=== PATIENT | female | born 1945 | race Caucasian/White ===

== ENCOUNTER 2024-03-24 12:22 | Outpatient (OUT) | payer MEDICARE, SELFPAY ==
--- NOTE | 2024-03-24 13:49 | P.CN_ITS ---
Consult Note: HPI Data of Consult Patient: new to practice Consult date: 03/24/24 Requesting Physician: Jani Jeffers MD Primary Care Provider: KEATON MEDEL Consult Narrative Reason for consult: low back pain, bilateral lower extremity cramps Narrative: 78yof who presents for evaluation. longstanding low back history, now has symptoms that radiate into bilateral lower extremities. had hip replacement recently, was told that pain not stemming from her hips. no advanced imaging of spine available for review. has completed physical therapy and continues in chiropractic therapy >6 weeks, without lasting benefit. has tried various pain medications and muscle relaxers, but was unable to tolerate. cannot take nsaids due to decreased kidney function. uses primarily tylenol. cc:: CC: Jani Jeffers MD Review of Systems ROS Status of ROS 10 or more systems reviewed and unremark able except as noted in history and below Exam Narrative Exam Narrative: Psych-alert and oriented x 3. Attentive and appropriate, constitutionally normal, displays normal mood and affect per situation. There are no obvious deficits in memory, reasoning, or intellect.? Skin-no obvious rashes, bruising, erythema noted to the patient's area of pain.? Extremities- extremities are warm with minimal edema and palpable pulses. Lumbar-tenderness to palpation noted in the lumbar spine and paraspinal musculature. Pain is elicited with flexion, extension, and lateral rotation of the lumbar spine. Range of motion is diminished with these motions. Facet loading maneuvers are positive.? Strength-noted to be unremarkable with the exception of decreased strength rated at 4 out of 5 in bilateral quadriceps femoris, anterior tibialis. Sensory-no notable sensory deficits in the bilateral lower extremities to touch or pinprick in all dermatomal distributions with the exception to decreased sensation to the bilateral L4, 5 dermatomal distribution Coordination remains intact.? Gait remains (non-antalgic). Assessment and Plan Assessment and Plan (1) Lumbar stenosis with neurogenic claudication: (2) Lumbar spondylosis: Plan 78yof who presents for evaluation. failed conservative measures, as noted. given symptoms and exam findings, prudent to obtain lumbar mri without contrast, as well as xr sacrum. she is in agreement. meds reviewed, no changes. follow up after imaging complete.
== END 2024-03-24 12:23 | disposition home or self-care (01) ==
PROVIDERS: PCP Internal Medicine; Visit Provider Anesthesiology
DX: M48.062 Spinal stenosis, lumbar region with neurogenic claudication (principal); M47.816 Spondylosis without myelopathy or radiculopathy, lumbar region
CPT/HCPCS: G0463

== ENCOUNTER 2024-04-01 09:37 | Outpatient (OUT) | payer MEDICARE, SELFPAY ==
--- NOTE | 2024-04-01 09:46 | MR_ITS ---
[address] [address] Patient Name: ANU STANFORD MRN: [facility]:[id number] date: 1945 Sex: F Assigned Patient Location: MRI Current Patient Location: MRI Accession/Order Number: [id number] Exam Date: 04/01/2024 10:08 Report Date: 04/01/2024 11:23 At the request of: SILAS BREWSTER Procedure: MR lumbar spine wo con EXAMINATION: MR lumbar spine wo con HISTORY: Lumbar Stenosis With Neuro Claudication COMPARISON: No relevant comparison available. TECHNIQUE: A variety of imaging planes and parameters were utilized for visualization of suspected pathology. FINDINGS: For the purposes of numbering, sagittal T2 image # 8 extends from the T10 vertebral body superiorly to the S3-S4 level inferiorly. PARASPINAL AREA: Normal with no visible mass. BONES: 2 mm retrolisthesis of L2 on L3. 4 mm retrolisthesis L3 on L4. 3 mm retrolisthesis of L4 and L5. Moderate diffuse degenerative spondylosis. No acute fracture CORD/CAUDA EQUINA: Normal caliber, contour, and signal intensity. DISC LEVELS: 12-L1: No significant disc/facet abnormality, spinal stenosis, or foraminal stenosis. L1-L2: Moderate disc space narrowing and disc desiccation. Mild diffuse disc/osteophyte complex and ligamentum flavum hypertrophy. No central or foraminal stenosis L2-L3: Disc collapse with endplate sclerosis. Moderate diffuse anterior posterior disc/osteophyte complex. Moderate ligamentum flavum hypertrophy and facet osteoarthropathy. Mild trefoil narrowing of the central canal. No definite foraminal stenosis L3-L4: Disc collapse with endplate sclerosis. Moderate diffuse disc/osteophyte complex. Ligamentum flavum hypertrophy and facet osteoarthropathy. No central canal stenosis. Moderate bilateral foraminal stenosis right greater than left L4-L5: Asymmetric disc narrowing with collapse on the right side. Moderate disc/osteophyte complex and ligamentum flavum hypertrophy and facet osteoarthropathy. Left L5 hemilaminotomy. No central canal stenosis. Severe right and moderate left foraminal stenosis L5-S1: Severe disc space narrowing. Moderate disc/osteophyte complex. Ligamentum flavum flavum hypertrophy and facet osteoarthropathy. Left L5 hemilaminotomy No central canal stenosis. Moderate to severe bilateral foraminal stenosis MR/MR lumbar spine wo con IMPRESSION: Degenerative changes resulting in foraminal stenosis at multiple levels as detailed above Electronically authenticated by: VIDAL BENAVIDES Date: 04/01/2024 11:23
--- NOTE | 2024-04-01 09:58 | XR_ITS ---
The [address] [address] Patient Name: ANU STANFORD MRN: [facility]:[id number] date: 1945 Sex: F Assigned Patient Location: MRI Current Patient Location: Accession/Order Number: [id number] Exam Date: 04/01/2024 10:55 Report Date: 04/02/2024 08:22 At the request of: ANDRIUS GIEDRAITIS Procedure: XR sacrum coccyx min 2V PROCEDURE: XR sacrum coccyx min 2V COMPARISON: None. HISTORY: Lumbar Stenosis FINDINGS: SACRUM: Mild-moderate degenerative changes of the sacroiliac joints. No fracture, disruption of the sacral ala line, or cortical irregularity. COCCYX: No fracture or suspicious alignment. SOFT TISSUES: No widening of the sacroiliac joints. No radiopaque foreign body. OTHER: Prior right hip replacement. Marked degenerative disc disease and facet arthropathy L3-4 through L5-S1. XR/XR sacrum coccyx min 2V IMPRESSION: 1. Mild/moderate degenerative changes of the sacroiliac joints. No acute abnormality of the sacrum or coccyx. 2. Marked degenerative changes of the visible lumbar spine. Electronically authenticated by: KALANI TORRES Date: 04/02/2024 08:22
== END 2024-04-01 09:38 | disposition home or self-care (01) ==
LOC: MRI 09:38
PROVIDERS: PCP Internal Medicine; Visit Provider Anesthesiology
DX: M48.062 Spinal stenosis, lumbar region with neurogenic claudication (principal); M51.36 Other intervertebral disc degeneration, lumbar region; M53.3 Sacrococcygeal disorders, not elsewhere classified
CPT/HCPCS: 72148; 72220

== ENCOUNTER 2024-04-09 10:03 | Outpatient (OUT) | payer MEDICARE, SELFPAY ==
--- NOTE | 2024-04-09 10:15 | P.CN_ITS ---
Consult Note: HPI Data of Consult Patient: new to practice Consult date: 03/24/24 Requesting Physician: Ching Wylie NP Primary Care Provider: KEATON MEDEL Consult Narrative Reason for consult: low back pain, bilateral lower extremity cramps Narrative: 78yof who presents for evaluation. longstanding low back history, now has symptoms that radiate into bilateral lower extremities. had hip replacement recently, was told that pain not stemming from her hips. has completed physical therapy and continues in chiropractic therapy >6 weeks, without lasting benefit. has tried various pain medications and muscle relaxers, but was unable to tolerate. cannot take nsaids due to decreased kidney function. uses primarily tylenol. Recently completed lumbar MRI with results as noted below. cc:: CC: Chign Wylie NP Review of Systems ROS Status of ROS 10 or more systems reviewed and unremark able except as noted in history and below Musculoskeletal Reports: back pain Meds Home Medications and Allergies Home Medications ?Medication ?Instructions ?Recorded ?Confirmed ?Type amlodipine 10 mg tablet 10 mg PO DAILY 03/24/24 03/24/24 History atorvastatin 20 mg tablet 20 mg PO DAILY 03/24/24 03/24/24 History bumetanide 2 mg tablet 2 mg PO DAILY 03/24/24 03/24/24 History cefadroxil 500 mg capsule 500 mg PO BID PRN INFECTION 03/24/24 03/24/24 History cholecalciferol (vitamin D3) 100 4,000 unit PO DAILY 03/24/24 03/24/24 History mcg (4,000 unit) capsule coQ10 (ubiquinol) 100 mg capsule 100 mg PO DAILY 03/24/24 03/24/24 History garlic 1,000 mg capsule 1,000 mg PO DAILY 03/24/24 03/24/24 History glipizide 10 mg tablet 10 mg PO DAILY 03/24/24 03/24/24 History insulin glargine 100 unit/mL 25 unit subcut DAILY 03/24/24 03/24/24 History subcutaneous solution (Lantus U-100 Insulin) losartan 25 mg tablet 25 mg PO DAILY 03/24/24 03/24/24 History lysine 500 mg capsule 50 mg .QD 03/24/24 History multivitamin 1 tab PO DAILY 03/24/24 03/24/24 History therapeutic multivitamin 1 tab PO BID 03/24/24 03/24/24 History vitamin A 2,400 mcg capsule 2,400 mcg PO DAILY 03/24/24 03/24/24 History vitamin B complex 1 cap PO DAILY 03/24/24 03/24/24 History Allergies Allergy/AdvReac Type Severity Reaction Status Date / Time gluten AdvReac Mild INTOLERANCE Verified 03/24/24 15:44 Exam Narrative Exam Narrative: Psych-alert and oriented x 3. Attentive and appropriate, constitutionally normal, displays normal mood and affect per situation. There are no obvious deficits in memory, reasoning, or intellect.? Skin-no obvious rashes, bruising, erythema noted to the patient's area of pain.? Extremities- extremities are warm with minimal edema and palpable pulses. Lumbar-tenderness to palpation noted in the lumbar spine and paraspinal musculature. Pain is elicited with flexion, extension, and lateral rotation of the lumbar spine. Range of motion is diminished with these motions. Facet load ing maneuvers are positive.? Strength-noted to be unremarkable with the exception of decreased strength rated at 4 out of 5 in bilateral quadriceps femoris, anterior tibialis. Sensory-no notable sensory deficits in the bilateral lower extremities to touch or pinprick in all dermatomal distributions with the exception to decreased sensation to the bilateral L4, 5 dermatomal distribution Coordination remains intact.? Gait remains (non-antalgic). Results Imaging Lumbar MRI: Attestation: I have reviewed the pertinent imaging results. Radiologist's impression: 12-L1: No significant disc/facet abnormality, spinal stenosis, or foraminal stenosis. L1-L2: Moderate disc space narrowing and disc desiccation. Mild diffuse disc/osteophyte complex and ligamentum flavum hypertrophy. No central or foraminal stenosis L2-L3: Disc collapse with endplate sclerosis. Moderate diffuse anterior posterior disc/osteophyte complex. Moderate ligamentum flavum hypertrophy and facet osteoarthropathy. Mild trefoil narrowing of the central canal. No definite foraminal stenosis L3-L4: Disc collapse with endplate sclerosis. Moderate diffuse disc/osteophyte complex. Ligamentum flavum hypertrophy and facet osteoarthropathy. No central canal stenosis. Moderate bilateral foraminal stenosis right greater than left L4-L5: Asymmetric disc narrowing with collapse on the right side. Moderate disc/osteophyte complex and ligamentum flavum hypertrophy and facet osteoarthropathy. Left L5 hemilaminotomy. No central canal stenosis. Severe right and moderate left foraminal stenosis L5-S1: Severe disc space narrowing. Moderate disc/osteophyte complex. Ligamentum flavum flavum hypertrophy and facet osteoarthropathy. Left L5 hemilaminotomy No central canal stenosis. Moderate to severe bilateral foraminal stenosis Assessment and Plan Assessment and Plan (1) Lumbar stenosis with neurogenic claudication: (2) Lumbar spondylosis: Plan 78yof who presents for evaluation. failed conservative measures, as noted. meds reviewed, no changes. imaging reviewed with patient. prudent to attempt bilateral L4-5 TFESI under fluoroscopy followed by bilateral L5-S1 TFESI under fluoroscopy for multilevel DDD and lumbar stenosis with NC. f/u 2 weeks after injections complete
== END 2024-04-09 10:04 | disposition home or self-care (01) ==
LOC: PM 10:04
PROVIDERS: PCP Internal Medicine; Visit Provider Nurse Practitioner
DX: M48.062 Spinal stenosis, lumbar region with neurogenic claudication (principal); M47.816 Spondylosis without myelopathy or radiculopathy, lumbar region
CPT/HCPCS: G0463

== ENCOUNTER 2024-04-28 08:50 | Day surgery (SDC) | payer MEDICARE, SELFPAY ==
--- OUTSIDE RECORDS SUMMARY | 2024-04-28 09:06 | XMS_ITS | CCD ---
Author Organization [facility] Care Team Providers Care Dental Services Director Name Role Phone ZACH, DR MARCH Consulting Unavailable HIESTAND, DR KEATON Emerson Primary Care Unavailable JIAANIC, DR MARCH Attending Unavailable STEPANIC, DR MARCH Admitting Unavailable ZIEBER, DR KALANI Cruz Consulting Unavailable Keaton Medel MD Primary Care Provider YESIKA WARD Attending Unavailable YESIKA WARD Referring Unavailable KEATON MEDEL Admitting Unavailable KEATON MEDEL Attending Unavailable KEATON MEDEL Referring Unavailable KEATON MEDEL Primary Care Unavailable KEATON MEDEL Attending Unavailable KEATON MEDEL Referring Unavailable KEATON MEDEL Primary Care Unavailable KEATON MEDEL Attending Unavailable KEATON MEDEL Referring Unavailable KEATON MEDEL Primary Care Unavailable KEATON MEDEL Referring Unavailable KEATON MEDEL Primary Care Unavailable KEATON MEDEL Referring Unavailable KEATON MEDEL Primary Care Unavailable KEATON MEDEL Referring Unavailable KEATON MEDEL Primary Care Unavailable KEATON MEDEL Attending Unavailable KEATON MEDEL Referring Unavailable KEATON MEDEL Primary Care Unavailable MUSA GIL Referring Unavailable HIESTKEATON PALOMO Primary Care Unavailable MUSA GIL Referring Unavailable HIESTKEATON PALOMO Primary Care Unavailable Zeyad EDWARDS, Jani Sorto Attending Unavailable KEATON MEDEL Attending Unavailable KEATON MEDEL Referring Unavailable KEATON MEDEL Primary Care Unavailable KEATON MEDEL Attending Unavailable KEATON MEDEL Referring Unavailable KEATON MEDEL Primary Care Unavailable KEATON MEDEL Attending Unavailable KEATON MEDEL Referring Unavailable KEATON MEDEL Primary Care Unavailable KEATON MEDEL Attending Unavailable KEATON MEDEL Referring Unavailable SCOTTYESTKEATON PALOMO Primary Care Unavailable Allergies Allergy Classification Reported Allergen(s) Allergy Type Date of Onset Reaction(s) Facility (12 sources) Codeine; 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: [CODEINE] Drug Allergy 05-10-2021 Dizziness, Nausea [facility] (12 sources) gabapentin; 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: [GABAPENTIN] Drug Allergy 10-22-[address] [facility] (12 sources) tiZANidine; 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: [TIZANIDINE] Drug Allergy 04-19-[address] [facility] (12 sources) traMADol; 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: [TRAMADOL] Drug Allergy 01-10-2018 Itching, Dizziness, Vomiting [facility] Work Phone: (12 sources) Wheat gluten extract; 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: [GLUTEN] Drug Allergy 12-01-[address] [facility] Medications Current Medications Medication Drug Class(es) Dates Sig (Normalized) Sig (Original) acetaminophen 500 mg oral tablet (10 sources) Start: 01-02-2022 take 2 tablets by mouth every six hours as needed for pain acetaminophen (TYLENOL EXTRA STRENGTH) 500 mg tablet Take 2 tablets (1,000 mg total) by mouth every 6 (six) hours as needed for pain. 30 tablet 0 01/02/2022 Active amLODIPine 5 mg oral tablet (10 sources) Dihydropyridine Calcium Channel Abran Start: 03-02-2023 take 1 tablet by mouth in the morning amLODIPine (NORVASC) 5 mg tablet TAKE 1 TABLET BY MOUTH IN THE MORNING 90 tablet 2 03/02/2023 Active atorvastatin 20 mg oral tablet (10 sources) HMG-CoA Reductase Inhibitor Start: 01-09-2023 take 1 tablet by mouth in the morning atorvastatin (LIPITOR) 20 mg tablet Take 1 tablet (20 mg total) by mouth in the morning. 90 tablet 3 01/09/2023 Active B-complex with vitamin C tablet (10 sources) take 1 tablet by mouth in the morning B-complex with vitamin C tablet Take 1 tablet by mouth in the morning. 0 Suspended take 1 tablet by mouth in the mo rning B-complex with vitamin C tablet Take 1 tablet by mouth in the morning. 0 Active benzonatate 200 mg oral capsule (7 sources) Non-narcotic Antitussive Start: 11-28-2023 End: 12-10-2023 take 1 capsule by mouth three times daily as needed for cough benzonatate (TESSALON PERLES) 200 mg capsule Take 1 capsule (200 mg total) by mouth 3 (three) times a day as needed for cough. 20 capsule 0 11/28/2023 12/10/2023 Discontinued bumetanide 2 mg oral tablet (12 sources) Loop Diuretic Start: 12-10-2023 take 1 tablet by mouth once daily bumetanide (BUMEX) 2 mg tablet Take 1 tablet (2 mg total) by mouth daily. 90 tablet 3 12/10/2023 Active Start: 11-08-2022 End: 12-10-2023 take 1 tablet by mouth once daily bumetanide (BUMEX) 1 mg tablet Take 1 tablet (1 mg total) by mouth daily. 90 tablet 0 09/20/2023 12/10/2023 Discontinued (Reorder) cefdinir 300 mg oral capsule (6 sources) Cephalosporin Antibacterial Start: 12-07-2023 End: 12-12-2023 take 1 capsule by mouth in the morning, then take 1 capsule by mouth at bedtime cefDINIR (OMNICEF) 300 mg capsule Take 1 capsule (300 mg total) by mouth in the morning and 1 capsule (300 mg total) before bedtime. Do all this for 5 days. 10 capsule 0 12/07/2023 12/12/2023 Active Start: 11-28-2023 End: 12-05-2023 take 1 capsule by mouth in the morning, then take 1 capsule by mouth at bedtime cefDINIR (OMNICEF) 300 mg capsule Take 1 capsule (300 mg total) by mouth in the morning and 1 capsule (300 mg total) before bedtime. Do all this for 7 days. 14 capsule 0 11/28/2023 12/05/2023 Active cholecalciferol 0.05 mg oral capsule (10 sources) Vitamin D take 1 capsule by mouth in the morning cholecalciferol, vitamin D3, 2,000 units capsule Take 1 capsule (2,000 Units total) by mouth in the morning. 0 Active cranberry conc-ascorbic acid 4,200-20 mg capsule (10 sources) take 1 capsule by mouth in the morning cranberry conc-ascorbic acid 4,200-20 mg capsule Take 1 capsule by mouth in the morning and 1 capsule before bedtime. 0 Suspended take 1 capsule by mouth in the m orning cranberry conc-ascorbic acid 4,200-20 mg capsule Take 1 capsule by mouth in the morning and 1 capsule before bedtime. 0 Active garlic preparation 1000 mg oral capsule (10 sources) Non-Standardized Food Allergenic Extract take 1 tablet by mouth once daily garlic 1,000 mg capsule Take 1 tablet by mouth daily. 0 Suspended take 1 tablet by mouth once yesenia y garlic 1,000 mg capsule Take 1 tablet by mouth daily. 0 Active glipiZIDE er 10 mg 24 hr extended release oral tablet (10 sources) Sulfonylurea Start: 01-18-2023 take 1 tablet by mouth every twenty-four hours in the morning glipiZIDE (GLUCOTROL XL) 10 mg 24 hr tablet TAKE 1 TABLET BY MOUTH IN THE MORNING 90 tablet 3 01/18/2023 Active 3 ml insulin glargine 100 unt/ml pen injector (5 sources) Insulin Analog Start: 12-06-2023 insulin glargine (LANTUS SOLOSTAR U-100 INSULIN) 100 unit/mL (3 mL) insulin pen Inject 25 Units under the skin nightly. 24 mL 3 12/06/2023 Active losartan potassium 100 mg oral tablet (10 sources) Angiotensin 2 Receptor Abran Start: 08-20-2023 take 1 tablet by mouth in the morning losartan (COZAAR) 100 mg tablet Take 1 tablet (100 mg total) by mouth in the morning. 90 tablet 3 08/20/2023 Active lysine 500 mg oral tablet (10 sources) take 1 tablet by mouth in the morning lysine 500 mg tablet Take 1 tablet (500 mg total) by mouth in the morning. 0 Active meclizine hydrochloride 25 mg oral tablet (9 sources) Antiemetic Start: 11-28-2023 End: 11-28-2023 take 1 tablet by mouth three times daily as needed for dizziness meclizine (ANTIVERT) 25 mg tablet Take 1 tablet (25 mg total) by mouth 3 (three) times a day as needed for dizziness. 15 tablet 0 11/28/2023 Active multivitamin (THERAGRAN) tablet (10 sources) take 1 tablet by mouth in the morning multivitamin (THERAGRAN) tablet Take 1 tablet by mouth in the morning. 0 Suspended take 1 tablet by mouth in the mo rning multivitamin (THERAGRAN) tablet Take 1 tablet by mouth in the morning. 0 Active NON FORMULARY (10 sources) NON FORMULARY da susan. [place] Beet- red beet supplement for circulation 0 Suspended NON FORMULARY da susan. [place] Beet- red beet supplement for circulation 0 Active ubidecarenone 30 mg oral capsule (9 sources) End: 12-10-2023 take 1 capsule by mouth once in the morning coenzyme Q10 30 mg capsule Take 1 capsule (30 mg total) by mouth in the morning. 0 12/10/2023 Discontinued Completed/Discontinued Medications Medication Drug Class(es) Dates Sig (Normalized) Sig (Original) cefadroxil 500 mg oral capsule (3 sources) Cephalosporin Antibacterial Start: 07-04-2023 End: 06-25-2024 cefaDROXil (DURICEF) 500 mg capsule 1 tablet twice a day, for 5 days. Start for sign of infection. 60 capsule 0 07/04/2023 11/28/2023 Discontinued (Stop Taking at Discharge) insulin glargine,hum.rec. anlog (LANTUS SOLOSTAR U-100 INSULIN SUBQ) (6 sources) End: 12-06-2023 inject 25 [IU] by subcutaneous injection once daily at bedtime insulin glargine,hum.rec.a nlog (LANTUS SOLOSTAR U-100 INSULIN SUBQ) Inject 25 Units under the skin once daily at bedtime. 0 12/06/2023 Discontinued (Reorder) inject 25 [IU] by cortez bcutaneous injection once daily at bedtime insulin glargine,hum.rec.anlog (LANTUS SOLOSTAR U-100 INSULIN SUBQ) Inject 25 Units under the skin once daily at bedtime. 0 Active inject 25 [IU] by cortez bcutaneous injection once daily at bedtime insulin glargine,hum.rec.anlog (LANTUS SOLOSTAR U-100 INSULIN SUBQ) Inject 25 Units under the skin once daily at bedtime. 0 Suspended insulin glargine ,hum.rec.anlog (LANTUS SOLOSTAR U-100 INSULIN SUBQ) Inject under the skin. 0 Active metFORMIN hydrochloride 500 mg oral tablet (10 sources) Biguanide Start: 01-31-2023 End: 12-11-2023 take 1 tablet by mouth twice daily at mealtime metFORMIN (GLUCOPHAGE) 500 mg tablet TAKE 1 TABLET BY MOUTH TWICE DAILY WITH MEALS 180 tablet 3 01/31/2023 12/11/2023 Discontinued ondansetron 4 mg oral tablet (3 sources) Serotonin-3 Receptor Antagonist Start: 04-24-2023 End: 11-28-2023 take 1 tablet by mouth every eight hours as needed for nausea ondansetron (ZOFRAN) 4 mg tablet Indications: Vertigo Take 1 tablet (4 mg total) by mouth every 8 (eight) hours as needed for nausea or vomiting. 10 tablet 0 04/24/2023 11/28/2023 Discontinued (Stop Taking at Discharge) Problems Active Problems Problem Classification Problem Date Documented Date Episodic/Chronic Chronic kidney disease (13 sources) Chronic kidney disease stage 4; 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: [Chronic kidney disease, stage 4 (severe)] Onset: 11-10-2020 11-28-2022 Chronic Chronic obstructive pulmonary disease and bronchiectasis (1 source) Bronchitis; 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: [Bronchitis, not specified as acute or chronic] 11-30-2023 Episodic Diabetes mellitus with complications (14 sources) Retinopathy due to type 2 diabetes mellitus; 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: [Type 2 diabetes mellitus with unspecified diabetic retinopathy without macular edema] Onset: 11-10-2020 11-11-2021 Chronic Diabetes mellitus without complication (10 sources) Diabetes mellitus; 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: [Type 2 diabetes mellitus without complications] 11-10-2020 Chronic Disorders of lipid metabolism (12 sources) Hypercholesterolemia; 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: [Pure hypercholesterolemia, unspecified] Onset: 11-10-2020 11-10-2020 Chronic Essential hypertension (11 sources) Hypertensive disorder; 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: [Essential (primary) hypertension] Onset: 11-10-2020 11-10-2020 Chronic Genitourinary symptoms and ill-defined conditions (10 sources) Urinary incontinence; 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: [Unspecified urinary incontinence] Onset: 06-25-2019 06-25-2019 Chronic Malaise and fatigue (1 source) Other fatigue; 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: [Other fatigue] Onset: 01-03-2024 Episodic Osteoarthritis (4 sources) Unilateral primary osteoarthritis, right hip; 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: [UNI PRIM OSTEOARTHRITIS RT HIP] Onset: 08-15-2021 Chronic Other circulatory disease (1 source) Other specified symptoms and signs involving the circulatory and respiratory systems; 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: [Other specified symptoms and signs involving the circulatory and respiratory systems] Onset: 01-04-2024 Episodic Other connective tissue disease (1 source) Foot pain; 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: [Pain in right foot] 11-30-2023 Episodic Other nutritional; endocrine; and metabolic disorders (10 sources) Body mass index 40+ - severely obese; 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: [Body mass index (BMI) 40.0-44.9, adult] Onset: 12-01-2020 12-01-2020 Chronic Other nutritional; endocrine; and metabolic disorders (1 source) Body mass index (BMI) 40.0-44.9, adult; 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: [Body mass index (BMI) 40.0-44.9, adult] Onset: 12-01-2020 Chronic Other upper respiratory infections (1 source) Acute sinusitis, unspecified; 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: [Acute sinusitis, unspecified] Onset: 04-22-2024 Episodic Spondylosis; intervertebral disc disorders; other back problems (10 sources) Lumbosacral spondylosis without myelopathy; 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: [Spondylosis without myelopathy or radiculopathy, lumbosacral region] Onset: 07-05-2017 08-21-2017 Chronic Unclassified (1 source) Annual Exam Onset: 01-02-2024 Unclassified (1 source) transition of care Onset: 11-30-2023 Unclassified (1 source) Earache Onset: 11-26-2023 Past or Other Problems Problem Classification Problem Date Documented Da te Episodic/Chronic Conditions associated with dizziness or vertigo (13 sources) Vertigo; 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: [Dizziness and giddiness] Onset: 11-26-2023 11-26-2023 Episodic Genitourinary symptoms and ill-defined conditions (20 sources) Microscopic hematuria; 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: [Other microscopic hematuria] Onset: 07-18-2019 06-27-2021 Episodic Intestinal obstruction without hernia (10 sources) Fecal impaction; 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: [Fecal impaction] Onset: 01-02-2022 01-02-2022 Episodic Mood disorders (10 sources) Mood disorders Onset: 11-26-2022 11-26-2022 Other aftercare (2 sources) USP (current) use of insulin; 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: [financial services assistant (current) use of insulin] Onset: 11-10-2020 Episodic Other connective tissue disease (1 source) Pain in right foot; 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: [Pain in right foot] Onset: 11-30-2023 Episodic Other lower respiratory disease (1 source) Cough Onset: 11-26-2023 Episodic Other non-traumatic joint disorders (10 sources) Pain in right hip joint; 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: [Pain in right hip] Onset: 12-26-2021 12-26-2021 Episodic Otitis media and related conditions (3 sources) Acute suppurative otitis media without spontaneous rupture of ear drum; 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: [Acute suppurative otitis media without spontaneous rupture of ear drum, right ear] Onset: 11-26-2023 11-26-2023 Episodic Spondylosis; intervertebral disc disorders; other back problems (10 sources) Disorder of sacrum; 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: [Sacrococcygeal disorders, not elsewhere classified] Onset: 06-12-2017 10-16-2017 Episodic Urinary tract infections (10 sources) Recurrent urinary tract infection; 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: [Urinary tract infection, site not specified] Onset: 08-14-2018 07-04-2023 Episodic Results Test Name Value Interpretation Reference Range Facil it BASIC METABOLIC PANLon 03-21 Anion gap [Moles/Vol] 12 mmol/L Normal 5-15 [facility] Comment on above: Performed By: #### C MP #### [facility] ([id number]) [address] [place] [address] 60392 Calcium [Mass/Vol] 9.7 mg/dL Normal 8.5-10.5 [facility] Comment on above: Performed By: #### C MP #### [facility] ([id number]) [address] [place] [address] 99515 Chloride [Moles/Vol] 105 mmol/L Normal 98-109 [facility] Comment on above: Performed By: #### C MP #### [facility] ([id number]) [address] [place] [address] 12266 CO2 [Moles/Vol] 25 mmol/L Normal 22-32 [facility] Comment on above: Performed By: #### C MP #### [facility] ([id number]) [address] [place] [address] Creatinine [Mass/Vol] 2.61 mg/dL High 0.40-1.00 [facility] Comment on above: Result Comment: METH OD TRACEABLE TO IDMS STANDARD Performed By: #### C MP #### [facility] ([id number]) [address] [place] [address] 56632 GFR/1.73 sq M.predicted among non-blacks MDRD (S/P/Bld) [Vol rate/Area] 18 mL/min/{1.73_m2} Low >59 [facility] Comment on above: Result Comment: Reported eGFR is based on the CKD-EPI 2020 equation that does not use a race coefficient. Performed By: #### C MP #### [facility] ([id number]) [address] [place] [address] 03215 Glucose [Mass/Vol] 103 mg/dL High 65-99 [facility] Comment on above: Performed By: #### C MP #### [facility] ([id number]) [address] [place] [address] 78162 Potassium [Moles/Vol] 4.7 mmol/L Normal 3.5-5.0 [facility] Comment on above: Performed By: #### C MP #### [facility] ([id number]) [address] [place] [address] 25600 Sodium [Moles/Vol] 142 mmol/L Normal 134-146 [facility] Comment on above: Performed By: #### C MP #### [facility] ([id number]) [address] [place] [address] 48266 Urea nitrogen [Mass/Vol] 43 mg/dL High 5-27 [facility] Comment on above: Performed By: #### C MP #### [facility] ([id number]) [address] [place] [address] 52431 COMPLETE BLOOD COUNTon 03-21 Erythrocyte distribution width (RBC) [Ratio] 13.3 % Normal 11.5-15.0 [facility] Comment on above: Performed By: #### C MP #### [facility] ([id number]) [address] [place] [address] 82502 Hematocrit (Bld) [Volume fraction] 34.1 % Low 35-47 [facility] Comment on above: Performed By: #### C MP #### [facility] ([id number]) [address] [place] [address] 83261 Hemoglobin (Bld) [Mass/Vol] 11.7 g/dL Normal 11.7-15.5 [facility] Comment on above: Performed By: #### C MP #### [facility] ([id number]) [address] [place] [address] 09386 MCH (RBC) [Entitic mass] 30.9 pg Normal 27-34 [facility] Comment on above: Performed By: #### C MP #### [facility] ([id number]) [address] [place] [address] 33022 MCHC (RBC) [Mass/Vol] 34.4 g/dL Normal 32-36 [facility] Comment on above: Performed By: #### C MP #### [facility] ([id number]) [address] [place] [address] 13624 MCV (RBC) [Entitic vol] 90 fL Normal 80-100 [facility] Comment on above: Performed By: #### C MP #### [facility] ([id number]) [address] [place] [address] 94519 Platelet mean volume (Bld) [Entitic vol] 8.4 fL Normal 7-12 [facility] Comment on above: Performed By: #### C MP #### [facility] ([id number]) [address] [place] [address] 74837 Platelets (Bld) [#/Vol] 255 10*3/uL Normal 150-450 [facility] Comment on above: Performed By: #### C MP #### [facility] ([id number]) [address] [place] [address] 64066 RBC COUNT 3.80 X10E12/L Normal 3.80-5.20 [facility] Comment on above: Performed By: #### C MP #### [facility] ([id number]) [address] [place] [address] 57488 WBC (Bld) [#/Vol] 7.9 10*3/uL Normal 4.0-11.0 [facility] Comment on above: Performed By: #### C MP #### [facility] ([id number]) [address] [place] [address] 01930 MAGNESIUMon 03-21-2024 Magnesium [Mass/Vol] 1.8 mg/dL Normal 1.8-2.6 [facility] Comment on above: Performed By: #### C MP #### [facility] ([id number]) [address] [place] [address] 93368 PHOSPHORUSon 03-21-2024 Phosphate [Mass/Vol] 4.0 mg/dL Normal 2.4-4.9 [facility] Comment on above: Performed By: #### C MP #### [facility] ([id number]) [address] [place] [address] 58549 PROTEIN CREAT RATIOon 2023 RANDOM URINE PROTEIN 3770 mg/L High <120 [facility] Comment on above: Performed By: #### C MP #### [facility] ([id number]) [address] [place] [address] 78831 U/PRO/INSURANCE TERRITORY MANAGER RATIO CALC 2.26 High <0.2 [facility] Comment on above: Result Comment: Neph rotic Syndrome is associated with ratios >3.5 Performed By: #### C MP #### [facility] ([id number]) [address] [place] [address] 62839 URINE CREATININE,RDM 166.75 mg/dL Normal Pr [facility] Comment on above: Performed By: #### C MP #### [facility] ([id number]) [address] [place] [address] 73080 Parathyrin.intact [Mass/Vol] on 03-21-2024 PTH INTACT 123 pg/mL High [facility] Comment on above: Performed By: #### C MP #### [facility] ([id number]) [address] [place] [address] 76031 URINALYSISon 03-21-2024 Bilirubin Ql (U) Negative Normal NEG [facility] Comment on above: Performed By: #### C MP #### [facility] ([id number]) [address] [place] [address] 08117 BLOOD/HGB Negative Normal NEG [facility] Comment on above: Performed By: #### C MP #### [facility] ([id number]) [address] [place] [address] 37916 Color (U) YELLOW Normal YELLOW [facility] Comment on above: Performed By: #### C MP #### [facility] ([id number]) [address] [place] [address] 47764 Glucose Ql (U) 30 mg/dL Abnormal NEG [facility] Comment on above: Performed By: #### C MP #### [facility] ([id number]) [address] [place] [address] 85757 Hyaline casts LM Ql (Urine sed) 1 /lpf Normal 0-2 [facility] Comment on above: Performed By: #### C MP #### [facility] ([id number]) [address] [place] [address], [place] [address] Ketones Ql (U) Negative Normal NEG [facility] Comment on above: Performed By: #### C MP #### [facility] ([id number]) [address] [place] [address] 23997 Leukocyte esterase Test strip Ql (U) MODERATE Abnormal NEG [facility] Comment on above: Performed By: #### C MP #### [facility] ([id number]) [address] [place] [address] 01878 MUCOUS PRESENT Abnormal NONE [facility] Comment on above: Performed By: #### C MP #### [facility] ([id number]) [address] [place] [address] 63995 Nitrite Ql (U) Negative Normal NEG [facility] Comment on above: Performed By: #### C MP #### [facility] ([id number]) [address] [place] [address] 74277 pH (U) 6.0 [pH] Normal 5.0-8.5 [facility] Comment on above: Performed By: #### C MP #### [facility] ([id number]) [address] [place] [address] 07318 Protein Ql (U) 300 mg/dL Abnormal NEG [facility] Comment on above: Performed By: #### C MP #### [facility] ([id number]) [address] [place] [address] 48991 R.B.CELLS 2 /hpf Normal 0-5 [facility] Comment on above: Performed By: #### C MP #### [facility] ([id number]) [address] [place] [address] 45228 Specific gravity (U) [Rel density] 1.020 Normal 1.003-1.035 [facility] Comment on above: Performed By: #### C MP #### [facility] ([id number]) [address] [place] [address] 41880 SQUAMOUS EPITHELIUM 2 /hpf Normal 0-5 [facility] Comment on above: Performed By: #### C MP #### [facility] ([id number]) [address] [place] [address] 14313 TURBIDITY CLEAR Normal CLEAR [facility] Comment on above: Performed By: #### C MP #### [facility] ([id number]) [address] [place] [address] [place] [address] Urobilinogen (U) [Mass/Vol] mg/dL Normal <1.1 [facility] Comment on above: Performed By: #### C MP #### [facility] ([id number]) [address] [place] [address] 62985 W.B.CELLS 24 /hpf High 0-5 [facility] Comment on above: Performed By: #### C MP #### [facility] ([id number]) [address] [place] [address] 62263 Vitamin D+Metabolites [Mass/ Vol]on 03-21-2024 VITAMIN D 25 HYD TOT 28.1 ng/mL Low 30-100 [facility] Comment on above: Result Comment: Vitamin D status 25 [place] Vitamin D Deficiency <20 ng/mL Insufficiency 20-29 ng/mL Sufficiency 30-100 ng/mL Toxicity >100 ng/mL NOTE: A pediatric reference range has not been established by the folder machine operator of this kit. The [employer] recommends a Vitamin D level of = or >20ng/mL in infants and children. Performed By: #### C MP #### [facility] ([id number]) [address] [place] [address] 22492 BASIC METABOLIC PANLon 03-07 Anion gap [Moles/Vol] 10 mmol/L Normal 5-15 [facility] Comment on above: Performed By: #### C BC, UPCR, BMP, 36192-0, 2777-1, 2731-8, 49085-9 ####[facility] ([id number])[address] [place] [address] Calcium [Mass/Vol] 9.6 mg/dL Normal 8.5-10.5 [facility] Comment on above: Performed By: #### C BC, UPCR, BMP, 32135-8, 2777-1, 2731-8, 88021-2 ####[facility] ([id number])[address] [address], [place] [address] Chloride [Moles/Vol] 102 mmol/L Normal 98-109 [facility] Comment on above: Performed By: #### C BC, UPCR, BMP, 41265-5, 2777-1, 2731-8, 43255-4 ####[facility] ([id number])[address] [address], [place] [address] CO2 [Moles/Vol] 28 mmol/L Normal 22-32 [facility] Comment on above: Performed By: #### C BC, UPCR, BMP, 14941-4, 2777-1, 2731-8, 69401-4 ####[facility] ([id number])[address] [address] [place] [address] Creatinine [Mass/Vol] 3.34 mg/dL High 0.40-1.00 [facility] Comment on above: Result Comment: METH OD TRACEABLE TO IDMS STANDARD Performed By: #### C BC, UPCR, BMP, 25850-3, 2777-1, 2731-8, 99284-8 ####[facility] ([id number])[address] [address], [place] [address] GFR/1.73 sq M.predicted among non-blacks MDRD (S/P/Bld) [Vol rate/Area] 14 mL/min/{1.73_m2} Low >59 [facility] Comment on above: Result Comment: Reported eGFR is based on the CKD-EPI 2020 equation that does not use a race coefficient. Performed By: #### C BC, UPCR, BMP, 03750-7, 2777-1, 2731-8, 29553-1 ####[facility] ([id number])[address], [address], [place] [address] Glucose [Mass/Vol] 166 mg/dL High 65-99 [facility] Comment on above: Performed By: #### C BC, UPCR, BMP, 72913-0, 2777-1, 2731-8, 01278-4 ####[facility] ([id number])[address], [address] [place] [address] Potassium [Moles/Vol] 5.3 mmol/L High 3.5-5.0 [facility] Comment on above: Performed By: #### C BC, UPCR, BMP, 40025-9, 2777-1, 2731-8, 42503-5 ####[facility] ([id number])[address], [address] [place] [address] Sodium [Moles/Vol] 140 mmol/L Normal 134-146 [facility] Comment on above: Performed By: #### C BC, UPCR, BMP, 63397-6, 2777-1, 2731-8, 96053-3 ####[facility] ([id number])[address], [address] [place] [address] Urea nitrogen [Mass/Vol] 46 mg/dL High 5-27 [facility] Comment on above: Performed By: #### C BC, UPCR, BMP, 49520-6, 2777-1, 2731-8, 96058-6 ####[facility] ([id number])[address], [address] [place] [address] COMPLETE BLOOD COUNTon 03-07 Erythrocyte distribution width (RBC) [Ratio] 13.4 % Normal 11.5-15.0 [facility] Comment on above: Performed By: #### C BC, UPCR, BMP, 66986-2, 2777-1, 2731-8, 94337-4 ####[facility] ([id number])[address], [address] [place] [address] Hematocrit (Bld) [Volume fraction] 35.7 % Normal 35-47 [facility] Comment on above: Performed By: #### C BC, UPCR, BMP, 47389-4, 2777-1, 2731-8, 49333-4 ####[facility] ([id number])[address] [address] [place] [address] Hemoglobin (Bld) [Mass/Vol] 12.0 g/dL Normal 11.7-15.5 [facility] Comment on above: Performed By: #### C BC, UPCR, BMP, 17395-1, 2777-1, 2731-8, 29830-2 ####[facility] ([id number])[address] [address] [place] [address] MCH (RBC) [Entitic mass] 30.5 pg Normal 27-34 [facility] Comment on above: Performed By: #### C BC, UPCR, BMP, 02085-3, 2777-1, 2731-8, 30305-7 ####[facility] ([id number])[address] [address] [place] [address] MCHC (RBC) [Mass/Vol] 33.6 g/dL Normal 32-36 [facility] Comment on above: Performed By: #### C BC, UPCR, BMP, 62044-9, 2777-1, 2731-8, 59643-0 ####[facility] ([id number])[address] [address] [place] [address] MCV (RBC) [Entitic vol] 91 fL Normal 80-100 [facility] Comment on above: Performed By: #### C BC, UPCR, BMP, 28581-6, 2777-1, 2731-8, 66487-8 ####[facility] ([id number])[address] [address], [place] [address] Platelet mean volume (Bld) [Entitic vol] 9.2 fL Normal 7-12 [facility] Comment on above: Performed By: #### C BC, UPCR, BMP, 30243-6, 2777-1, 2731-8, 79731-9 ####[facility] ([id number])[address] [address], [place] [address] Platelets (Bld) [#/Vol] 268 10*3/uL Normal 150-450 [facility] Comment on above: Performed By: #### C BC, UPCR, BMP, 28459-9, 2777-1, 2731-8, 18322-2 ####[facility] ([id number])[address] [address], [place] [address] RBC COUNT 3.92 X10E12/L Normal 3.80-5.20 [facility] Comment on above: Performed By: #### C BC, UPCR, BMP, 03688-3, 2777-1, 2731-8, 19256-9 ####[facility] ([id number])[address] [address] [place] [address] WBC (Bld) [#/Vol] 6.9 10*3/uL Normal 4.0-11.0 [facility] Comment on above: Performed By: #### C BC, UPCR, BMP, 45504-4, 2777-1, 2731-8, 93002-5 ####[facility] ([id number])[address], [address], [place] [address] MAGNESIUMon 03-07-2024 Magnesium [Mass/Vol] 2.1 mg/dL Normal 1.8-2.6 [facility] Comment on above: Performed By: #### C BC, UPCR, BMP, 90374-5, 2777-1, 2731-8, 98418-0 ####[facility] ([id number])[address], [address] [place] [address] PHOSPHORUSon 03-07-2024 Phosphate [Mass/Vol] 4.4 mg/dL Normal 2.4-4.9 [facility] Comment on above: Performed By: #### C BC, UPCR, BMP, 42235-8, 2777-1, 2731-8, 49439-0 ####[facility] ([id number])[address], [address] [place] [address] PROTEIN CREAT RATIOon 2023 RANDOM URINE PROTEIN 1860 mg/L High <120 [facility] Comment on above: Performed By: #### C BC, UPCR, BMP, 80052-1, 2777-1, 2731-8, 20895-5 ####[facility] ([id number])[address], [address] [place] [address] U/PRO/INSURANCE TERRITORY MANAGER RATIO CALC 1.72 High <0.2 [facility] Comment on above: Result Comment: Neph rotic Syndrome is associated with ratios >3.5 Performed By: #### C BC, UPCR, BMP, 98268-4, 2777-1, 2731-8, 55001-1 ####[facility] ([id number])[address], [address] [place] [address] URINE CREATININE,RDM 108.20 mg/dL Normal [facility] Comment on above: Performed By: #### C BC, UPCR, BMP, 62918-1, 2777-1, 2731-8, 59015-2 ####[facility] ([id number])[address], [address], [place] [address] Parathyrin.intact [Mass/Vol] on 03-07-2024 PTH INTACT 155 pg/mL High 12 [facility] Comment on above: Performed By: #### C BC, UPCR, BMP, 73002-2, 2777-1, 2731-8, 90640-5 ####[facility] ([id number])[address], [address], [place] [address] URINALYSISon 03-07-2024 Bilirubin Ql (U) Negative Normal NEG [facility] Comment on above: Performed By: #### U A ####[facility] ([id number])[address], [address], [place] [address] BLOOD/HGB Negative Normal NEG [facility] Comment on above: Performed By: #### U A ####[facility] ([id number])[address], [address], [place] [address] Color (U) YELLOW Normal YELLOW [facility] Comment on above: Performed By: #### U A ####[facility] ([id number])[address], [address], [place] [address] Glucose Ql (U) Negative Normal NEG [facility] Comment on above: Performed By: #### U A ####[facility] ([id number])[address], [address], [place] [address] Ketones Ql (U) Negative Normal NEG [facility] Comment on above: Performed By: #### U A ####[facility] ([id number])[address], [address], [place] [address] Leukocyte esterase Test strip Ql (U) Small Abnormal NEG [facility] Comment on above: Performed By: #### U A ####[facility] ([id number])[address], [address] [place] [address] MUCOUS PRESENT Abnormal NONE [facility] Comment on above: Performed By: #### U A ####[facility] ([id number])[address], [address], [place] [address] Nitrite Ql (U) Negative Normal NEG [facility] Comment on above: Performed By: #### U A ####[facility] ([id number])[address], [address] [place] [address] pH (U) 6.5 [pH] Normal 5.0-8.5 [facility] Comment on above: Performed By: #### U A ####[facility] ([id number])[address], [address] [place] [address] Protein Ql (U) 300 mg/dL Abnormal NEG [facility] Comment on above: Performed By: #### U A ####[facility] ([id number])[address] [address] [place] [address] R.B.CELLS <1 Normal 0-5 [facility] Comment on above: Performed By: #### U A ####[facility] ([id number])[address] [address] [place] [address] Specific gravity (U) [Rel density] 1.014 Normal 1.003-1.035 [facility] Comment on above: Performed By: #### U A ####[facility] ([id number])[address] [address] [place] [address] SQUAMOUS EPITHELIUM <1 Normal 0-5 [facility] Comment on above: Performed By: #### U A ####[facility] ([id number])[address] [address] [address] TURBIDITY CLEAR Normal CLEAR [facility] Comment on above: Performed By: #### U A ####[facility] ([id number])[address] [address], [place] [address] Urobilinogen (U) [Mass/Vol] mg/dL Normal <1.1 [facility] Comment on above: Performed By: #### U A ####[facility] ([id number])[address] [facility] [address], [place] [address] W.B.CELLS 6 /hpf High 0-5 [facility] Comment on above: Performed By: #### U A ####[facility] ([id number])[address] [facility] [address], [place] [address] Vitamin D+Metabolites [Mass/ Vol]on 03-07-2024 VITAMIN D 25 HYD TOT 27.2 ng/mL Low 30-100 [facility] Comment on above: Result Comment: Vitamin D status 25 [place] Vitamin D Deficiency <20 ng/mL Insufficiency 20-29 ng/mL Sufficiency 30-100 ng/mL Toxicity >100 ng/mL NOTE: A pediatric reference range has not been established by the folder machine operator of this kit. The [employer] [employer] recommends a Vitamin D level of = or >20ng/mL in infants and children. Performed By: #### C MP #### [facility] ([id number]) [address] [place] [address] HGB A1C (GLYCO-HGB)on 2023 Glucose [Mass/Vol] 169 mg/dL Normal [facility] Comment on above: Performed By: #### 2 4331-1, THYR ####[facility] ([id number])[address] [facility] [address], [place] [address] HbA1c (Bld) [Mass fraction] 7.5 % High 4.4-5.6 [facility] Comment on above: Result Comment: NOTE ADA Guidelines Result HgbA1c Normal : less than 5.7 % Prediabetes : 5.7 % to 6.4 % Diabetes : > 6.4 % Use with caution in patients with abnormal hemoglobin variants as the half-life of red blood cells and in vivo glycation rates are affected. Performed By: #### 2 4331-1, THYR ####[facility] ([id number])[address], [address] [address] Lipid 1996 panelon 4 Cholesterol [Mass/Vol] 179 mg/dL Normal 150-200 [facility] Comment on above: Performed By: #### 2 4331-1, THYR ####[facility] ([id number])[address] [facility] [address] [address] Cholesterol in HDL [Mass/Vol] 49 mg/dL Normal >39 [facility] Comment on above: Result Comment: HDL <40 mg/dL - High Risk HDL > or = 40mg/dL- Desirable HDL >60 mg/dL - Negative Risk Performed By: #### 2 4331-1, THYR ####[facility] ([id number])[address], [address] [address] Cholesterol in LDL [Mass/Vol] 93 mg/dL Normal <130 [facility] Comment on above: Result Comment: LDL <100 mg/dL - Desirable LDL >160 mg/dL - High Risk Performed By: #### 2 4331-1, THYR ####[facility] ([id number])[address] [address], [place] [address] Cholesterol in VLDL [Mass/Vol] 37 mg/dL High 0-30 [facility] Comment on above: Performed By: #### 2 4331-1, THYR ####[facility] ([id number])[address] [address], [place] [address] CHOLESTEROL:HDL 3.7 Normal 1.0-5.0 [facility] Comment on above: Performed By: #### 2 4331-1, THYR ####[facility] ([id number])[address], [address], [place] [address] Triglyceride [Mass/Vol] 186 mg/dL High 27-150 [facility] Comment on above: Performed By: #### 2 4331-1, THYR ####[facility] ([id number])[address] [address], [place] [address] THYROID PROFILEon 01-03-2024 Free T4 [Mass/Vol] 0.75 ng/dL Normal 0.61-1.60 [facility] Comment on above: Performed By: #### 2 4331-1, THYR ####[facility] ([id number])[address] [address] [place] [address] TSH 5.18 uIU/mL High 0.49-4.67 [facility] Comment on above: Performed By: #### 2 4331-1, THYR ####[facility] ([id number])[address] [address] [place] [address], [place] [address] BASIC METABOLIC PANLon 12-03 Anion gap [Moles/Vol] 11 mmol/L Normal 5-15 [facility] Comment on above: Performed By: #### C BCA, CMP #### [facility] ([id number]) [address] [place] [address], [place] [address] Calcium [Mass/Vol] 9.7 mg/dL Normal 8.5-10.5 [facility] Comment on above: Performed By: #### C BCA, CMP #### [facility] ([id number]) [address] [place] [address] Chloride [Moles/Vol] 104 mmol/L Normal 98-109 [facility] Comment on above: Performed By: #### C BCA, CMP #### [facility] ([id number]) [address] [place] [address] CO2 [Moles/Vol] 26 mmol/L Normal 22-32 [facility] Comment on above: Performed By: #### C BCA, CMP #### [facility] ([id number]) [address] [place] [address] Creatinine [Mass/Vol] 2.33 mg/dL High 0.40-1.00 [facility] Comment on above: Result Comment: METH OD TRACEABLE TO IDMS STANDARD Performed By: #### C BCA, CMP #### [facility] ([id number]) [address] [place] [address] GFR/1.73 sq M.predicted among non-blacks MDRD (S/P/Bld) [Vol rate/Area] 21 mL/min/{1.73_m2} Low >59 [facility] Comment on above: Result Comment: Reported eGFR is based on the CKD-EPI 1 equation that does not use a race coefficient. Performed By: #### C BCA, CMP #### [facility] ([id number]) [address] [place] [address] Glucose [Mass/Vol] 102 mg/dL High 65-99 [facility] Comment on above: Performed By: #### C BCA, CMP #### [facility] ([id number]) [address] [place] [address] Potassium [Moles/Vol] 4.9 mmol/L Normal 3.5-5.0 [facility] Comment on above: Performed By: #### C BCA, CMP #### [facility] ([id number]) [address] [place] [address] Sodium [Moles/Vol] 141 mmol/L Normal 134-146 [facility] Comment on above: Performed By: #### C BCA, CMP #### [facility] ([id number]) [address] [place] [address] Urea nitrogen [Mass/Vol] 43 mg/dL High 5-27 [facility] Comment on above: Performed By: #### C BCA, CMP #### [facility] ([id number]) [address] [place] [address] COMPLETE BLOOD COUNT 12-03 Erythrocyte distribution width (RBC) [Ratio] 13.0 % Normal 11.5-15.0 [facility] Comment on above: Performed By: #### C BCA, CMP #### [facility] ([id number]) [address] [place] [address] Hematocrit (Bld) [Volume fraction] 31.9 % Low 35-47 [facility] Comment on above: Performed By: #### C BCA, CMP #### [facility] ([id number]) [address] [place] [address] Hemoglobin (Bld) [Mass/Vol] 10.7 g/dL Low 11.7-15.5 [facility] Comment on above: Performed By: #### C BCA, CMP #### [facility] ([id number]) [address] [place] [address] MCH (RBC) [Entitic mass] 30.4 pg Normal 27-34 [facility] Comment on above: Performed By: #### C BCA, CMP #### [facility] ([id number]) [address] [place] [address] MCHC (RBC) [Mass/Vol] 33.6 g/dL Normal 32-36 [facility] Comment on above: Performed By: #### C AUTUMN, CMP #### [facility] ([id number]) [address] [place] [address] MCV (RBC) [Entitic vol] 91 fL Normal 80-100 [facility] Comment on above: Performed By: #### C AUTUMN, CMP #### [facility] ([id number]) [address] [place] [address] Platelet mean volume (Bld) [Entitic vol] 8.6 fL Normal 7-12 [facility] Comment on above: Performed By: #### C AUTUMN, CMP #### [facility] ([id number]) [address] [place] [address] Platelets (Bld) [#/Vol] 398 10*3/uL Normal 150-450 [facility] Comment on above: Performed By: #### C AUTUMN, CMP #### [facility] ([id number]) [address] [place] [address] RBC COUNT 3.51 X10E12/L Low 3.80-5.20 [facility] Comment on above: Performed By: #### C AUTUMN, CMP #### [facility] ([id number]) [address] [place] [address] WBC (Bld) [#/Vol] 12.6 10*3/uL High 4.0-11.0 [facility] Comment on above: Performed By: #### C AUTUMN, CMP #### [facility] ([id number]) [address] [place] [address] MAGNESIUMon 12-04-2023 Magnesium [Mass/Vol] 1.9 mg/dL Normal 1.8-2.6 [facility] Comment on above: Performed By: #### C BCA, CMP #### [facility] ([id number]) [address] [place] [address] PHOSPHORUSon 12-04-2023 Phosphate [Mass/Vol] 3.7 mg/dL Normal 2.4-4.9 [facility] Comment on above: Performed By: #### C BCA, CMP #### [facility] ([id number]) [address] [place] [address] PROTEIN CREAT RATIOon 2023 RANDOM URINE PROTEIN 1840 mg/L High <120 [facility] Comment on above: Performed By: #### C AUTUMN, CMP #### [facility] ([id number]) [address] [place] [address] U/PRO/INSURANCE TERRITORY MANAGER RATIO CALC 2.19 High <0.2 [facility] Comment on above: Result Comment: Neph rotic Syndrome is associated with ratios >3.5 Performed By: #### C AUTUMN, CMP #### [facility] ([id number]) [address] [place] [address] URINE CREATININE,RDM 84.01 mg/dL Normal [facility] Comment on above: Performed By: #### C BCA, CMP #### [facility] ([id number]) [address] [place] [address] Parathyrin.intact [Mass/Vol] on 12-04-2023 PTH INTACT 105 pg/mL High 12-88 [facility] Comment on above: Performed By: #### C BCA, CMP #### [facility] ([id number]) [address] [place] [address] [place] [address] URINALYSISon 12-04-2023 Bilirubin Ql (U) Negative Normal NEG [facility] BLOOD/HGB Negative Normal NEG [facility] Color (U) YELLOW Normal YELLOW [facility] Glucose Ql (U) Negative Normal NEG [facility] Hyaline casts LM Ql (Urine sed) 14 /lpf High 0-2 [facility] Ketones Ql (U) Negative Normal NEG [facility] Leukocyte esterase Test strip Ql (U) Small Abnormal NEG [facility] MUCOUS PRESENT Abnormal NONE [facility] Nitrite Ql (U) Negative Normal NEG [facility] pH (U) 6.0 [pH] Normal 5.0-8.5 [facility] Protein Ql (U) 200 mg/dL Abnormal NEG [facility] R.B.CELLS 1 /hpf Normal 0-5 [facility] RENAL EPITHELIUM 1 /hpf High 0 [facility] Specific gravity (U) [Rel density] 1.012 Normal 1.003-1.035 [facility] SQUAMOUS EPITHELIUM <1 Normal 0-5 [facility] TURBIDITY CLEAR Normal CLEAR [facility] Urobilinogen (U) [Mass/Vol] mg/dL Normal <1.1 [facility] W.B.CELLS 20 /hpf High 0-5 [facility] Vitamin D+Metabolites [Mass/ Vol]on 12-04-2023 VITAMIN D 25 HYD TOT 26.6 ng/mL Low 30-100 [facility] Comment on above: Result Comment: Vitamin D status 25 [place] Vitamin D Deficiency <20 ng/mL Insufficiency 20-29 ng/mL Sufficiency 30-100 ng/mL Toxicity >100 ng/mL NOTE: A pediatric reference range has not been established by the folder machine operator of this kit. The [place] [employer] recommends a Vitamin D level of = or >20ng/mL in infants and children. Performed By: #### C BCA, CMP #### [facility] ([id number]) [address] [place] [address], [place] [address] XR FOOT RT MIN 3 VWSon 12-01 XR FOOT RT MIN 3 VWS XR FOOT RT MIN 3 VW S CLINICAL INFORMATION: Acute pain of right foot TECHNIQUE: XR FOOT RT MIN 3 VWS 3 views the right foot were obtained. Plantar calcaneal spur noted. There is also enthesophyte at the Achilles insertion. No acute osseous abnormalities seen. Mild changes appreciated. No erosive process. IMPRESSION: Calcaneal spurring and mild degenerative changes Finalized by Michel Gauthier MD on 12/02/2023 8:31 AM Normal [facility] BASIC METABOLIC PANLon 11-27 Anion gap [Moles/Vol] 8 mmol/L Normal 5-15 [facility] Comment on above: Performed By: #### B MP #### [facility] ([id number]) [address] [place] [address]8061 Calcium [Mass/Vol] 8.2 mg/dL Low 8.5-10.5 [facility] Comment on above: Performed By: #### B MP #### [facility] ([id number]) [address] [place] [address] 18114 Chloride [Moles/Vol] 109 mmol/L Normal 98-109 [facility] Comment on above: Performed By: #### B MP #### [facility] ([id number]) [address] [place] [address] 27562 CO2 [Moles/Vol] 22 mmol/L Normal 22-32 [facility] Comment on above: Performed By: #### B MP #### [facility] ([id number]) [address] [place] [address] 53445 Creatinine [Mass/Vol] 1.80 mg/dL High 0.40-1.00 [facility] Comment on above: Result Comment: METH OD TRACEABLE TO IDMS STANDARD Performed By: #### B MP #### [facility] ([id number]) [address] [place] [address] 28167 GFR/1.73 sq M.predicted among non-blacks MDRD (S/P/Bld) [Vol rate/Area] 29 mL/min/{1.73_m2} Low >59 [facility] Comment on above: Result Comment: Reported eGFR is based on the CKD-EPI 2020 equation that does not use a race coefficient. Performed By: #### B MP #### [facility] ([id number]) [address] [place] [address] 80820 Glucose [Mass/Vol] 119 mg/dL High 65-99 [facility] Comment on above: Performed By: #### B MP #### [facility] ([id number]) [address] [place] [address] 49764 Potassium [Moles/Vol] 3.9 mmol/L Normal 3.5-5.0 [facility] Comment on above: Performed By: #### B MP #### [facility] ([id number]) [address] [place] [address] 29393 Sodium [Moles/Vol] 139 mmol/L Normal 134-146 [facility] Comment on above: Performed By: #### B MP #### [facility] ([id number]) [address] [place] [address] 86681 Urea nitrogen [Mass/Vol] 28 mg/dL High 5-27 [facility] Comment on above: Performed By: #### B MP #### [facility] ([id number]) [address] [place] [address] 05074 Glucose Glucometer (BldC) [M ass/Vol]on 11-28-2023 Glucose [Mass/Vol] 177 mg/dL High 65-99 [facility] COMPREHENSIVE METABOLIC PANE Jean Claude 11-27-2023 Albumin [Mass/Vol] 2.9 g/dL Low 3.2-5.3 [facility] Comment on above: Performed By: #### C MP #### [facility] ([id number]) [address], [place] [address] ALP [Catalytic activity/Vol] 126 U/L Normal 39-130 [facility] Comment on above: Performed By: #### C MP #### [facility] ([id number]) [address] [place] [address] 15112 ALT [Catalytic activity/Vol] 33 U/L High 0-31 [facility] Comment on above: Performed By: #### C MP #### [facility] ([id number]) [address] [place] [address] 83853 Anion gap [Moles/Vol] 9 mmol/L Normal 5-15 [facility] Comment on above: Performed By: #### C MP #### [facility] ([id number]) [address] [place] [address] 54409 AST [Catalytic activity/Vol] 32 U/L Normal 0-41 [facility] Comment on above: Performed By: #### C MP #### [facility] ([id number]) [address] [place] [address] 93650 Bilirubin [Mass/Vol] 0.5 mg/dL Normal 0.3-1.2 [facility] Comment on above: Performed By: #### C MP #### [facility] ([id number]) [address] [place] [address] 75465 Calcium [Mass/Vol] 8.8 mg/dL Normal 8.5-10.5 [facility] Comment on above: Performed By: #### C MP #### [facility] ([id number]) [address] [place] [address] 16674 Chloride [Moles/Vol] 106 mmol/L Normal 98-109 [facility] Comment on above: Performed By: #### C MP #### [facility] ([id number]) [address] [place] [address] 58326 CO2 [Moles/Vol] 26 mmol/L Normal 22-32 [facility] Comment on above: Performed By: #### C MP #### [facility] ([id number]) [address] [place] [address] 31570 Creatinine [Mass/Vol] 1.98 mg/dL High 0.40-1.00 [facility] Comment on above: Result Comment: METH OD TRACEABLE TO IDMS STANDARD Performed By: #### C MP #### [facility] ([id number]) [address] [place] [address] 28042 GFR/1.73 sq M.predicted among non-blacks MDRD (S/P/Bld) [Vol rate/Area] 26 mL/min/{1.73_m2} Low >59 [facility] Comment on above: Result Comment: Reported eGFR is based on the CKD-EPI 2020 equation that does not use a race coefficient. Performed By: #### C MP #### [facility] ([id number]) [address] [place] [address] 99175 Glucose [Mass/Vol] 121 mg/dL High 65-99 [facility] Comment on above: Performed By: #### C MP #### [facility] ([id number]) [address] [place] [address] 61317 Potassium [Moles/Vol] 4.5 mmol/L Normal 3.5-5.0 [facility] Comment on above: Performed By: #### C MP #### [facility] ([id number]) [address] [place] [address] 48335 Protein [Mass/Vol] 6.0 g/dL Normal 6.0-8.0 [facility] Comment on above: Performed By: #### C MP #### [facility] ([id number]) [address] [place] [address] 23845 Sodium [Moles/Vol] 141 mmol/L Normal 134-146 [facility] Comment on above: Performed By: #### C MP #### [facility] ([id number]) [address] [place] [address] 76399 Urea nitrogen [Mass/Vol] 34 mg/dL High 5-27 [facility] Comment on above: Performed By: #### C MP #### [facility] ([id number]) [address] [place] [address] BRAIN WO CONTon CT BRAIN WO CONT CT BRAIN WO CONT STUDY: CT HEAD WITHOUT CONTRAST CLINICAL HISTORY: Dizziness and nausea. Transient altered level of consciousness. COMPARISON: None TECHNIQUE: CT head was performed without contrast utilizing axial reconstruction with images reviewed in bone and brain windows. Automated exposure control was utilized. FINDINGS: * No acute hemorrhage, midline shift, nor edema. * Ventricles and cisterns are unremarkable. * Bone images of the calvarium notable for fluid levels in the maxillary sinuses. * IMPRESSION: * Unremarkable unenhanced CT brain * Acute pansinusitis All CT scans at this facility use dose modulation, iterative reconstruction, and/or weight based dosing when appropriate to reduce radiation dose to as low as reasonably achievable. Finalized by José Miguel Barton MD on 11/27/2023 5:43 AM Normal [facility] Glucose Glucometer (dC) [M ass/Vol]on 11-27-2023 Glucose [Mass/Vol] 207 mg/dL High 65-99 [facility] Glucose [Mass/Vol] 164 mg/dL High 65-99 [facility] Glucose [Mass/Vol] 189 mg/dL High 65-99 [facility] CBC AND AUTO DIFFon 11-26-19 24 ABSOLUTE BASOPHIL 0.1 X10E9/L Normal 0.0-0.2 [facility] Comment on above: Performed By: #### C AUTUMN, CMP #### [facility] ([id number]) [address] [place] [address] 46919 ABSOLUTE NEUTROPHIL 10.2 X10E9/L High 1.5-6.6 [facility] Comment on above: Performed By: #### C AUTUMN, CMP #### [facility] ([id number]) [address] [place] [address] 67132 Basophils/100 WBC (Bld) 0.8 % Normal [facility] Comment on above: Performed By: #### C BCA, CMP #### [facility] ([id number]) [address] [place] [address] 32066 Eosinophils (Bld) [#/Vol] 0.1 10*3/uL Normal 0.0-0.4 [facility] Comment on above: Performed By: #### C AUTUMN, CMP #### [facility] ([id number]) [address] [place] [address] 11882 Eosinophils/100 WBC (Bld) 1.0 % Normal [facility] Comment on above: Performed By: #### C AUTUMN, CMP #### [facility] ([id number]) [address] [place] [address] 29114 Erythrocyte distribution width (RBC) [Ratio] 13.3 % Normal 11.5-15.0 [facility] Comment on above: Performed By: #### C AUTUMN, CMP #### [facility] ([id number]) [address] [place] [address] 40321 Hematocrit (Bld) [Volume fraction] 35.5 % Normal 35-47 [facility] Comment on above: Performed By: #### C AUTUMN, CMP #### [facility] ([id number]) [address] [place] [address] 33645 Hemoglobin (Bld) [Mass/Vol] 11.9 g/dL Normal 11.7-15.5 [facility] Comment on above: Performed By: #### C BCA, CMP #### [facility] ([id number]) [address] [place] [address] 56991 Lymphocytes (Bld) [#/Vol] 1.0 10*3/uL Normal 1.0-3.5 [facility] Comment on above: Performed By: #### C BCA, CMP #### [facility] ([id number]) [address] [place] [address] 59416 Lymphocytes/100 WBC (Bld) 8.2 % Normal [facility] Comment on above: Performed By: #### C AUTUMN, CMP #### [facility] ([id number]) [address] [place] [address] 89570 MCH (RBC) [Entitic mass] 30.0 pg Normal 27-34 [facility] Comment on above: Performed By: #### C AUTUMN, CMP #### [facility] ([id number]) [address] [place] [address] 34746 MCHC (RBC) [Mass/Vol] 33.6 g/dL Normal 32-36 [facility] Comment on above: Performed By: #### C AUTUMN, CMP #### [facility] ([id number]) [address] [place] [address] 24814 MCV (RBC) [Entitic vol] 89 fL Normal 80-100 [facility] Comment on above: Performed By: #### C BCA, CMP #### [facility] ([id number]) [address] [place] [address] 07593 Monocytes (Bld) [#/Vol] 0.8 10*3/uL Normal 0-0.9 [facility] Comment on above: Performed By: #### C BCA, CMP #### [facility] ([id number]) [address] [place] [address] 39162 Monocytes/100 WBC (Bld) 6.5 % Normal [facility] Comment on above: Performed By: #### C BCA, CMP #### [facility] ([id number]) [address] [place] [address] 11502 Neutrophils/100 WBC (Bld) 83.5 % Normal [facility] Comment on above: Performed By: #### C BCA, CMP #### [facility] ([id number]) [address] [place] [address] 04084 Platelet mean volume (Bld) [Entitic vol] 7.8 fL Normal 7-12 [facility] Comment on above: Performed By: #### C BCA, CMP #### [facility] ([id number]) [address] [place] [address] 27004 Platelets (Bld) [#/Vol] 321 10*3/uL Normal 150-450 [facility] Comment on above: Performed By: #### C BCA, CMP #### [facility] ([id number]) [address] [place] [address] 52429 RBC COUNT 3.98 X10E12/L Normal 3.80-5.20 [facility] Comment on above: Performed By: #### C BCA, CMP #### [facility] ([id number]) [address] [place] [address] 27195 WBC (Bld) [#/Vol] 12.2 10*3/uL High 4.0-11.0 [facility] Comment on above: Performed By: #### C BCA, CMP #### [facility] ([id number]) [address] [place] [address] 42571 COMPREHENSIVE METABOLIC PANE Jean Claude 11-26-2023 Albumin [Mass/Vol] 3.7 g/dL Normal 3.2-5.3 [facility] Comment on above: Performed By: #### C BCA, CMP #### [facility] ([id number]) [address] [place] [address] 50424 ALP [Catalytic activity/Vol] 159 U/L High 39-130 [facility] Comment on above: Performed By: #### C BCA, CMP #### [facility] ([id number]) [address] [place] [address] [place] [address] ALT [Catalytic activity/Vol] 47 U/L High 0-31 [facility] Comment on above: Performed By: #### C BCA, CMP #### [facility] ([id number]) [address] [place] [address] 82115 Anion gap [Moles/Vol] 9 mmol/L Normal 5-15 [facility] Comment on above: Performed By: #### C BCA, CMP #### [facility] ([id number]) [address] [place] [address] 70522 AST [Catalytic activity/Vol] 44 U/L High 0-41 [facility] Comment on above: Performed By: #### C BCA, CMP #### [facility] ([id number]) [address] [place] [address] 42878 Bilirubin [Mass/Vol] 0.8 mg/dL Normal 0.3-1.2 [facility] Comment on above: Performed By: #### C BCA, CMP #### [facility] ([id number]) [address] [place] [address] 02566 Calcium [Mass/Vol] 9.2 mg/dL Normal 8.5-10.5 [facility] Comment on above: Performed By: #### C BCA, CMP #### [facility] ([id number]) [address] [place] [address] 28344 Chloride [Moles/Vol] 102 mmol/L Normal 98-109 [facility] Comment on above: Performed By: #### C BCA, CMP #### [facility] ([id number]) [address] [place] [address] 77121 CO2 [Moles/Vol] 26 mmol/L Normal 22-32 [facility] Comment on above: Performed By: #### C BCA, CMP #### [facility] ([id number]) [address] [place] [address] 05844 Creatinine [Mass/Vol] 2.09 mg/dL High 0.40-1.00 [facility] Comment on above: Result Comment: METH OD TRACEABLE TO IDMS STANDARD Performed By: #### C BCA, CMP #### [facility] ([id number]) [address] [place] [address] 30827 GFR/1.73 sq M.predicted among non-blacks MDRD (S/P/Bld) [Vol rate/Area] 24 mL/min/{1.73_m2} Low >59 [facility] Comment on above: Result Comment: Reported eGFR is based on the CKD-EPI 2020 equation that does not use a race coefficient. Performed By: #### C BCA, CMP #### [facility] ([id number]) [address] [place] [address] 23658 Glucose [Mass/Vol] 149 mg/dL High 65-99 [facility] Comment on above: Performed By: #### C BCA, CMP #### [facility] ([id number]) [address] [place] [address] 87525 Potassium [Moles/Vol] 4.0 mmol/L Normal 3.5-5.0 [facility] Comment on above: Performed By: #### C BCA, CMP #### [facility] ([id number]) [address] [place] [address] 10316 Protein [Mass/Vol] 7.4 g/dL Normal 6.0-8.0 [facility] Comment on above: Performed By: #### C BCA, CMP #### [facility] ([id number]) [address] [place] [address] 01480 Sodium [Moles/Vol] 137 mmol/L Normal 134-146 [facility] Comment on above: Performed By: #### C BCA, CMP #### [facility] ([id number]) [address] [facility], [place] [address] Urea nitrogen [Mass/Vol] 35 mg/dL High 5-27 [facility] Comment on above: Performed By: #### C AUTUMN, CMP #### [facility] ([id number]) [address] [facility], [place] [address] Glucose Glucometer (BldC) [M ass/Vol]on 11-26-2023 Glucose [Mass/Vol] 183 mg/dL High 65-99 [facility] XR HIP RT INJon 08-15-2021 XR HIP RT INJ EXAMINATION: XR HIP RT INJ HISTORY: Idiopathic osteoarthritis COMPARISON: No relevant comparison available. FLUOROSCOPY TIME: Fluoro time measures 0.8 minutes and 4 images were obtained. TECHNIQUE: A joint injection was performed in the usual sterile manner after obtaining informed consent. Standard level fluoroscopic mode of operation utilized. FINDINGS: JOINT: Right hip. NEEDLE: 22 gauge, 3.5 spinal needle. MEDICATION: 2cc buffered 1% lidocaine for subcutaneous anesthesia 2cc Omnipaque-300 iodinated contrast to visualize the joint space Mixture of Kenalog 40 mg, 0.5% Bupivacaine 2 mL and Omnipaque 300 5 mL was injected into the joint space. TECHNIQUE: Anterior approach with prior localization of the femoral artery. A single stick was successful in gaining access to the joint space. CLINICAL: Increased pain following injection (preinjection 1/10; postinjection 5/10. Patient states pain is typically 6-7/10). COMPLICATIONS: None. OTHER: Negative. IMPRESSION: 1. Technically successful right hip injection without complication. 2. Patient describes increase in pain following the injection, however, patient's pain was 1 out of 10 at presentation. Clinical follow-up recommended. Electronically authenticated by: KALANI TORRES Date: 2021-08-15 11:29 Normal [facility] Vital Signs Date Time Vital Sign Value Performing Clinician Facility 12-10-2023 08:50-0400 Diastolic blood pressure 64 mm[Hg] Musa Gil APRN-STUART Work Phone: [facility] [employer] [facility] 12-10-2023 08:50-0400 Heart rate 88 /min Musa RAMIREZ Work Phone: [facility] [employer] [facility] 12-10-2023 08:50-0400 Systolic blood pressure 127 mm[Hg] Musa Oberfabricio RIGGER CHIEF-SAWMILL WORKER Work Phone: [facility] 12-10-2023 08:49-0400 Body mass index (BMI) [Ratio] 40.32 kg/m2 Musa Oberneder RIGGER CHIEF-SAWMILL WORKER Work Phone: [facility] 12-10-2023 08:49-0400 Body weight 103.24 kg Musa Oberneder RIGGER CHIEF-SAWMILL WORKER Work Phone: [facility] [employer] [facility] 12-10-2023 08:49-0400 SaO2% (BldA) [Mass fraction] 96 % Musa Oberneder RIGGER CHIEF-SAWMILL WORKER Work Phone: [facility] [employer] [facility] 11-30-2023 10:55-0400 Body mass index (BMI) [Ratio] 41.45 kg/m2 Keaton Medel MD Work Phone: [facility] [employer] [facility] 11-30-2023 10:55-0400 Body temperature 98.2 [degF] Keaton Medel MD Work Phone: [facility] [employer] [facility] 11-30-2023 10:55-0400 Body weight 106.14 kg Keaton Medel MD Work Phone: [facility] [employer] [facility] 11-30-2023 10:55-0400 Diastolic blood pressure 72 mm[Hg] Keaton Medel MD Work Phone: [facility] [employer] [facility] 11-30-2023 10:55-0400 Heart rate 99 /min Keaton Medel MD Work Phone: [facility] [employer] [facility] 11-30-2023 10:55-0400 Systolic blood pressure 158 mm[Hg] Keaton Medel MD Work Phone: [facility] [employer] [facility] 11-26-2023 13:52-0400 Body mass index (BMI) [Ratio] 39.86 kg/m2 Keaton Medel MD Work Phone: [facility] 11-26-2023 13:52-0400 Body temperature 97.81 [degF] Keaton Medel MD Work Phone: [facility] 11-26-2023 13:52-0400 Body weight 102.06 kg Keaton Medel MD Work Phone: [facility] 11-26-2023 13:52-0400 Diastolic blood pressure 84 mm[Hg] Keaton Medel MD Work Phone: [facility] 11-26-2023 13:52-0400 Heart rate 88 /min Keaton Medel MD Work Phone: [facility] 11-26-2023 13:52-0400 Systolic blood pressure 167 mm[Hg] Keaton Medel MD Work Phone: [facility] Encounters Encounter Date Encounter Type Care Provider Facility Start: 04-22-2024 End: 04-22-2024 ambulatory [facility] Start: 03-24-2024 End: 03-24-2024 ambulatory Jani Jeffers MD Facility:[facility] Start: 03-21-2024 End: 03-21-2024 ambulatory [facility] Start: 03-11-2024 End: 03-11-2024 ambulatory YESIKA WARD Not Available Start: 03-07-2024 End: 03-07-2024 ambulatory [facility] Start: 01-04-2024 End: 01-04-2024 ambulatory [facility] Start: 01-03-2024 End: 01-03-2024 ambulatory [facility] Start: 01-02-2024 End: 01-02-2024 ambulatory [facility] Start: 01-02-2024 Encounter for genera l adult medical examination without abnormal findings [facility] Start: 12-11-2023 Orders Only Keaton patel MD Work Phone: [facility] Start: 12-10-2023 End: 12-10-2023 Office outpatient visit 25 minutes Musa RAMIREZ Work Phone: [facility] Comment on above: CKD (chronic kidney disease) stage 4, GFR 15-29 ml/min ([facility]) (Primary Dx) Start: 12-07-2023 Telephone encounter Berna Mcelroy CMA [facility] Start: 12-06-2023 Refill [facility] Start: 12-04-2023 End: 12-04-2023 ambulatory [facility] Start: 11-30-2023 End: 11-30-2023 Transitional care manage srvc 7 day discharge Keaton Medel MD Work Phone: [facility] Comment on above: Vertigo (Primary Dx) ; Non-recurrent acute suppurative otitis media of right ear without spontaneous rupture of tympanic membrane; Bronchitis; Diabetic polyneuropathy associated with type 2 diabetes mellitus ([facility]); Acute pain of right foot Start: 11-30-2023 End: 11-30-2023 [facility] Start: 11-28-2023 Telephone encounter Berna Mcelroy CMA [facility] Start: 11-27-2023 End: 11-29-2023 [facility] Start: 11-26-2023 End: 11-29-2023 [facility] Start: 11-26-2023 End: 11-26-2023 Patient encounter procedure Keaton Medel MD Work Phone: [facility] Comment on above: Non-recurrent acute suppurative otitis media of right ear without spontaneous rupture of tympanic membrane (Primary Dx); Type 2 diabetes mellitus with stage 4 chronic kidney disease, with long-term current use of insulin ([facility]) Start: 11-26-2023 End: 11-26-2023 [facility] Start: 09-20-2023 Refill Maryjane Morrison [facility] Start: 08-15-2021 End: 08-16-[address] JOAQUIM TAYLOR Facility:[facility]1 Procedures Date Procedure Procedure Detail Performing Clinician Start: 11-26-2022 Adult depression scr eening assessment Maryjane Morrison TELETYPE CLERK Start: 02-01-2022 Diabetic retinal eye exam Maryjane Morrison TELETYPE CLERK Start: 11-05-2019 Microalbumin [Mass/v olume] in Urine by Test strip Maryjane Morrison TELETYPE CLERK Start: 08-23-2017 Colonoscopy Maryjane Morrison [facility] Plan of Treatment Date Care Activity Detail Author Start: 12-09-2024 Adult BMI Screening Adult BMI Screen ing [facility] Start: 11-29-2024 Adult BMI Screening Adult BMI Screen ing [facility] Start: 11-29-2024 Tobacco Screening Tobacco Screening [facility] Start: 11-27-2024 Adult BMI Screening Adult BMI Screen ing [facility] Start: 11-25-2024 Adult BMI Screening Adult BMI Screen ing [facility] Start: 11-25-2024 Tobacco Scre[address] Tobacco Screening [facility] Start: 07-12-2024 Adult BMI Screening Adult BMI Screen ing [facility] Start: 07-04-2024 Tobacco Screening Tobacco Screening [facility] Start: 07-02-2024 End: 07-02-2024 Patient encounter procedure 07/02/2024 1:45 PM EDT Office Visit [facility] [address] [place] [address] [address] [facility] [place] [address] Stewart Marroquin MD [address] [place] [address] [facility] Start: 03-10-2024 End: 03-10-2024 Patient encounter procedure 03/10/2024 9:20 AM EDT Office Visit [facility] [address] [place] [phone] Musa Gil, RIGGER CHIEF-SAWMILL WORKER [address] [facility], [address] [place] [address] [facility] Start: 01-02-2024 End: 01-02-2024 Patient encounter procedure 01/02/2024 9:00 AM EDT Office Visit [facility] [address] [place] [phone] Keaton Medel MD [address] [place] [address], [address] [place], [place] [phone] [facility] Start: 12-10-2023 End: 12-10-2023 Patient encounter procedure 12/10/2023 9:00 AM EDT Office Visit [facility] [address] [place] [phone] Musa Gil, RIGGER CHIEF-SAWMILL WORKER [address] [facility], [address] [place] [address] [facility] Start: 11-30-2023 End: 11-29-2024 XR Foot - right 3 Views [facility] Work Phone: Comment on above: Expected: 11/30/2023 , Expires: 11/29/2024 Start: 11-30-2023 End: 11-30-2023 Patient encounter procedure 11/30/2023 9:30 AM EDT Office Visit [facility] [address] [place] [phone] Keaton Medel MD [facility], [address] [place] [address] [facility] Start: 11-29-2023 Medicare Annual Wellness Visit Medicare Annual Wellness Visit [employer] Start: 11-27-2023 Depression Screening Depression Scre ening [employer] Start: 11-27-2023 Fall Risk Screening Fall Risk Screen ing [employer] Start: 02-01-2023 Glaucoma screening Diabetic Op hthalmology Exam [employer] Start: 11-05-2020 Urine screening for protein Urine Microalbumin [employer] Start: 08-23-2020 [facility] malignant neoplasm [facility] DTaP,Tdap and Td Vaccines (1 - Tdap) DTaP,Tdap and Td Vaccines (1 - Tdap) [facility] Start: 1963 Adult BMI Follow Up Plan Adult BMI Follow Up Plan [employer] End: 12-09-2024 Basic metabolic 2000 panel - Serum or Plasma Basic Metabolic Panel Lab Routine CKD (chronic kidney disease) stage 4, GFR 15-29 ml/min ([facility]) 1 Occurrences starting 12/10/2023 until 12/09/2024 [employer] Comment on above: 1 Occurrences starti ng 12/10/2023 until 12/09/2024 End: 12-09-2024 CBC panel - Blood by Automated count CBC without diff Lab Routine CKD (chronic kidney disease) stage 4, GFR 15-29 ml/min ([facility]) 1 Occurrences starting 12/10/2023 until 12/09/2024 [employer] Comment on above: 1 Occurrences starti ng 12/10/2023 until 12/09/2024 End: 12-09-2024 Magnesium [Mass/volume] in Serum or Plasma Magnesium Lab Routine CKD (chronic kidney disease) stage 4, GFR 15-29 ml/min ([facility]) 1 Occurrences starting 12/10/2023 until 12/09/2024 [employer] Comment on above: 1 Occurrences starti ng 12/10/2023 until 12/09/2024 End: 12-09-2024 Parathyroid Hormone, intact Parathyroid Hormone, intact Lab Routine CKD (chronic kidney disease) stage 4, GFR 15-29 ml/min ([facility]) 1 Occurrences starting 12/10/2023 until 12/09/2024 [facility] [facility] Work Phone: Comment on above: 1 Occurrences starti ng 12/10/2023 until 12/09/2024 End: 12-09-2024 Phosphate [Mass/volume] in Serum or Plasma Phosphorus Lab Routine CKD (chronic kidney disease) stage 4, GFR 15-29 ml/min ([facility]) 1 Occurrences starting 12/10/2023 until 12/09/2024 [facility] Comment on above: 1 Occurrences starti ng 12/10/2023 until 12/09/2024 End: 12-09-2024 Protein creat ratio Protein creat ratio Lab Routine CKD (chronic kidney disease) stage 4, GFR 15-29 ml/min ([facility]) 1 Occurrences starting 12/10/2023 until 12/09/2024 [facility] Comment on above: 1 Occurrences starti ng 12/10/2023 until 12/09/2024 End: 12-09-2024 Urinalysis Urinalysis Lab Routine CKD (chronic kidney disease) stage 4, GFR 15-29 ml/min ([facility]) 1 Occurrences starting 12/10/2023 until 12/09/2024 [facility] Comment on above: 1 Occurrences starti ng 12/10/2023 until 12/09/2024 End: 12-09-2024 Vitamin D 25 hydroxy Vitamin D 25 hydroxy Lab Routine CKD (chronic kidney disease) stage 4, GFR 15-29 ml/min ([facility]) 1 Occurrences starting 12/10/2023 until 12/09/2024 [facility] Comment on above: 1 Occurrences starti ng 12/10/2023 until 12/09/2024 Immunizations Immunization Date Immunization Notes Care Provider Nabor rose 08-22-2023 RSV, recombinant, protein subunit RSVpreF, adjuvant reconstituted, 0.5 mL, PF Maryjane [facility] 06-27-2023 Influenza, High-dose , Quadrivalent Maryjane [facility] 05-19-2023 zoster vaccine recombinant Maryjane [facility] 01-27-2023 Pneumococcal Conjuga te 20-valent Maryjane [facility] 01-27-2023 zoster vaccine recombinant Maryjane [facility] 06-29-2022 Influenza, High-dose , Quadrivalent Maryjane [facility] 07-16-2021 Influenza, High-dose , Quadrivalent Maryjane [facility] 12-16-2020 COVID-19, mRNA, LNP- S, PF, 100mcg/0.5mL Dose [facility] 11-18-2020 COVID-19, mRNA, LNP- S, PF, 100mcg[facility]0.5mL [facility] influenza, injectabl e, quadrivalent, contains preservative [facility] 07-14-2020 Seasonal, quadrivale nt, recombinant, injectable influenza vaccine, preservative [facility] influenza, high dose seasonal, preservative-free [facility] 07-30-2018 influenza, high dose seasonal, preservative-free [facility]2017 influenza, high dose seasonal, preservative-[facility]2016 influenza, injectabl e, quadrivalent, preservative free [facility] 08-26-2015 influenza, seasonal, injectable, preservative [facility] zoster vaccine, live Mirtha [facility] 08-04-2014 influenza virus vacc ine, unspecified formulation [facility] 08-04-2014 pneumococcal conjuga te vaccine, 13 valent [facility] influenza virus vacc ine, whole virus [facility] 09-14[facility]2012 influenza, seasonal, injectable Maryjane [facility] 08-01-2010 influenza virus vacc ine, whole virus [facility] 08-26-2002 pneumococcal polysaccharide vaccine, 23 valent [facility] Payers Date Payer Category Payer Unknown 2015 Medicare ANTH MEDICARE ANTH MEDICARE ADVANTAGE [id number] 2015-Present [phone] [address] [place] [address] [id number] 1959 Unknown [id number] 1945 Unknown [id number] 1947 Unknown [id number] [id number] 9 1947 Unknown [id number] [id number] 9 1947 Unknown [id number] [id number] 6 1947 Unknown [id number] 2.16.840.1.221622.3.579.2.128 6 1947 Unknown [id number] 2.16.840.1.548829.3.579.2.128 6 1947 Unknown [id number] 2.16.840.1.235811.3.579.2.128 6 1947 Unknown [id number] 2.16.840.1.792603.3.579.2.128 6 1947 Unknown [id number] 2.16.840.1.923050.3.579.2.128 6 1947 Unknown [id number] 2.16.840.1.254851.3.579.2.128 6 1947 Unknown [id number] 2.16.840.1.528772.3.579.2.128 6 1947 Unknown [id number] 2.16.840.1.373265.3.579.2.128 6 1945 Unknown [id number] 2.16.840.1.571922.3.579.2.196 1947 Unknown [id number] 2.16.840.1.427784.3.579.2.128 6 1947 Unknown [id number] 2.16.840.1.050984.3.579.2.128 6 1947 Unknown [id number] 2.16.840.1.278042.3.579.2.128 6 1947 Unknown [id number] [id number] 6 Social History Date Type Detail Facility Start: 11-28-2022 Tobacco smoking stat [facility] Never smoked tobacco [facility] Start: 11-28-2022 Tobacco use and exposure Smoke less tobacco non-user [facility] Start: 07-04-2023 End: 11-30-2023 Alcohol intake Current non-drinker of alcohol (finding) [facility] Start: 09-13-2021 End: 11-26-2023 History of Social function [facility] Start: 09-13-2021 End: 11-26-2023 Social connection and isolation panel [facility] Do you belong to any clubs or organizations such as anglican groups, unions, fraternal or athletic groups, or school groups? Yes [facility] Are you now , , , , never or living with a partner? [facility] How often to you hav e a drink containing alcohol? Never [facility] Average Number of Drinks Not on file [facility] Do you feel stress - tense, restless, nervous, or anxious, or unable to sleep at night because your mind is troubled all the time - these days [OSQ] Only a little [facility] Start: 11-07-[address] [facility] Start: 1945 Sex Assigned At Not on file P [facility] Has the electric, [employer], [employer], or water [employer] threatened to shut off services in your home in past 12Mo No [facility] Medical Equipment Procedure Code Equipment Code Equipment Origin al Text Equipment Identifier Dates Implant Hip Mop All Sz Construct Rpl [id number] - Sna - [id number] Start: 12-27-2021 [employer] [facility] c Pncl Hip Mrthn - Sna - [id number], [id number] FDA Start: 12-27-2021 [employer] [id number] Start: 12-27-2021 Goals Date Patient Goal Desired Activity /State Personal health goal Comment on above: Formatting of this n ote might be different from the original. Evaluation of progress towards goal: Safe dc transition from hospital to home with family support and [facility] otpt PT. Personal health goal Comment on above: Formatting of this n ote might be different from the original. Evaluation of progress towards goal: safe transition to home with self care Clinical Notes 09-20-2023 to 12-10-2023 JAMES Barakat - 12/10/2023 9:00 AM EDTTelephone Encounter - Karen Downey - 12/07/2023 1:01 PM EDTTelephone Encounter - Keaton Medel MD - 12/07/2023 1:01 PM EDT Note Date & Type Note Facility 12-10-2023 History of Presen t illness Narrative Images from the original note were not included. Date of Service: 12/10/23 PCP: Keaton Medel MD History of Present Illness Anu Mandujano is a 78 y.o. female, who is following with us for management of her chronic kidney disease, hypertension, and volume status. She reports no new issues since her last visit. Presently, she denies any shortness of breath, chest pain lower extremity edema, or difficulty with urination. At the time of her last visit her creatinine was 1.98 mg/dL. Most recent laboratory studies shows a creatinine of 2.33 mg/dL. Problem List Stage 3B chronic kidney disease. To stage 4 chronic kidney disease. Serological workup from November 2020 showed a negative cryoglobulin titer,C3 and C4 were 124 and 31, rheumatoid factor was less than 10, serum protein electrophoresis was unremarkable, free kappa to lambda ratio was 1.5, hepatitis panel was nonreactive, GAURVA was negative, anti-GBM was negative, Anca panel was negative, Urinalysis from November 2020 showed 2 mg dL protein with no blood. Urine protein creatinine ratio is 3.92 grams/gram Hypertension Type 2 diabetes mellitus Diabetic sensory neuropathy Hyperlipidemia History of urinary tract infections. She was evaluated by Dr. Marroquin in the past. She was placed on suppressive antibiotics in the past. Gastroesophageal reflux disease Charcot deformity of the left foot Medical, Surgical, Family & Social History Medical History: Past Medical History: Diagnosis Date Arthritis Chronic kidney disease stage 3 Diabetes ([facility]) Hypercholesterolemia Hypertension Skin cancer Visual impairment Surgical History: Past Surgical History: Procedure Laterality Date CATARACT EXTRACTION Left CHOLECYSTECTOMY COLONOSCOPY COLONOSCOPY N/A 08/23/2017 Performed by Stewart Sood DO at [facility] CYSTOSCOPY RETROGRADE PYELOGRAM [facility] SOLUTION Bilateral 10/22/2019 Performed by Stewart Marroquin MD at [facility] CYSTOSCOPY [facility] SOLUTION N/A 10/23/2018 Performed by Stewart Marroquin MD at [facility] DILATION AND CURETTAGE OF UTERUS EYE SURGERY several years ago they replaced the fluid in my ri HEEL SPUR SURGERY Right HEEL SPUR SURGERY INJECTION MEDIAL BRANCH NERVE BLOCK: bilat L34 45 mbbx 1 Bilateral 07/13/2017 Performed by Memo Barker MD at [facility] INJECTION MEDIAL BRANCH NERVE BLOCK: bilat L34 45mbb x 1 Bilateral 08/13/2017 Performed by Memo Barker MD at [facility] INJECTION SACROILIAC NERVE: bilat Bilateral 10/26/2017 Performed by Memo Barker MD at [facility] INJECTION SACROILIAC NERVE: bilat si inj x 1 Bilateral 06/18/2017 Performed by Memo Barker MD at [facility] INJECTION SACROILIAC NERVE: bilat SI inj x 1 Bilateral 05/25/2017 Performed by Memo Barker MD at [facility] KNEE ARTHROSCOPY Left repair of meniscus KNEE ARTHROSCOPY Right November or December 2016 POSTERIOR LAMINECTOMY / DECOMPRESSION LUMBAR SPINE RADIOFREQUENCY ABLATION SPINAL Left L3/4, 4/5 RFA Left 09/14/2017 Performed by Memo Barker MD at [facility] RADIOFREQUENCY ABLATION SPINAL: right L34 45rfa Right 08/31/2017 Performed by Memo Barker MD at [facility] RELEASE CARPAL TUNNEL Right 09/24/2018 Performed by Jr Joaquim Taylor DO at [facility] RELEASE TRIGGER FINGER Right 09/24/2018 Performed by Jr Joaquim Taylor DO at [facility] REPLACEMENT TOTAL JOINT HIP Right 12/27/2021 Performed by Joaquim Taylor Jr., DO at [facility] SKIN BIOPSY 2015 SKIN CANCER EXCISION 2016 from right eyelid SPINE SURGERY March 2015 Social History: Social History Socioeconomic History Marital status: Spouse name: Not on file Number of children: Not on file Years of education: Not on file Highest education level: 12th grade Occupational History Not on file Tobacco Use Smoking status: Never Smokeless tobacco: Never Substance and Sexual Activity Alcohol use: No Drug use: No Sexual activity: Defer Partners: Male Other Topics Concern Not on file Social History Narrative Not on file Social Determinants of Health Financial Resource Strain: Low Risk (11/26/2023) Overall Financial Resource Strain (CARDIA) Difficulty of Paying Living Expenses: Not hard at all Food Insecurity: No Food Insecurity (11/26/2023) Hunger Screening Food Insecurity - Worry: Never True Food Insecurity - Inability: Never True Transportation Needs: No Transportation Needs (11/26/2023) PRAPARE - Transportation Lack of Transportation (Medical): No Lack of Transportation (Non-Medical): No Physical Activity: Insufficiently Active (09/13/2021) Exercise Vital Sign Days of Exercise per Week: 1 day Minutes of Exercise per Session: 10 min Stress: No Stress Concern Present (09/13/2021) [employer] [place] [employer] - Occupational Stress Questionnaire Feeling of Stress : Only a little Social Connections: Socially Integrated (09/13/2021) Social Connection and Isolation Panel [NHANES] Frequency of Communication with Friends and Family: More than three times a week Frequency of Social Gatherings with Friends and Family: Three times a week Attends Mosque Services: More than 4 times per year Active Member of Clubs or Organizations: Yes Attends Club or Organization Meetings: More than 4 times per year Marital Status: Interpersonal Safety: Not At Risk (11/26/2023) Humiliation, Afraid, Rape, and Kick questionnaire Fear of Current or Ex-Partner: No Emotionally Abused: No Physically Abused: No Sexually Abused: No Housing Instability: Low Risk (11/26/2023) Housing Instability Housing Instability: No Family History: Family History Problem Relation Age of Onset Alzheimer's disease Mother Diabetes Father Heart disease Father Coronary artery disease Maternal Aunt Coronary artery disease Maternal Uncle Coronary artery disease Maternal Grandmother Arthritis Maternal Grandmother Kidney disease Maternal Grandfather Hypertension Paternal Grandmother Stroke Paternal Grandmother Diabetes Paternal Grandfather Heart disease Paternal Grandfather Breast cancer Neg Hx Allergies & Medications Allergies: Allergies Allergen Reactions Tramadol Itching, Dizziness and Vomiting Codeine Phosphate Soluble [Codeine] Dizziness and Nausea Gabapentin Nausea Gluten GI Disturbance Zanaflex [Tizanidine] Nausea Current Meds: Current Outpatient Medications Medication Sig Dispense Refill acetaminophen (TYLENOL EXTRA STRENGTH) 500 mg tablet Take 2 tablets (1,000 mg total) by mouth every 6 (six) hours as needed for pain. 30 tablet 0 amLODIPine (NORVASC) 5 mg tablet TAKE 1 TABLET BY MOUTH IN THE MORNING 90 tablet 2 atorvastatin (LIPITOR) 20 mg tablet Take 1 tablet (20 mg total) by mouth in the morning. 90 tablet 3 B-complex with vitamin C tablet Take 1 tablet by mouth in the morning. bumetanide (BUMEX) 1 mg tablet Take 1 tablet (1 mg total) by mouth daily. 90 tablet 0 cefDINIR (OMNICEF) 300 mg capsule Take 1 capsule (300 mg total) by mouth in the morning and 1 capsule (300 mg total) before bedtime. Do all this for 5 days. 10 capsule 0 cholecalciferol, vitamin D3, 2,000 units capsule Take 1 capsule (2,000 Units total) by mouth in the morning. cranberry conc-ascorbic acid 4,200-20 mg capsule Take 1 capsule by mouth in the morning and 1 capsule before bedtime. garlic 1,000 mg capsule Take 1 tablet by mouth daily. glipiZIDE (GLUCOTROL XL) 10 mg 24 hr tablet TAKE 1 TABLET BY MOUTH IN THE MORNING 90 tablet 3 insulin glargine (LANTUS SOLOSTAR U-100 INSULIN) 100 unit/mL (3 mL) insulin pen Inject 25 Units under the skin nightly. 24 mL 3 losartan (COZAAR) 100 mg tablet Take 1 tablet (100 mg total) by mouth in the morning. 90 tablet 3 lysine 500 mg tablet Take 1 tablet (500 mg total) by mouth in the morning. meclizine (ANTIVERT) 25 mg tablet Take 1 tablet (25 mg total) by mouth 3 (three) times a day as needed for dizziness. 15 tablet 0 metFORMIN (GLUCOPHAGE) 500 mg tablet TAKE 1 TABLET BY MOUTH TWICE DAILY WITH MEALS 180 tablet 3 multivitamin (THERAGRAN) tablet Take 1 tablet by mouth in the morning. NON FORMULARY daily. [place] Beet- red beet supplement for circulation coenzyme Q10 30 mg capsule Take 1 capsule (30 mg total) by mouth in the morning. (Patient not taking: Reported on 12/10/2023) No current facility-administered medications for this visit. Facility-Administered Medications Ordered in Other Visits Medication Dose Route Frequency Provider Last Rate Last Admin iohexol (OMNIPAQUE) 240 mg iodine/mL injection 50 mL 50 mL other Once in imaging Stewart Marroquin MD Review of Systems Review of Systems Constitutional: Negative for chills, diaphoresis, fatigue and fever. HENT: Negative for congestion, ear discharge, ear pain, facial swelling and hearing loss. Eyes: Negative for pain, discharge, redness and itching. Respiratory: Negative for cough, shortness of breath and wheezing. Cardiovascular: Negative for chest pain, palpitations and leg swelling. Gastrointestinal: Negative for abdominal pain, constipation, diarrhea, nausea and vomiting. Endocrine: Negative for polydipsia, polyphagia and polyuria. Genitourinary: Negative for decreased urine volume, difficulty urinating, dysuria, enuresis, flank pain, frequency, hematuria and urgency. Musculoskeletal: Negative for arthralgias, joint swelling and myalgias. Skin: Negative for rash and wound. Neurological: Negative for dizziness, tremors, weakness, light-headedness and numbness. Hematological: Negative for adenopathy. Does not bruise/bleed easily. Physical Exam Vital Signs: Vitals: 12/10/23 0849 12/10/23 0850 BP: 142/69 127/64 BP Site: Left Arm Left Arm BP Postition: Sitting Standing BP CUFF SIZE: L (13-17 inches) Other Pulse: 79 88 SpO2: 96% Weight: 103.2 kg (227 lb 9.6 oz) BMI: Body mass index is 40.32 kg/m . General appearance: alert in no apparent distress. Psychiatric: Oriented to place, time and person HEENT: atraumatic, supple, moist oral mucosa, no JVD Cardiovascular: normal S1-S2 Respiratory: No respiratory distress with no use of accessory muscles. Clear to auscultation bilaterally with no wheezes or crackles Abdomen: soft, no tenderness, no guarding, positive bowel sounds and no hepato or splenomegaly Vascular: adequate pulses and no carotid bruits. Musculoskeletal: no joint swelling or tenderness. Neurologic: No focal deficit in upper or lower extremities Lymphatic: no cervical or axillary lymphadenopathy. Edema: trace edema Laboratory Studies Chemistry: Lab Results Component Value Date SODIUM 141 12/04/2023 K 4.9 12/04/2023 CL 104 12/04/2023 CO2 26 12/04/2023 ANIONGAP 11 12/04/2023 BUN 43 (H) 12/04/2023 CREATININE 2.33 (H) 12/04/2023 EGFR 21 (L) 12/04/2023 CALCIUM 9.7 12/04/2023 MG 1.9 12/04/2023 PHOSPHORUS 3.7 12/04/2023 Hematology: Lab Results Component Value Date WBC 12.6 (H) 12/04/2023 HGB 10.7 (L) 12/04/2023 HCT 31.9 (L) 12/04/2023 PLT 398 12/04/2023 Anemia Studies: Lab Results Component Value Date IRONSAT 29 08/08/2022 Mineral and Bone Labs: Lab Results Component Value Date CALCIUM 9.7 12/04/2023 PHOSPHORUS 3.7 12/04/2023 VITD25 26.6 (L) 12/04/2023 PTH 105 (H) 12/04/2023 Urine Studies: Lab Results Component Value Date COLOR YELLOW 12/04/2023 TURBIDITY CLEAR 12/04/2023 SPECIFICGRA 1.012 12/04/2023 NITRITE Negative 12/04/2023 PHURINE 6.0 12/04/2023 LEUKOCYTE Small (A) 12/04/2023 PROTEIN 200 (A) 12/04/2023 KETONES Negative 12/04/2023 UROBILINOGEN <1.1 12/04/2023 BLOODHGB Negative 12/04/2023 Lab Results Component Value Date UPROCRTRAT 2.19 (H) 12/04/2023 ALBCREATRA 781.3 (H) 11/05/2019 Immunology Profile Lab Results Component Value Date PROTELECTR 12/08/2020 Unremarkable protein distribution, no monoclonal bands. ANASCREEN Negative 12/08/2020 C3 124 12/08/2020 C4 31 12/08/2020 MYELOP <0.2 12/08/2020 PROTEINASE3 <0.2 12/08/2020 ANTIGLOMERU <0.2 12/08/2020 No results found for: HAV , HEPAIGM , HEPBIGM , HEPBCAB , HBEAG , HEPCAB Imaging Echocardiogram: No results found. Assessment & Plan 1. Chronic kidney disease stage 4 with an estimated GFR of 21 mL/min and a slight increase in creatinine since her last visit. Over the last year her creatinine has been holding steady between 1.8-2 mg/dL. 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 She was advised on the importance of proper blood pressure control, blood sugar control, avoidance of NSAID medications, IV contrast dyes, possible. Follow-up in 5-6 months 2. Hypertension: Blood pressures are adequate 3. Edema: slight swelling, increase bumex to 2 mg 4. Secondary hyperparathyroidism/hypovitamin osis D: On vitamin-D supplement. Continue to monitor PTH 5. Diabetes mellitus type 2: She is now stage IV. Unfortunately we will have to discontinue the metformin. I did discuss initiating Jardiance or Farxiga for renal protection. Again with her renal function this would not give her a glycemic benefit. But it would give her renal and cardiovascular benefit. At this time we are holding off due to frequent UTIs. She needs to be off metformin due to CKD 4, I will reach out to pcp Thank you Keaton Medel MD for the allowing us to continue participant in the care of this patient. Please contact me at [phone] (Office) or [phone] (Answering service) with any questions. JAMES [facility] This note was created with the assistance of a speech-recognition program. Although the intention is to generate a document that actually reflects the content of the visit, no guarantees can be provided that every mistake has been identified and corrected by editing. JAMES Barakat 12/10/23 0903 documented in this encounter [employer] 12-07-2023 Miscellaneous Notes Anu called stating that the pressure in both ears is back, she has sinus pressure around her eyes. During the night she went to move from her left side to her right side and got a little dizzy, until she could lay still. She is wondering if something could be called in. Please advise I sent another 5 days of the cefdinir antibiotic. documented in this encounter [facility] 12-07-2023 Telephone encounter Note Anu called stating that the pressure in both ears is back, she has sinus pressure around her eyes. During the night she went to move from her left side to her right side and got a little dizzy, until she could lay still. She is wondering if something could be called in. Please advise [facility] 12-07-2023 Telephone encounter Note I sent another 5 days of the cefdinir antibiotic. [facility] 12-07-2023 Miscellaneous Notes Spoke with with patient to confirm appt for 12/09, patient has had labs done as well documented in this encounter [facility] 12-07-2023 Telephone encounter Note Spoke with with patient to confirm appt for 12/09, patient has had labs done as well [facility] 12-06-2023 Miscellaneous Notes Refill request documented in this encounter [facility] 12-06-2023 Telephone encounter Note Refill request [facility] 11-30-2023 History of Presen t illness Narrative Subjective Patient ID: Anu Mandujano is a 78 y.o. female. The patient is here today for discharge follow up from hospital. Transition of Care Med Rec completed? Yes Discharged medications: Medications have been reviewed and reconciled with the most recent facility discharge document. Comes in for post hospital check. She was in observation with severe vertigo associated with respiratory illness. She had severe sinus pressure suggestive of sinusitis as well as right otitis media and a productive cough suggesting bronchitis. She was worn out from the sickness. She had improvement with gentle hydration and antibiotic therapy. She received breathing treatments. She had vestibular maneuvers through physical therapy which did seem to give her some relief of the vertigo. She was still quite fatigued but able to take care of herself at the time of discharge. She was discharged to complete a course of oral cefdinir. She has noted pain and redness over the dorsal aspect of her right foot. She recalls no injury. The redness and swelling are actually a little less today than when she noticed it yesterday. The following portions of the patient's history were reviewed and updated as appropriate: allergies, current medications, past medical history, past social history, past surgical history, problem list, and medication reconciliation was completed including current medication and post discharge medication. Review of Systems Objective Physical Exam Constitutional: Comments: Afebrile. She is not back to her usual self but she does look much better than when she was admitted. Cough is much less. Her color is fine. HENT: Ears: Comments: The otitis media on the right is much improved Nose: Comments: She is less congested Pulmonary: Effort: Pulmonary effort is normal. Comments: No wheeze. No significant coughing during the visit. Skin: Comments: Right foot is warm and has normal color. The arterial pulse is normal. There is a patch of tender erythema about the size of a quarter over the dorsum of her medial right foot. She does not seem to have pain with manipulation of the ankle or the 1st MTP joint. No streaking or break in the skin. No fluid collection. I do not notice gross foot deformity. Neurological: Comments: She has loss of vibratory sense and light touch in the right foot consistent with neuropathy. Assessment/Plan Reviewed with her. She is recovering from the acute illness that put her in the hospital. The antibiotic she is on should be adequate coverage for cellulitis if that is what is going on in her foot. This does not seem to be gout nor thrombophlebitis. I am going to x-ray her foot to be sure there is no underlying bone injury with her neuropathy and the fact that she has been hobbling around and unsteady on her feet. Otherwise she will try to restrict the weight-bearing and elevate her right foot and use some ice. Further pending the x-ray and her course. Diagnoses and all orders for this visit: Vertigo Non-recurrent acute suppurative otitis media of right ear without spontaneous rupture of tympanic membrane Bronchitis Diabetic polyneuropathy associated with type 2 diabetes mellitus ([facility]) Acute pain of right foot - X-ray foot right minimum 3 views; Future documented in this encounter [facility] 11-28-2023 Miscellaneous Notes LVM patient to confirm the appointment and remind about the lab work prior to the appt., with Musa PERES documented in this encounter [facility] 11-28-2023 Telephone encounter Note LVKendra patient to confirm the appointment and remind about the lab work prior to the appt., with Musa PERES [facility] 11-27-2023 Note XR CHEST 2 VWS Procedure: Chest x-ray performed Number of views:PA and lateral History:Cough Comparison:12/26/2012 Findings: The heart and lungs show no acute findings, and the mediastinum and marla are grossly negative . Impression: No acute change. Finalized by Susu Siddiqui DO on 11/27/2023 1:51 PM [facility] 11-26-2023 History of Presen t illness Narrative Subjective Patient ID: Anu Mandujano is a 78 y.o. female. She has a history of hypertension, diabetes on insulin, and stage 4 chronic kidney disease. In August she was having some intermittent feeling of vertigo. That seemed to go away and then it returned briefly in September. She seemed to be doing fine again until about a week ago when she developed upper respiratory symptoms with congestion and a barking cough. Now her right ear hurts and she is severely dizzy. She is dizzy to the point where she can not walk without assistance. No fever. No headache or neurological symptoms in the extremities. She is very nauseated and having dry heaves because of the dizziness. If she holds her head to the left and is very still and closes her eyes her dizziness is somewhat tolerable. Otherwise she feels like 1 eye is moving [address] and the other eye is moving the other way. She isn't eating. The following portions of the patient's history were reviewed and updated as appropriate: allergies, current medications, past medical history, past social history, past surgical history, and problem list. Review of Systems Objective Physical Exam Constitutional: Comments: She is sitting in a chair with her head tilted to the left in her eyes closed. Afebrile. Blood pressure above ideal target. HENT: Ears: Comments: Right otitis media. Fluid in the left ear. Nose: Congestion present. Eyes: Extraocular Movements: Extraocular movements intact. Pupils: Pupils are equal, round, and reactive to light. Comments: Several beats of horizontal nystagmus particularly with moving her eyes to the left. Neck: Vascular: No carotid bruit. Cardiovascular: Rate and Rhythm: Normal rate and regular rhythm. Heart sounds: No murmur heard. Pulmonary: Effort: Pulmonary effort is normal. Breath sounds: Normal breath sounds. Abdominal: General: There is no distension. Palpations: Abdomen is soft. Musculoskeletal: Cervical back: Neck supple. Neurological: Comments: No lateralizing extremity weakness. Assessment/Plan She does have an ear infection but the degree of vertigo is certainly unusual with a middle ear infection. She is not systemically toxic. I do not identify other findings suggestive of stroke. Her family can not take care of her because of the degree of immobility. I will place her in observation for further evaluation and management. Diagnoses and all orders for this visit: Non-recurrent acute suppurative otitis media of right ear without spontaneous rupture of tympanic membrane Type 2 diabetes mellitus with stage 4 chronic kidney disease, with long-term current use of insulin ([facility]) documented in this encounter [facility] 09-20-2023 Miscellaneous Notes Refill request documented in this encounter [facility] 09-20-2023 Telephone encounter Note Refill request [facility] Evaluation note Diagnosis Non-recurrent acute suppurative otitis media of right ear without spontaneous rupture of tympanic membrane- Primary Type 2 diabetes mellitus with stage 4 chronic kidney disease, with long-term current use of insulin ([facility]) [facility] Diagnosis Vertigo- Primary Dizziness and giddiness Non-recurrent acute suppurative otitis media of right ear without spontaneous rupture of tympanic membrane Bronchitis Bronchitis, not specified as acute or chronic Diabetic polyneuropathy associated with type 2 diabetes mellitus ([facility]) Acute pain of right foot [facility] Diagnosis CKD (chronic kidney disease) stage 4, GFR 15-29 ml/min ([facility])- Primary Chronic kidney disease, Stage IV (severe) documented in this encounter [facility]ructionsNot on filedocumented in this encounter [facility]ructionsNot on filedocumented in this encounter [facility] filedocument[facility] in this [facility] on filedocumented in this [facility] filedocumented in [facility] filedocumented in this [facility] on filedocumented in this [facility] on filedocumented in this [facility] Summary Purpose Family History No Family History Records FoundNo Family History Records FoundNo Family History Records FoundNo Family History Records FoundNo Family History Records Found Advance Directives No Advanced Directives Records FoundDocuments on File Type Date Recorded Patient [employer] Expl anation Living Will 01/06/2022 3:15 PM Latest Code Status on File Code Status Date Activated Date Inactivated Comments Full Code 01/02/2022 3:08 PM 01/02/2022 9:24 PM Code Status History Code Status Date Activated Date Inactivated Comments Full Code 12/27/2021 12:17 PM 12/28/2021 5:57 PM Latest Code Status on File Code Status Date Activated Date Inactivated Comments Full Code 11/26/2023 3:00 PM Code Status History Code Status Date Activated Date Inactivated Comments Full Code 01/02/2022 3:08 PM 01/02/2022 9:24 PM Full Code 12/27/2021 12:17 PM 12/28/2021 5:57 PM Latest Code Status on File Code Status Date Activated Date Inactivated Comments Full Code 11/26/2023 3:00 PM 11/28/2023 5:39 PM Additional Source Comments INFORMATION SOURCE (unrecogn ized section and content) DATE CREATED AUTHOR 08/22/[address] [facility] DATE CREATED AUTHOR AUTHOR'S ORGANIZ ATION 03/16/2024 [facility] DATE CREATED AUTHOR AUTHOR'S ORGANIZ ATION 03/22/2024 [facility] DATE CREATED AUTHOR AUTHOR'S ORGANIZ ATION 04/05/2024 [facility] DATE CREATED AUTHOR AUTHOR'S ORGANIZ ATION 04/24/2024 [facility] Reason for Visit (unrecogniz ed section and content) Reason Onset Date Comments Med Refill 09/20/2023 Reason Comments Dizziness Had left over mecliz ine and took some of those but said it really didn't help0 Earache Right ear Cough Reason Comments transition of care Hospital discharge foot pain Right foot, red and swollen Reason Onset Date Comments Med Refill 12/06/2023 Care Teams (unrecognized sec tion and content) Dental Services Director Relationship Specialty Start Date End Date Keaton Medel MD [address] [place] [address], [address] [place] [address] PCP - General Pediatrics 04/19/17 Dental Services Director Relationship Specialty Start Date End Date Keaton Medel MD [address] [place] [address], [address] [place] [address] PCP - General Pediatrics 04/19/17 Dental Services Director Relationship Specialty Start Date End Date Keaton Medel MD [address] [place] [address], [address] [place] [address] PCP - General Pediatrics 04/19/17 Dental Services Director Relationship Specialty Start Date End Date Keaton Medel MD [address] [place] [address], [address] [place] [address] PCP - General Pediatrics 04/19/17 Dental Services Director Relationship Specialty Start Date End Date Keaton Medel MD [address] [place] [address], [address] [place] [address] PCP - General Pediatrics 04/19/17 Dental Services Director Relationship Specialty Start Date End Date Keaton Medel MD [address] [place] [address], [address] [place] [address] PCP - General Pediatrics 04/19/17 Dental Services Director Relationship Specialty Start Date End Date Keaton Medel MD [address] [place] [address], [address] [place] [address] PCP - General Pediatrics 04/19/17 Dental Services Director Relationship Specialty Start Date End Date Keaton Medel MD [address] [place] [address], [address] [place] [address] PCP - General Pediatrics 04/19/17 FOR RECORDS PERTAINING TO PATIENTS WHO ARE OR HAVE BEEN ENROLLED IN A CHEMICAL DEPENDENCY/SUBSTANCEABUSE PROGRAM, SOME INFORMATION MAY BE OMITTED. This clinical summary was aggregated from multiple sources. Caution should be exercised in using it in the provision of clinical care. This summary normalizes information from multiple sources, and as a consequence, information in this document may materially change the coding, format and clinical context of patient data. In addition, data may be omitted in some cases. CLINICAL DECISIONS SHOULD BE BASED ON THE PRIMARY CLINICAL RECORDS. [employer] provides no warranty or guarantee of the accuracy or completeness of information in this document.
[2024-04-28 09:17] VITALS: BP 137/73; PULSE 65; TEMP 36.8; O2SAT 99
[2024-04-28 09:26] LABS: Glucometer 118 mg/dL (74-106)
[2024-04-28] MEDS: 0.9 % SODIUM CHLORIDE 10 ML SYRINGE - SALINE FLUSH INJ (09:32)
[2024-04-28] MEDS: IOHEXOL 240 MG/ML - 10 ML VIAL INJ (09:32)
[2024-04-28] MEDS: BUPIVACAINE HCL 0.25% PF 25 MG/10 ML VIAL INJ (09:32)
[2024-04-28] MEDS: TRIAMCINOLONE ACETONIDE 40 MG/ML VIAL 80 MG INJ (09:33)
[2024-04-28] MEDS: LIDOCAINE HCL 2% 400 MG/20 ML MDV 3 ML INJ (09:33)
--- NOTE | 2024-04-28 09:33 | W.PM.PROCNOT ---
Date of procedure: 04/28/24 Pre-op diagnosis: Pain due to lumbar stenosis with neurogenic claudication Post-op diagnosis: same as pre-op Procedure: Procedure: Bilateral L4-5 transforaminal epidural steroid injection Medications: Bupivacaine 0.25% 2cc, lidocaine 2% 1cc, kenalog 80mg The patient was seen and examined in the preoperative holding area.? Informed consent was obtained and placed on the chart.? Patient was brought to the medical procedure unit and placed in the prone position where a timeout was completed verifying the correct patient, procedure site, position, and planned special equipment using sterile aseptic technique.? Under direct fluoroscopic visualization a 25-gauge Quincke tipped spinal needle was advanced at level left L4-5 to the designated neural foramen where contrast dye was injected to show adequate spread.? There was no evidence of vascular or adverse uptake.? Epidural spread was appreciated.? The above-mentioned injectate was then placed in a 1.5 mL aliquot preceded by negative aspiration.? The needle was removed. The same procedure, at the same level, was completed on the opposite side. ? Patient was taken to the postprocedural recovery area and monitored for an appropriate length of time before found suitable for discharge in the accompaniment of a responsible adult. Surgeon: Jani Jeffers Pathology: none sent Condition: stable Disposition: no change
== END 2024-04-28 09:38 | disposition home or self-care (01) ==
LOC: SURGOUT 08:51
PROVIDERS: PCP Internal Medicine; Visit Provider Anesthesiology
DX: M48.062 Spinal stenosis, lumbar region with neurogenic claudication (principal); Z79.4 Long term (current) use of insulin; Z79.84 Long term (current) use of oral hypoglycemic drugs
CPT/HCPCS: 36415; 64483; 82948; J0665; J3301; Q9966

== ENCOUNTER 2024-05-12 09:47 | Day surgery (SDC) | payer MEDICARE, SELFPAY ==
--- OUTSIDE RECORDS SUMMARY | 2024-05-12 10:03 | XMS_ITS | CCD ---
Author Organization [facility] ion [facility] CliniSyor Care Team Providers Care Track Supervisor Name Role Phone ZACH, DR MARCH Consulting [...] 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: [CODEINE] Drug Allergy 05-10-2021 Dizziness, Nausea [facility] (12 sources) gabapentin; 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: [GABAPENTIN] Drug Allergy 10-22-2019 Nausea [facility] (12 sources) tiZANidine; 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: [TIZANIDINE] Drug Allergy 04-19-2017 Nausea [facility] (12 sources) traMADol; 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: [TRAMADOL] Drug Allergy 01-10-2018 Itching, Dizziness, Vomiting [facility] Work Phone: (12 sources) Wheat gluten extract; 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: [GLUTEN] Drug Allergy 12-01-2021 GI Disturbance [facility] Medications Current Medications Medication Drug Class(es) Dates [...] FORMULARY (10 sources) NON FORMULARY da susan. [place] Beet- red beet supplement for circulation 0 Suspended NON FORMULARY da susan. 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] Onset: 11-10-2020 Episodic [...] Anion gap [Moles/Vol] 12 mmol/L Normal 5-15 [facility] Comment on above: Performed By: #### C MP #### [facility] ([id number]) [address] [place] [address] 62321 Calcium [Mass/Vol] 9.7 mg/dL Normal 8.5-10.5 [facility] Comment on above: Performed By: #### C MP #### [facility] ([id number]) [address] [place] [address] 08092 Chloride [Moles/Vol] 105 mmol/L Normal 98-109 [facility] Comment on above: Performed By: #### C MP #### [facility] ([id number]) [address] [place] [address] 09190 CO2 [Moles/Vol] 25 mmol/L Normal 22-32 [facility] Comment on above: Performed By: #### C MP #### [facility] ([id number]) [address] [place] [address] Creatinine [Mass/Vol] 2.61 mg/dL High 0.40-1.00 [facility] Comment on above: Result Comment: METH OD TRACEABLE TO IDMS STANDARD Performed By: #### C MP #### [facility] ([id number]) [address] [place] [address] 44127 GFR/1.73 sq M.predicted among non-blacks MDRD (S/P/Bld) [Vol rate/Area] 18 mL/min/{1.73_m2} Low >59 [facility] Comment on above: Result Comment: Reported eGFR is based on the CKD-EPI 2020 equation that does not use a race coefficient. Performed By: #### C MP #### [facility] ([id number]) [address] [place] [address] 23696 Glucose [Mass/Vol] 103 mg/dL High 65-99 [facility] Comment on above: Performed By: #### C MP #### [facility] ([id number]) [address] [place] [address] 73044 Potassium [Moles/Vol] 4.7 mmol/L Normal 3.5-5.0 [facility] Comment on above: Performed By: #### C MP #### [facility] ([id number]) [address] [place] [address] 61610 Sodium [Moles/Vol] 142 mmol/L Normal 134-146 [facility] Comment on above: Performed By: #### C MP #### [facility] ([id number]) [address] [place] [address] 51518 Urea nitrogen [Mass/Vol] 43 mg/dL High 5-27 [facility] Comment on above: Performed By: #### C MP #### [facility] ([id number]) [address] [place] [address] 25543 COMPLETE BLOOD COUNTon 03-21 Erythrocyte distribution width (RBC) [Ratio] 13.3 % Normal 11.5-15.0 [facility] Comment on above: Performed By: #### C MP #### [facility] ([id number]) [address] [place] [address] 61009 Hematocrit (Bld) [Volume fraction] 34.1 % Low 35-47 [facility] Comment on above: Performed By: #### C MP #### [facility] ([id number]) [address] [place] [address] 20909 Hemoglobin (Bld) [Mass/Vol] 11.7 g/dL Normal 11.7-15.5 [facility] Comment on above: Performed By: #### C MP #### [facility] ([id number]) [address] [place] [address] 21751 MCH (RBC) [Entitic mass] 30.9 pg Normal 27-34 [facility] Comment on above: Performed By: #### C MP #### [facility] ([id number]) [address] [place] [address] 87307 MCHC (RBC) [Mass/Vol] 34.4 g/dL Normal 32-36 [facility] Comment on above: Performed By: #### C MP #### [facility] ([id number]) [address] [place] [address] 53978 MCV (RBC) [Entitic vol] 90 fL Normal 80-100 [facility] Comment on above: Performed By: #### C MP #### [facility] ([id number]) [address] [place] [address] 28655 Platelet mean volume (Bld) [Entitic vol] 8.4 fL Normal 7-12 [facility] Comment on above: Performed By: #### C MP #### [facility] ([id number]) [address] [place] [address] 66051 Platelets (Bld) [#/Vol] 255 10*3/uL Normal 150-450 [facility] Comment on above: Performed By: #### C MP #### [facility] ([id number]) [address] [place] [address] 72718 RBC COUNT 3.80 X10E12/L Normal 3.80-5.20 [facility] Comment on above: Performed By: #### C MP #### [facility] ([id number]) [address] [place] [address] 96008 WBC (Bld) [#/Vol] 7.9 10*3/uL Normal 4.0-11.0 [facility] Comment on above: Performed By: #### C MP #### [facility] ([id number]) [address] [place] [address] 77215 MAGNESIUMon 03-21-2024 Magnesium [Mass/Vol] 1.8 mg/dL Normal 1.8-2.6 [facility] Comment on above: Performed By: #### C MP #### [facility] ([id number]) [address] [place] [address] 22737 PHOSPHORUSon 03-21-2024 Phosphate [Mass/Vol] 4.0 mg/dL Normal 2.4-4.9 [facility] Comment on above: Performed By: #### C MP #### [facility] ([id number]) [address] [place] [address] 28949 PROTEIN CREAT RATIOon 2023 RANDOM URINE PROTEIN 3770 mg/L High <120 [facility] Comment on above: Performed By: #### C MP #### [facility] ([id number]) [address] [place] [address] 92597 U/PRO/DRIVE IN THEATER ATTENDANT RATIO CALC 2.26 High <0.2 [facility] Comment on above: Result Comment: Neph rotic Syndrome is associated with ratios >3.5 Performed By: #### C MP #### [facility] ([id number]) [address] [place] [address] 35918 URINE CREATININE,RDM 166.75 mg/dL Normal Pr [facility] Comment on above: Performed By: #### C MP #### [facility] ([id number]) [address] [place] [address] 75202 Parathyrin.intact [Mass/Vol] on 03-21-2024 PTH INTACT 123 pg/mL High [facility] Comment on above: Performed By: #### C MP #### [facility] ([id number]) [address] [place] [address] 87991 URINALYSISon 03-21-2024 Bilirubin Ql (U) Negative Normal NEG [facility] Comment on above: Performed By: #### C MP #### [facility] ([id number]) [address] [place] [address] 72414 BLOOD/HGB Negative Normal NEG [facility] Comment on above: Performed By: #### C MP #### [facility] ([id number]) [address] [place] [address] 25263 Color (U) YELLOW Normal YELLOW [facility] Comment on above: Performed By: #### C MP #### [facility] ([id number]) [address] [place] [address] 24275 Glucose Ql (U) 30 mg/dL Abnormal NEG [facility] Comment on above: Performed By: #### C MP #### [facility] ([id number]) [address] [place] [address] 71774 Hyaline casts LM Ql (Urine sed) 1 /lpf Normal 0-2 [facility] Comment on above: Performed By: #### C MP #### [facility] ([id number]) [address] [place] [address], [place] [address] Ketones Ql (U) Negative Normal NEG [facility] Comment on above: Performed By: #### C MP #### [facility] ([id number]) [address] [place] [address] 42394 Leukocyte esterase Test strip Ql (U) MODERATE Abnormal NEG [facility] Comment on above: Performed By: #### C MP #### [facility] ([id number]) [address] [place] [address] 73924 MUCOUS PRESENT Abnormal NONE [facility] Comment on above: Performed By: #### C MP #### [facility] ([id number]) [address] [place] [address] 77834 Nitrite Ql (U) Negative Normal NEG [facility] Comment on above: Performed By: #### C MP #### [facility] ([id number]) [address] [place] [address] 06560 pH (U) 6.0 [pH] Normal 5.0-8.5 [facility] Comment on above: Performed By: #### C MP #### [facility] ([id number]) [address] [place] [address] 75885 Protein Ql (U) 300 mg/dL Abnormal NEG [facility] Comment on above: Performed By: #### C MP #### [facility] ([id number]) [address] [place] [address] 24067 R.B.CELLS 2 /hpf Normal 0-5 [facility] Comment on above: Performed By: #### C MP #### [facility] ([id number]) [address] [place] [address] 94532 Specific gravity (U) [Rel density] 1.020 Normal 1.003-1.035 [facility] Comment on above: Performed By: #### C MP #### [facility] ([id number]) [address] [place] [address] 99683 SQUAMOUS EPITHELIUM 2 /hpf Normal 0-5 [facility] Comment on above: Performed By: #### C MP #### [facility] ([id number]) [address] [place] [address] 20835 TURBIDITY CLEAR Normal CLEAR [facility] Comment on above: Performed By: #### C MP #### [facility] ([id number]) [address] [place] [address] [place] [address] Urobilinogen (U) [Mass/Vol] mg/dL Normal <1.1 [facility] Comment on above: Performed By: #### C MP #### [facility] ([id number]) [address] [place] [address] 01829 W.B.CELLS 24 /hpf High 0-5 [facility] Comment on above: Performed By: #### C MP #### [facility] ([id number]) [address] [place] [address] 61126 Vitamin D+Metabolites [Mass/ Vol]on 03-21-2024 VITAMIN D 25 HYD TOT 28.1 ng/mL Low 30-100 [facility] Comment on above: Result Comment: Vitamin D status 25 [place] Vitamin D Deficiency <20 ng/mL Insufficiency 20-29 ng/mL Sufficiency 30-100 ng/mL Toxicity >100 ng/mL NOTE: A pediatric reference range has not been established by the switchboard operator supervisor of this kit. The [place] [employer] recommends a Vitamin D level of = or >20ng/mL in infants and children. Performed By: #### C MP #### [facility] ([id number]) [address] [place] [address] 66325 BASIC METABOLIC PANLon 03-07 Anion gap [Moles/Vol] 10 mmol/L Normal 5-15 [facility] Comment on above: Performed By: #### C BC, UPCR, BMP, 62246-8, 2777-1, 2731-8, 02364-1 ####[facility] ([id number])[address], [address] [place] [address] Calcium [Mass/Vol] 9.6 mg/dL Normal 8.5-10.5 [facility] Comment on above: Performed By: #### C BC, UPCR, BMP, 19834-4, 2777-1, 2731-8, 98318-4 ####[facility] ([id number])[address] [address], [place] [address] Chloride [Moles/Vol] 102 mmol/L Normal 98-109 [facility] Comment on above: Performed By: #### C BC, UPCR, BMP, 74707-1, 2777-1, 2731-8, 69415-1 ####[facility] ([id number])[address] [address], [place] [address] CO2 [Moles/Vol] 28 mmol/L Normal 22-32 [facility] Comment on above: Performed By: #### C BC, UPCR, BMP, 09143-8, 2777-1, 2731-8, 43916-1 ####[facility] ([id number])[address] [address] [place] [address] Creatinine [Mass/Vol] 3.34 mg/dL High 0.40-1.00 [facility] Comment on above: Result Comment: METH OD TRACEABLE TO IDMS STANDARD Performed By: #### C BC, UPCR, BMP, 95860-0, 2777-1, 2731-8, 09585-4 ####[facility] ([id number])[address] [address], [place] [address] GFR/1.73 sq M.predicted among non-blacks MDRD (S/P/Bld) [Vol rate/Area] 14 mL/min/{1.73_m2} Low >59 [facility] Comment on above: Result Comment: Reported eGFR is based on the CKD-EPI 2020 equation that does not use a race coefficient. Performed By: #### C BC, UPCR, BMP, 82905-3, 2777-1, 2731-8, 07900-3 ####[facility] ([id number])[address], [address], [place] [address] Glucose [Mass/Vol] 166 mg/dL High 65-99 [facility] Comment on above: Performed By: #### C BC, UPCR, BMP, 58937-5, 2777-1, 2731-8, 45747-7 ####[facility] ([id number])[address], [address] [place] [address] 62765 Potassium [Moles/Vol] 5.3 mmol/L High 3.5-5.0 [facility] Comment on above: Performed By: #### C BC, UPCR, BMP, 16937-5, 2777-1, 2731-8, 56604-8 ####[facility] ([id number])[address], [address] [place] [address] 28754 Sodium [Moles/Vol] 140 mmol/L Normal 134-146 [facility] Comment on above: Performed By: #### C BC, UPCR, BMP, 78912-9, 2777-1, 2731-8, 15954-4 ####[facility] ([id number])[address], [address] [place] [address] 42620 Urea nitrogen [Mass/Vol] 46 mg/dL High 5-27 [facility] Comment on above: Performed By: #### C BC, UPCR, BMP, 40883-6, 2777-1, 2731-8, 97678-2 ####[facility] ([id number])[address] [place] [address] 50359 COMPLETE BLOOD COUNTon 03-07 Erythrocyte distribution width (RBC) [Ratio] 13.4 % Normal 11.5-15.0 [facility] Comment on above: Performed By: #### C BC, UPCR, BMP, 81172-4, 2777-1, 2731-8, 95474-3 ####[facility] ([id number])[address], [address] [place] [address] 24266 Hematocrit (Bld) [Volume fraction] 35.7 % Normal 35-47 [facility] Comment on above: Performed By: #### C BC, UPCR, BMP, 41125-5, 2777-1, 2731-8, 26966-4 ####[facility] ([id number])[address] [address] [place] [address] 14696 Hemoglobin (Bld) [Mass/Vol] 12.0 g/dL Normal 11.7-15.5 [facility] Comment on above: Performed By: #### C BC, UPCR, BMP, 66436-4, 2777-1, 2731-8, 58685-8 ####[facility] ([id number])[address] [address] [place] [address] 30782 MCH (RBC) [Entitic mass] 30.5 pg Normal 27-34 [facility] Comment on above: Performed By: #### C BC, UPCR, BMP, 56632-9, 2777-1, 2731-8, 07503-2 ####[facility] ([id number])[address] [address] [place] [address] 22986 MCHC (RBC) [Mass/Vol] 33.6 g/dL Normal 32-36 [facility] Comment on above: Performed By: #### C BC, UPCR, BMP, 14243-4, 2777-1, 2731-8, 04630-5 ####[facility] ([id number])[address] [address] [place] [address] MCV (RBC) [Entitic vol] 91 fL Normal 80-100 [facility] Comment on above: Performed By: #### C BC, UPCR, BMP, 97368-1, 2777-1, 2731-8, 92327-0 ####[facility] ([id number])[address] [address], [place] [address] Platelet mean volume (Bld) [Entitic vol] 9.2 fL Normal 7-12 [facility] Comment on above: Performed By: #### C BC, UPCR, BMP, 30361-4, 2777-1, 2731-8, 70487-3 ####[facility] ([id number])[address] [address], [place] [address] Platelets (Bld) [#/Vol] 268 10*3/uL Normal 150-450 [facility] Comment on above: Performed By: #### C BC, UPCR, BMP, 50188-1, 2777-1, 2731-8, 42857-8 ####[facility] ([id number])[address] [address], [place] [address] RBC COUNT 3.92 X10E12/L Normal 3.80-5.20 [facility] Comment on above: Performed By: #### C BC, UPCR, BMP, 63503-8, 2777-1, 2731-8, 09760-9 ####[facility] ([id number])[address] [address] [place] [address] WBC (Bld) [#/Vol] 6.9 10*3/uL Normal 4.0-11.0 [facility] Comment on above: Performed By: #### C BC, UPCR, BMP, 67908-3, 2777-1, 2731-8, 16287-0 ####[facility] ([id number])[address], [address], [place] [address] MAGNESIUMon 03-07-2024 Magnesium [Mass/Vol] 2.1 mg/dL Normal 1.8-2.6 [facility] Comment on above: Performed By: #### C BC, UPCR, BMP, 61260-4, 2777-1, 2731-8, 36379-5 ####[facility] ([id number])[address] [place] [address] 21479 PHOSPHORUSon 03-07-2024 Phosphate [Mass/Vol] 4.4 mg/dL Normal 2.4-4.9 [facility] Comment on above: Performed By: #### C BC, UPCR, BMP, 49577-7, 2777-1, 2731-8, 16627-8 ####[facility] ([id number])[address], [address] [place] [address] 76313 PROTEIN CREAT RATIOon 2023 RANDOM URINE PROTEIN 1860 mg/L High <120 [facility] Comment on above: Performed By: #### C BC, UPCR, BMP, 68764-7, 2777-1, 2731-8, 50524-6 ####[facility] ([id number])[address] [place] [address] 65270 U/PRO/DRIVE IN THEATER ATTENDANT RATIO CALC 1.72 High <0.2 [facility] Comment on above: Result Comment: Neph rotic Syndrome is associated with ratios >3.5 Performed By: #### C BC, UPCR, BMP, 33228-1, 2777-1, 2731-8, 60309-7 ####[facility] ([id number])[address], [address] [place] [address] 98013 URINE CREATININE,RDM 108.20 mg/dL Normal [facility] Comment on above: Performed By: #### C BC, UPCR, BMP, 49842-0, 2777-1, 2731-8, 72765-5 ####[facility] ([id number])[address], [address], [place] [address] Parathyrin.intact [Mass/Vol] on 03-07-2024 PTH INTACT 155 pg/mL High 12 [facility] Comment on above: Performed By: #### C BC, UPCR, BMP, 89999-2, 2777-1, 2731-8, 91127-9 ####[facility] ([id number])[address], [place] [address] URINALYSISon 03-07-2024 Bilirubin Ql (U) Negative Normal NEG [facility] Comment on above: Performed By: #### U A ####[facility] ([id number])[address], [address], [place] [address] BLOOD/HGB Negative Normal NEG [facility] Comment on above: Performed By: #### U A ####[facility] ([id number])[address], [address], [place] [address] Color (U) YELLOW Normal YELLOW [facility] Comment on above: Performed By: #### U A ####[facility] ([id number])[address], [address], [place] [address] Glucose Ql (U) Negative Normal NEG [facility] Comment on above: Performed By: #### U A ####[facility] ([id number])[address], [place] [address] Ketones Ql (U) Negative Normal NEG [facility] Comment on above: Performed By: #### U A ####[facility] ([id number])[address], [place] [address] Leukocyte esterase Test strip Ql (U) Small Abnormal NEG [facility] Comment on above: Performed By: #### U A ####[facility] ([id number])[address] [address] MUCOUS PRESENT Abnormal NONE [facility] Comment on above: Performed By: #### U A ####[facility] ([id number])[address], [place] [address] Nitrite Ql (U) Negative Normal NEG [facility] Comment on above: Performed By: #### U A ####[facility] ([id number])[address] [address] pH (U) 6.5 [pH] Normal 5.0-8.5 [facility] Comment on above: Performed By: #### U A ####[facility] ([id number])[address] [place] [address] Protein Ql (U) 300 mg/dL Abnormal NEG [facility] Comment on above: Performed By: #### U A ####[facility] ([id number])[address] [address] [place] [address] R.B.CELLS <1 Normal 0-5 [facility] Comment on above: Performed By: #### U A ####[facility] ([id number])[address] [address] [place] [address] Specific gravity (U) [Rel density] 1.014 Normal 1.003-1.035 [facility] Comment on above: Performed By: #### U A ####[facility] ([id number])[address] [address] [place] [address] SQUAMOUS EPITHELIUM <1 Normal 0-5 [facility] Comment on above: Performed By: #### U A ####[facility] ([id number])[address] [address] [address] TURBIDITY CLEAR Normal CLEAR [facility] Comment on above: Performed By: #### U A ####[facility] ([id number])[address] [address] [address] Urobilinogen (U) [Mass/Vol] mg/dL Normal <1.1 [facility] Comment on above: Performed By: #### U A ####[facility] ([id number])[address] [facility] [address], [place] [address] W.B.CELLS 6 /hpf High 0-5 [facility] Comment on above: Performed By: #### U A ####[facility] ([id number])[address] [facility] [address], [place] [address] Vitamin D+Metabolites [Mass/ Vol]on 03-07-2024 VITAMIN D 25 HYD TOT 27.2 ng/mL Low 30-100 [facility] Comment on above: Result Comment: Vitamin D status 25 [place] Vitamin D Deficiency <20 ng/mL Insufficiency 20-29 ng/mL Sufficiency 30-100 ng/mL Toxicity >100 ng/mL NOTE: A pediatric reference range has not been established by the switchboard operator supervisor of this kit. The [place] [employer] recommends a Vitamin D level of = or >20ng/mL in infants and children. Performed By: #### C MP #### [facility] ([id number]) [address] [place] [id number] HGB A1C (GLYCO-HGB)on 2023 Glucose [Mass/Vol] 169 mg/dL Normal [facility] Comment on above: Performed By: #### 2 4331-1, THYR ####[facility] ([id number])[address] [facility] [address], [place] [address] HbA1c (Bld) [Mass fraction] 7.5 % High 4.4-5.6 [facility] Comment on above: Result Comment: NOTE ADA Guidelines Result HgbA1c Normal : less than 5.7 % Prediabetes : 5.7 % to 6.4 % Diabetes : > 6.4 % Use with caution in patients with abnormal hemoglobin variants as the half-life of red blood cells and in vivo glycation rates are affected. Performed By: #### 2 4331-1, THYR ####[facility] ([id number])2130 [address], [address] [address] Lipid 1996 panelon 4 Cholesterol [Mass/Vol] 179 mg/dL Normal 150-200 [facility] Comment on above: Performed By: #### 2 4331-1, THYR ####[facility] ([id number])2130 [facility] [address] [address] Cholesterol in HDL [Mass/Vol] 49 mg/dL Normal >39 [facility] Comment on above: Result Comment: HDL <40 mg/dL - High Risk HDL > or = 40mg/dL- Desirable HDL >60 mg/dL - Negative Risk Performed By: #### 2 4331-1, THYR ####[facility] ([id number])[address], [address] [address] Cholesterol in LDL [Mass/Vol] 93 mg/dL Normal <130 [facility] Comment on above: Result Comment: LDL <100 mg/dL - Desirable LDL >160 mg/dL - High Risk Performed By: #### 2 4331-1, THYR ####[facility] ([id number])[address] [address], [place] [address] Cholesterol in VLDL [Mass/Vol] 37 mg/dL High 0-30 [facility] Comment on above: Performed By: #### 2 4331-1, THYR ####[facility] ([id number])[address] [address], [place] [address] CHOLESTEROL:HDL 3.7 Normal 1.0-5.0 [facility] Comment on above: Performed By: #### 2 4331-1, THYR ####[facility] ([id number])[address], [address], [place] [address] Triglyceride [Mass/Vol] 186 mg/dL High 27-150 [facility] Comment on above: Performed By: #### 2 4331-1, THYR ####[facility] ([id number])[address] [address], [place] [address] THYROID PROFILEon 01-03-2024 Free T4 [Mass/Vol] 0.75 ng/dL Normal 0.61-1.60 [facility] Comment on above: Performed By: #### 2 4331-1, THYR ####[facility] ([id number])[address] [address] [place] [address] TSH 5.18 uIU/mL High 0.49-4.67 [facility] Comment on above: Performed By: #### 2 4331-1, THYR ####[facility] ([id number])[address] [address] [place] [address], [place] [address] BASIC METABOLIC PANLon 12-03 Anion gap [Moles/Vol] 11 mmol/L Normal 5-15 [facility] Comment on above: Performed By: #### C BCA, CMP #### [facility] ([id number]) [address] [place] [address], [place] [address] Calcium [Mass/Vol] 9.7 mg/dL Normal 8.5-10.5 [facility] Comment on above: Performed By: #### C BCA, CMP #### [facility] ([id number]) [address] [place] [address] Chloride [Moles/Vol] 104 mmol/L Normal 98-109 [facility] Comment on above: Performed By: #### C BCA, CMP #### [facility] ([id number]) [address] [place] [address] CO2 [Moles/Vol] 26 mmol/L Normal 22-32 [facility] Comment on above: Performed By: #### C BCA, CMP #### [facility] ([id number]) [address] [place] [address] Creatinine [Mass/Vol] 2.33 mg/dL High 0.40-1.00 [facility] Comment on above: Result Comment: METH OD TRACEABLE TO IDMS STANDARD Performed By: #### C BCA, CMP #### [facility] ([id number]) [address] [place] [address] GFR/1.73 sq M.predicted among non-blacks MDRD (S/P/Bld) [Vol rate/Area] 21 mL/min/{1.73_m2} Low >59 [facility] Comment on above: Result Comment: Reported eGFR is based on the CKD-EPI 1 equation that does not use a race coefficient. Performed By: #### C BCA, CMP #### [facility] ([id number]) [address] [place] [address] Glucose [Mass/Vol] 102 mg/dL High 65-99 [facility] Comment on above: Performed By: #### C BCA, CMP #### [facility] ([id number]) [address] [place] [address] Potassium [Moles/Vol] 4.9 mmol/L Normal 3.5-5.0 [facility] Comment on above: Performed By: #### C BCA, CMP #### [facility] ([id number]) [address] [place] [address] Sodium [Moles/Vol] 141 mmol/L Normal 134-146 [facility] Comment on above: Performed By: #### C BCA, CMP #### [facility] ([id number]) [address] [place] [address] Urea nitrogen [Mass/Vol] 43 mg/dL High 5-27 [facility] Comment on above: Performed By: #### C BCA, CMP #### [facility] ([id number]) [address] [place] [address] 199[address] COMPLETE BLOOD COUNT 12-03 Erythrocyte distribution width (RBC) [Ratio] 13.0 % Normal 11.5-15.0 [facility] Comment on above: Performed By: #### C BCA, CMP #### [facility] ([id number]) [address] [place] [address] Hematocrit (Bld) [Volume fraction] 31.9 % Low 35-47 [facility] Comment on above: Performed By: #### C BCA, CMP #### [facility] ([id number]) [address] [place] [address] Hemoglobin (Bld) [Mass/Vol] 10.7 g/dL Low 11.7-15.5 [facility] Comment on above: Performed By: #### C BCA, CMP #### [facility] ([id number]) [address] [place] [address] 59553 MCH (RBC) [Entitic mass] 30.4 pg Normal 27-34 [facility] Comment on above: Performed By: #### C BCA, CMP #### [facility] ([id number]) [address] [place] [address] MCHC (RBC) [Mass/Vol] 33.6 g/dL Normal 32-36 [facility] Comment on above: Performed By: #### C AUTUMN, CMP #### [facility] ([id number]) [address] [place] [address] 488[address] MCV (RBC) [Entitic vol] 91 fL Normal 80-100 [facility] Comment on above: Performed By: #### C AUTUMN, CMP #### [facility] ([id number]) [address] [place] [address] Platelet mean volume (Bld) [Entitic vol] 8.6 fL Normal 7-12 [facility] Comment on above: Performed By: #### C AUTUMN, CMP #### [facility] ([id number]) [address] [place] [address] 13865 Platelets (Bld) [#/Vol] 398 10*3/uL Normal 150-450 [facility] Comment on above: Performed By: #### C AUTUMN, CMP #### [facility] ([id number]) [address] [place] [address] RBC COUNT 3.51 X10E12/L Low 3.80-5.20 [facility] Comment on above: Performed By: #### C AUTUMN, CMP #### [facility] ([id number]) [address] [place] [address] WBC (Bld) [#/Vol] 12.6 10*3/uL High 4.0-11.0 [facility] Comment on above: Performed By: #### C AUTUMN, CMP #### [facility] ([id number]) [address] [place] [address] MAGNESIUMon 12-04-2023 Magnesium [Mass/Vol] 1.9 mg/dL Normal 1.8-2.6 [facility] Comment on above: Performed By: #### C BCA, CMP #### [facility] ([id number]) [address] [place] [address] PHOSPHORUSon 12-04-2023 Phosphate [Mass/Vol] 3.7 mg/dL Normal 2.4-4.9 [facility] Comment on above: Performed By: #### C BCA, CMP #### [facility] ([id number]) [address] [place] [address] PROTEIN CREAT RATIOon 2023 RANDOM URINE PROTEIN 1840 mg/L High <120 [facility] Comment on above: Performed By: #### C AUTUMN, CMP #### [facility] ([id number]) [address] [place] [address] U/PRO/DRIVE IN THEATER ATTENDANT RATIO CALC 2.19 High <0.2 [facility] Comment on above: Result Comment: Neph rotic Syndrome is associated with ratios >3.5 Performed By: #### C AUTUMN, CMP #### [facility] ([id number]) [address] [place] [address]990 URINE CREATININE,RDM 84.01 mg/dL Normal [facility] Comment on above: Performed By: #### C BCA, CMP #### [facility] ([id number]) [address] [place] [address] Parathyrin.intact [Mass/Vol] on 12-04-2023 PTH INTACT 105 pg/mL High 12-88 [facility] Comment on above: Performed By: #### C BCA, CMP #### [facility] ([id number]) [address] [place] [address] [place] [address] URINALYSISon 12-04-2023 Bilirubin Ql (U) Negative Normal NEG [facility] BLOOD/HGB Negative Normal NEG [facility] Color (U) YELLOW Normal YELLOW [facility] Glucose Ql (U) Negative Normal NEG [facility] Hyaline casts LM Ql (Urine sed) 14 /lpf High 0-2 [facility] Ketones Ql (U) Negative Normal NEG [facility] Leukocyte esterase Test strip Ql (U) Small Abnormal NEG [facility] MUCOUS PRESENT Abnormal NONE [facility] Nitrite Ql (U) Negative Normal NEG [facility] pH (U) 6.0 [pH] Normal 5.0-8.5 [facility] Protein Ql (U) 200 mg/dL Abnormal NEG [facility] R.B.CELLS 1 /hpf Normal 0-5 [facility] RENAL EPITHELIUM 1 /hpf High 0 [facility] Specific gravity (U) [Rel density] 1.012 Normal 1.003-1.035 [facility] SQUAMOUS EPITHELIUM <1 Normal 0-5 [facility] TURBIDITY CLEAR Normal CLEAR [facility] Urobilinogen (U) [Mass/Vol] mg/dL Normal <1.1 [facility] W.B.CELLS 20 /hpf High 0-5 [facility] Vitamin D+Metabolites [Mass/ Vol]on 12-04-2023 VITAMIN D 25 HYD TOT 26.6 ng/mL Low 30-100 [facility] Comment on above: Result Comment: Vitamin D status 25 [place] Vitamin D Deficiency <20 ng/mL Insufficiency 20-29 ng/mL Sufficiency 30-100 ng/mL Toxicity >100 ng/mL NOTE: A pediatric reference range has not been established by the switchboard operator supervisor of this kit. The [place] [employer] recommends a Vitamin D level of = or >20ng/mL in infants and children. Performed By: #### C BCA, CMP #### [facility] ([id number]) [address] [place] [address], [place] [address] XR FOOT RT MIN 3 VWSon 12-01 [...] Gauthier MD on 12/02/2023 8:31 AM Normal [facility] BASIC METABOLIC PANLon 11-27 Anion gap [Moles/Vol] 8 mmol/L Normal 5-15 [facility] Comment on above: Performed By: #### B MP #### [facility] ([id number]) [address] [place] [address] Calcium [Mass/Vol] 8.2 mg/dL Low 8.5-10.5 [facility] Comment on above: Performed By: #### B MP #### [facility] ([id number]) [address] [place] [address] Chloride [Moles/Vol] 109 mmol/L Normal 98-109 [facility] Comment on above: Performed By: #### B MP #### [facility] ([id number]) [address] [place] [address] 41745 CO2 [Moles/Vol] 22 mmol/L Normal 22-32 [facility] Comment on above: Performed By: #### B MP #### [facility] ([id number]) [address] [place] [address] 33903 Creatinine [Mass/Vol] 1.80 mg/dL High 0.40-1.00 [facility] Comment on above: Result Comment: METH OD TRACEABLE TO IDMS STANDARD Performed By: #### B MP #### [facility] ([id number]) [address] [place] [address] 60609 GFR/1.73 sq M.predicted among non-blacks MDRD (S/P/Bld) [Vol rate/Area] 29 mL/min/{1.73_m2} Low >59 [facility] Comment on above: Result Comment: Reported eGFR is based on the CKD-EPI 2020 equation that does not use a race coefficient. Performed By: #### B MP #### [facility] ([id number]) [address] [place] [address] 42498 Glucose [Mass/Vol] 119 mg/dL High 65-99 [facility] Comment on above: Performed By: #### B MP #### [facility] ([id number]) [address] [place] [address] 04319 Potassium [Moles/Vol] 3.9 mmol/L Normal 3.5-5.0 [facility] Comment on above: Performed By: #### B MP #### [facility] ([id number]) [address] [place] [address] 76935 Sodium [Moles/Vol] 139 mmol/L Normal 134-146 [facility] Comment on above: Performed By: #### B MP #### [facility] ([id number]) [address] [place] [address] 42705 Urea nitrogen [Mass/Vol] 28 mg/dL High 5-27 [facility] Comment on above: Performed By: #### B MP #### [facility] ([id number]) [address] [place] [address] 15471 Glucose Glucometer (BldC) [M ass/Vol]on 11-28-2023 Glucose [Mass/Vol] 177 mg/dL High 65-99 [facility] COMPREHENSIVE METABOLIC PANE Jean Claude 11-27-2023 Albumin [Mass/Vol] 2.9 g/dL Low 3.2-5.3 [facility] Comment on above: Performed By: #### C MP #### [facility] ([id number]) [address] [place] [address] ALP [Catalytic activity/Vol] 126 U/L Normal 39-130 [facility] Comment on above: Performed By: #### C MP #### [facility] ([id number]) [address] [place] [address] 33340 ALT [Catalytic activity/Vol] 33 U/L High 0-31 [facility] Comment on above: Performed By: #### C MP #### [facility] ([id number]) [address] [place] [address] 05748 Anion gap [Moles/Vol] 9 mmol/L Normal 5-15 [facility] Comment on above: Performed By: #### C MP #### [facility] ([id number]) [address] [place] [address] 07712 AST [Catalytic activity/Vol] 32 U/L Normal 0-41 [facility] Comment on above: Performed By: #### C MP #### [facility] ([id number]) [address] [place] [address] 36924 Bilirubin [Mass/Vol] 0.5 mg/dL Normal 0.3-1.2 [facility] Comment on above: Performed By: #### C MP #### [facility] ([id number]) [address] [place] [address] 15572 Calcium [Mass/Vol] 8.8 mg/dL Normal 8.5-10.5 [facility] Comment on above: Performed By: #### C MP #### [facility] ([id number]) [address] [place] [address] 17492 Chloride [Moles/Vol] 106 mmol/L Normal 98-109 [facility] Comment on above: Performed By: #### C MP #### [facility] ([id number]) [address] [place] [address] 52853 CO2 [Moles/Vol] 26 mmol/L Normal 22-32 [facility] Comment on above: Performed By: #### C MP #### [facility] ([id number]) [address] [place] [address] 32687 Creatinine [Mass/Vol] 1.98 mg/dL High 0.40-1.00 [facility] Comment on above: Result Comment: METH OD TRACEABLE TO IDMS STANDARD Performed By: #### C MP #### [facility] ([id number]) [address] [place] [address] 52274 GFR/1.73 sq M.predicted among non-blacks MDRD (S/P/Bld) [Vol rate/Area] 26 mL/min/{1.73_m2} Low >59 [facility] Comment on above: Result Comment: Reported eGFR is based on the CKD-EPI 2020 equation that does not use a race coefficient. Performed By: #### C MP #### [facility] ([id number]) [address] [place] [address] 79758 Glucose [Mass/Vol] 121 mg/dL High 65-99 [facility] Comment on above: Performed By: #### C MP #### [facility] ([id number]) [address] [place] [address] 73673 Potassium [Moles/Vol] 4.5 mmol/L Normal 3.5-5.0 [facility] Comment on above: Performed By: #### C MP #### [facility] ([id number]) [address] [place] [address] 95530 Protein [Mass/Vol] 6.0 g/dL Normal 6.0-8.0 [facility] Comment on above: Performed By: #### C MP #### [facility] ([id number]) [address] [place] [address] 20109 Sodium [Moles/Vol] 141 mmol/L Normal 134-146 [facility] Comment on above: Performed By: #### C MP #### [facility] ([id number]) [address] [place] [address] 98237 Urea nitrogen [Mass/Vol] 34 mg/dL High 5-27 [facility] Comment on above: Performed By: #### C MP #### [facility] ([id number]) [address] [place] [address]RAIN WO CONTon CT BRAIN WO [...] Barton MD on 11/27/2023 5:43 AM Normal [facility] Glucose Glucometer (dC) [M ass/Vol]on 11-27-2023 Glucose [Mass/Vol] 207 mg/dL High 65-99 [facility] Glucose [Mass/Vol] 164 mg/dL High 65-99 [facility] Glucose [Mass/Vol] 189 mg/dL High 65-99 [facility] CBC AND AUTO DIFFon 11-26-19 24 ABSOLUTE BASOPHIL 0.1 X10E9/L Normal 0.0-0.2 [facility] Comment on above: Performed By: #### C AUTUMN, CMP #### [facility] ([id number]) [address] [place] [address] 16477 ABSOLUTE NEUTROPHIL 10.2 X10E9/L High 1.5-6.6 [facility] Comment on above: Performed By: #### C AUTUMN, CMP #### [facility] ([id number]) [address] [place] [address] 11574 Basophils/100 WBC (Bld) 0.8 % Normal [facility] Comment on above: Performed By: #### C BCA, CMP #### [facility] ([id number]) [address] [place] [address] 77121 Eosinophils (Bld) [#/Vol] 0.1 10*3/uL Normal 0.0-0.4 [facility] Comment on above: Performed By: #### C AUTUMN, CMP #### [facility] ([id number]) [address] [place] [address] 99195 Eosinophils/100 WBC (Bld) 1.0 % Normal [facility] Comment on above: Performed By: #### C AUTUMN, CMP #### [facility] ([id number]) [address] [place] [address] 08478 Erythrocyte distribution width (RBC) [Ratio] 13.3 % Normal 11.5-15.0 [facility] Comment on above: Performed By: #### C AUTUMN, CMP #### [facility] ([id number]) [address] [place] [address] 75404 Hematocrit (Bld) [Volume fraction] 35.5 % Normal 35-47 [facility] Comment on above: Performed By: #### C AUTUMN, CMP #### [facility] ([id number]) [address] [place] [address] 38399 Hemoglobin (Bld) [Mass/Vol] 11.9 g/dL Normal 11.7-15.5 [facility] Comment on above: Performed By: #### C BCA, CMP #### [facility] ([id number]) [address] [place] [address] 31668 Lymphocytes (Bld) [#/Vol] 1.0 10*3/uL Normal 1.0-3.5 [facility] Comment on above: Performed By: #### C BCA, CMP #### [facility] ([id number]) [address] [place] [address] 11365 Lymphocytes/100 WBC (Bld) 8.2 % Normal [facility] Comment on above: Performed By: #### C AUTUMN, CMP #### [facility] ([id number]) [address] [place] [address] 19665 MCH (RBC) [Entitic mass] 30.0 pg Normal 27-34 [facility] Comment on above: Performed By: #### C AUTUMN, CMP #### [facility] ([id number]) [address] [place] [address] 89485 MCHC (RBC) [Mass/Vol] 33.6 g/dL Normal 32-36 [facility] Comment on above: Performed By: #### C AUTUMN, CMP #### [facility] ([id number]) [address] [place] [address] 47736 MCV (RBC) [Entitic vol] 89 fL Normal 80-100 [facility] Comment on above: Performed By: #### C BCA, CMP #### [facility] ([id number]) [address] [place] [address] 36451 Monocytes (Bld) [#/Vol] 0.8 10*3/uL Normal 0-0.9 [facility] Comment on above: Performed By: #### C BCA, CMP #### [facility] ([id number]) [address] [place] [address] 85159 Monocytes/100 WBC (Bld) 6.5 % Normal [facility] Comment on above: Performed By: #### C BCA, CMP #### [facility] ([id number]) [address] [place] [address] 65642 Neutrophils/100 WBC (Bld) 83.5 % Normal [facility] Comment on above: Performed By: #### C BCA, CMP #### [facility] ([id number]) [address] [place] [address] 89192 Platelet mean volume (Bld) [Entitic vol] 7.8 fL Normal 7-12 [facility] Comment on above: Performed By: #### C BCA, CMP #### [facility] ([id number]) [address] [place] [address] 16786 Platelets (Bld) [#/Vol] 321 10*3/uL Normal 150-450 [facility] Comment on above: Performed By: #### C BCA, CMP #### [facility] ([id number]) [address] [place] [address] 98217 RBC COUNT 3.98 X10E12/L Normal 3.80-5.20 [facility] Comment on above: Performed By: #### C BCA, CMP #### [facility] ([id number]) [address] [place] [address] 21727 WBC (Bld) [#/Vol] 12.2 10*3/uL High 4.0-11.0 [facility] Comment on above: Performed By: #### C BCA, CMP #### [facility] ([id number]) [address] [place] [address] 10876 COMPREHENSIVE METABOLIC PANE Jean Claude 11-26-2023 Albumin [Mass/Vol] 3.7 g/dL Normal 3.2-5.3 [facility] Comment on above: Performed By: #### C BCA, CMP #### [facility] ([id number]) [address] [place] [address] 36680 ALP [Catalytic activity/Vol] 159 U/L High 39-130 [facility] Comment on above: Performed By: #### C BCA, CMP #### [facility] ([id number]) [address] [place] [address] [place] [address] ALT [Catalytic activity/Vol] 47 U/L High 0-31 [facility] Comment on above: Performed By: #### C BCA, CMP #### [facility] ([id number]) [address] [place] [address] 10491 Anion gap [Moles/Vol] 9 mmol/L Normal 5-15 [facility] Comment on above: Performed By: #### C BCA, CMP #### [facility] ([id number]) [address] [place] [address] 53202 AST [Catalytic activity/Vol] 44 U/L High 0-41 [facility] Comment on above: Performed By: #### C BCA, CMP #### [facility] ([id number]) [address] [place] [address] 51834 Bilirubin [Mass/Vol] 0.8 mg/dL Normal 0.3-1.2 [facility] Comment on above: Performed By: #### C BCA, CMP #### [facility] ([id number]) [address] [place] [address] [id number] Calcium [Mass/Vol] 9.2 mg/dL Normal 8.5-10.5 [facility] Comment on above: Performed By: #### C BCA, CMP #### [facility] ([id number]) [address] [place] [address] [id number] Chloride [Moles/Vol] 102 mmol/L Normal 98-109 [facility] Comment on above: Performed By: #### C BCA, CMP #### [facility] ([id number]) [address] [place] [address] [id number] CO2 [Moles/Vol] 26 mmol/L Normal 22-32 [facility] Comment on above: Performed By: #### C BCA, CMP #### [facility] ([id number]) [address] [place] [address] 10849 Creatinine [Mass/Vol] 2.09 mg/dL High 0.40-1.00 [facility] Comment on above: Result Comment: METH OD TRACEABLE TO IDMS STANDARD Performed By: #### C BCA, CMP #### [facility] ([id number]) [address] [place] [address] [id number] GFR/1.73 sq M.predicted among non-blacks MDRD (S/P/Bld) [Vol rate/Area] 24 mL/min/{1.73_m2} Low >59 [facility] Comment on above: Result Comment: Reported eGFR is based on the CKD-EPI 2020 equation that does not use a race coefficient. Performed By: #### C BCA, CMP #### [facility] ([id number]) [address] [place] [id number] Glucose [Mass/Vol] 149 mg/dL High 65-99 [facility] Comment on above: Performed By: #### C BCA, CMP #### [facility] ([id number]) [address] [place] [address] Potassium [Moles/Vol] 4.0 mmol/L Normal 3.5-5.0 [facility] Comment on above: Performed By: #### C BCA, CMP #### [facility] ([id number]) [address] [place] [address]902 Protein [Mass/Vol] 7.4 g/dL Normal 6.0-8.0 [facility] Comment on above: Performed By: #### C BCA, CMP #### [facility] ([id number]) [address] [place] [id number] Sodium [Moles/Vol] 137 mmol/L Normal 134-146 [facility] Comment on above: Performed By: #### C BCA, CMP #### [facility] ([id number]) [address] [facility], [place] [address] Urea nitrogen [Mass/Vol] 35 mg/dL High 5-27 [facility] Comment on above: Performed By: #### C AUTUMN, CMP #### [facility] ([id number]) [address] [facility], [place] [address] Glucose Glucometer (BldC) [M ass/Vol]on 11-26-2023 Glucose [Mass/Vol] 183 mg/dL High 65-99 [facility] XR HIP RT INJon 08-15-2021 XR [...] by: KALANI TORRES Date: 2021-08-15 11:29 Normal [facility] Vital Signs Date Time Vital Sign Value Performing Clinician Facility 12-10-2023 08:50-0400 Diastolic blood pressure 64 mm[Hg] Musa Gil APRN-STUART Work Phone: [facility] [employer] [facility] 12-10-2023 08:50-0400 Heart rate 88 /min Musa RAMIREZ Work Phone: [facility] [employer] [facility] 12-10-2023 08:50-0400 Systolic blood pressure 127 mm[Hg] Musa Oberfabricio CHIEF PROGRAM OFFICER-RESTAURANT GREETER Work Phone: [facility] 12-10-2023 08:49-0400 Body mass index (BMI) [Ratio] 40.32 kg/m2 Musa Oberneder CHIEF PROGRAM OFFICER-RESTAURANT GREETER Work Phone: [facility] 12-10-2023 08:49-0400 Body weight 103.24 kg Musa Oberneder CHIEF PROGRAM OFFICER-RESTAURANT GREETER Work Phone: [facility] [employer] [facility] 12-10-2023 08:49-0400 SaO2% (BldA) [Mass fraction] 96 % Musa Oberneder CHIEF PROGRAM OFFICER-RESTAURANT GREETER Work Phone: [facility] [employer] [facility] 11-30-2023 10:55-0400 Body mass index (BMI) [Ratio] 41.45 kg/m2 Keaton Medel MD Work Phone: [facility] [employer] [facility] 11-30-2023 10:55-0400 Body temperature 98.2 [degF] Keaton Medel MD Work Phone: [facility] [employer] [facility] 11-30-2023 10:55-0400 Body weight 106.14 kg Keaton Medel MD Work Phone: [facility] [employer] [facility] 11-30-2023 10:55-0400 Diastolic blood pressure 72 mm[Hg] Keaton Medel MD Work Phone: [facility] [employer] [facility] 11-30-2023 10:55-0400 Heart rate 99 /min Keaton Medel MD Work Phone: [facility] [employer] [facility] 11-30-2023 10:55-0400 Systolic blood pressure 158 mm[Hg] Keaton Mdeel MD Work Phone: [facility] [employer] [facility] 11-26-2023 13:52-0400 Body mass index (BMI) [Ratio] 39.86 kg/m2 Keaton Medel MD Work Phone: [facility] 11-26-2023 13:52-0400 Body temperature 97.81 [degF] Keaton Medel MD Work Phone: [facility] 11-26-2023 13:52-0400 Body weight 102.06 kg Keaton Medel MD Work Phone: [facility] 11-26-2023 13:52-0400 Diastolic blood pressure 84 mm[Hg] Keaton Medel MD Work Phone: [facility] 11-26-2023 13:52-0400 Heart rate 88 /min Keaton Medel MD Work Phone: [facility] 11-26-2023 13:52-0400 Systolic blood pressure 167 mm[Hg] Keaton Medel MD Work Phone: [facility] Encounters Encounter Date Encounter Type Care Provider Facility Start: 04-22-2024 End: 04-22-2024 ambulatory [facility] Start: 03-24-2024 End: 03-24-2024 ambulatory Jani Jeffers MD Facility:[facility] Start: 03-21-2024 End: 03-21-2024 ambulatory [facility] Start: 03-11-2024 End: 03-11-2024 ambulatory YESIKA WARD Not Available Start: 03-07-2024 End: 03-07-2024 ambulatory [facility] Start: 01-04-2024 End: 01-04-2024 ambulatory [facility] Start: 01-03-2024 End: 01-03-2024 ambulatory [facility] Start: 01-02-2024 End: 01-02-2024 ambulatory [facility] Start: 01-02-2024 Encounter for genera l adult medical examination without abnormal findings [facility] Start: 12-11-2023 Orders Only Keaton patel MD Work Phone: [facility] Start: 12-10-2023 End: 12-10-2023 Office outpatient visit 25 minutes Musa RAMIREZ Work Phone: [facility] Comment on above: CKD (chronic kidney disease) stage 4, GFR 15-29 ml/min ([facility]) (Primary Dx) Start: 12-07-2023 Telephone encounter Berna Mcelroy CMA [facility] Start: 12-06-2023 Refill [facility] Start: 12-04-2023 End: 12-04-2023 ambulatory [facility] Start: 11-30-2023 End: 11-30-2023 Transitional care manage srvc 7 day discharge Kaeton Medel MD Work Phone: [facility] Comment on above: Vertigo (Primary Dx) ; Non-recurrent acute suppurative otitis media of right ear without spontaneous rupture of tympanic membrane; Bronchitis; Diabetic polyneuropathy associated with type 2 diabetes mellitus ([facility]); Acute pain of right foot Start: 11-30-2023 End: 11-30-2023 [facility] Start: 11-28-2023 Telephone encounter Berna Mcelroy CMA [facility] Start: 11-27-2023 End: 11-29-2023 [facility] Start: 11-26-2023 End: 11-29-2023 [facility] Start: 11-26-2023 End: 11-26-2023 Patient encounter procedure Keaton Medel MD Work Phone: [facility] Comment on above: Non-recurrent acute suppurative otitis media of right ear without spontaneous rupture of tympanic membrane (Primary Dx); Type 2 diabetes mellitus with stage 4 chronic kidney disease, with long-term current use of insulin ([facility] [place]) Start: 11-26-2023 End: 11-26-2023 [facility] Start: 09-20-2023 Refill Maryjane Morrison [facility] Start: 08-15-2021 End: 08-16-[address] JOAQUIM TAYLOR Facility:[facility]1 Procedures Date Procedure Procedure Detail Performing Clinician Start: 11-26-2022 Adult depression scr eening assessment Maryjane Morrison [facility] Start: 02-01-2022 Diabetic retinal eye exam Maryjane Morrison [facility] Start: 11-05-2019 Microalbumin [Mass/v olume] in Urine by Test strip Maryjane Morrison [facility] Start: 08-23-2017 Colonoscopy Maryjane Morrison [facility] Plan of Treatment Date Care Activity Detail Author Start: 12-09-2024 Adult BMI Screening Adult BMI Screen ing [facility] Start: 11-29-2024 Adult BMI Screening Adult BMI Screen ing [facility] Start: 11-29-2024 Tobacco Screening Tobacco Screening [facility] Start: 11-27-2024 Adult BMI Screening Adult BMI Screen ing [facility] Start: 11-25-2024 Adult BMI Screening Adult BMI Screen ing [facility] Start: 11-25-2024 Tobacco Screening Tobacco Screening [facility] Start: 07-12-2024 Adult BMI Screening Adult BMI Screen ing [facility] Start: 07-04-2024 Tobacco Screening Tobacco Screening [facility] Start: 07-02-2024 End: 07-02-2024 Patient encounter procedure 07/02/2024 1:45 PM EDT Office Visit [facility] [address] [place] [address] [address] [facility] [place] [address] Stewart Marroquin MD [address] [place] [address] [facility] Start: 03-10-2024 End: 03-10-2024 Patient encounter procedure 03/10/2024 9:20 AM EDT Office Visit [facility] [address] [place] [phone] Musa Gil, CHIEF PROGRAM OFFICER-RESTAURANT GREETER [address] [facility], [address] [place] [address] [facility] Start: 01-02-2024 End: 01-02-2024 Patient encounter procedure 01/02/2024 9:00 AM EDT Office Visit [facility] [address] [place] [phone] Keaotn Medel MD [address] [place] [address], [address] [place], [place] [id number] [facility] Start: 12-10-2023 End: 12-10-2023 Patient encounter procedure 12/10/2023 9:00 AM EDT Office Visit [facility] [address] [place] [phone] Musa Gil, CHIEF PROGRAM OFFICER-RESTAURANT GREETER [address] [facility], [address] [place] [address] [facility] Start: 11-30-2023 End: 11-29-2024 XR Foot - right 3 Views [facility] Work Phone: Comment on above: Expected: 11/30/2023 , Expires: 11/29/2024 Start: 11-30-2023 End: 11-30-2023 Patient encounter procedure 11/30/2023 9:30 AM EDT Office Visit [facility] [address] [place] [phone] Keaton Medel MD [facility], [address] [place] [address] [facility] Start: 11-29-2023 Medicare Annual Wellness Visit Medicare Annual Wellness Visit [facility] Start: 11-27-2023 Depression Screening Depression Scre ening [facility] Start: 11-27-2023 Fall Risk Screening Fall Risk Screen ing [facility] Start: 02-01-2023 Glaucoma screening Diabetic Op hthalmology Exam [facility] Start: 11-05-2020 Urine screening for protein Urine Microalbumin [facility] Start: 08-23-2020 Screening for malignant neoplasm of colon [facility] Start: 1964 DTaP,Tdap and Td Vaccines (1 - Tdap) DTaP,Tdap and Td Vaccines (1 - Tdap) [facility] Start: 1963 Adult BMI Follow Up Plan Adult BMI Follow Up Plan [facility] End: 12-09-2024 Basic metabolic 2000 panel - Serum or Plasma Basic Metabolic Panel Lab Routine CKD (chronic kidney disease) stage 4, GFR 15-29 ml/min ([facility]) 1 Occurrences starting 12/10/2023 until 12/09/2024 [facility] Comment on above: 1 Occurrences starti ng 12/10/2023 until 12/09/2024 End: 12-09-2024 CBC panel - Blood by Automated count CBC without diff Lab Routine CKD (chronic kidney disease) stage 4, GFR 15-29 ml/min ([facility]) 1 Occurrences starting 12/10/2023 until 12/09/2024 [facility] Comment on above: 1 Occurrences starti ng 12/10/2023 until 12/09/2024 End: 12-09-2024 Magnesium [Mass/volume] in Serum or Plasma Magnesium Lab Routine CKD (chronic kidney disease) stage 4, GFR 15-29 ml/min ([facility]) 1 Occurrences starting 12/10/2023 until 12/09/2024 [facility] Comment on above: 1 Occurrences starti ng 12/10/2023 until 12/09/2024 End: 12-09-2024 Parathyroid Hormone, intact Parathyroid Hormone, intact Lab Routine CKD (chronic kidney disease) stage 4, GFR 15-29 ml/min ([facility]) 1 Occurrences starting 12/10/2023 until 12/09/2024 [facility] Work Phone: Comment on above: 1 Occurrences starti ng 12/10/2023 until 12/09/2024 End: 12-09-2024 Phosphate [Mass/volume] in Serum or Plasma Phosphorus Lab Routine CKD (chronic kidney disease) stage 4, GFR 15-29 ml/min ([facility] [place] [place]) 1 Occurrences starting 12/10/2023 until 12/09/2024 [facility] Comment on above: 1 Occurrences starti ng 12/10/2023 until 12/09/2024 End: 12-09-2024 Protein creat ratio Protein creat ratio Lab Routine CKD (chronic kidney disease) stage 4, GFR 15-29 ml/min ([facility] [place]) 1 Occurrences starting 12/10/2023 until 12/09/2024 [facility] Comment on above: 1 Occurrences starti ng 12/10/2023 until 12/09/2024 End: 12-09-2024 Urinalysis Urinalysis Lab Routine CKD (chronic kidney disease) stage 4, GFR 15-29 ml/min ([facility] [place]) 1 Occurrences starting 12/10/2023 until 12/09/2024 [facility] Comment on above: 1 Occurrences starti ng 12/10/2023 until 12/09/2024 End: 12-09-2024 Vitamin D 25 hydroxy Vitamin D 25 hydroxy Lab Routine CKD (chronic kidney disease) stage 4, GFR 15-29 ml/min ([facility] [place]) 1 Occurrences starting 12/10/2023 until 12/09/2024 [facility] Comment on above: 1 Occurrences starti ng 12/10/2023 until 12/09/2024 Immunizations Immunization Date Immunization Notes Care Provider Nabor rose 08-22-2023 RSV, recombinant, protein subunit RSVpreF, adjuvant reconstituted, 0.5 mL, PF Maryjane [facility] 06-27-2023 Influenza, High-dose , Quadrivalent Maryjane [facility] 05-19-2023 zoster vaccine recombinant Maryjane [facility] 01-27-2023 Pneumococcal Conjuga te 20-valent Maryjane [facility] 01-27-2023 zoster vaccine recombinant Maryjane [facility] 06-29-2022 Influenza, High-dose , Quadrivalent Maryjane [facility] 07-16-2021 Influenza, High-dose , Quadrivalent Maryjane [facility] 12-16-2020 COVID-19, mRNA, LNP- S, PF, 100mcg/0.5mL Dose [facility] 11-18-2020 COVID-19, mRNA, LNP- S, PF, 100mcg[facility]0.5mL [facility] influenza, injectabl e, quadrivalent, contains preservative [facility] 07-14-2020 Seasonal, quadrivale nt, recombinant, injectable influenza vaccine, preservative [facility]-15[facility]2019 influenza, high dose seasonal, preservative-free [facility] 07-30-2018 influenza, high dose seasonal, preservative-free [facility] 07-17-2017 influenza, high dose seasonal, preservative-free [facility] 07-04-2016 influenza, injectabl e, quadrivalent, preservative free [facility] 08-26-2015 influenza, seasonal, injectable, preservative free [facility] 09-01-2014 zoster vaccine, live Mirtha [facility] 08-04-2014 influenza virus vacc ine, unspecified formulation [facility] 08-04-2014 pneumococcal conjuga te vaccine, 13 valent [facility] 06-11-2013 influenza virus vacc ine, whole virus [facility] 09-14-2012 influenza, seasonal, injectable Maryjane [facility] 08-01-2010 influenza virus vacc ine, whole virus [facility] 08-26-2002 pneumococcal polysaccharide vaccine, 23 valent [facility] Payers Date Payer Category Payer Unknown 2015 Medicare ANTH MEDICARE ANTH MEDICARE ADVANTAGE [id number] 2015-Present [phone] [address] [place] [address] [id number] 1959 Unknown [id number] 1947 Unknown [id number] [id number] 1947 Unknown [id number] 2.16.840.1.052799.3.579.2.125 9 1947 Unknown [id number] 2.16.840.1.800518.3.579.2.125 9 1947 Unknown [id number] 2.16.840.1.844619.3.579.2.128 6 1947 Unknown [id number] 2.16.840.1.603215.3.579.2.128 6 1947 Unknown [id number] 2.16.840.1.875606.3.579.2.128 6 1947 Unknown [id number] 2.16.840.1.667812.3.579.2.128 6 1947 Unknown [id number] 2.16.840.1.630196.3.579.2.128 6 1947 Unknown [id number] 2.16.840.1.885574.3.579.2.128 6 1947 Unknown [id number] 2.16.840.1.488168.3.579.2.128 6 1947 Unknown [id number] 2.16.840.1.969315.3.579.2.128 6 1947 Unknown [id number] 2.16.840.1.262001.3.579.2.128 6 1947 Unknown [id number] 2.16.840.1.347672.3.579.2.196 1947 Unknown [id number] 2.16.840.1.575786.3.579.2.128 6 1947 Unknown [id number] 2.16.840.1.846632.3.579.2.128 6 1947 Unknown [id number] 2.16.840.1.812259.3.579.2.128 6 1947 Unknown [id number] 2.16.840.1.242305.3.579.2.128 6 Social History Date Type Detail Facility Start: 11-28-2022 Tobacco smoking stat [facility] Never smoked tobacco [facility] Start: 11-28-2022 Tobacco use and exposure Smoke less tobacco non-user [facility] Start: 07-04-2023 End: 11-30-2023 Alcohol intake Current non-drinker of alcohol (finding) [facility] Start: 09-13-2021 End: 11-26-2023 History of Social function [facility] Start: 09-13-2021 End: 11-26-2023 Social connection and isolation panel [facility] Do you belong to any clubs or organizations such as zoroastrianism groups, unions, fraternal or athletic groups, or school groups? Yes [facility] Are you now , , , , never or living with a partner? [facility] How often to you hav e a drink containing alcohol? Never [facility] Average Number of Drinks Not on file [facility] Do you feel stress - tense, restless, nervous, or anxious, or unable to sleep at night because your mind is troubled all the time - these days [OSQ] Only a little [facility] Start: 11-07-2020 Education 12 [facility] Start: 1945 Sex Assigned At Not on file P [facility] Has the electric, [place], [place], or water [employer] threatened to shut off services in your home in past 12Mo No [facility] Medical Equipment Procedure Code Equipment Code Equipment Origin al Text Equipment Identifier Dates Implant Hip Mop All Sz Construct Rpl [id number] - Sna - [id number] Start: 12-27-2021 El[employer]ator Hl Drl c Pncl Hip Mrthn - Sna - [id number], [id number] FDA Start: 12-27-2021 [employer] [id number] [...] ratio was 1.5, hepatitis panel was nonreactive, GAURAV was negative, anti-GBM was negative, Anca panel was negative, Urinalysis from November 2020 showed 2 mg dL protein with no blood. Urine protein creatinine ratio is 3.92 grams/gram Hypertension Type 2 diabetes mellitus Diabetic sensory neuropathy Hyperlipidemia History of urinary tract infections. She was evaluated by Dr. aMrroquin in the past. She was placed on suppressive antibiotics in the past. Gastroesophageal reflux disease Charcot deformity of the left foot Medical, Surgical, Family & Social History Medical History: Past Medical History: Diagnosis Date Arthritis Chronic kidney disease stage 3 Diabetes ([facility]) Hypercholesterolemia Hypertension Skin cancer Visual impairment Surgical History: Past Surgical History: Procedure Laterality Date CATARACT EXTRACTION Left CHOLECYSTECTOMY COLONOSCOPY COLONOSCOPY N/A 08/23/2017 Performed by Stewart Sood DO at [facility] CYSTOSCOPY RETROGRADE PYELOGRAM [facility] SOLUTION Bilateral 10/22/2019 Performed by Stewart Marroquin MD at [facility] CYSTOSCOPY [facility] SOLUTION N/A 10/23/2018 Performed by Stewart Marroquin MD at [facility] DILATION AND CURETTAGE OF UTERUS EYE SURGERY several years ago they replaced the fluid in my ri HEEL SPUR SURGERY Right HEEL SPUR SURGERY INJECTION MEDIAL BRANCH NERVE BLOCK: bilat L34 45 mbbx 1 Bilateral 07/13/2017 Performed by Memo Barker MD at [facility] INJECTION MEDIAL BRANCH NERVE BLOCK: bilat L34 45mbb x 1 Bilateral 08/13/2017 Performed by Memo Barker MD at [facility] INJECTION SACROILIAC NERVE: bilat Bilateral 10/26/2017 Performed by Memo Barker MD at [facility] INJECTION SACROILIAC NERVE: bilat si inj x 1 Bilateral 06/18/2017 Performed by Memo Barker MD at [facility] INJECTION SACROILIAC NERVE: bilat SI inj x 1 Bilateral 05/25/2017 Performed by Memo Barker MD at [facility] KNEE ARTHROSCOPY Left repair of meniscus KNEE ARTHROSCOPY Right November or December 2016 POSTERIOR LAMINECTOMY / DECOMPRESSION LUMBAR SPINE RADIOFREQUENCY ABLATION SPINAL Left L3/4, 4/5 RFA Left 09/14/2017 Performed by Memo Barker MD at [facility] RADIOFREQUENCY ABLATION SPINAL: right L34 45rfa Right 08/31/2017 Performed by Memo Barker MD at [facility] RELEASE CARPAL TUNNEL Right 09/24/2018 Performed by Jr Joaquim Taylor DO at [facility] RELEASE TRIGGER FINGER Right 09/24/2018 Performed by Jr Joaquim Taylor DO at [facility] REPLACEMENT TOTAL JOINT HIP Right 12/27/2021 Performed by Joaquim Taylor Jr., DO at [facility] SKIN BIOPSY 2015 SKIN CANCER EXCISION [...] min Stress: No Stress Concern Present (09/13/2021) Stateless [place] [facility] [employer] - Occupational Stress Questionnaire Feeling of Stress : Only a little Social Connections: Socially Integrated (09/13/2021) Social Connection and Isolation Panel [NHANES] Frequency of Communication with Friends and Family: More than three times a week Frequency of Social Gatherings with Friends and Family: Three times a week Attends Yazidism Services: More than 4 times per year [...] mouth in the morning. NON FORMULARY daily. [place] Beet- red beet supplement for circulation coenzyme [...] of this patient. Please contact me at [phone] (Office) or [phone] (Answering service) with any questions. JAMES [facility] This note was created with the assistance of a speech-recognition program. Although the intention is to generate a document that actually reflects the content of the visit, no guarantees can be provided that every mistake has been identified and corrected by editing. JAMES Barakat 12/10/23 0903 documented in this encounter [facility] 12-07-2023 Miscellaneous Notes Anu called stating that [...] the cefdinir antibiotic. documented in this encounter [facility] 12-07-2023 Telephone encounter Note Anu called stating that the pressure in both ears is back, she has sinus pressure around her eyes. During the night she went to move from her left side to her right side and got a little dizzy, until she could lay still. She is wondering if something could be called in. Please advise [facility] 12-07-2023 Telephone encounter Note I sent another 5 days of the cefdinir antibiotic. [facility] 12-07-2023 Miscellaneous Notes Spoke with with patient to confirm appt for 12/09, patient has had labs done as well documented in this encounter [facility] 12-07-2023 Telephone encounter Note Spoke with with patient to confirm appt for 12/09, patient has had labs done as well [facility] 12-06-2023 Miscellaneous Notes Refill request documented in this encounter [facility] 12-06-2023 Telephone encounter Note Refill request [facility] 11-30-2023 History of Presen t illness Narrative [...] polyneuropathy associated with type 2 diabetes mellitus ([facility]) Acute pain of right foot - X-ray foot right minimum 3 views; Future documented in this encounter [facility] 11-28-2023 Miscellaneous Notes LVM patient to confirm the appointment and remind about the lab work prior to the appt., with Musa PERES documented in this encounter [facility] 11-28-2023 Telephone encounter Note LVKendra patient to confirm the appointment and remind about the lab work prior to the appt., with Musa PERES [facility] 11-27-2023 Note XR CHEST 2 VWS Procedure: Chest x-ray performed Number of views:PA and lateral History:Cough Comparison:12/26/2012 Findings: The heart and lungs show no acute findings, and the mediastinum and marla are grossly negative . Impression: No acute change. Finalized by Susu Siddiqui DO on 11/27/2023 1:51 PM [facility] 11-26-2023 History of Presen t illness Narrative [...] disease, with long-term current use of insulin ([facility] [place] [place]) documented in this encounter [facility] 09-20-2023 Miscellaneous Notes Refill request documented in this encounter [facility] 09-20-2023 Telephone encounter Note Refill request [facility] Evaluation note Diagnosis Non-recurrent acute suppurative otitis media of right ear without spontaneous rupture of tympanic membrane- Primary Type 2 diabetes mellitus with stage 4 chronic kidney disease, with long-term current use of insulin ([facility] [place] [place]) documented [facility] this encounter [facility] Diagnosis Vertigo- Primary Dizziness and giddiness Non-recurrent acute suppurative otitis media of right ear without spontaneous rupture of tympanic membrane Bronchitis Bronchitis, not specified as acute or chronic Diabetic polyneuropathy associated with type 2 diabetes mellitus ([facility] [place] [place]) Acute pain of right foot documented in this encounter [facility]* Diagnosis CKD (chronic kidney disease) stage 4, GFR 15-29 ml/min ([facility] [place] [place])- Primary Chronic kidney disease, Stage IV (severe) documented in this encounter [facility] System[facility]ructionsNot on filedocumented in this encounter [facility]ructionsNot on filedocumented in this encounter [facility] filedocumented in [facility] filedocumented in [facility] on filedocument[facility] in this [facility] filedocumented [facility] Summary Purpose Family History No Family History Records FoundNo Family History Records FoundNo Family History Records FoundNo Family History Records FoundNo Family History Records Found Advance Directives No Advanced Directives Records FoundDocuments on File Type Date Recorded 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 Living Will 01/06/2022 3:15 PM [...] and content) DATE CREATED AUTHOR 08/22/2021 [facility] DATE CREATED AUTHOR AUTHOR'S ORGANIZ ATION 03/16/2024 [facility] EPIC DATE CREATED AUTHOR AUTHOR'S ORGANIZ ATION 03/22/2024 [facility] DATE CREATED AUTHOR AUTHOR'S ORGANIZ ATION 04/05/2024 [facility] DATE CREATED AUTHOR AUTHOR'S ORGANIZ ATION 04/24/2024 [...] Care Teams (unrecognized sec tion and content) Track Supervisor Relationship Specialty Start Date End Date Keaton Medel MD [address] [place] [address], [address] [place] [address] PCP - General Pediatrics 04/19/17 Track Supervisor Relationship Specialty Start Date End Date Keaton Medel MD [address] [place] [address], [address] [place] [address] PCP - General Pediatrics 04/19/17 Track Supervisor Relationship Specialty Start Date End Date Keaton Medel MD [address] [place] [address], [address] [place] [address] PCP - General Pediatrics 04/19/17 Track Supervisor Relationship Specialty Start Date End Date Keaton Medel MD [address] [place] [address], [address] [place] [address] PCP - General Pediatrics 04/19/17 Track Supervisor Relationship Specialty Start Date End Date Keaton Medel MD [address] [place] [address], [address] [place] [address] PCP - General Pediatrics 04/19/17 Track Supervisor Relationship Specialty Start Date End Date Keaton Medel MD [address] [place] [address], [address] [place] [address] PCP - General Pediatrics 04/19/17 Track Supervisor Relationship Specialty Start Date End Date Keaton Medel MD [address] [place] [address], [address] [place] [address] PCP - General Pediatrics 04/19/17 Track Supervisor Relationship Specialty Start Date End Date Keaton Medel MD [address] [place] [address], [address] [place] [address] PCP - General Pediatrics 04/19/17 FOR RECORDS [...] BE BASED ON THE PRIMARY CLINICAL RECORDS. [employer] provides no warranty or guarantee of the accuracy or completeness of information in this document.
[2024-05-12 10:41] VITALS: BP 162/70; PULSE 62; TEMP 36.2; O2SAT 98
[2024-05-12 10:54] LABS: Glucometer 133 mg/dL (74-106)
[2024-05-12] MEDS: 0.9 % SODIUM CHLORIDE 10 ML SYRINGE - SALINE FLUSH INJ (11:21)
[2024-05-12] MEDS: BUPIVACAINE HCL 0.25% PF 25 MG/10 ML VIAL INJ (11:22)
[2024-05-12] MEDS: LIDOCAINE HCL 2% 400 MG/20 ML MDV 5 ML INJ (11:22)
[2024-05-12] MEDS: IOHEXOL 240 MG/ML - 10 ML VIAL INJ (11:22)
[2024-05-12] MEDS: TRIAMCINOLONE ACETONIDE 40 MG/ML VIAL 80 MG INJ (11:23)
[2024-05-12 11:24] VITALS: BP 149/67; BP 156/63; PULSE 62; O2SAT 96
--- NOTE | 2024-05-12 11:26 | W.PM.PROCNOT ---
Date of procedure: 05/12/24 Pre-op diagnosis: Pain due to lumbar stenosis with neurogenic claudication Post-op diagnosis: same as pre-op Procedure: Procedure: Bilateral L5-S1 transforaminal epidural steroid injection Medications: Bupivacaine 0.25% 2cc, lidocaine 2% 1cc, kenalog 80mg The patient was seen and examined in the preoperative holding area.? Informed consent was obtained and placed on the chart.? Patient was brought to the medical procedure unit and placed in the prone position where a timeout was completed verifying the correct patient, procedure site, position, and planned special equipment using sterile aseptic technique.? Under direct fluoroscopic visualization a 25-gauge Quincke tipped spinal needle was advanced at level left L5-S1 to the designated neural foramen where contrast dye was injected to show adequate spread.? There was no evidence of vascular or adverse uptake.? Epidural spread was appreciated.? The above-mentioned injectate was then placed in a 1.5 mL aliquot preceded by negative aspiration.? The needle was removed. The same procedure, at the same level, was completed on the opposite side. ? Patient was taken to the postprocedural recovery area and monitored for an appropriate length of time before found suitable for discharge in the accompaniment of a responsible adult. Anesthesia: Local Surgeon: Jani Jeffers Pathology: none sent Condition: stable Disposition: no change
== END 2024-05-12 12:15 | disposition home or self-care (01) ==
LOC: SURGOUT 09:48
PROVIDERS: PCP Internal Medicine; Visit Provider Anesthesiology
DX: M48.062 Spinal stenosis, lumbar region with neurogenic claudication (principal); Z79.4 Long term (current) use of insulin; Z79.84 Long term (current) use of oral hypoglycemic drugs
CPT/HCPCS: 36415; 64483; 82948; J0665; J3301; Q9966

== ENCOUNTER 2024-05-28 10:32 | Outpatient (OUT) | payer MEDICARE, SELFPAY ==
--- OUTSIDE RECORDS SUMMARY | 2024-05-28 10:48 | XMS_ITS | CCD ---
Author Organization [facility] CliniSyma Care Team Providers Care Regional Forester Name Role Phone ZACH, DR MARCH Consulting Unavailable HIESTAND, DR KEATON Emerson Primary Care Unavailable STEPANIC, DR MARCH Attending Unavailable STEPANIC, DR MARCH Admitting Unavailable ZIEBER, DR KALANI Cruz Consulting Unavailable Lizzie EDWARDS, Keaton Emerson Primary Care Provider YESIKA WARD Attending Unavailable YESIKA WARD Referring Unavailable SCOTTYESTKEATON PALOMO Admitting Unavailable KEATON MEDEL Attending Unavailable KEATON MEDEL Referring Unavailable KEATON MEDEL Primary Care Unavailable KEATON MEDEL Attending Unavailable KEATON MEDEL Referring Unavailable KEATON MEDEL Primary Care Unavailable KEATON MEDEL Attending Unavailable KEATON MEDEL Referring Unavailable KEATON MEDEL Primary Care Unavailable KEATON MEDEL Referring Unavailable KEATON MEDEL Primary Care Unavailable KEATON MEDEL Referring Unavailable KEATON MEDEL Primary Care Unavailable KAETON MEDEL Referring Unavailable KEATON MEDEL Primary Care Unavailable KEATON MEDEL Attending Unavailable KEATON MEDEL Referring Unavailable KEATON MEDEL Primary Care Unavailable MUSA GIL Referring Unavailable HIESTANDKEATON Primary Care Unavailable MUSA GIL Referring Unavailable HIESTANDKEATON Primary Care Unavailable KEATON MEDEL Attending Unavailable KEATON MEDEL Referring Unavailable KEATON MEDEL Primary Care Unavailable KEATON MEDEL Attending Unavailable KEATON MEDEL Referring Unavailable KEATON MEDEL Primary Care Unavailable KEATON MEDEL Attending Unavailable KEATON MEDEL Referring Unavailable KEATON MEDEL Primary Care Unavailable KEATON MEDEL Attending Unavailable KEATON MEDEL Referring Unavailable KEATON MEDEL Primary Care Unavailable Zeyad EDWARDS, Jani Sorto Attending Unavailable Zeyad EDWARDS, Jani Sorto Attending Unavailable Allergies Allergy Classification Reported Allergen(s) Allergy Type Date of Onset Reaction(s) Facility (12 sources) Codeine; 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: [CODEINE] Drug Allergy 05-10-2021 Dizziness, Nausea [facility] (12 sources) gabapentin; 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: [GABAPENTIN] Drug Allergy 10-22-2019 Nausea [facility] (12 sources) tiZANidine; 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: [TIZANIDINE] Drug Allergy 04-19-2017 Nausea [facility] (12 sources) traMADol; 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: [TRAMADOL] Drug Allergy 01-10-2018 Itching, Dizziness, Vomiting [facility] Work Phone: (12 sources) Wheat gluten extract; 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: [GLUTEN] Drug Allergy 12-01-2021 GI Disturbance [facility] Medications Current Medications Medication Drug Class(es) [...] FORMULARY (10 sources) NON FORMULARY da susan. [place] Beet- red beet supplement for circulation 0 Suspended NON FORMULARY da susan. 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; 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: [FCI (current) use of insulin] Onset: 11-10-2020 Episodic [...] Results Test Name Value Interpretation Reference Range [facility] it BASIC METABOLIC PANLon 03-21 Anion gap [Moles/Vol] 12 mmol/L Normal 5-15 [facility] Comment on above: Performed By: #### C MP #### [facility] ([id number]) [address] [place] [address] 11801 Calcium [Mass/Vol] 9.7 mg/dL Normal 8.5-10.5 [facility] Comment on above: Performed By: #### C MP #### [facility] ([id number]) [address] [place] [address] 32581 Chloride [Moles/Vol] 105 mmol/L Normal 98-109 [facility] Comment on above: Performed By: #### C MP #### [facility] ([id number]) [address] [place] [address] 20510 CO2 [Moles/Vol] 25 mmol/L Normal 22-32 [facility] Comment on above: Performed By: #### C MP #### [facility] ([id number]) [address] [place] [address] 13731 Creatinine [Mass/Vol] 2.61 mg/dL High 0.40-1.00 [facility] Comment on above: Result Comment: METH OD TRACEABLE TO IDMS STANDARD Performed By: #### C MP #### [facility] ([id number]) [address] [place] [address] 19362 GFR/1.73 sq M.predicted among non-blacks MDRD (S/P/Bld) [Vol rate/Area] 18 mL/min/{1.73_m2} Low >59 [facility] Comment on above: Result Comment: Reported eGFR is based on the CKD-EPI 2020 equation that does not use a race coefficient. Performed By: #### C MP #### [facility] ([id number]) [address] [place] [address] 81071 Glucose [Mass/Vol] 103 mg/dL High 65-99 [facility] Comment on above: Performed By: #### C MP #### [facility] ([id number]) [address] [place] [address] 27797 Potassium [Moles/Vol] 4.7 mmol/L Normal 3.5-5.0 [facility] Comment on above: Performed By: #### C MP #### [facility] ([id number]) [address] [place] [address] 69288 Sodium [Moles/Vol] 142 mmol/L Normal 134-146 [facility] Comment on above: Performed By: #### C MP #### [facility] ([id number]) [address] [place] [address] 85531 Urea nitrogen [Mass/Vol] 43 mg/dL High 5-27 [facility] Comment on above: Performed By: #### C MP #### [facility] ([id number]) [address] [place] [address] 96199 COMPLETE BLOOD COUNTon 03-21 Erythrocyte distribution width (RBC) [Ratio] 13.3 % Normal 11.5-15.0 [facility] Comment on above: Performed By: #### C MP #### [facility] ([id number]) [address] [place] [address] 47976 Hematocrit (Bld) [Volume fraction] 34.1 % Low 35-47 [facility] Comment on above: Performed By: #### C MP #### [facility] ([id number]) [address] [place] [address] 89561 Hemoglobin (Bld) [Mass/Vol] 11.7 g/dL Normal 11.7-15.5 [facility] Comment on above: Performed By: #### C MP #### [facility] ([id number]) [address] [place] [address] 98075 MCH (RBC) [Entitic mass] 30.9 pg Normal 27-34 [facility] Comment on above: Performed By: #### C MP #### [facility] ([id number]) [address] [place] [address] 31419 MCHC (RBC) [Mass/Vol] 34.4 g/dL Normal 32-36 [facility] Comment on above: Performed By: #### C MP #### [facility] ([id number]) [address] [place] [address] 89656 MCV (RBC) [Entitic vol] 90 fL Normal 80-100 [facility] Comment on above: Performed By: #### C MP #### [facility] ([id number]) [address] [place] [address] 08553 Platelet mean volume (Bld) [Entitic vol] 8.4 fL Normal 7-12 [facility] Comment on above: Performed By: #### C MP #### [facility] ([id number]) [address] [place] [address] 66856 Platelets (Bld) [#/Vol] 255 10*3/uL Normal 150-450 [facility] Comment on above: Performed By: #### C MP #### [facility] ([id number]) [address] [place] [address] 21960 RBC COUNT 3.80 X10E12/L Normal 3.80-5.20 [facility] Comment on above: Performed By: #### C MP #### [facility] ([id number]) [address] [place] [address] 01800 WBC (Bld) [#/Vol] 7.9 10*3/uL Normal 4.0-11.0 [facility] Comment on above: Performed By: #### C MP #### [facility] ([id number]) [address] [place] [address] 67543 MAGNESIUMon 03-21-2024 Magnesium [Mass/Vol] 1.8 mg/dL Normal 1.8-2.6 [facility] Comment on above: Performed By: #### C MP #### [facility] ([id number]) [address] [place] [address] 07032 PHOSPHORUSon 03-21-2024 Phosphate [Mass/Vol] 4.0 mg/dL Normal 2.4-4.9 [facility] Comment on above: Performed By: #### C MP #### [facility] ([id number]) [address] [place] [address] 39040 PROTEIN CREAT RATIOon 2023 RANDOM URINE PROTEIN 3770 mg/L High <120 [facility] Comment on above: Performed By: #### C MP #### [facility] ([id number]) [address] [place] [address] 90271 U/PRO/APPLE PRESS OPERATOR RATIO CALC 2.26 High <0.2 [facility] Comment on above: Result Comment: Neph rotic Syndrome is associated with ratios >3.5 Performed By: #### C MP #### [facility] ([id number]) [address] [place] [address], [place] [address] URINE CREATININE,RDM 166.75 mg/dL Normal [facility] Comment on above: Performed By: #### C MP #### [facility] ([id number]) [address] [place] [address], [place] [address] Parathyrin.intact [Mass/Vol] on 03-21-2024 PTH INTACT 123 pg/mL High [facility] Comment on above: Performed By: #### C MP #### [facility] ([id number]) [address] [place] [address], [place] [address] URINALYSISon 03-21-2024 Bilirubin Ql (U) Negative Normal NEG [facility] Comment on above: Performed By: #### C MP #### [facility] ([id number]) [address] [place] [address], [place] [address] BLOOD/HGB Negative Normal NEG [facility] Comment on above: Performed By: #### C MP #### [facility] ([id number]) [address] [place] [address], [place] [address] Color (U) YELLOW Normal YELLOW [facility] Comment on above: Performed By: #### C MP #### [facility] ([id number]) [address] [place] [address], [place] [address] Glucose Ql (U) 30 mg/dL Abnormal NEG [facility] Comment on above: Performed By: #### C MP #### [facility] ([id number]) [address] [place] [address] [place] [address] Hyaline casts LM Ql (Urine sed) 1 /lpf Normal 0-2 [facility] Comment on above: Performed By: #### C MP #### [facility] ([id number]) [address] [place] [address] 85281 Ketones Ql (U) Negative Normal NEG [facility] Comment on above: Performed By: #### C MP #### [facility] ([id number]) [address] [place] [address] [place] [address] Leukocyte esterase Test strip Ql (U) MODERATE Abnormal NEG [facility] Comment on above: Performed By: #### C MP #### [facility] ([id number]) [address] [place] [address] 51333 MUCOUS PRESENT Abnormal NONE [facility] Comment on above: Performed By: #### C MP #### [facility] ([id number]) [address] [place] [address] 28538 Nitrite Ql (U) Negative Normal NEG [facility] Comment on above: Performed By: #### C MP #### [facility] ([id number]) [address] [place] [address] 62451 pH (U) 6.0 [pH] Normal 5.0-8.5 [facility] Comment on above: Performed By: #### C MP #### [facility] ([id number]) [address] [place] [address] 03393 Protein Ql (U) 300 mg/dL Abnormal NEG [facility] Comment on above: Performed By: #### C MP #### [facility] ([id number]) [address] [place] [address] 09178 R.B.CELLS 2 /hpf Normal 0-5 [facility] Comment on above: Performed By: #### C MP #### [facility] ([id number]) [address] [place] [address] [place] [address] Specific gravity (U) [Rel density] 1.020 Normal 1.003-1.035 [facility] Comment on above: Performed By: #### C MP #### [facility] ([id number]) [address] [place] [address] 12066 SQUAMOUS EPITHELIUM 2 /hpf Normal 0-5 [facility] Comment on above: Performed By: #### C MP #### [facility] ([id number]) [address] [place] [address] 24754 TURBIDITY CLEAR Normal CLEAR [facility] Comment on above: Performed By: #### C MP #### [facility] ([id number]) [address] [place] [address] 90582 Urobilinogen (U) [Mass/Vol] mg/dL Normal <1.1 [facility] Comment on above: Performed By: #### C MP #### [facility] ([id number]) [address] [place] [address] 44860 W.B.CELLS 24 /hpf High 0-5 [facility] Comment on above: Performed By: #### C MP #### [facility] ([id number]) [address] [place] [address] 27916 Vitamin D+Metabolites [Mass/ Vol]on 03-21-2024 VITAMIN D 25 HYD TOT 28.1 ng/mL Low 30-100 [facility] Comment on above: Result Comment: Vitamin D status 25 [place] Vitamin D Deficiency <20 ng/mL Insufficiency 20-29 ng/mL Sufficiency 30-100 ng/mL Toxicity >100 ng/mL NOTE: A pediatric reference range has not been established by the sales product manager of this kit. The [place] recommends a Vitamin D level of = or >20ng/mL in infants and children. Performed By: #### C MP #### [facility] ([id number]) [address] [place] [address] 32249 BASIC METABOLIC PANLon 03-07 Anion gap [Moles/Vol] 10 mmol/L Normal 5-15 [facility] Comment on above: Performed By: #### C BC, UPCR, BMP, 17598-3, 2777-1, 2731-8, 61514-4 ####[facility] ([id number])[address], [place] [address] Calcium [Mass/Vol] 9.6 mg/dL Normal 8.5-10.5 [facility] Comment on above: Performed By: #### C BC, UPCR, BMP, 21176-6, 2777-1, 2731-8, 62300-0 ####[facility] ([id number])[address], [address], [place] [address] Chloride [Moles/Vol] 102 mmol/L Normal 98-109 [facility] Comment on above: Performed By: #### C BC, UPCR, BMP, 30564-8, 2777-1, 2731-8, 85317-2 ####[facility] ([id number])[address], [address], [place] [address] CO2 [Moles/Vol] 28 mmol/L Normal 22-32 [facility] Comment on above: Performed By: #### C BC, UPCR, BMP, 10948-3, 2777-1, 2731-8, 59635-3 ####[facility] ([id number])[address], [address] [address] Creatinine [Mass/Vol] 3.34 mg/dL High 0.40-1.00 [facility] Comment on above: Result Comment: METH OD TRACEABLE TO IDMS STANDARD Performed By: #### C BC, UPCR, BMP, 59383-1, 2777-1, 2731-8, 47823-1 ####[facility] ([id number])[address] [address] GFR/1.73 sq M.predicted among non-blacks MDRD (S/P/Bld) [Vol rate/Area] 14 mL/min/{1.73_m2} Low >59 [facility] Comment on above: Result Comment: Reported eGFR is based on the CKD-EPI 2020 equation that does not use a race coefficient. Performed By: #### C BC, UPCR, BMP, 82476-8, 2777-1, 2731-8, 11732-9 ####[facility] ([id number])[address] [address] Glucose [Mass/Vol] 166 mg/dL High 65-99 [facility] Comment on above: Performed By: #### C BC, UPCR, BMP, 16851-1, 2777-1, 2731-8, 60748-9 ####[facility] ([id number])[address] [address] Potassium [Moles/Vol] 5.3 mmol/L High 3.5-5.0 [facility] Comment on above: Performed By: #### C BC, UPCR, BMP, 33641-7, 2777-1, 2731-8, 22550-2 ####[facility] ([id number])[address] [address] Sodium [Moles/Vol] 140 mmol/L Normal 134-146 [facility] Comment on above: Performed By: #### C BC, UPCR, BMP, 12796-9, 2777-1, 2731-8, 56395-2 ####[facility] ([id number])[address] [address] Urea nitrogen [Mass/Vol] 46 mg/dL High 5-27 [facility] Comment on above: Performed By: #### C BC, UPCR, BMP, 31448-3, 2777-1, 2731-8, 04249-7 ####[facility] ([id number])[address] [place] [address] 52091 COMPLETE BLOOD COUNTon 03-07 Erythrocyte distribution width (RBC) [Ratio] 13.4 % Normal 11.5-15.0 [facility] Comment on above: Performed By: #### C BC, UPCR, BMP, 35158-3, 2777-1, 2731-8, 04745-8 ####[facility] ([id number])[address], [address] [place] [address]297 Hematocrit (Bld) [Volume fraction] 35.7 % Normal 35-47 [facility] Comment on above: Performed By: #### C BC, UPCR, BMP, 13040-9, 2777-1, 273-8, 14117-5 ####[facility] ([id number])[address], [address] [place] [address] Hemoglobin (Bld) [Mass/Vol] 12.0 g/dL Normal 11.7-15.5 [facility] Comment on above: Performed By: #### C BC, UPCR, BMP, 25410-3, 2777-1, 273-8, 74809-2 ####[facility] ([id number])[address], [address] [place] [address] 47856 MCH (RBC) [Entitic mass] 30.5 pg Normal 27-34 [facility] Comment on above: Performed By: #### C BC, UPCR, BMP, 52043-0, 2777-1, 2731-8, 39103-9 ####[facility] ([id number])[address] [address] [place] [address] 59803 MCHC (RBC) [Mass/Vol] 33.6 g/dL Normal 32-36 [facility] Comment on above: Performed By: #### C BC, UPCR, BMP, 35579-2, 2777-1, 2731-8, 48135-2 ####[facility] ([id number])[address], [address] [place] [address] 13452 MCV (RBC) [Entitic vol] 91 fL Normal 80-100 [facility] Comment on above: Performed By: #### C BC, UPCR, BMP, 22723-2, 2777-1, 2731-8, 45540-9 ####[facility] ([id number])[address], [address] [place] [address] 55357 Platelet mean volume (Bld) [Entitic vol] 9.2 fL Normal 7-12 [facility] Comment on above: Performed By: #### C BC, UPCR, BMP, 82795-7, 7-1, 273-8, 65288-6 ####[facility] ([id number])[address] [address] [place] [address] 16423 Platelets (Bld) [#/Vol] 268 10*3/uL Normal 150-450 [facility] Comment on above: Performed By: #### C BC, UPCR, BMP, 34694-1, 7-1, 273-8, 92183-1 ####[facility] ([id number])[address] [address] [place] [address] 13703 RBC COUNT 3.92 X10E12/L Normal 3.80-5.20 [facility] Comment on above: Performed By: #### C BC, UPCR, BMP, 18962-0, 2777-1, 2731-8, 14413-6 ####[facility] ([id number])[address] [address] [place] [address] 85034 WBC (Bld) [#/Vol] 6.9 10*3/uL Normal 4.0-11.0 [facility] Comment on above: Performed By: #### C BC, UPCR, BMP, 73279-5, 2777-1, 2731-8, 42970-0 ####[facility] ([id number])[address], [place] [address] MAGNESIUMon 03-07-2024 Magnesium [Mass/Vol] 2.1 mg/dL Normal 1.8-2.6 [facility] Comment on above: Performed By: #### C BC, UPCR, BMP, 43573-1, 2776-1, 2730-8, 75001-6 ####[facility] ([id number])[address], [place] [address] PHOSPHORUSon 03-07-2024 Phosphate [Mass/Vol] 4.4 mg/dL Normal 2.4-4.9 [facility] Comment on above: Performed By: #### C BC, UPCR, BMP, 96582-1, 2776-, 8, 44671-6 ####[facility] ([id number])[address], [address] [place] [address]1976 PROTEIN CREAT RATIOon 2023 RANDOM URINE PROTEIN 1860 mg/L High <120 [facility] Comment on above: Performed By: #### C BC, UPCR, BMP, 65243-5, 2776-, 2730-8, 19496-5 ####[facility] ([id number])[address] [place] [address] 98917 U/PRO/APPLE PRESS OPERATOR RATIO CALC 1.72 High <0.2 [facility] Comment on above: Result Comment: Neph rotic Syndrome is associated with ratios >3.5 Performed By: #### C BC, UPCR, BMP, 77257-3, 2776-1, 273-8, 99282-2 ####[facility] ([id number])[address], [address] [place] [address]90 URINE CREATININE,RDM 108.20 mg/dL Normal [facility] Comment on above: Performed By: #### C BC, UPCR, BMP, 55735-3, 7-1, 2731-8, 98114-1 ####[facility] ([id number])[address], [place] [address] Parathyrin.intact [Mass/Vol] on 03-07-2024 PTH INTACT 155 pg/mL High 12-88 [facility] Comment on above: Performed By: #### C BC, UPCR, BMP, 84031-0, 2776-1, 2731-8, 33623-0 ####[facility] ([id number])[address], [place] [address] URINALYSISon 03-07-2024 Bilirubin Ql (U) Negative Normal NEG [facility] Comment on above: Performed By: #### U A ####[facility] ([id number])[address], [place] [address] BLOOD/HGB Negative Normal NEG [facility] Comment on above: Performed By: #### U A ####[facility] ([id number])[address], [place] [address] Color (U) YELLOW Normal YELLOW [facility] Comment on above: Performed By: #### U A ####[facility] ([id number])[address], [place] [address] Glucose Ql (U) Negative Normal NEG [facility] Comment on above: Performed By: #### U A ####[facility] ([id number])[address], [place] [address] Ketones Ql (U) Negative Normal NEG [facility] Comment on above: Performed By: #### U A ####[facility] ([id number])[address], [place] [address] Leukocyte esterase Test strip Ql (U) Small Abnormal NEG [facility] Comment on above: Performed By: #### U A ####[facility] ([id number])[address] [address] MUCOUS PRESENT Abnormal NONE [facility] Comment on above: Performed By: #### U A ####[facility] ([id number])[address] [address] [address] Nitrite Ql (U) Negative Normal NEG [facility] Comment on above: Performed By: #### U A ####[facility] ([id number])[address] [address] [address] pH (U) 6.5 [pH] Normal 5.0-8.5 [facility] Comment on above: Performed By: #### U A ####[facility] ([id number])[address] [address], [place] [address] Protein Ql (U) 300 mg/dL Abnormal NEG [facility] Comment on above: Performed By: #### U A ####[facility] ([id number])[address] [address], [place] [address] R.B.CELLS <1 Normal 0-5 [facility] Comment on above: Performed By: #### U A ####[facility] ([id number])[address] [address], [place] [address] Specific gravity (U) [Rel density] 1.014 Normal 1.003-1.035 [facility] Comment on above: Performed By: #### U A ####[facility] ([id number])[address] [address] [address] SQUAMOUS EPITHELIUM <1 Normal 0-5 [facility] Comment on above: Performed By: #### U A ####[facility] ([id number])0 [address] [address] [address] TURBIDITY CLEAR Normal CLEAR [facility] Comment on above: Performed By: #### U A ####[facility] ([id number])0 [facility] [address], [place] [address] Urobilinogen (U) [Mass/Vol] mg/dL Normal <1.1 [facility] Comment on above: Performed By: #### U A ####[facility] ([id number])[address] [address] W.B.CELLS 6 /hpf High 0-5 [facility] Comment on above: Performed By: #### U A ####[facility] ([id number])[address] [address] Vitamin D+Metabolites [Mass/ Vol]on 03-07-2024 VITAMIN D 25 HYD TOT 27.2 ng/mL Low 30-100 [facility] Comment on above: Result Comment: Vitamin D status 25 [place] Vitamin D Deficiency <20 ng/mL Insufficiency 20-29 ng/mL Sufficiency 30-100 ng/mL Toxicity >100 ng/mL NOTE: A pediatric reference range has not been established by the sales product manager of this kit. The [place] [employer] recommends a Vitamin D level of = or >20ng/mL in infants and children. Performed By: #### C MP #### [facility] ([id number]) [address] [place] [address], [place] [address] HGB A1C (GLYCO-HGB)on 2023 Glucose [Mass/Vol] 169 mg/dL Normal [facility] Comment on above: Performed By: #### 2 4331-1, THYR ####[facility] ([id number])0 [facility] [address], [place] [address] HbA1c (Bld) [Mass fraction] 7.5 % High 4.4-5.6 [facility] Comment on above: Result Comment: NOTE ADA Guidelines Result HgbA1c Normal : less than 5.7 % Prediabetes : 5.7 % to 6.4 % Diabetes : > 6.4 % Use with caution in patients with abnormal hemoglobin variants as the half-life of red blood cells and in vivo glycation rates are affected. Performed By: #### 2 4331-1, THYR ####[facility] ([id number])[address], [address] [place] [address] Lipid 1996 panelon 4 Cholesterol [Mass/Vol] 179 mg/dL Normal 150-200 [facility] Comment on above: Performed By: #### 2 4331-1, THYR ####[facility] ([id number])[address], [address] [place] [address] Cholesterol in HDL [Mass/Vol] 49 mg/dL Normal >39 [facility] Comment on above: Result Comment: HDL <40 mg/dL - High Risk HDL > or = 40mg/dL- Desirable HDL >60 mg/dL - Negative Risk Performed By: #### 2 4331-1, THYR ####[facility] ([id number])[address], [address] [place] [address] Cholesterol in LDL [Mass/Vol] 93 mg/dL Normal <130 [facility] Comment on above: Result Comment: LDL <100 mg/dL - Desirable LDL >160 mg/dL - High Risk Performed By: #### 2 4331-1, THYR ####[facility] ([id number])[address], [address] [place] [address], [place] [address] Cholesterol in VLDL [Mass/Vol] 37 mg/dL High 0-30 [facility] Comment on above: Performed By: #### 2 4331-1, THYR ####[facility] ([id number])[address], [address] [place] [address], [place] [address] CHOLESTEROL:HDL 3.7 Normal 1.0-5.0 [facility] Comment on above: Performed By: #### 2 4331-1, THYR ####[facility] ([id number])[address], [address] [place] [address], [place] [address] Triglyceride [Mass/Vol] 186 mg/dL High 27-150 [facility] Comment on above: Performed By: #### 2 4331-1, THYR ####[facility] ([id number])[address], [address], [place] [address] THYROID PROFILEon 01-03-2024 Free T4 [Mass/Vol] 0.75 ng/dL Normal 0.61-1.60 [facility] Comment on above: Performed By: #### 2 4331-1, THYR ####[facility] ([id number])[address] [address] TSH 5.18 uIU/mL High 0.49-4.67 [facility] Comment on above: Performed By: #### 2 4331-1, THYR ####[facility] ([id number])[address] [place] [address] BASIC METABOLIC PANLon 12-03 Anion gap [Moles/Vol] 11 mmol/L Normal 5-15 [facility] Comment on above: Performed By: #### C BCA, CMP #### [facility] ([id number]) [address] [place] [address] Calcium [Mass/Vol] 9.7 mg/dL Normal 8.5-10.5 [facility] Comment on above: Performed By: #### C BCA, CMP #### [facility] ([id number]) [address] [place] [address] Chloride [Moles/Vol] 104 mmol/L Normal 98-109 [facility] Comment on above: Performed By: #### C BCA, CMP #### [facility] ([id number]) [address] [place] [address] CO2 [Moles/Vol] 26 mmol/L Normal 22-32 [facility] Comment on above: Performed By: #### C BCA, CMP #### [facility] ([id number]) [address] [place] [address] Creatinine [Mass/Vol] 2.33 mg/dL High 0.40-1.00 [facility] Comment on above: Result Comment: METH OD TRACEABLE TO IDMS STANDARD Performed By: #### C BCA, CMP #### [facility] ([id number]) [address] [place] [address] GFR/1.73 sq M.predicted among non-blacks MDRD (S/P/Bld) [Vol rate/Area] 21 mL/min/{1.73_m2} Low >59 [facility] Comment on above: Result Comment: Reported eGFR is based on the CKD-EPI 1 equation that does not use a race coefficient. Performed By: #### C BCA, CMP #### [facility] ([id number]) [address] [place] [address] Glucose [Mass/Vol] 102 mg/dL High 65-99 [facility] Comment on above: Performed By: #### C BCA, CMP #### [facility] ([id number]) [address] [place] [address] Potassium [Moles/Vol] 4.9 mmol/L Normal 3.5-5.0 [facility] Comment on above: Performed By: #### C BCA, CMP #### [facility] ([id number]) [address] [place] [address] Sodium [Moles/Vol] 141 mmol/L Normal 134-146 [facility] Comment on above: Performed By: #### C AUTUMN, CMP #### [facility] ([id number]) [address] [place] [address] Urea nitrogen [Mass/Vol] 43 mg/dL High 5-27 [facility] Comment on above: Performed By: #### C AUTUMN, CMP #### [facility] ([id number]) [address] [place] [address] COMPLETE BLOOD COUNT 12-03 Erythrocyte distribution width (RBC) [Ratio] 13.0 % Normal 11.5-15.0 [facility] Comment on above: Performed By: #### C AUTUMN, CMP #### [facility] ([id number]) [address] [place] [address] Hematocrit (Bld) [Volume fraction] 31.9 % Low 35-47 [facility] Comment on above: Performed By: #### C AUTUMN, CMP #### [facility] ([id number]) [address] [place] [address] Hemoglobin (Bld) [Mass/Vol] 10.7 g/dL Low 11.7-15.5 [facility] Comment on above: Performed By: #### C BCA, CMP #### [facility] ([id number]) [address] [place] [address] MCH (RBC) [Entitic mass] 30.4 pg Normal 27-34 [facility] Comment on above: Performed By: #### C BCA, CMP #### [facility] ([id number]) [address] [place] [address] MCHC (RBC) [Mass/Vol] 33.6 g/dL Normal 32-36 [facility] Comment on above: Performed By: #### C AUTUMN, CMP #### [facility] ([id number]) [address] [place] [address] MCV (RBC) [Entitic vol] 91 fL Normal 80-100 [facility] Comment on above: Performed By: #### C AUTUMN, CMP #### [facility] ([id number]) [address] [place] [address] Platelet mean volume (Bld) [Entitic vol] 8.6 fL Normal 7-12 [facility] Comment on above: Performed By: #### C AUTUMN, CMP #### [facility] ([id number]) [address] [place] [address] Platelets (Bld) [#/Vol] 398 10*3/uL Normal 150-450 [facility] Comment on above: Performed By: #### C AUTUMN, CMP #### [facility] ([id number]) [address] [place] [address] RBC COUNT 3.51 X10E12/L Low 3.80-5.20 [facility] Comment on above: Performed By: #### C AUTUMN, CMP #### [facility] ([id number]) [address] [place] [address] WBC (Bld) [#/Vol] 12.6 10*3/uL High 4.0-11.0 [facility] Comment on above: Performed By: #### C AUTUMN, CMP #### [facility] ([id number]) [address] [place] [address] MAGNESIUMon 12-04-2023 Magnesium [Mass/Vol] 1.9 mg/dL Normal 1.8-2.6 [facility] Comment on above: Performed By: #### C BCA, CMP #### [facility] ([id number]) [address] [place] [address] PHOSPHORUSon 12-04-2023 Phosphate [Mass/Vol] 3.7 mg/dL Normal 2.4-4.9 [facility] Comment on above: Performed By: #### C AUTUMN, CMP #### [facility] ([id number]) [address] [place] [address] PROTEIN CREAT RATIOon 2023 RANDOM URINE PROTEIN 1840 mg/L High <120 [facility] Comment on above: Performed By: #### C AUTUMN, CMP #### [facility] ([id number]) [address] [place] [address] U/PRO/APPLE PRESS OPERATOR RATIO CALC 2.19 High <0.2 [facility] Comment on above: Result Comment: Neph rotic Syndrome is associated with ratios >3.5 Performed By: #### C AUTUMN, CMP #### [facility] ([id number]) [address] [place] [address] URINE CREATININE,RDM 84.01 mg/dL Normal [facility] Comment on above: Performed By: #### C AUTUMN, CMP #### [facility] ([id number]) [address] [place] [address] Parathyrin.intact [Mass/Vol] on 12-04-2023 PTH INTACT 105 pg/mL High 12-88 [facility] Comment on above: Performed By: #### C BCA, CMP #### [facility] ([id number]) [address] [place] [address] [place] [address] URINALYSISon 12-04-2023 Bilirubin Ql (U) Negative Normal NEG [facility] BLOOD/HGB Negative Normal NEG [facility] Color (U) YELLOW Normal YELLOW [facility] Glucose Ql (U) Negative Normal NEG [facility] Hyaline casts LM Ql (Urine sed) 14 /lpf High 0-2 [facility] Ketones Ql (U) Negative Normal NEG [facility] Leukocyte esterase Test strip Ql (U) Small Abnormal NEG [facility] MUCOUS PRESENT Abnormal NONE [facility] Nitrite Ql (U) Negative Normal NEG [facility] pH (U) 6.0 [pH] Normal 5.0-8.5 [facility] Protein Ql (U) 200 mg/dL Abnormal NEG [facility] R.B.CELLS 1 /hpf Normal 0-5 [facility] RENAL EPITHELIUM 1 /hpf High [address] [facility] Specific gravity (U) [Rel density] 1.012 Normal 1.003-1.035 [facility] SQUAMOUS EPITHELIUM <1 Normal 0-5 [facility] TURBIDITY CLEAR Normal CLEAR [facility] Urobilinogen (U) [Mass/Vol] mg/dL Normal <1.1 [facility] W.B.CELLS 20 /hpf High 0-5 [facility] Vitamin D+Metabolites [Mass/ Vol]on 12-04-2023 VITAMIN D 25 HYD TOT 26.6 ng/mL Low 30-100 [facility] Comment on above: Result Comment: Vitamin D status 25 [place] Vitamin D Deficiency <20 ng/mL Insufficiency 20-29 ng/mL Sufficiency 30-100 ng/mL Toxicity >100 ng/mL NOTE: A pediatric reference range has not been established by the sales product manager of this kit. The [place] [employer] recommends a Vitamin D level of = or >20ng/mL in infants and children. Performed By: #### C BCA, CMP #### [facility] ([id number]) [address] [place] [address], [place] [address] XR FOOT RT MIN 3 VWSon 12-01 [...] Gauthier MD on 12/02/2023 8:31 AM Normal [facility] BASIC METABOLIC PANLon 11-27 Anion gap [Moles/Vol] 8 mmol/L Normal 5-15 [facility] Comment on above: Performed By: #### B MP #### [facility] ([id number]) [address] [place] [address] Calcium [Mass/Vol] 8.2 mg/dL Low 8.5-10.5 [facility] Comment on above: Performed By: #### B MP #### [facility] ([id number]) [address] [place] [address] Chloride [Moles/Vol] 109 mmol/L Normal 98-109 [facility] Comment on above: Performed By: #### B MP #### [facility] ([id number]) [address] [place] [address] CO2 [Moles/Vol] 22 mmol/L Normal 22-32 [facility] Comment on above: Performed By: #### B MP #### [facility] ([id number]) [address] [place] [address] Creatinine [Mass/Vol] 1.80 mg/dL High 0.40-1.00 [facility] Comment on above: Result Comment: METH OD TRACEABLE TO IDMS STANDARD Performed By: #### B MP #### [facility] ([id number]) [address] [place] [address] GFR/1.73 sq M.predicted among non-blacks MDRD (S/P/Bld) [Vol rate/Area] 29 mL/min/{1.73_m2} Low >59 [facility] Comment on above: Result Comment: Reported eGFR is based on the CKD-EPI 2020 equation that does not use a race coefficient. Performed By: #### B MP #### [facility] ([id number]) [address] [place] [address] Glucose [Mass/Vol] 119 mg/dL High 65-99 [facility] Comment on above: Performed By: #### B MP #### [facility] ([id number]) [address] [place] [address] Potassium [Moles/Vol] 3.9 mmol/L Normal 3.5-5.0 [facility] Comment on above: Performed By: #### B MP #### [facility] ([id number]) [address] [place] [address] Sodium [Moles/Vol] 139 mmol/L Normal 134-146 [facility] Comment on above: Performed By: #### B MP #### [facility] ([id number]) [address] [place] [address] Urea nitrogen [Mass/Vol] 28 mg/dL High 5-27 [facility] Comment on above: Performed By: #### B MP #### [facility] ([id number]) [address] [place] [address] Glucose Glucometer (BldC) [M ass/Vol]on 11-28-2023 Glucose [Mass/Vol] 177 mg/dL High 65-99 [facility] COMPREHENSIVE METABOLIC PANE Jean Claude 11-27-2023 Albumin [Mass/Vol] 2.9 g/dL Low 3.2-5.3 [facility] Comment on above: Performed By: #### C MP #### [facility] ([id number]) [address] [place] [address] [place] [address] ALP [Catalytic activity/Vol] 126 U/L Normal 39-130 [facility] Comment on above: Performed By: #### C MP #### [facility] ([id number]) [address] [place] [address]657 ALT [Catalytic activity/Vol] 33 U/L High 0-31 [facility] Comment on above: Performed By: #### C MP #### [facility] ([id number]) [address] [place] [address] Anion gap [Moles/Vol] 9 mmol/L Normal 5-15 [facility] Comment on above: Performed By: #### C MP #### [facility] ([id number]) [address] [place] [address]75 AST [Catalytic activity/Vol] 32 U/L Normal 0-41 [facility] Comment on above: Performed By: #### C MP #### [facility] ([id number]) [address] [place] [address]31 Bilirubin [Mass/Vol] 0.5 mg/dL Normal 0.3-1.2 [facility] Comment on above: Performed By: #### C MP #### [facility] ([id number]) [address] [place] [address] 36590 Calcium [Mass/Vol] 8.8 mg/dL Normal 8.5-10.5 [facility] Comment on above: Performed By: #### C MP #### [facility] ([id number]) [address] [place] [address] 79856 Chloride [Moles/Vol] 106 mmol/L Normal 98-109 [facility] Comment on above: Performed By: #### C MP #### [facility] ([id number]) [address] [place] [address]805 CO2 [Moles/Vol] 26 mmol/L Normal 22-32 [facility] Comment on above: Performed By: #### C MP #### [facility] ([id number]) [address] [place] [address] 18690 Creatinine [Mass/Vol] 1.98 mg/dL High 0.40-1.00 [facility] Comment on above: Result Comment: METH OD TRACEABLE TO IDMS STANDARD Performed By: #### C MP #### [facility] ([id number]) [address] [place] [address] 13294 GFR/1.73 sq M.predicted among non-blacks MDRD (S/P/Bld) [Vol rate/Area] 26 mL/min/{1.73_m2} Low >59 [facility] Comment on above: Result Comment: Reported eGFR is based on the CKD-EPI 2020 equation that does not use a race coefficient. Performed By: #### C MP #### [facility] ([id number]) [address] [place] [address]292 Glucose [Mass/Vol] 121 mg/dL High 65-99 [facility] Comment on above: Performed By: #### C MP #### [facility] ([id number]) [address] [place] [address] Potassium [Moles/Vol] 4.5 mmol/L Normal 3.5-5.0 [facility] Comment on above: Performed By: #### C MP #### [facility] ([id number]) [address] [place] [address] 05097 Protein [Mass/Vol] 6.0 g/dL Normal 6.0-8.0 [facility] Comment on above: Performed By: #### C MP #### [facility] ([id number]) [address] [place] [address] 83488 Sodium [Moles/Vol] 141 mmol/L Normal 134-146 [facility] Comment on above: Performed By: #### C MP #### [facility] ([id number]) [address] [place] [address] 95446 Urea nitrogen [Mass/Vol] 34 mg/dL High 5-27 [facility] Comment on above: Performed By: #### C MP #### [facility] ([id number]) [address] [place] [address]RAIN [address] CONT[address] BRAIN WO [...] Barton MD on 11/27/2023 5:43 AM Normal [facility] Glucose Glucometer (BldC) [M ass/Vol]on 11-27-2023 Glucose [Mass/Vol] 207 mg/dL High 65-99 [facility] Glucose [Mass/Vol] 164 mg/dL High 65-99 [facility] Glucose [Mass/Vol] 189 mg/dL High 65-99 [facility] CBC AND AUTO DIFFon 11-26-19 24 ABSOLUTE BASOPHIL 0.1 X10E9/L Normal 0.0-0.2 [facility] Comment on above: Performed By: #### C BCA, CMP #### [facility] ([id number]) [address] [place] [address] 36006 ABSOLUTE NEUTROPHIL 10.2 X10E9/L High 1.5-6.6 [facility] Comment on above: Performed By: #### C AUTUMN, CMP #### [facility] ([id number]) [address] [place] [address] 15480 Basophils/100 WBC (Bld) 0.8 % Normal [facility] Comment on above: Performed By: #### C AUTUMN, CMP #### [facility] ([id number]) [address] [place] [address] 32515 Eosinophils (Bld) [#/Vol] 0.1 10*3/uL Normal 0.0-0.4 [facility] Comment on above: Performed By: #### C AUTUMN, CMP #### [facility] ([id number]) [address] [place] [address] 66571 Eosinophils/100 WBC (Bld) 1.0 % Normal [facility] Comment on above: Performed By: #### C AUTUMN, CMP #### [facility] ([id number]) [address] [place] [address] 08500 Erythrocyte distribution width (RBC) [Ratio] 13.3 % Normal 11.5-15.0 [facility] Comment on above: Performed By: #### C AUTUMN, CMP #### [facility] ([id number]) [address] [place] [address] 17438 Hematocrit (Bld) [Volume fraction] 35.5 % Normal 35-47 [facility] Comment on above: Performed By: #### C AUTUMN, CMP #### [facility] ([id number]) [address] [place] [address] 60314 Hemoglobin (Bld) [Mass/Vol] 11.9 g/dL Normal 11.7-15.5 [facility] Comment on above: Performed By: #### C AUTUMN, CMP #### [facility] ([id number]) [address] [place] [address] 99546 Lymphocytes (Bld) [#/Vol] 1.0 10*3/uL Normal 1.0-3.5 [facility] Comment on above: Performed By: #### C BCA, CMP #### [facility] ([id number]) [address] [place] [address] 23796 Lymphocytes/100 WBC (Bld) 8.2 % Normal [facility] Comment on above: Performed By: #### C AUTUMN, CMP #### [facility] ([id number]) [address] [place] [address] 08798 MCH (RBC) [Entitic mass] 30.0 pg Normal 27-34 [facility] Comment on above: Performed By: #### C AUTUMN, CMP #### [facility] ([id number]) [address] [place] [address] 23784 MCHC (RBC) [Mass/Vol] 33.6 g/dL Normal 32-36 [facility] Comment on above: Performed By: #### C AUTUMN, CMP #### [facility] ([id number]) [address] [place] [address] 61042 MCV (RBC) [Entitic vol] 89 fL Normal 80-100 [facility] Comment on above: Performed By: #### C BCA, CMP #### [facility] ([id number]) [address] [place] [address] 70842 Monocytes (Bld) [#/Vol] 0.8 10*3/uL Normal 0-0.9 [facility] Comment on above: Performed By: #### C BCA, CMP #### [facility] ([id number]) [address] [place] [address] 48408 Monocytes/100 WBC (Bld) 6.5 % Normal [facility] Comment on above: Performed By: #### C BCA, CMP #### [facility] ([id number]) [address] [place] [address], [place] [address] Neutrophils/100 WBC (Bld) 83.5 % Normal [facility] Comment on above: Performed By: #### C AUTUMN, CMP #### [facility] ([id number]) [address] [place] [id number] Platelet mean volume (Bld) [Entitic vol] 7.8 fL Normal 7-12 [facility] Comment on above: Performed By: #### C AUTUMN, CMP #### [facility] ([id number]) [address] [place] [address]35[address] Platelets (Bld) [#/Vol] 321 10*3/uL Normal 150-450 [facility] Comment on above: Performed By: #### C AUTUMN, CMP #### [facility] ([id number]) [address] [place] [address]66 RBC COUNT 3.98 X10E12/L Normal 3.80-5.20 [facility] Comment on above: Performed By: #### C AUTUMN, CMP #### [facility] ([id number]) [address] [place] [address]124 WBC (Bld) [#/Vol] 12.2 10*3/uL High 4.0-11.0 [facility] Comment on above: Performed By: #### C AUTUMN, CMP #### [facility] ([id number]) [address] [place] [address] COMPREHENSIVE METABOLIC PANE Jean Claude 11-26-2023 Albumin [Mass/Vol] 3.7 g/dL Normal 3.2-5.3 [facility] Comment on above: Performed By: #### C AUTUMN, CMP #### [facility] ([id number]) [address] [place] [id number] ALP [Catalytic activity/Vol] 159 U/L High 39-130 [facility] Comment on above: Performed By: #### C AUTUMN, CMP #### [facility] ([id number]) [address] [place] [address] 35495 ALT [Catalytic activity/Vol] 47 U/L High 0-31 [facility] Comment on above: Performed By: #### C BCA, CMP #### [facility] ([id number]) [address] [place] [address] Anion gap [Moles/Vol] 9 mmol/L Normal 5-15 [facility] Comment on above: Performed By: #### C BCA, CMP #### [facility] ([id number]) [address] [place] [address] 69[address] AST [Catalytic activity/Vol] 44 U/L High 0-41 [facility] Comment on above: Performed By: #### C BCA, CMP #### [facility] ([id number]) [address] [place] [address] [place] [address] Bilirubin [Mass/Vol] 0.8 mg/dL Normal 0.3-1.2 [facility] Comment on above: Performed By: #### C BCA, CMP #### [facility] ([id number]) [address] [place] [address] Calcium [Mass/Vol] 9.2 mg/dL Normal 8.5-10.5 [facility] Comment on above: Performed By: #### C BCA, CMP #### [facility] ([id number]) [address] [place] [address] [place] [address] Chloride [Moles/Vol] 102 mmol/L Normal 98-109 [facility] Comment on above: Performed By: #### C BCA, CMP #### [facility] ([id number]) [address] [place] [address] CO2 [Moles/Vol] 26 mmol/L Normal 22-32 [facility] Comment on above: Performed By: #### C BCA, CMP #### [facility] ([id number]) [address] [place] [address]13 Creatinine [Mass/Vol] 2.09 mg/dL High 0.40-1.00 [facility] Comment on above: Result Comment: METH OD TRACEABLE TO IDMS STANDARD Performed By: #### C BCA, CMP #### [facility] ([id number]) [address] [place] [address] GFR/1.73 sq M.predicted among non-blacks MDRD (S/P/Bld) [Vol rate/Area] 24 mL/min/{1.73_m2} Low >59 [facility] Comment on above: Result Comment: Reported eGFR is based on the CKD-EPI 2020 equation that does not use a race coefficient. Performed By: #### C BCA, CMP #### [facility] ([id number]) [address] [place] [address]17 Glucose [Mass/Vol] 149 mg/dL High 65-99 [facility] Comment on above: Performed By: #### C BCA, CMP #### [facility] ([id number]) [address] [place] [address] Potassium [Moles/Vol] 4.0 mmol/L Normal 3.5-5.0 [facility] Comment on above: Performed By: #### C BCA, CMP #### [facility] ([id number]) [address] [place] [address] 15836 Protein [Mass/Vol] 7.4 g/dL Normal 6.0-8.0 [facility] Comment on above: Performed By: #### C BCA, CMP #### [facility] ([id number]) [address] [place] [address] 17560 Sodium [Moles/Vol] 137 mmol/L Normal 134-146 [facility] Comment on above: Performed By: #### C BCA, CMP #### [facility] ([id number]) [address] [facility], [place] [address] Urea nitrogen [Mass/Vol] 35 mg/dL High 5-27 [facility] Comment on above: Performed By: #### C AUTUMN, CMP #### [facility] ([id number]) [address] [facility], [place] [address] Glucose Glucometer (BldC) [M ass/Vol]on 11-26-2023 Glucose [Mass/Vol] 183 mg/dL High 65-99 [facility] XR HIP RT INJon 08-15-2021 XR HIP [...] by: KALANI TORRES Date: 2021-08-15 11:29 Normal [facility] Vital Signs Date Time Vital Sign Value Performing Clinician Facility 12-10-2023 08:50-0400 Diastolic blood pressure 64 mm[Hg] Musa Gil TRACKWALKER-HOT DIP GALVANIZER Work Phone: [facility] 12-10-2023 08:50-0400 Heart rate 88 /min Musa Oberneder TRACKWALKER-HOT DIP GALVANIZER Work Phone: [facility] 12-10-2023 08:50-0400 Systolic blood pressure 127 mm[Hg] Musa Oberneder TRACKWALKER-HOT DIP GALVANIZER Work Phone: [facility] 12-10-2023 08:49-0400 Body mass index (BMI) [Ratio] 40.32 kg/m2 Musa Oberneder TRACKWALKER-HOT DIP GALVANIZER Work Phone: [facility] 12-10-2023 08:49-0400 Body weight 103.24 kg Musa Oberneder TRACKWALKER-HOT DIP GALVANIZER Work Phone: [facility] 12-10-2023 08:49-0400 SaO2% (BldA) [Mass fraction] 96 % Musa Oberneder TRACKWALKER-HOT DIP GALVANIZER Work Phone: [facility] 11-30-2023 10:55-0400 Body mass index (BMI) [Ratio] 41.45 kg/m2 Keaton Medel MD Work Phone: [facility] [employer] [facility] 11-30-2023 10:55-0400 Body temperature 98.2 [degF] Keaton Medel MD Work Phone: [facility] 11-30-2023 10:55-0400 Body weight 106.14 kg Keaton Medel MD Work Phone: [facility] 11-30-2023 10:55-0400 Diastolic blood pressure 72 mm[Hg] Keaton Medel MD Work Phone: [facility] [facility] 11-30-2023 10:55-0400 Heart rate 99 /min Keaton Medel MD Work Phone: [facility] 11-30-2023 10:55-0400 Systolic blood pressure 158 mm[Hg] Keaton Medel MD Work Phone: [facility] [facility] 11-26-2023 13:52-0400 Body mass index (BMI) [Ratio] 39.86 kg/m2 Keaton Medel MD Work Phone: [facility] 11-26-2023 13:52-0400 Body temperature 97.81 [degF] Keaton Medel MD Work Phone: [facility] 11-26-2023 13:52-0400 Body weight 102.06 kg Keaton Medel MD Work Phone: [facility] 11-26-2023 13:52-0400 Diastolic blood pressure 84 mm[Hg] Keaton Medel MD Work Phone: [facility] 11-26-2023 13:52-0400 Heart rate 88 /min Keaton Medel MD Work Phone: [facility] 11-26-2023 13:52-0400 Systolic blood pressure 167 mm[Hg] Keaton Medel MD Work Phone: [facility] Encounters Encounter Date Encounter Type Care Provider Facility Start: 04-28-2024 End: 04-28-2024 ambulatory Jani Jeffers MD Facility:[facility] Start: 04-22-2024 End: 04-22-2024 ambulatory [facility] Start: 03-24-2024 End: 03-24-2024 ambulatory Jani Jeffers MD Facility:[facility] Start: 03-21-2024 End: 03-21-2024 ambulatory [facility] Start: 03-11-2024 End: 03-11-2024 ambulatory YESIKA WARD Not Available Start: 03-07-2024 End: 03-07-2024 ambulatory [facility] Start: 01-04-2024 End: 01-04-2024 ambulatory [facility] Start: 01-03-2024 End: 01-03-2024 ambulatory [facility] Start: 01-02-2024 End: 01-02-2024 ambulatory [facility] Start: 01-02-2024 Encounter for genera l adult medical examination without abnormal findings [facility] Start: 12-11-2023 Orders Only Keaton patel MD Work Phone: [facility] Start: 12-10-2023 End: 12-10-2023 Office outpatient visit 25 minutes Musa Gil TRACKWALKER-HOT DIP GALVANIZER Work Phone: [facility] Comment on above: CKD (chronic kidney disease) stage 4, GFR 15-29 ml/min ([facility]) (Primary Dx) Start: 12-07-2023 Telephone encounter Berna Mcelroy CMA [facility] Start: 12-06-2023 Refill [facility] Start: 12-04-2023 End: 12-04-2023 ambulatory [facility] Start: 11-30-2023 End: 11-30-2023 Transitional care manage srvc 7 day discharge Keaton Medel MD Work Phone: [facility] Comment on above: Vertigo (Primary Dx) ; Non-recurrent acute suppurative otitis media of right ear without spontaneous rupture of tympanic membrane; Bronchitis; Diabetic polyneuropathy associated with type 2 diabetes mellitus ([facility]); Acute pain of right foot Start: 11-30-2023 End: 11-30-2023 ambulatory [facility] Start: 11-28-2023 Telephone encounter Berna Mcelroy CMA [facility] Start: 11-27-2023 End: 11-29-2023 ambulatory [facility] Start: 11-26-2023 End: 11-29-2023 ambulatory [facility] Start: 11-26-2023 End: 11-26-2023 Patient encounter procedure Keaton Medel MD Work Phone: [facility] Comment on above: Non-recurrent acute suppurative otitis media of right ear without spontaneous rupture of tympanic membrane (Primary Dx); Type 2 diabetes mellitus with stage 4 chronic kidney disease, with long-term current use of insulin ([facility] Start: 11-26-2023 End: 11-26-2023 ambulatory [facility] Start: 09-20-2023 Refill Maryjane Morrison SHERIFF DETECTIVE [facility] Start: 08-15-2021 End: 08-16-[address] JOAQUIM TAYLOR Facility:[facility] Procedures Date Procedure Procedure Detail Performing Clinician Start: 11-26-2022 Adult depression scr eening assessment Maryjane Morrison SHERIFF DETECTIVE Start: 02-01-2022 Diabetic retinal eye exam Maryjane Morrison SHERIFF DETECTIVE Start: 11-05-2019 Microalbumin [Mass/v olume] in Urine by Test strip Maryjane Morrison SHERIFF DETECTIVE Start: 08-23-2017 Colonoscopy Maryjane Morrison SHERIFF DETECTIVE Plan of Treatment Date Care Activity Detail Author Start: 12-09-2024 Adult BMI Screening Adult BMI Screen ing [facility] Start: 11-29-2024 Adult BMI Screening Adult BMI Screen ing [facility] Start: 11-29-2024 Tobacco Screening Tobacco Screening [facility] Start: 11-27-2024 Adult BMI Screening Adult BMI Screen ing [facility] Start: 11-25-2024 Adult BMI Screening Adult BMI Screen ing [facility] Start: 11-25-2024 Tobacco Screening Tobacco Screening [facility] Start: 07-12-2024 Adult BMI Screening Adult BMI Screen ing [facility] Start: 07-04-2024 Tobacco Screening Tobacco Screening [facility] Start: 07-02-2024 End: 07-02-2024 Patient encounter procedure 07/02/2024 1:45 PM EDT Office Visit [facility] [address] [place] [address] [place] [address] Stewart Marroquin MD [address] [place] [address] [facility] Start: 03-10-2024 End: 03-10-2024 Patient encounter procedure 03/10/2024 9:20 AM EDT Office Visit [facility] [address] [place] [phone] Musa Gil, TRACKWALKER-HOT DIP GALVANIZER [address] [facility], [address] [place] [address] [facility] Start: 01-02-2024 End: 01-02-2024 Patient encounter procedure 01/02/2024 9:00 AM EDT Office Visit [facility] [address] [place] [phone] Keaton Medel MD [address] [place] [address], [address] [place] [address] [facility] Start: 12-10-2023 End: 12-10-2023 Patient encounter procedure 12/10/2023 9:00 AM EDT Office Visit [facility] [address] [place] [phone] Musa Gil, TRACKWALKER-HOT DIP GALVANIZER [address] [facility] [place] [address] [facility] Start: 11-30-2023 End: 11-29-2024 XR Foot - right 3 Views [facility] Work Phone: Comment on above: Expected: 11/30/2023 , Expires: 11/29/2024 Start: 11-30-2023 End: 11-30-2023 Patient encounter procedure 11/30/2023 9:30 AM EDT Office Visit [facility] [address] [place] [address] Keaton Medel MD [address] [place] [address], [address] [place] [address] [facility] Start: 11-29-2023 Medicare Annual Wellness Visit Medicare Annual Wellness Visit [facility] Start: 11-27-2023 Depression Screening Depression Scre ening [facility] Start: 11-27-2023 Fall Risk Screening Fall Risk Screen ing [facility] Start: 02-01-2023 Glaucoma screening Diabetic Op hthalmology Exam [facility] Start: 11-05-2020 Urine screening for protein Urine Microalbumin [facility] Start: 08-23-2020 Screening for malignant neoplasm of colon Colonoscopy [facility] Start: 1964 DTaP,Tdap and Td Vaccines (1 - Tdap) DTaP,Tdap and Td Vaccines ( - Tdap) [facility] Start: 1963 Adult BMI Follow Up Plan Adult BMI Follow Up Plan [facility] End: 12-09-2024 Basic metabolic 2000 panel - Serum or Plasma Basic Metabolic Panel Lab Routine CKD (chronic kidney disease) stage 4, GFR 15-29 ml/min ([facility]) 1 Occurrences starting 12/10/2023 until 12/09/2024 [facility] Comment on above: 1 Occurrences starti ng 12/10/2023 until 12/09/2024 End: 12-09-2024 CBC panel - Blood by Automated count CBC without diff Lab Routine CKD (chronic kidney disease) stage 4, GFR 15-29 ml/min ([facility]) 1 Occurrences starting 12/10/2023 until 12/09/2024 [facility] Comment on above: 1 Occurrences starti ng 12/10/2023 until 12/09/2024 End: 12-09-2024 Magnesium [Mass/volume] in Serum or Plasma Magnesium Lab Routine CKD (chronic kidney disease) stage 4, GFR 15-29 ml/min ([facility]) 1 Occurrences starting 12/10/2023 until 12/09/2024 [facility] Comment on above: 1 Occurrences starti ng 12/10/2023 until 12/09/2024 End: 12-09-2024 Parathyroid Hormone, intact Parathyroid Hormone, intact Lab Routine CKD (chronic kidney disease) stage 4, GFR 15-29 ml/min ([facility]) 1 Occurrences starting 12/10/2023 until 12/09/2024 [facility] Work Phone: Comment on above: 1 Occurrences starti ng 12/10/2023 until 12/09/2024 End: 12-09-2024 Phosphate [Mass/volume] in Serum or Plasma Phosphorus Lab Routine CKD (chronic kidney disease) stage 4, GFR 15-29 ml/min ([facility]) 1 Occurrences starting 12/10/2023 until 12/09/2024 [facility] Comment on above: 1 Occurrences starti ng 12/10/2023 until 12/09/2024 End: 12-09-2024 Protein creat ratio Protein creat ratio Lab Routine CKD (chronic kidney disease) stage 4, GFR 15-29 ml/min ([facility]) 1 Occurrences starting 12/10/2023 until 12/09/2024 [facility] Comment on above: 1 Occurrences starti ng 12/10/2023 until 12/09/2024 End: 12-09-2024 Urinalysis Urinalysis Lab Routine CKD (chronic kidney disease) stage 4, GFR 15-29 ml/min ([facility]) 1 Occurrences starting 12/10/2023 until 12/09/2024 [facility] Comment on above: 1 Occurrences starti ng 12/10/2023 until 12/09/2024 End: 12-09-2024 Vitamin D 25 hydroxy Vitamin D 25 hydroxy Lab Routine CKD (chronic kidney disease) stage 4, GFR 15-29 ml/min ([facility]) 1 Occurrences starting 12/10/2023 until 12/09/2024 [facility] Comment on above: 1 Occurrences starti ng 12/10/2023 until 12/09/2024 Immunizations Immunization Date Immunization Notes Care Provider Nabor rose 08-22-2023 RSV, recombinant, protein subunit RSVpreF, adjuvant reconstituted, 0.5 mL, PF Maryjane [facility] 06-27-2023 Influenza, High-dose , Quadrivalent Maryjane [facility] 05-19-2023 zoster vaccine recombinant Maryjane [facility] 01-27-2023 Pneumococcal Conjuga te 20-valent Maryjane [facility] 01-27-2023 zoster vaccine recombinant Maryjane [facility] 06-29-2022 Influenza, High-dose , Quadrivalent [facility] 07-16-2021 Influenza, High-dose , Quadrivalent Maryjane [facility] 12-16-2020 COVID-19, mRNA, LNP- S, PF, 100mcg/0.5mL Dose Maryjane [facility] 11-18-2020 COVID-19, mRNA, LNP- S, PF, 100mcg/0.5mL Dose Maryjane [facility] 07-14-2020 influenza, injectabl e, quadrivalent, contains preservative [facility] 07-14-2020 Seasonal, quadrivale nt, recombinant, injectable influenza vaccine, preservative free Maryjane [facility] 08-15-2019 influenza, high dose seasonal, preservative-free Maryjane [facility] 07-30-2018 influenza, high dose seasonal, preservative-free Maryjane [facility] 07-17-2017 influenza, high dose seasonal, preservative-free Maryjane [facility] 07-04-2016 influenza, injectabl e, quadrivalent, preservative free Maryjane [facility] 08-26-2015 influenza, seasonal, injectable, preservative free Maryjane [facility] 09-01-2014 zoster vaccine, live Mirtha lala [facility] 08-04-2014 influenza virus vacc ine, unspecified formulation Maryjane [facility] 08-04-2014 pneumococcal conjuga te vaccine, 13 valent Maryjane [facility] 06-11-2013 influenza virus vacc ine, whole virus [facility] 09-14-2012 influenza, seasonal, injectable Maryjane [facility] 08-01-2010 influenza virus vacc ine, whole virus Maryjane [facility] 08-26-2002 pneumococcal polysaccharide vaccine, 23 valent Maryjane [facility] Payers Date Payer Category Payer Unknown 2015 Medicare ANTHEM MEDICARE ANTHEM MEDICARE ADVANTAGE [id number] 2015-Present [phone] [address] [place] [address] [id number] 1959 Unknown [id number] 1947 Unknown [id number] 2.16.840.1.183481.3.579.2.593 1947 Unknown [id number] 2.16.840.1.538492.3.579.2.125 9 1947 Unknown [id number] 2.16.840.1.567734.3.579.2.125 9 1947 Unknown [id number] 2.16.840.1.440759.3.579.2.128 6 1947 Unknown [id number] 2.16.840.1.985152.3.579.2.128 6 1947 Unknown [id number] 2.16.840.1.188874.3.579.2.128 6 1947 Unknown [id number] 2.16.840.1.030268.3.579.2.128 6 1947 Unknown [id number] 2.16.840.1.697749.3.579.2.128 6 1947 Unknown [id number] 2.16.840.1.340704.3.579.2.128 6 1947 Unknown [id number] 2.16.840.1.990250.3.579.2.128 6 1947 Unknown [id number] 2.16.840.1.326598.3.579.2.128 6 1947 Unknown [id number] 2.16.840.1.683449.3.579.2.128 6 1947 Unknown [id number] 2.16.840.1.485856.3.579.2.128 6 1947 Unknown [id number] 2.16.840.1.418598.3.579.2.128 6 1947 Unknown [id number] 2.16.840.1.412735.3.579.2.128 6 1947 Unknown [id number] 2.16.840.1.806603.3.579.2.128 6 1947 Unknown [id number] 2.16.840.1.114948.3.579.2.196 1947 Unknown [id number] 2.16.840.1.514869.3.579.2.196 Social History Date Type Detail Facility Start: 11-28-2022 Tobacco smoking stat [facility] Never smoked tobacco [facility] Start: 11-28-2022 Tobacco use and exposure Smoke less tobacco non-user [facility] Start: 07-04-2023 End: 11-30-2023 Alcohol intake Current non-drinker of alcohol (finding) [facility] Start: 09-13-2021 End: 11-26-2023 History of Social function [facility] Start: 09-13-2021 End: 11-26-2023 Social connection and isolation panel [facility] Do you belong to any clubs or organizations such as muslim groups, unions, fraternal or athletic groups, or school groups? Yes [facility] Are you now , , , , never or living with a partner? [facility] How often to you hav e a drink containing alcohol? Never [facility] Average Number of Drinks Not on file [facility] Do you feel stress - tense, restless, nervous, or anxious, or unable to sleep at night because your mind is troubled all the time - these days [OSQ] Only a little [facility] Start: 11-07-2020 Education 12 [facility] Start: 1945 Sex Assigned At Not on file [employer] Has the electric, ga s, oil, or water company threatened to shut off services in your home in past 12Mo No [employer] System Medical Equipment Procedure Code Equipment Code Equipment Origin al Text Equipment Identifier Dates Implant Hip Mop All Sz Construct Rpl [id number] - Sna - [id number] Start: 12-27-2021 Elminator Hl Drl c Pncl Hip Mrthn - Sna - [id number], [id number] FDA Start: 12-27-2021 Articuleze [id number] [...] self care Clinical Notes 09-20-2023 to 12-10-2023 Musa Gil APRN-HOT DIP GALVANIZER - 12/10/2023 9:00 AM EDTTelephone Encounter - Karen Downey - 12/07/2023 1:01 PM EDTTelephone Encounter - Keaton Medel MD - 12/07/2023 1:01 PM EDT Note Date & Type Note Facility 12-10-2023 History of Presen t illness Narrative Images from the original note were not included. Date of Service: 12/10/23 PCP: Keaton Medel MD History of Present Illness Maryjo Mandujano is a 78 y.o. female, who [...] Arthritis Chronic kidney disease stage 3 Diabetes ([facility]) Hypercholesterolemia Hypertension Skin cancer Visual impairment Surgical History: Past Surgical History: Procedure Laterality Date CATARACT EXTRACTION Left CHOLECYSTECTOMY COLONOSCOPY COLONOSCOPY N/A 08/23/2017 Performed by Stewart Sood DO at [facility] CYSTOSCOPY RETROGRADE PYELOGRAM [facility] SOLUTION Bilateral 10/22/2019 Performed by Stewart Marroquin MD at [facility] CYSTOSCOPY [facility] SOLUTION N/A 10/23/2018 Performed by Stewart Marroquin MD at [facility] DILATION AND CURETTAGE OF UTERUS EYE SURGERY several years ago they replaced the fluid in my ri HEEL SPUR SURGERY Right HEEL SPUR SURGERY INJECTION MEDIAL BRANCH NERVE BLOCK: bilat L34 45 mbbx 1 Bilateral 07/13/2017 Performed by Memo Barker MD at [facility] INJECTION MEDIAL BRANCH NERVE BLOCK: bilat L34 45mbb x 1 Bilateral 08/13/2017 Performed by Memo Barker MD at [facility] INJECTION SACROILIAC NERVE: bilat Bilateral 10/26/2017 Performed by Memo Barker MD at [facility] INJECTION SACROILIAC NERVE: bilat si inj x 1 Bilateral 06/18/2017 Performed by Memo Barker MD at [facility] INJECTION SACROILIAC NERVE: bilat SI inj x 1 Bilateral 05/25/2017 Performed by Memo Barker MD at [facility] KNEE ARTHROSCOPY Left repair of meniscus KNEE ARTHROSCOPY Right November or December 2016 POSTERIOR LAMINECTOMY / DECOMPRESSION LUMBAR SPINE RADIOFREQUENCY ABLATION SPINAL Left L3/4, 4/5 RFA Left 09/14/2017 Performed by Memo Barker MD at [facility] RADIOFREQUENCY ABLATION SPINAL: right L34 45rfa Right 08/31/2017 Performed by Memo Barker MD at [facility] RELEASE CARPAL TUNNEL Right 09/24/2018 Performed by Jr Joaquim Taylor DO at [facility] RELEASE TRIGGER FINGER Right 09/24/2018 Performed by Jr Joaquim Taylor DO at [facility] REPLACEMENT TOTAL JOINT HIP Right 12/27/2021 Performed by Joaquim Taylor Jr., DO at [facility] SKIN BIOPSY 2015 SKIN CANCER EXCISION from right eyelid SPINE SURGERY March 2015 [...] min Stress: No Stress Concern Present (09/13/2021) [employer] - Occupational Stress Questionnaire Feeling of Stress : Only a little Social Connections: Socially Integrated (09/13/2021) Social Connection and Isolation Panel [NHANES] Frequency of Communication with Friends and Family: More than three times a week Frequency of Social Gatherings with Friends and Family: Three times a week Attends Hoah[employer]ism Services: More than 4 times per year [...] mouth in the morning. NON FORMULARY daily. [place] Beet- red beet supplement for circulation coenzyme [...] of this patient. Please contact me at [phone] (Office) or [phone] (Answering service) with any questions. Musa Gil, TRACKWALKER-HOT DIP GALVANIZER [facility] This note was created with the assistance of a speech-recognition program. Although the intention is to generate a document that actually reflects the content of the visit, no guarantees can be provided that every mistake has been identified and corrected by editing. JAMES Barakat 12/10/23 0903 documented in this encounter [facility] 12-07-2023 Miscellaneous Notes Maryjo called stating that the pressure in both [...] the cefdinir antibiotic. documented in this encounter [facility] 12-07-2023 Telephone encounter Note Maryjo called stating that the pressure in both ears is back, she has sinus pressure around her eyes. During the night she went to move from her left side to her right side and got a little dizzy, until she could lay still. She is wondering if something could be called in. Please advise [facility] 12-07-2023 Telephone encounter Note I sent another 5 days of the cefdinir antibiotic. [facility] 12-07-2023 Miscellaneous Notes Spoke with with patient to confirm appt for 12/09, patient has had labs done as well documented in this encounter [facility] 12-07-2023 Telephone encounter Note Spoke with with patient to confirm appt for 12/09, patient has had labs done as well [facility] 12-06-2023 Miscellaneous Notes Refill request documented in this encounter [facility] 12-06-2023 Telephone encounter Note Refill request [facility] 11-30-2023 History of Presen t illness Narrative Subjective Patient ID: Maryjo Mandujano is a 78 y.o. female. The [...] polyneuropathy associated with type 2 diabetes mellitus ([facility]) Acute pain of right foot - X-ray foot right minimum 3 views; Future [facility]23 Miscellaneous Notes LVM patient to confirm the appointment and remind about the lab work prior to the appt., with Musa PERES [facility] 11-28-2023 Telephone encounter Note LVM patient to confirm the appointment and remind about the lab work prior to the appt., with Musa PERES [facility] 11-27-2023 Note XR CHEST 2 VWS Procedure: Chest x-ray performed Number of views:PA and lateral History:Cough Comparison:12/26/2012 Findings: The heart and lungs show no acute findings, and the mediastinum and marla are grossly negative . Impression: No acute change. Finalized by Susu Siddiqui DO on 11/27/2023 1:51 PM [facility] 11-26-2023 History of Presen t illness Narrative Subjective Patient ID: Maryjo Mandujano is a 78 y.o. female. She [...] disease, with long-term current use of insulin ([facility]) documented in this encounter [facility] 09-20-2023 Miscellaneous Notes Refill request documented in this encounter [facility] 09-20-2023 Telephone encounter Note Refill request [facility] Evaluation note Diagnosis Non-recurrent acute suppurative otitis media of right ear without spontaneous rupture of tympanic membrane- Primary Type 2 diabetes mellitus with stage 4 chronic kidney disease, with long-term current use of insulin ([facility]) [facility] Vertigo- Primary Dizziness and giddiness Non-recurrent acute suppurative otitis media of right ear without spontaneous rupture of tympanic membrane Bronchitis Bronchitis, not specified as acute or chronic Diabetic polyneuropathy associated with type 2 diabetes mellitus ([facility]) Acute pain of right foot [facility] Diagnosis CKD (chronic kidney disease) stage 4, GFR 15-29 ml/min ([facility])- Primary Chronic kidney disease, Stage IV (severe) [facility] [...] on filedocumented in this encounter [facility] Summary Purpose Family History No Family History Records FoundNo Family History Records FoundNo Family History Records FoundNo Family History Records FoundNo Family History Records Found Advance Directives No Advanced Directives Records FoundDocuments on File Type Date Recorded Patient Interlibrary Loan Specialist Expl anation Living Will 01/06/2022 3:15 PM [...] and content) DATE CREATED AUTHOR 08/22/2021 [facility] DATE CREATED AUTHOR AUTHOR'S ORGANIZ ATION 03/16/2024 [facility] EPIC DATE CREATED AUTHOR AUTHOR'S ORGANIZ ATION 03/22/2024 [facility] DATE CREATED AUTHOR AUTHOR'S ORGANIZ ATION 04/24/2024 [facility] DATE CREATED AUTHOR AUTHOR'S ORGANIZ ATION 05/14/2024 [facility] Reason for Visit (unrecogniz ed section and [...] Care Teams (unrecognized sec tion and content) Regional Forester Relationship Specialty Start Date End Date Keaton Medel MD [address] [place] [address], [address] [place] [address] PCP - General Pediatrics 04/19/17 Regional Forester Relationship Specialty Start Date End Date Keaton Medel MD [address] [place] [address], [address] [place] [address] PCP - General Pediatrics 04/19/17 Regional Forester Relationship Specialty Start Date End Date Keaton Medel MD [address] [place] [address], [address] [place] [address] PCP - General Pediatrics 04/19/17 Regional Forester Relationship Specialty Start Date End Date Keaton Medel MD [address] [place] [address], [address] [place] [address] PCP - General Pediatrics 04/19/17 Regional Forester Relationship Specialty Start Date End Date Keaton Medel MD [address] [place] [address], [address] [place] [address] PCP - General Pediatrics 04/19/17 Regional Forester Relationship Specialty Start Date End Date Keaton Medel MD [address] [place] [address], [address] [place] [address] PCP - General Pediatrics 04/19/17 Regional Forester Relationship Specialty Start Date End Date Keaton Medel MD [address] [place] [address], [address] [place] [address] PCP - General Pediatrics 04/19/17 Regional Forester Relationship Specialty Start Date End Date Keaton Medel MD [address] [place] [address], [address] [place] [address] PCP - General Pediatrics 04/19/17 FOR RECORDS [...] BE BASED ON THE PRIMARY CLINICAL RECORDS. [facility]. provides no warranty or guarantee of the accuracy or completeness of information in this document.
--- NOTE | 2024-05-28 11:11 | P.CN_ITS ---
Consult Note: HPI Data of Consult Patient: known to practice within the last 3 years Consult date: 03/24/24 Requesting Physician: Ching Wylie NP Primary Care Provider: KEATON MEDEL Consult Narrative Reason for consult: low back pain, bilateral lower extremity cramps Narrative: 78yof who presents for evaluation. longstanding low back history, now has symptoms that radiate into bilateral lower extremities. had hip replacement recently, was told that pain not stemming from her hips. has completed physical therapy and continues in chiropractic therapy >6 weeks, without lasting benefit. has tried various pain medications and muscle relaxers, but was unable to tolerate. cannot take nsaids due to decreased kidney function. uses primarily tylenol. Recently underwent bilateral L4/5 TFESI and L5/S1 TFESI with 95% improvement in pain and functional ability. Patient reporting moderate to severe pain and cramping at bedtime impacting sleep, has failed gabapentin in the past. 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 ?I15.8 - Other secondary hypertension (ICD-10) ?Q25.1 - Coarctation of aorta (ICD-10) Upper back pain ?M54.9 - Dorsalgia, unspecified (ICD-10) Osteoarthritis ?M19.90 - Unspecified osteoarthritis, unspecified site (ICD-10) Neck pain ?M54.2 - Cervicalgia (ICD-10) Low back pain ?M54.50 - Low back pain, unspecified (ICD-10) Obesity ?E66.9 - Obesity, unspecified (ICD-10) H/O renal failure ?Z87.448 - Personal history of other diseases of urinary system (ICD-10) Diabetes ?E11.9 - Type 2 diabetes mellitus without complications (ICD-10) H/O renal calculi ?Z87.442 - Personal history of urinary calculi (ICD-10) High cholesterol ?E78.00 - Pure hypercholesterolemia, unspecified (ICD-10) Hypertension ?I10 - Essential (primary) hypertension (ICD-10) Surgical History Status post surgical removal of malignant neoplasm of skin ?Z98.890 - Other specified postprocedural states (ICD-10) H/O lumbosacral spine surgery ?Z98.890 - Other specified postprocedural states (ICD-10) History of cholecystectomy ?Z90.49 - Acquired absence of other specified parts of digestive tract (ICD- 10) H/O carpal tunnel repair ?Z98.890 - Other specified postprocedural states (ICD-10) H/O cataract extraction ?Z98.49 - Cataract extraction status, unspecified eye (ICD-10) Meds Home Medications and Allergies Home Medications ?Medication ?Instructions ?Recorded ?Confirmed ?Type amlodipine 10 mg tablet 10 mg PO DAILY 03/24/24 05/12/24 History atorvastatin 20 mg tablet 20 mg PO DAILY 03/24/24 05/12/24 History bumetanide 2 mg tablet 2 mg PO DAILY 03/24/24 05/12/24 History cefadroxil 500 mg capsule 500 mg PO BID PRN INFECTION 03/24/24 05/12/24 History cholecalciferol (vitamin D3) 100 4,000 unit PO DAILY 03/24/24 05/12/24 History mcg (4,000 unit) capsule coQ10 (ubiquinol) 100 mg capsule 100 mg PO DAILY 03/24/24 05/12/24 History garlic 1,000 mg capsule 1,000 mg PO DAILY 03/24/24 05/12/24 History glipizide 10 mg tablet 10 mg PO DAILY 03/24/24 05/12/24 History insulin glargine 100 unit/mL 25 unit subcut DAILY 03/24/24 05/12/24 History subcutaneous solution (Lantus U-100 Insulin) losartan 25 mg tablet 25 mg PO DAILY 03/24/24 05/12/24 History lysine 500 mg capsule 50 mg .QD 03/24/24 History multivitamin 1 tab PO DAILY 03/24/24 05/12/24 History therapeutic multivitamin 1 tab PO BID 03/24/24 05/12/24 History vitamin A 2,400 mcg capsule 2,400 mcg PO DAILY 03/24/24 05/12/24 History vitamin B complex 1 cap PO DAILY 03/24/24 05/12/24 History Allergies Allergy/AdvReac Type Severity Reaction Status Date / Time erythromycin base AdvReac Mild Nausea Verified 05/12/24 10:51 gluten AdvReac Mild INTOLERANCE Verified 05/12/24 10:51 tramadol AdvReac Mild Nausea Verified 05/12/24 10:51 Exam Constitutional Documenting provider has reviewed patient's vital signs: yes Common normals: no apparent distress, oriented x3, healthy appearing, alert and well nourished General appearance: cooperative HENMT Common normals: normocephalic, hearing grossly normal bilaterally and moist oral mucous membranes Head and scalp: normocephalic Eye Common normals: PERRL Pupil: PERRL Neck & C-Spine Common normals: full ROM General: normal visual inspection Chest Common normals: inspection of chest normal Respiratory Common normals: normal respiratory effort, no retractions and no use of accessory muscles Back & Pelvis Lumbar spine/lower back: normal to inspection, lumbar ROM normal, pain with ROM and straight leg raise negative bilaterally Sacroiliac joints: SI joints normal Extremity Common normals: normal to inspection and full ROM Neuro Common normals: oriented x3, CN's II-XII intact bilaterally, moves all extremities, no focal motor deficits, no sensory deficits noted and deep tendon reflexes 2+ bilaterally Sensorium/orientation: alert Motor exam: strength 5/5 throughout and no movement abnormalities noted Psych Common normals: mental status grossly normal, thought process normal, cooperative, affect normal, speech normal and activity/motor behavior normal Speech: normal speech Thought process: normal thought process Results Additional Findings Additional findings: If on a controlled substance or opioids, I have checked an [place] report on this patient and there are no aberrancies noted in the prescribing history.??If on a controlled substance or opioid a drug screen was completed and reviewed within the last year, and if there has not been a drug screen completed we ordered one today to monitor higher risk, state monitored pain medication use. As part of providing excellent, safe, comprehensive care, the following was completed at our patient's visit: 1. A medication reconciliation and review to ensure accurate knowledge of curren t/active medications, including asking our patients to inform us about any [id number] medications or herbal remedies/nutritional supplements/alternative remedies. 2. A review to specifically ensure our patients have had annual screening for screening for depression, screening for tobacco use, and screening for unhealthy alcohol use. For concerning screenings had a discussion with the patient, provided patient education, and recommended follow-up with primary care provider when appropriate. If patient noted with a risk of falling, they received education on strength, gait, and balance training to prevent future risk of falling. Assessment and Plan Assessment and Plan (1) Lumbar stenosis with neurogenic claudication: Assessment and Plan: >90% improvement ongoing from bilateral L4-5 TFESI and bilateral L5-S1 TFESI (2) Myofascial pain: (3) Lumbar spondylosis: Plan start cyclobenzaprine 5-10mg HS PRN Pain/spasms, risks vs benefits reviewed continue to utilize cane, 1 fall within 12 months without injury continue f/u with PCP, hx of CKD avoid NSAIDs f/u 3 months, sooner if needed
== END 2024-05-28 10:33 | disposition home or self-care (01) ==
LOC: PM 10:32
PROVIDERS: PCP Internal Medicine; Visit Provider Nurse Practitioner
DX: M48.062 Spinal stenosis, lumbar region with neurogenic claudication (principal); M79.18 Myalgia, other site; M47.816 Spondylosis without myelopathy or radiculopathy, lumbar region
CPT/HCPCS: G0463

== ENCOUNTER 2024-08-27 10:50 | Outpatient (OUT) | payer MEDICARE, SELFPAY ==
--- OUTSIDE RECORDS SUMMARY | 2024-08-27 11:12 | XMS_ITS | CCD ---
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 Name Role Phone ZACH, DR MARCH Consulting Unavailable HIESTAND, DR KEATON Emerson Primary Care Unavailable JIAANIC, DR MARCH Attending Unavailable STEPANIC, DR MARCH Admitting Unavailable ZIEBER, DR KALANI Cruz Consulting Unavailable Lizy EDWARDS, Keaton Emerson Primary Care Provider YESIKA WARD Attending Unavailable YESIKA WARD Referring Unavailable Zeyad EDWARDS, Jani Sorto Attending Unavailable [...] Referring Unavailable KEATON MEDEL Primary Care Unavailable PRITI MONET Attending Unavailable KEATON MEDEL Referring Unavailable KEATON MEDEL Primary Care Unavailable KEATON MEDEL Admitting Unavailable KEATON MEDEL Attending Unavailable KEATON MEDEL Referring Unavailable KEATON MEDEL Primary Care Unavailable KEATON MEDEL Attending Unavailable KEATON MEDEL Referring Unavailable KEATON MEDEL Primary Care Unavailable KEATON MEDEL Attending Unavailable KEATON MEDEL Referring Unavailable KEATON MEDEL Primary Care Unavailable KEATON MEDEL Referring Unavailable KEATON MEDEL Primary Care Unavailable LIZY MILEY Referring Unavailable KEATON MEDEL Primary Care Unavailable KEATON MEDEL Referring Unavailable KEATON MEDEL J Primary Care Unavailable LIZYKEATON Attending Unavailable LIZYKEATON J Referring Unavailable HIESTAND, KEATON Emerson Primary Care Unavailable OBEREDILBERTO, KIARA R Referring Unavailable SCOTTYESTDEWEY, KEATON Emerson Primary Care Unavailable OBEREDILBERTO, KIARA R Referring Unavailable SCOTTYESTDEWEY MILEY Primary Care Unavailable KIARA GIL R Referring Unavailable WIESTAND, KEATON Emerson Primary Care Unavailable WIESTAND, KEATON Emerson Primary Care Unavailable DEMIAN JAY Attending Unavailable LIZY MILEY Admitting Unavailable JOBST ANTI COAG, AKA JOBST MTM MED THERAPY MGMT Referring Unavailable KEATON MEDEL Primary Care Unavailable KEATON MEDEL Referring Unavailable WIESTDEWEY, KEATON Emerson Primary Care Unavailable WIDENA, KEATON Emerson Referring Unavailable WIDENA, KEATON Emerson Primary Care Unavailable Allergies Allergy Classification Reported Allergen(s) Allergy Type Date of Onset Reaction(s) Facility (20 sources) Codeine; 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: [CODEINE] Drug Allergy 05-10-2021 Dizziness, Nausea [facility] (20 sources) gabapentin; 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: [GABAPENTIN] Drug Allergy 10-22-2019 Nausea [facility] (20 sources) tiZANidine; 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: [TIZANIDINE] Drug Allergy 04-19-2017 Nausea [facility] (20 sources) traMADol; 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: [TRAMADOL] Drug Allergy 01-10-2018 Itching, Dizziness, Vomiting [facility] Work Phone: (20 sources) Wheat gluten extract; 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: [GLUTEN] Drug Allergy 12-01-2021 GI Disturbance [facility] Medications Current Medications Medication Drug Class(es) Dates Sig (Normalized) Sig (Original) acetaminophen 500 mg oral tablet (18 sources) Start: 01-02-2022 take 2 tablets by mouth every six hours as needed for pain acetaminophen (TYLENOL EXTRA STRENGTH) 500 mg tablet Take 2 tablets (1,000 mg total) by mouth every 6 (six) hours as needed for pain. 30 tablet 01/02/2022 Active amLODIPine 10 mg oral tablet (18 sources) Dihydropyridine Calcium Channel Abran Start: 03-10-2024 take 1 tablet by mouth in the morning amLODIPine (NORVASC) 10 mg tablet Take 1 tablet (10 mg total) by mouth in the morning. 90 tablet 3 03/10/2024 Active Start: 03-02-2023 take 1 tablet by mainor th in the morning amLODIPine (NORVASC) 5 mg tablet TAKE 1 TABLET BY MOUTH IN THE MORNING 90 tablet 2 03/02/2023 Active atorvastatin 20 mg oral tablet (18 sources) HMG-CoA Reductase Inhibitor Start: 02-12-2024 take 1 tablet by mouth in the morning atorvastatin (LIPITOR) 20 mg tablet take 1 tablet by mouth in the morning 90 tablet 3 02/12/2024 Active Start: 01-09-2023 take 1 tablet by mainor th in the morning atorvastatin (LIPITOR) 20 mg tablet Take 1 tablet (20 mg total) by mouth in the morning. 90 tablet 3 01/09/2023 Active B-complex with vitamin C tablet (18 sources) take 1 tablet by mainor th in the morning B-complex with vitamin C tablet Take 1 tablet by mouth in the morning. Active take 1 tablet by mouth in the [...] 12/10/2023 Discontinued bumetanide 2 mg oral tablet (20 sources) Loop Diuretic Start: 12-10-2023 take 1 [...] 14 capsule 0 11/28/2023 12/05/2023 Active cholecalciferol 0.125 mg oral capsule (18 sources) Vitamin D Start: 03-10-2024 take 1 capsule by mouth in the morning cholecalciferol, vitamin D3, (VITAMIN D3) 5,000 units capsule Take 1 capsule (5,000 Units total) by mouth in the morning. 90 capsule 3 03/10/2024 Active take 1 capsule by mo uth in the morning cholecalciferol, vitamin D3, 2,000 units capsule Take 1 capsule (2,000 Units total) by mouth in the morning. 0 Active cranberry conc-ascorbic acid 4,200-20 mg capsule (18 sources) take 1 capsule by mo uth in the morning cranberry conc-ascorbic acid 4,200-20 mg capsule Take 1 capsule by mouth in the morning. Active take 1 capsule by mouth in the [...] Active garlic preparation 1000 mg oral capsule (18 sources) Non-Standardized Food Allergenic Extract take 1 tablet by mouth once daily garlic 1,000 mg capsule Take 1 tablet by mouth daily. Active take 1 tablet by mouth once yesenia y garlic 1,000 mg capsule Take 1 tablet by mouth daily. 0 Suspended take 1 tablet by mouth once yesenia y garlic 1,000 mg capsule Take 1 tablet by mouth daily. 0 Active glipiZIDE er 10 mg 24 hr extended release oral tablet (18 sources) Sulfonylurea Start: 02-12-2024 take 1 tablet by mouth every twenty-four hours in the morning glipiZIDE (GLUCOTROL XL) 10 mg 24 hr tablet take 1 tablet by mouth in the morning 90 tablet 3 02/12/2024 Active Start: 01-18-2023 take 1 tablet by mainor th every twenty-four hours in the morning glipiZIDE (GLUCOTROL XL) 10 mg 24 hr tablet TAKE 1 TABLET BY MOUTH IN THE MORNING 90 tablet 3 01/18/2023 Active 3 ml insulin glargine 100 unt/ml pen injector (13 sources) Insulin Analog Start: 12-06-2023 insulin glargi ne (LANTUS SOLOSTAR U-100 INSULIN) 100 unit/mL (3 mL) insulin pen Inject 25 Units under the skin nightly. 24 mL 3 12/06/2023 Active losartan potassium 50 mg oral tablet (18 sources) Angiotensin 2 Receptor Abran Start: 03-10-2024 take 1 tablet by mouth in the morning losartan (COZAAR) 50 mg tablet Take 1 tablet (50 mg total) by mouth in the morning. 03/10/2024 Active Start: 08-20-2023 take 1 tablet by mainor th in the morning losartan (COZAAR) 100 mg tablet Take 1 tablet (100 mg total) by mouth in the morning. 90 tablet 3 08/20/2023 Active lysine 500 mg oral tablet (18 sources) take 1 tablet by mouth in the morning lysine 500 mg tablet Take 1 tablet (500 mg total) by mouth in the morning. Active meclizine hydrochloride 25 mg oral tablet (9 sources) Antiemetic Start: 11-28-2023 End: 11-28-2023 take 1 tablet by mouth three times daily as needed for dizziness meclizine (ANTIVERT) 25 mg tablet Take 1 tablet (25 mg total) by mouth 3 (three) times a day as needed for dizziness. 15 tablet 0 11/28/2023 Active multivitamin (THERAGRAN) tablet (18 sources) take 1 tablet by mouth in the morning multivitamin (THERAGRAN) tablet Take 1 tablet by mouth in the morning. Active take 1 tablet by mouth in the mo rning multivitamin (THERAGRAN) tablet Take 1 tablet by mouth in the morning. 0 Suspended take 1 tablet by mouth in the mo rning multivitamin (THERAGRAN) tablet Take 1 tablet by mouth in the morning. 0 Active NON FORMULARY (18 sources) NON FORMULARY da susan. [place] Beet- red beet supplement for circulation Active NON FORMULARY da susan. [place] Beet- red beet supplement for circulation 0 Suspended NON FORMULARY da susan. [place] Beet- red beet supplement for circulation 0 Active ubidecarenone 30 mg oral capsule (14 sources) End: 12-10-2023 take 1 capsule by mouth once in the morning coenzyme Q10 30 mg capsule Take 1 capsule (30 mg total) by mouth in the morning. Active retinol acetate 59802 unt sublingual tablet (5 sources) Vitamin A take 1 tablet under the tongue in the morning vitamin A acetate 3,000 mcg (10,000 unit) tablet, sublingual Place 1 tablet under the tongue in the morning. Active warfarin sodium 3 mg oral tablet (9 sources) Vitamin K Antagonist Start: 08-04-2024 End: 08-11-2024 take 1 tablet by mouth once daily warfarin (COUMADIN) 3 mg tablet Indications: Other acute pulmonary embolism, unspecified whether acute cor pulmonale present ([facility]) Take 1-1.5 tablets (3-4.5 mg total) by mouth in the evening. 3 mg nightly as directed by the warfarin clinic. 45 tablet 5 08/11/2024 Active Completed/Discontinued Medications Medication Drug Class(es) Dates Sig [...] Active Problems Problem Classification Problem Date Documented Da te Episodic/Chronic Abdominal pain (1 source) Abdominal pain Onset: 06-10-2024 Episodic Chronic kidney disease (20 sources) Chronic kidney disease stage 4; 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: [Chronic kidney disease, stage 4 (severe)] Onset: 11-10-2020 11-28-2022 Chronic Chronic obstructive pulmonary disease and bronchiectasis (1 source) Bronchitis; 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: [Bronchitis, not specified as acute or chronic] 11-30-2023 Episodic Diabetes mellitus with complications (20 sources) Retinopathy due to type 2 diabetes mellitus; 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: [Type 2 diabetes mellitus with unspecified diabetic retinopathy without macular edema] Onset: 11-10-2020 11-11-2021 Chronic Diabetes mellitus without complication (18 sources) Diabetes mellitus; 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: [Type 2 diabetes mellitus without complications] 11-10-2020 Chronic Disorders of lipid metabolism (20 sources) Hypercholesterolemia; 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: [Pure hypercholesterolemia, unspecified] Onset: 11-10-2020 11-10-2020 Chronic Essential hypertension (19 sources) Hypertensive disorder; 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: [Essential (primary) hypertension] Onset: 11-10-2020 11-10-2020 Chronic Genitourinary symptoms and ill-defined conditions (18 sources) Urinary incontinence; 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: [Unspecified urinary incontinence] Onset: 06-25-2019 06-25-2019 Chronic Nonspecific chest pain (1 source) Chest pain Onset: 07-31-2024 Episodic Osteoarthritis (4 sources) Unilateral primary osteoarthritis, right hip; 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: [UNI PRIM OSTEOARTHRITIS RT HIP] Onset: 08-15-2021 Chronic Other aftercare (12 sources) Long-term current use of anticoagulant; 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] Onset: 08-04-2024 08-04-2024 Episodic Other aftercare (1 source) [facility] (current) use of anticoagulants; 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] Onset: 08-04-2024 Episodic Other connective tissue disease (1 source) Foot pain; 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: [Pain in right foot] 11-30-2023 Episodic Other gastrointestinal disorders (1 source) Constipation Onset: 06-10-2024 Episodic Other lower respiratory disease (1 source) Shortness of breath; 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: [Shortness of breath] Onset: 07-31-2024 Episodic Other lower respiratory disease (1 source) Shortness of breath Onset: 07-31-2024 Episodic Other nutritional; endocrine; and metabolic disorders (18 sources) Body mass index 40+ - severely obese; 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: [Body mass index (BMI) 40.0-44.9, adult] Onset: 12-01-2020 12-01-2020 Chronic Other nutritional; endocrine; and metabolic disorders (1 source) Body mass index (BMI) 40.0-44.9, adult; 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: [Body mass index (BMI) 40.0-44.9, adult] Onset: 12-01-2020 Chronic Phlebitis; thrombophlebitis and thromboembolism (16 sources) Thromboembolism of vein; 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: [Acute embolism and thrombosis of unspecified deep veins of unspecified proximal lower extremity] Onset: 08-04-2024 08-04-2024 Episodic Pulmonary heart disease (16 sources) Acute pulmonary embolism; 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: [Other pulmonary embolism without acute cor pulmonale] Onset: 07-31-2024 07-31-2024 Episodic Spondylosis; intervertebral disc disorders; other back problems (18 sources) Lumbosacral spondylosis without myelopathy; 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: [Spondylosis without myelopathy or radiculopathy, lumbosacral region] Onset: 07-05-2017 08-21-2017 Chronic Unclassified (1 source) Blood Clot(s) Onset: 08-18-2024 Unclassified (2 sources) Transition Of Care Onset: 11-30-2023 Unclassified (1 source) Annual Exam Onset: 01-02-2024 Unclassified (1 source) Earache Onset: 11-26-2023 Past or Other Problems Problem Classification Problem Date Documented Da te Episodic/Chronic Conditions associated with dizziness or vertigo (20 sources) Vertigo; 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: [Dizziness and giddiness] Onset: 11-26-2023 11-26-2023 Episodic Genitourinary symptoms and ill-defined conditions (20 sources) Microscopic hematuria; 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: [Other microscopic hematuria] Onset: 07-18-2019 06-27-2021 Episodic Intestinal obstruction without hernia (18 sources) Fecal impaction; 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: [Fecal impaction] Onset: 01-02-2022 01-02-2022 Episodic Malaise and fatigue (1 source) Other fatigue; 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: [Other fatigue] Onset: 01-03-2024 Episodic Mood disorders (18 sources) Mood disorders Onset: 11-26-2022 Resolved: 07-31-2024 11-26-2022 Other aftercare (2 sources) [facility] (current) use of insulin; 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: [[facility] (current) use of insulin] Onset: 11-10-2020 Episodic Other circulatory disease (1 source) Other specified [...] in right hip] Onset: 12-26-2021 12-26-2021 Episodic Other non-traumatic joint disorders (8 sources) Hip pain; 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: [Pain in right hip] Onset: 12-26-2021 12-26-2021 Episodic Other upper respiratory infections (1 source) Acute sinusitis, unspecified; 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: [Acute sinusitis, unspecified] Onset: 04-22-2024 Episodic Otitis media and related conditions (3 sources) Acute suppurative otitis media without spontaneous rupture of ear drum; 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: [Acute suppurative otitis media without spontaneous rupture of ear drum, right ear] Onset: 11-26-2023 11-26-2023 Episodic Spondylosis; intervertebral disc disorders; other back problems (18 sources) Disorder of sacrum; 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: [Sacrococcygeal disorders, not elsewhere classified] Onset: 06-12-2017 10-16-2017 Episodic Urinary tract infections (18 sources) Recurrent urinary tract infection; 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: [Urinary tract infection, site not specified] Onset: 08-14-2018 07-04-2023 Episodic Results Test Name Value Interpretation Reference Range Facility POCT Protime / INRon 08-19- 024 INR Coag (PPP) [Relative time] 2.6 {INR} Abnormal 0.8 - 1.2 [facility] Interpretation and review of laboratory results Abnormal [facility] POCT Protime / INRon 08-11-2 024 INR Coag (PPP) [Relative time] 2.6 {INR} Abnormal 0.8 - 1.2 [facility] Interpretation and review of laboratory results Abnormal [facility] POCT Protime / INRon 08-07-2 024 INR Coag (PPP) [Relative time] 1.9 {INR} Abnormal 0.8 - 1.2 [facility] Interpretation and review of laboratory results Abnormal [facility] Glucose Glucometer (BldC) [M ass/Vol]on 08-04-2024 Glucose [Mass/Vol] 96 mg/dL Normal 65-99 [facility] Glucose [Mass/Vol] 66 mg/dL Normal 65-99 [facility] Heparin unfractionated Chrom ogenic method Qn (PPP)on 08-04-2024 ANTI XA UFH 0.63 IU/mL Normal 0.30-0.70 [facility] Comment on above: Result Comment: Opti mal time for testing is 6 hrs post dosage This test is specific for monitoring patients on UFH, and is not recommended for use with other Anti-Xa medications. Performed By: #### P INR, 8 ####[facility] ([id number])[address] [place] [address] 07491 PROTIME AND INRon 08-04-2024 INR Coag (PPP) [Relative time] 2.2 {INR} High 0.8-1.1 [facility] Comment on above: Performed By: #### P INR, 8 ####[facility] ([id number])[address] [place] [address] 19106 PT Coag (PPP) [Time] 24.9 s High 9.8-13.2 [facility] Comment on above: Result Comment: NEW REFERENCE RANGE Performed By: #### P INR, 8 ####[facility] ([id number])[address] [place] [address] 92600 CBC AND AUTO DIFFon 08-03-20 ABSOLUTE BASOPHIL 0.1 X10E9/L Normal 0.0-0.2 [facility] Comment on above: Performed By: #### C BCA, PINR, 3274-8 ####[facility] ([id number])[address] [place] [address] 32986 ABSOLUTE NEUTROPHIL 8.7 X10E9/L High 1.5-6.6 [facility] Comment on above: Performed By: #### C BCA, PINR, 3274-8 ####[facility] ([id number])[address] [place] [address] [place] [address] Basophils/100 WBC (Bld) 0.8 % Normal [facility] Comment on above: Performed By: #### Wiley LEYVA PINR, 8 ####[facility] ([id number])[address] [place] [address] 83182 Eosinophils (Bld) [#/Vol] 0.3 10*3/uL Normal 0.0-0.4 [facility] Comment on above: Performed By: #### Wiley LEYVA PINR, 8 ####[facility] ([id number])[address] [place] [address] 71481 Eosinophils/100 WBC (Bld) 2.5 % Normal [facility] Comment on above: Performed By: #### Wiley LEYVA PINR, 8 ####[facility] ([id number])[address] [place] [address] [place] [address] Erythrocyte distribution width (RBC) [Ratio] 13.7 % Normal 11.5-15.0 [facility] Comment on above: Performed By: #### Wiley LEYVA PINR, 8 ####[facility] ([id number])[address] [place] [address] 39119 Hematocrit (Bld) [Volume fraction] 31.3 % Low 35-47 [facility] Comment on above: Performed By: #### Wiley LEYVA PINR, 8 ####[facility] ([id number])[address] [place] [address] 09019 Hemoglobin (Bld) [Mass/Vol] 10.4 g/dL Low 11.7-15.5 [facility] Comment on above: Performed By: #### Wiley LEYVA PINR, 8 ####[facility] ([id number])[address] [place] [address] 18506 Lymphocytes (Bld) [#/Vol] 1.8 10*3/uL Normal 1.0-3.5 [facility] Comment on above: Performed By: #### MAURICE Jama BCA, 8 ####[facility] ([id number])[address] [place] [address] 45453 Lymphocytes/100 WBC (Bld) 15.7 % Normal [facility] Comment on above: Performed By: #### MAURICE Jama BCA, 8 ####[facility] ([id number])[address] [place] [address] 99935 MCH (RBC) [Entitic mass] 30.3 pg Normal 27-34 [facility] Comment on above: Performed By: #### MAURICE Jama BCA, 8 ####[facility] ([id number])[address] [place] [address] 78709 MCHC (RBC) [Mass/Vol] 33.1 g/dL Normal 32-36 [facility] Comment on above: Performed By: #### MAURICE Jama BCA, 8 ####[facility] ([id number])[address] [place] [address] 25690 MCV (RBC) [Entitic vol] 91 fL Normal 80-100 [facility] Comment on above: Performed By: #### MAURICE Jama BCA, 8 ####[facility] ([id number])[address] [place] [address] 24081 Monocytes (Bld) [#/Vol] 0.8 10*3/uL Normal 0-0.9 [facility] Comment on above: Performed By: #### MAURICE Jama BCA, 8 ####[facility] ([id number])[address] [place] [address] 24122 Monocytes/100 WBC (Bld) 7.1 % Normal [facility] Comment on above: Performed By: #### Wiley LEYVA PINR, 8 ####[facility] ([id number])[address] [place] [address] 03049 Neutrophils/100 WBC (Bld) 73.9 % Normal [facility] Comment on above: Performed By: #### Wiley LEYVA PINR, 3273-8 ####[facility] ([id number])[address] [place] [address] 81501 Platelet mean volume (Bld) [Entitic vol] 8.1 fL Normal 7-12 [facility] Comment on above: Performed By: #### GEETHA Jama BCAR, 8 ####[facility] ([id number])[address] [place] [address] 09156 Platelets (Bld) [#/Vol] 255 10*3/uL Normal 150-450 [facility] Comment on above: Performed By: #### Wiley LEYVA PINR, 8 ####[facility] ([id number])[address] [place] [address] 04525 RBC COUNT 3.42 X10E12/L Low 3.80-5.20 [facility] Comment on above: Performed By: #### Wiley LEYVA PINR, 3273-8 ####[facility] ([id number])[address] [place] [address] 87746 WBC (Bld) [#/Vol] 11.8 10*3/uL High 4.0-11.0 [facility] Comment on above: Performed By: #### Wiley LEYVA PINR, 3273-8 ####[facility] ([id number])[address] [place] [address] 47437 Glucose Glucometer (dC) [M ass/Vol]on 08-03-2024 Glucose [Mass/Vol] 125 mg/dL High 65-99 [facility] Glucose [Mass/Vol] 170 mg/dL High 65-99 [facility] Glucose [Mass/Vol] 124 mg/dL High 65-99 [facility] Glucose [Mass/Vol] 74 mg/dL Normal 65-99 [facility] Heparin unfractionated Chrom ogenic method Qn (PPP)on 08-03-2024 ANTI XA UFH 0.64 IU/mL Normal 0.30-0.70 [facility] Comment on above: Result Comment: Opti mal time for testing is 6 hrs post dosage This test is specific for monitoring patients on UFH, and is not recommended for use with other Anti-Xa medications. Performed By: #### MAURICE Jama BCA, 3274-8 ####[facility] ([id number])[address] [place] [address] 46584 PROTIME AND INRon 08-03-2024 INR Coag (PPP) [Relative time] 1.7 {INR} High 0.8-1.1 [facility] Comment on above: Performed By: #### MAURICE Jama BCA, 3274-8 ####[facility] ([id number])[address] [place] [address] 60668 PT Coag (PPP) [Time] 19.4 s High 9.8-13.2 [facility] Comment on above: Result Comment: NEW REFERENCE RANGE Performed By: #### MAURICE Jama BCA, 3274-8 ####[facility] ([id number])[address] [place] [address] 23915 CBC AND AUTO DIFFon 08-02-20 24 ABSOLUTE BASOPHIL 0.2 X10E9/L Normal 0.0-0.2 [facility] Comment on above: Performed By: #### Wiley LEYVA ####[facility] ([id number])[address] [place] [address] 56904 ABSOLUTE NEUTROPHIL 8.0 X10E9/L High 1.5-6.6 [facility] Comment on above: Performed By: #### C BCA ####[facility] ([id number])[address] [place] [address] 33089 Basophils/100 WBC (Bld) 1.5 % Normal [facility] Comment on above: Performed By: #### C BCA ####[facility] ([id number])[address] [place] [address] 58645 Eosinophils (Bld) [#/Vol] 0.4 10*3/uL Normal 0.0-0.4 [facility] Comment on above: Performed By: #### C BCA ####[facility] ([id number])[address] [place] [address] 27425 Eosinophils/100 WBC (Bld) 3.4 % Normal [facility] Comment on above: Performed By: #### C BCA ####[facility] ([id number])[address] [place] [address] [place] [address] Erythrocyte distribution width (RBC) [Ratio] 13.8 % Normal 11.5-15.0 [facility] Comment on above: Performed By: #### C BCA ####[facility] ([id number])[address] [place] [address] 44828 Hematocrit (Bld) [Volume fraction] 32.2 % Low 35-47 [facility] Comment on above: Performed By: #### C BCA ####[facility] ([id number])[address] [place] [address] 74803 Hemoglobin (Bld) [Mass/Vol] 10.6 g/dL Low 11.7-15.5 [facility] Comment on above: Performed By: #### C BCA ####[facility] ([id number])[address] [place] [address] 39385 Lymphocytes (Bld) [#/Vol] 1.7 10*3/uL Normal 1.0-3.5 [facility] Comment on above: Performed By: #### C BCA ####[facility] ([id number])[address] [place] [address] 61338 Lymphocytes/100 WBC (Bld) 15.4 % Normal [facility] Comment on above: Performed By: #### C BCA ####[facility] ([id number])[address] [place] [address] 43371 MCH (RBC) [Entitic mass] 30.3 pg Normal 27-34 [facility] Comment on above: Performed By: #### C BCA ####[facility] ([id number])[address] [place] [address] 15667 MCHC (RBC) [Mass/Vol] 32.8 g/dL Normal 32-36 [facility] Comment on above: Performed By: #### C BCA ####[facility] ([id number])[address] [place] [address] 02412 MCV (RBC) [Entitic vol] 93 fL Normal 80-100 [facility] Comment on above: Performed By: #### C BCA ####[facility] ([id number])[address] [place] [address] 09130 Monocytes (Bld) [#/Vol] 0.7 10*3/uL Normal 0-0.9 [facility] Comment on above: Performed By: #### C BCA ####[facility] ([id number])[address] [place] [address] 57561 Monocytes/100 WBC (Bld) 6.1 % Normal [facility] Comment on above: Performed By: #### C BCA ####[facility] ([id number])[address] [place] [address] 92223 Neutrophils/100 WBC (Bld) 73.6 % Normal [facility] Comment on above: Performed By: #### C BCA ####[facility] ([id number])[address] [place] [address] 63924 Platelet mean volume (Bld) [Entitic vol] 8.7 fL Normal 7-12 [facility] Comment on above: Performed By: #### C BCA ####[facility] ([id number])[address] [place] [address] 86740 Platelets (Bld) [#/Vol] 248 10*3/uL Normal 150-450 [facility] Comment on above: Performed By: #### C BCA ####[facility] ([id number])[address] [place] [address] 24571 RBC COUNT 3.48 X10E12/L Low 3.80-5.20 [facility] Comment on above: Performed By: #### C BCA ####[facility] ([id number])[address] [place] [address] 80171 WBC (Bld) [#/Vol] 10.8 10*3/uL Normal 4.0-11.0 [facility] Comment on above: Performed By: #### C BCA ####[facility] ([id number])[address] [place] [address] 17912 Glucose Glucometer (BldC) [M ass/Vol]on 08-02-2024 Glucose [Mass/Vol] 237 mg/dL High 65-99 [facility] Glucose [Mass/Vol] 121 mg/dL High 65-99 [facility] Glucose [Mass/Vol] 171 mg/dL High 65-99 [facility] Glucose [Mass/Vol] 109 mg/dL High 65-99 [facility] Heparin unfractionated Chrom ogenic method Qn (PPP)on 08-02-2024 ANTI XA UFH 0.64 IU/mL Normal 0.30-0.70 [facility] Comment on above: Result Comment: Opti mal time for testing is 6 hrs post dosage This test is specific for monitoring patients on UFH, and is not recommended for use with other Anti-Xa medications. Performed By: #### 3 274-8 ####[facility] ([id number])[address] [place] [address] 94657 ANTI XA UFH 0.62 IU/mL Normal 0.30-0.70 [facility] Comment on above: Result Comment: Opti mal time for testing is 6 hrs post dosage This test is specific for monitoring patients on UFH, and is not recommended for use with other Anti-Xa medications. Performed By: #### 3 274-8 ####[facility] ([id number])[address] [place] [address] 48970 ANTI XA UFH 0.78 IU/mL High 0.30-0.70 [facility] Comment on above: Result Comment: Opti mal time for testing is 6 hrs post dosage This test is specific for monitoring patients on UFH, and is not recommended for use with other Anti-Xa medications. Performed By: #### P INR, 8 ####[facility] ([id number])[address] [place] [address] 24326 PROTIME AND INRon 08-02-2024 INR Coag (PPP) [Relative time] 1.2 {INR} High 0.8-1.1 [facility] Comment on above: Performed By: #### P INR, 8 ####[facility] ([id number])[address] [place] [address] 73921 PT Coag (PPP) [Time] 14.2 s High 9.8-13.2 [facility] Comment on above: Result Comment: NEW REFERENCE RANGE Performed By: #### P INR, 8 ####[facility] ([id number])[address] [place] [address] 87623 BASIC METABOLIC PANLon 08-01 Anion gap [Moles/Vol] 8 mmol/L Normal - [facility] Comment on above: Performed By: #### C BCA, BMP, PINR, 3274-8 ####[facility] ([id number])[address] [place] [address] 71530 Calcium [Mass/Vol] 9.5 mg/dL Normal 8.5-10.5 [facility] Comment on above: Performed By: #### C BCA, BMP, PINR, 4-8 ####[facility] ([id number])[address] [place] [address] 25175 Chloride [Moles/Vol] 107 mmol/L Normal 98-109 [facility] Comment on above: Performed By: #### C BCA, BMP, PINR, 4-8 ####[facility] ([id number])[address] [place] [address] 45200 CO2 [Moles/Vol] 25 mmol/L Normal 22-32 [facility] Comment on above: Performed By: #### C BCA, BMP, PINR, 3274-8 ####[facility] ([id number])[address] [place] [address] 31171 Creatinine [Mass/Vol] 2.02 mg/dL High 0.40-1.00 [facility] Comment on above: Result Comment: METH OD TRACEABLE TO IDMS STANDARD Performed By: #### C BCA, BMP, PINR, 4-8 ####[facility] ([id number])[address] [place] [address] 55055 GFR/1.73 sq M.predicted among non-blacks MDRD (S/P/Bld) [Vol rate/Area] 25 mL/min/{1.73_m2} Low >59 [facility] Comment on above: Result Comment: Reported eGFR is based on the CKD-EPI 2020 equation that does not use a race coefficient. Performed By: #### C BCA, BMP, PINR, 3274-8 ####[facility] ([id number])[address] [place] [address] [place] [address] Glucose [Mass/Vol] 72 mg/dL Normal 65-99 [facility] Comment on above: Performed By: #### C BCA, BMP, PINR, 3274-8 ####[facility] ([id number])[address] [place] [address] 21464 Potassium [Moles/Vol] 4.3 mmol/L Normal 3.5-5.0 [facility] Comment on above: Performed By: #### C BCA, BMP, PINR, 4-8 ####[facility] ([id number])[address] [place] [address] 21942 Sodium [Moles/Vol] 140 mmol/L Normal 134-146 [facility] Comment on above: Performed By: #### C BCA, BMP, PINR, 4-8 ####[facility] ([id number])[address] [place] [address] [place] [address] Urea nitrogen [Mass/Vol] 29 mg/dL High 5-27 [facility] Comment on above: Performed By: #### C BCA, BMP, PINR, 3274-8 ####[facility] ([id number])[address] [place] [address] 10068 CBC AND AUTO DIFFon 11-15-20 24 ABSOLUTE BASOPHIL 0.2 X10E9/L Normal 0.0-0.2 [facility] Comment on above: Performed By: #### C BCA, BMP, PINR, 3274-8 ####[facility] ([id number])[address] [place] [address] 75291 ABSOLUTE NEUTROPHIL 8.8 X10E9/L High 1.5-6.6 [facility] Comment on above: Performed By: #### C BCA, BMP, PINR, 4-8 ####[facility] ([id number])[address] [place] [address] 99759 Basophils/100 WBC (Bld) 1.5 % Normal [facility] Comment on above: Performed By: #### C BCA, BMP, PINR, 8 ####[facility] ([id number])[address] [place] [address] 75000 Eosinophils (Bld) [#/Vol] 0.4 10*3/uL Normal 0.0-0.4 [facility] Comment on above: Performed By: #### C BCA, BMP, PINR, 8 ####[facility] ([id number])[address] [place] [address] 22445 Eosinophils/100 WBC (Bld) 3.2 % Normal [facility] Comment on above: Performed By: #### C BCA, BMP, PINR, 8 ####[facility] ([id number])[address] [place] [address] 42299 Erythrocyte distribution width (RBC) [Ratio] 14.4 % Normal 11.5-15.0 [facility] Comment on above: Performed By: #### C BCA, BMP, PINR, 8 ####[facility] ([id number])[address] [place] [address] 59741 Hematocrit (Bld) [Volume fraction] 31.0 % Low 35-47 [facility] Comment on above: Performed By: #### C BCA, BMP, PINR, 3273-8 ####[facility] ([id number])[address] [place] [address] 68116 Hemoglobin (Bld) [Mass/Vol] 10.3 g/dL Low 11.7-15.5 [facility] Comment on above: Performed By: #### C BCA, BMP, PINR, 3273-8 ####[facility] ([id number])[address] [place] [address], [place] [address] Lymphocytes (Bld) [#/Vol] 2.0 10*3/uL Normal 1.0-3.5 [facility] Comment on above: Performed By: #### C BCA, BMP, PINR, 8 ####[facility] ([id number])[address] [place] [address] 24902 Lymphocytes/100 WBC (Bld) 16.4 % Normal [facility] Comment on above: Performed By: #### C BCA, BMP, PINR, 3274-04 ####[facility] ([id number])[address] [place] [address] 69859 MCH (RBC) [Entitic mass] 30.5 pg Normal 27-34 [facility] Comment on above: Performed By: #### C BCA, BMP, PINR, 3274-04 ####[facility] ([id number])[address] [place] [address] 09051 MCHC (RBC) [Mass/Vol] 33.1 g/dL Normal 32-36 [facility] Comment on above: Performed By: #### C BCA, BMP, PINR, 8 ####[facility] ([id number])[address] [place] [address] 82327 MCV (RBC) [Entitic vol] 92 fL Normal 80-100 [facility] Comment on above: Performed By: #### C BCA, BMP, PINR, 3273-8 ####[facility] ([id number])[address] [place] [address] 51236 Monocytes (Bld) [#/Vol] 0.7 10*3/uL Normal 0-0.9 [facility] Comment on above: Performed By: #### C BCA, BMP, PINR, 3273-8 ####[facility] ([id number])[address] [place] [address] 92064 Monocytes/100 WBC (Bld) 5.5 % Normal [facility] Comment on above: Performed By: #### C BCA, BMP, PINR, 8 ####[facility] ([id number])[address] [place] [address] 12471 Neutrophils/100 WBC (Bld) 73.4 % Normal [facility] Comment on above: Performed By: #### C BCA, BMP, PINR, 8 ####[facility] ([id number])[address] [place] [address] 19709 Platelet mean volume (Bld) [Entitic vol] 8.0 fL Normal 7-12 [facility] Comment on above: Performed By: #### C BCA, BMP, PINR, 3273-8 ####[facility] ([id number])[address] [place] [address] 71122 Platelets (Bld) [#/Vol] 258 10*3/uL Normal 150-450 [facility] Comment on above: Performed By: #### C BCA, BMP, PINR, 8 ####[facility] ([id number])[address] [place] [address] 45295 RBC COUNT 3.36 X10E12/L Low 3.80-5.20 [facility] Comment on above: Performed By: #### C BCA, BMP, PINR, 3273-8 ####[facility] ([id number])[address] [place] [address] 76588 WBC (Bld) [#/Vol] 12.0 10*3/uL High 4.0-11.0 [facility] Comment on above: Performed By: #### C BCA, BMP, PINR, 3273-8 ####[facility] ([id number])[address] [place] [address] 39090 Glucose Glucometer (BldC) [M ass/Vol]on 08-01-2024 Glucose [Mass/Vol] 160 mg/dL High 65-99 [facility] Glucose [Mass/Vol] 170 mg/dL High 65-99 [facility] Glucose [Mass/Vol] 134 mg/dL High 65-99 [facility] Heparin unfractionated Chrom ogenic method Qn (PPP)on 08-01-2024 ANTI XA UFH 0.92 IU/mL Critically high 0.30-0.70 [facility] Comment on above: Result Comment: Opti mal time for testing is 6 hrs post dosage This test is specific for monitoring patients on UFH, and is not recommended for use with other Anti-Xa medications. Performed By: #### 3 274-8 ####[facility] ([id number])[address] [place] [address] 27586 ANTI XA UFH 1.26 IU/mL Critically high 0.30-0.70 [facility] Comment on above: Result Comment: Opti mal time for testing is 6 hrs post dosage This test is specific for monitoring patients on UFH, and is not recommended for use with other Anti-Xa medications. Performed By: #### 3 274-8 ####[facility] ([id number])[address] [place] [address] 35479 ANTI XA UFH 1.37 IU/mL Critically high 0.30-0.70 [facility] Comment on above: Result Comment: Opti mal time for testing is 6 hrs post dosage This test is specific for monitoring patients on UFH, and is not recommended for use with other Anti-Xa medications. Performed By: #### C BCA, BMP, PINR, 3274-8 ####[facility] ([id number])[address] [place] [address] 44480 PROTIME AND INRon 08-01-2024 INR Coag (PPP) [Relative time] 1.2 {INR} High 0.8-1.1 [facility] Comment on above: Performed By: #### C BCA, BMP, PINR, 3274-8 ####[facility] ([id number])[address] [place] [address] 36308 PT Coag (PPP) [Time] 13.5 s High 9.8-13.2 [facility] Comment on above: Result Comment: NEW REFERENCE RANGE Performed By: #### C BCA, BMP, PINR, 3274-8 ####[facility] ([id number])[address] [place] [address] 92721 CBC AND AUTO DIFFon 07-31-20 24 ABSOLUTE BASOPHIL 0.1 X10E9/L Normal 0.0-0.2 [facility] Comment on above: Performed By: #### C BCA, CMP, 35400-8, PINR, 43291-2, 06261-8, 18105-4 ####[facility] ([id number])[address] [place] [address] 30221 ABSOLUTE NEUTROPHIL 10.7 X10E9/L High 1.5-6.6 [facility] Comment on above: Performed By: #### C BCA, CMP, 02541-9, PINR, 31440-0, 62947-8, 36144-7 ####[facility] ([id number])[address] [place] [address] 98497 Basophils/100 WBC (Bld) 0.8 % Normal [facility] Comment on above: Performed By: #### C BCA, CMP, 57416-5, PINR, 81994-9, 14436-3, 63566-0 ####[facility] ([id number])[address] [place] [address] 74484 Eosinophils (Bld) [#/Vol] 0.2 10*3/uL Normal 0.0-0.4 [facility] Comment on above: Performed By: #### C BCA, CMP, 80328-8, PINR, 52886-1, 34133-5, 86321-1 ####[facility] ([id number])[address] [place] [address] 30628 Eosinophils/100 WBC (Bld) 1.4 % Normal [facility] Comment on above: Performed By: #### C BCA, CMP, 28676-6, PINR, 74455-8, 96958-1, 66622-3 ####[facility] ([id number])[address] [place] [address] 01838 Erythrocyte distribution width (RBC) [Ratio] 14.4 % Normal 11.5-15.0 [facility] Comment on above: Performed By: #### C BCA, CMP, 77643-4, PINR, 59021-7, 56274-0, 09723-0 ####[facility] ([id number])[address] [place] [address] 56482 Hematocrit (Bld) [Volume fraction] 34.2 % Low 35-47 [facility] Comment on above: Performed By: #### C BCA, CMP, 83308-4, PINR, 54913-5, 84927-7, 92952-0 ####[facility] ([id number])[address] [place] [address] 28891 Hemoglobin (Bld) [Mass/Vol] 11.3 g/dL Low 11.7-15.5 [facility] Comment on above: Performed By: #### C BCA, CMP, 27221-9, PINR, 60475-5, 79387-4, 17483-7 ####[facility] ([id number])[address] [place] [address] 04510 Lymphocytes (Bld) [#/Vol] 1.3 10*3/uL Normal 1.0-3.5 [facility] Comment on above: Performed By: #### C BCA, CMP, 83251-4, PINR, 83523-3, 35847-4, 57172-6 ####[facility] ([id number])[address] [place] [address] 15360 Lymphocytes/100 WBC (Bld) 9.8 % Normal [facility] Comment on above: Performed By: #### C BCA, CMP, 15487-9, PINR, 85421-3, 48375-6, 44902-9 ####[facility] ([id number])[address] [place] [address] 66684 MCH (RBC) [Entitic mass] 30.3 pg Normal 27-34 [facility] Comment on above: Performed By: #### C BCA, CMP, 66260-0, PINR, 04550-4, 31718-2, 34317-2 ####[facility] ([id number])[address] [place] [address] 19170 MCHC (RBC) [Mass/Vol] 32.9 g/dL Normal 32-36 [facility] Comment on above: Performed By: #### C BCA, CMP, 01163-5, PINR, 00818-7, 10684-3, 58466-5 ####[facility] ([id number])[address] [place] [address] 37150 MCV (RBC) [Entitic vol] 92 fL Normal 80-100 [facility] Comment on above: Performed By: #### C BCA, CMP, 75439-3, PINR, 12319-2, 53511-9, 41317-9 ####[facility] ([id number])[address] [place] [address] 47037 Monocytes (Bld) [#/Vol] 0.7 10*3/uL Normal 0-0.9 [facility] Comment on above: Performed By: #### C BCA, CMP, 29514-2, PINR, 29662-6, 59341-2, 21864-7 ####[facility] ([id number])[address] [place] [address] [place] [address] Monocytes/100 WBC (Bld) 5.1 % Normal [facility] Comment on above: Performed By: #### C BCA, CMP, 44927-0, PINR, 40482-0, 12887-1, 62730-7 ####[facility] ([id number])[address] [place] [address] 69164 Neutrophils/100 WBC (Bld) 82.9 % Normal [facility] Comment on above: Performed By: #### C BCA, CMP, 09982-4, PINR, 92008-0, 84173-0, 88029-8 ####[facility] ([id number])[address] [place] [address] 44527 Platelet mean volume (Bld) [Entitic vol] 8.1 fL Normal 7-12 [facility] Comment on above: Performed By: #### C BCA, CMP, 03670-9, PINR, 75708-4, 15793-0, 20171-4 ####[facility] ([id number])[address] [place] [address] 15976 Platelets (Bld) [#/Vol] 262 10*3/uL Normal 150-450 [facility] Comment on above: Performed By: #### C BCA, CMP, 12441-7, PINR, 33335-7, 61703-2, 85073-3 ####[facility] ([id number])[address] [place] [address] 45408 RBC COUNT 3.72 X10E12/L Low 3.80-5.20 [facility] Comment on above: Performed By: #### C BCA, CMP, 40550-5, PINR, 69315-8, 39370-8, 94444-5 ####[facility] ([id number])[address] [place] [address] 86989 WBC (Bld) [#/Vol] 13.0 10*3/uL High 4.0-11.0 [facility] Comment on above: Performed By: #### C BCA, CMP, 23156-1, PINR, 01996-8, 39290-4, 66566-1 ####[facility] ([id number])[address] [place] [address] 70461 COMPREHENSIVE METABOLIC PANE Jean Claude 07-31-2024 Albumin [Mass/Vol] 3.8 g/dL Normal 3.2-5.3 [facility] Comment on above: Performed By: #### C BCA, CMP, 02346-5, PINR, 20956-1, 65675-8, 49547-0 ####[facility] ([id number])[address] [place] [address] 11163 ALP [Catalytic activity/Vol] 118 U/L Normal 39-130 [facility] Comment on above: Performed By: #### C BCA, CMP, 33953-1, PINR, 50372-8, 93492-9, 82578-0 ####[facility] ([id number])[address] [place] [address] 28579 ALT [Catalytic activity/Vol] 36 U/L High 0-31 [facility] Comment on above: Performed By: #### C BCA, CMP, 86578-4, PINR, 75602-3, 04698-5, 25049-9 ####[facility] ([id number])[address] [place] [address] 48355 Anion gap [Moles/Vol] 10 mmol/L Normal 5-15 [facility] Comment on above: Performed By: #### C BCA, CMP, 70237-3, PINR, 10914-6, 73044-9, 45680-5 ####[facility] ([id number])[address] [place] [address] 09108 AST [Catalytic activity/Vol] 35 U/L Normal 0-41 [facility] Comment on above: Performed By: #### C BCA, CMP, 75669-7, PINR, 44381-4, 30617-7, 20386-7 ####[facility] ([id number])[address] [place] [address] [place] [address] Bilirubin [Mass/Vol] 0.7 mg/dL Normal 0.3-1.2 [facility] Comment on above: Performed By: #### C BCA, CMP, 90420-0, PINR, 59984-1, 23148-8, 39878-3 ####[facility] ([id number])[address] [place] [address] 67542 Calcium [Mass/Vol] 9.8 mg/dL Normal 8.5-10.5 [facility] Comment on above: Performed By: #### C BCA, CMP, 97347-6, PINR, 35160-0, 08703-9, 41758-8 ####[facility] ([id number])[address] [place] [address] [place] [address] Chloride [Moles/Vol] 106 mmol/L Normal 98-109 [facility] Comment on above: Performed By: #### C BCA, CMP, 13470-6, PINR, 55831-7, 15147-3, 32964-1 ####[facility] ([id number])[address] [place] [address] [place] [address] CO2 [Moles/Vol] 25 mmol/L Normal 22-32 [facility] Comment on above: Performed By: #### C BCA, CMP, 10067-1, PINR, 81207-9, 50275-9, 94808-3 ####[facility] ([id number])[address] [place] [address], [place] [address] Creatinine [Mass/Vol] 1.88 mg/dL High 0.40-1.00 [facility] Comment on above: Result Comment: METH OD TRACEABLE TO IDMS STANDARD Performed By: #### C BCA, CMP, 36034-4, PINR, 41948-8, 01616-8, 67863-5 ####[facility] ([id number])[address] [place] [address] GFR/1.73 sq M.predicted among non-blacks MDRD (S/P/Bld) [Vol rate/Area] 27 mL/min/{1.73_m2} Low >59 [facility] Comment on above: Result Comment: Reported eGFR is based on the CKD-EPI 2020 equation that does not use a race coefficient. Performed By: #### C BCA, CMP, 98684-4, PINR, 21401-1, 26245-5, 36857-9 ####[facility] ([id number])[address] [place] [address] Glucose [Mass/Vol] 119 mg/dL High 65-99 [facility] Comment on above: Performed By: #### C BCA, CMP, 83514-5, PINR, 42495-3, 42684-4, 34294-5 ####[facility] ([id number])[address] [place] [address] Potassium [Moles/Vol] 4.1 mmol/L Normal 3.5-5.0 [facility] Comment on above: Performed By: #### C BCA, CMP, 54562-5, PINR, 03787-3, 25983-6, 93478-4 ####[facility] ([id number])[address] [place] [address] Protein [Mass/Vol] 6.5 g/dL Normal 6.0-8.0 [facility] Comment on above: Performed By: #### C BCA, CMP, 96164-2, PINR, 15251-7, 37881-4, 09906-5 ####[facility] ([id number])[address] [place] [address] 20798 Sodium [Moles/Vol] 141 mmol/L Normal 134-146 [facility] Comment on above: Performed By: #### C AUTUMN, MELINA, 03077-8, PINR, 93198-2, 79580-2, 18836-0 ####[facility] ([id number])[address] [place] [address] 24324 Urea nitrogen [Mass/Vol] 28 mg/dL High 5-27 [facility] Comment on above: Performed By: #### C AUTUMN, CMP, 19615-8, PINR, 27136-0, 33238-6, 31787-1 ####[facility] ([id number])[address] [place] [address]74 Fibrin D-dimer DDU (PPP) [Ma ss/Vol]on 07-31-2024 D DIMER 3499 ng/mL DDU High <255 [facility] Comment on above: Result Comment: Results >=255ng/mL DDU: Results may be indicative of the presence of VTE. The use of the Wells score and further diagnostic tests should be considered. Elevated D-Dimer levels can also be associated with DIC, neoplasm, , trauma and liver disease. Elevated levels of rheumatoid factor may lead to an overestimation of the D-Dimer level. Performed By: #### C AUTUMN, MELINA, 22553-9, PINR, 18585-8, 41618-5, 58465-4 ####[facility] ([id number])[address] [place] [address] 54379 Heparin unfractionated Chrom ogenic method Qn (PPP)on 07-31-2024 ANTI XA UFH 1.34 IU/mL Critically high 0.30-0.70 [facility] Comment on above: Result Comment: Opti mal time for testing is 6 hrs post dosage This test is specific for monitoring patients on UFH, and is not recommended for use with other Anti-Xa medications. Performed By: #### 3 274-8 ####[facility] ([id number])[address] [place] [address] 97068 Lactate (P melissa) [Moles/Vol]o n 07-31-2024 LACTATE W/REFLEX 1.3 mmol/L Normal 0.4-2.0 [facility] Comment on above: Result Comment: Result did not trigger repeat Lactate, re-order if needed. Performed By: #### 3 2133-1 ####[facility] ([id number])[address] [place] [address] 48029 NM VENTILATION PERFUSION PANKAJ G SCANon 07-31-2024 NM VENTILATION PERFUSION LUNG SCAN NM VENTILATION PERFUSION LUNG SCAN HISTORY AND/OR TECH NOTES Maryjo Madnujano a 78 y.o. year old female Exam:NM ventiliation imaging perfusion lung scan Diagnosis: Chief complaints: Shortness of breath History: no previous lung issues Surgery: no lung surgies Medications: see inpatient list Patient has not had recent trauma Patient has not recently traveled a long distance. Additional Tech information: SOB weak, burning in chest Administered dose: 35.0 mCi Tc-99m MAA and 5.0 mCi Tc-99m DTPA aerosol PROCEDURE Ventilation/perfusion lung scan COMPARISON Chest x-ray from same day IMPRESSION: Intermediate to high probability for pulmonary embolism There is at least one large segmental mismatch perfusion defect at the right upper lobe apical region There is also additional heterogeneity and small to moderate mismatched perfusion defect in the right perihilar region and anterior medial right base or right middle lobe region ------ Findings were communicated to the clinical team by way of the [employer] chat ----- Finalized by Robert Curran MD on 07/31/2024 2:40 PM Normal [facility] Natriuretic peptide B [Mass/ Vol]on 07-31-2024 Natriuretic peptide B (Bld) [Mass/Vol] 189 pg/mL High <100.0 [facility] Comment on above: Performed By: #### C AUTUMN, MELINA, 70414-5, PINR, 69033-1, 12376-8, 83684-5 ####[facility] ([id number])[address] [place] [address] 88009 PROTIME AND INRon 07-31-2024 INR Coag (PPP) [Relative time] 1.1 {INR} Normal 0.8-1.1 [facility] Comment on above: Performed By: #### C AUTUMN, MELINA, 91386-3, PINR, 53819-9, 17720-7, 52338-6 ####[facility] ([id number])[address] [place] [address] 62462 PT Coag (PPP) [Time] 12.7 s Normal 9.8-13.2 [facility] Comment on above: Result Comment: NEW REFERENCE RANGE Performed By: #### C AUTUMN, CMP, 81106-5, PINR, 15368-1, 83866-2, 13462-9 ####[facility] ([id number])[address] [place] [address] 89151 SARS/FLU A+B/RSV by NAAT/Mol ecularon 07-31-2024 SARS/FLU A+B/RSV by NAAT/Molecular FLU A PCR Negative (qualifier value) FLU B PCR Negative (qualifier value) RSV by PCR Negative (qualifier value) SARS CoV 2 Not detected (qualifier value) NOTE The Xpert Xpress SARS-CoV-2/Flu/RSV Plus test is a rapid, multiplexed real-time RT-PCR test intended for the simultaneous qualitative detection and differentiation of SARS-CoV-2, influenza A, influenza B and respiratory syncytial virus (RSV) viral RNA from individuals suspected of respiratory viral infection consistent with COVID-19 by their healthcare provider. This test has not been validated in asymptomatic patients. The Xpert Xpress SARS-CoV-2 test is intended for use by qualified and trained operators who are performing tests using either [employer] or [employer] systems and is limited to laboratories that meet the CLIA requirements to perform high and moderate complexity tests. The Xpert Xpress SARS-CoV-2/Flu/RSV Plus is only for use under the Food and Drug Administration's Emergency Use Authorization. Results are for the simultaneous detection and differentiation of SARS-CoV-2, influenza A, influenza B and RSV nucleic acids in clinical specimens. SARS-CoV-2, influenza A, influenza B and RSV RNA identified by this test are generally detectable in upper respiratory samples during the acute phase of infection. Positive results are indicative of the presence of the identified virus, but do not rule out bacterial infection or co-infection with other pathogens not detected by this test. Clinical correlation with patient history and other diagnostic information is necessary to determine patient infection status. The agent detected may not be the definite cause of disease. Negative results do not preclude SARS-CoV-2, influenza A, influenza B and RSV infection and should not be used as the sole basis for treatment or other patient management decisions. Negative results must be combined with clinical observations, patient history and epidemiological information. An Invalid result may occur with specimen-associated inhibition unable to be resolved with specimen repeat. Fact Sheet for Healthcare Providers: https://www.fda.gov/me erika/206170/download Fact Sheet for Patients: https://www.fda.gov/me erika/067630/download Normal [facility] Comment on above: Performed By: #### C OVFLR ####[facility] ([id number])[address] [place] [address] 42249 Troponin I.cardiac High sens itivity method [Mass/Vol]on 07-31-2024 1 HOUR TROP I, HIGH SENSITIVITY 25 ng/L High <16 [facility] Comment on above: Result Comment: Elevations of hs-Troponin may be due to causes other than myocardial ischemia. Recommend serial hs-Troponin testing be performed. For the initial evaluation and management of chest pain patients, refer to the algorithms linked below. Emergency Patient: [email or web address] Inpatient: [email or web address]= [email or web address] Performed By: #### 8 9579-7 ####[facility] ([id number])[address] [place] [address] 13563 TROPONIN I, HIGH SENSITIVITY 20 ng/L High <16 [facility] Comment on above: Result Comment: Elevations of hs-Troponin may be due to causes other than myocardial ischemia. Recommend serial hs-Troponin testing be performed. For the initial evaluation and management of chest pain patients, refer to the algorithms linked below. Emergency Patient: [email or web address] Inpatient: [email or web address]= [email or web address] Performed By: #### C BCA, CMP, 32855-6, PINR, 93348-3, 66090-8, 12340-1 ####[facility] ([id number])[address] [place] [address] 75359 XR CHEST 1 VWon 07-31-2024 XR CHEST 1 VW XR CHEST 1 VW Single view chest History:Shortness of breath Difficulty breathing, shortness of breath Comparison: 11/27/2023 Findings: Single portable view of the chest. Stable cardiomediastinal silhouette. No focal opacity, effusion or pneumothorax. Atherosclerotic thoracic aorta. Impression: No definitive acute cardiopulmonary process. Finalized by Stewart Morgan MD on 07/31/2024 12:27 PM Normal [facility] aPTT Coag (PPP) [Time]on aPTT Coag (Bld) [Time] 34 s Normal 26-37 [facility] Comment on above: Result Comment: NEW REFERENCE RANGE Performed By: #### C BCA, CMP, 81794-6, PINR, 44740-7, 70326-0, 54676-1 ####[facility] ([id number])[address] [place] [address] 28005 BASIC METABOLIC PANLon 06-06 Anion gap [Moles/Vol] 10 mmol/L Normal 5-15 [facility] Comment on above: Performed By: #### C BC, UPCR, BMP, 41861-4, 2777-1, 2731-8, 40433-3 ####[facility] ([id number])[address] [address] [place] [address] 78599 Calcium [Mass/Vol] 10.4 mg/dL Normal 8.5-10.5 [facility] Comment on above: Performed By: #### C BC, UPCR, BMP, 40734-9, 7-1, 2731-8, 13438-3 ####[facility] ([id number])[address], [place] [address] Chloride [Moles/Vol] 105 mmol/L Normal 98-109 [facility] Comment on above: Performed By: #### C BC, UPCR, BMP, 25833-7, 2777-1, 2731-8, 89106-9 ####[facility] ([id number])[address], [address] [place] [address] 71164 CO2 [Moles/Vol] 28 mmol/L Normal 22-32 [facility] Comment on above: Performed By: #### C BC, UPCR, BMP, 97650-2, 2777-1, 2731-8, 02299-0 ####[facility] ([id number])[address], [address], [place] [address] Creatinine [Mass/Vol] 2.38 mg/dL High 0.40-1.00 [facility] Comment on above: Result Comment: METH OD TRACEABLE TO IDMS STANDARD Performed By: #### C BC, UPCR, BMP, 26995-4, 2777-1, 2731-8, 12204-6 ####[facility] ([id number])[address], [facility] [address], [place] [address] GFR/1.73 sq M.predicted among non-blacks MDRD (S/P/Bld) [Vol rate/Area] 21 mL/min/{1.73_m2} Low >59 [facility] Comment on above: Result Comment: Reported eGFR is based on the CKD-EPI 2020 equation that does not use a race coefficient. Performed By: #### C BC, UPCR, BMP, 25725-8, 7-1, 273-8, 44789-2 ####[facility] ([id number])[address] [address], [place] [address] Glucose [Mass/Vol] 94 mg/dL Normal 65-99 [facility] Comment on above: Performed By: #### C BC, UPCR, BMP, 56338-3, 2777-1, 2731-8, 60805-4 ####[facility] ([id number])[address] [address], [place] [address] Potassium [Moles/Vol] 5.1 mmol/L High 3.5-5.0 [facility] Comment on above: Performed By: #### C BC, UPCR, BMP, 94718-4, 2777-1, 2731-8, 37100-6 ####[facility] ([id number])[address], [address], [place] [address] Sodium [Moles/Vol] 143 mmol/L Normal 134-146 [facility] Comment on above: Performed By: #### C BC, UPCR, BMP, 09156-2, 2777-1, 2731-8, 10940-1 ####[facility] ([id number])[address], [address] [place] [address] 00883 Urea nitrogen [Mass/Vol] 47 mg/dL High 5-27 [facility] Comment on above: Performed By: #### C BC, UPCR, BMP, 08766-0, 7-1, 2730-8, 14577-7 ####[facility] ([id number])[address], [address] [place] [address] 08449 COMPLETE BLOOD COUNTon 06-06 Erythrocyte distribution width (RBC) [Ratio] 14.8 % Normal 11.5-15.0 [facility] Comment on above: Performed By: #### C MP #### [facility] ([id number]) [address] [place] [address] 46571 Hematocrit (Bld) [Volume fraction] 36.8 % Normal 35-47 [facility] Comment on above: Performed By: #### C MP #### [facility] ([id number]) [address] [place] [address] 35885 Hemoglobin (Bld) [Mass/Vol] 11.9 g/dL Normal 11.7-15.5 [facility] Comment on above: Performed By: #### C MP #### [facility] ([id number]) [address] [place] [address] 08025 MCH (RBC) [Entitic mass] 30.1 pg Normal 27-34 [facility] Comment on above: Performed By: #### C MP #### [facility] ([id number]) [address] [place] [address] 17084 MCHC (RBC) [Mass/Vol] 32.5 g/dL Normal 32-36 [facility] Comment on above: Performed By: #### C MP #### [facility] ([id number]) [address] [place] [address] 00225 MCV (RBC) [Entitic vol] 93 fL Normal 80-100 [facility] Comment on above: Performed By: #### C MP #### [facility] ([id number]) [address] [place] [address] 88375 Platelet mean volume (Bld) [Entitic vol] 7.8 fL Normal 7-12 [facility] Comment on above: Performed By: #### C MP #### [facility] ([id number]) [address] [place] [address] 37918 Platelets (Bld) [#/Vol] 226 10*3/uL Normal 150-450 [facility] Comment on above: Performed By: #### C MP #### [facility] ([id number]) [address] [place] [address] 82366 RBC COUNT 3.96 X10E12/L Normal 3.80-5.20 [facility] Comment on above: Performed By: #### C MP #### [facility] ([id number]) [address] [place] [address] 52268 WBC (Bld) [#/Vol] 11.1 10*3/uL High 4.0-11.0 [facility] Comment on above: Performed By: #### C MP #### [facility] ([id number]) [address] [place] [address] 40271 MAGNESIUMon 06-06-2024 Magnesium [Mass/Vol] 2.1 mg/dL Normal 1.8-2.6 [facility] Comment on above: Performed By: #### C BC, UPCR, BMP, 87593-4, 2777-1, 2731-8, 33052-2 ####[facility] ([id number])[address], [place] [address] PHOSPHORUSon 06-06-2024 Phosphate [Mass/Vol] 4.4 mg/dL Normal 2.4-4.9 [facility] Comment on above: Performed By: #### C BC, UPCR, BMP, 98536-6, 2777-1, 2731-8, 10503-8 ####[facility] ([id number])[address], [place] [address] PROTEIN CREAT RATIOon 2023 RANDOM URINE PROTEIN 4140 mg/L High <120 [facility] Comment on above: Performed By: #### C BC, UPCR, BMP, 93153-7, 2777-1, 2731-8, 68281-4 ####[facility] ([id number])[address], [address] [place] [address] U/PRO/GLASSWARE SELECTOR RATIO CALC 2.64 High <0.2 [facility] Comment on above: Result Comment: Neph rotic Syndrome is associated with ratios >3.5 Performed By: #### C BC, UPCR, BMP, 44610-0, 2777-1, 2731-8, 84557-2 ####[facility] ([id number])[address], [address], [place] [address] URINE CREATININE,RDM 156.81 mg/dL Normal [facility] Comment on above: Performed By: #### C BC, UPCR, BMP, 89966-8, 2777-1, 2731-8, 62446-4 ####[facility] ([id number])[address], [address], [place] [address] Parathyrin.intact [Mass/Vol] on 06-06-2024 PTH INTACT 88 pg/mL Normal 12-88 [facility] Comment on above: Performed By: #### C BC, UPCR, BMP, 55472-4, 2777-1, 2731-8, 66447-5 ####[facility] ([id number])[address], [place] [address] URINALYSISon 06-06-2024 Bilirubin Ql (U) Negative Normal NEG [facility] Comment on above: Performed By: #### U A ####[facility] ([id number])[address], [address], [place] [address] BLOOD/HGB Negative Normal NEG [facility] Comment on above: Performed By: #### U A ####[facility] ([id number])[address], [address], [place] [address] Color (U) YELLOW Normal YELLOW [facility] Comment on above: Performed By: #### U A ####[facility] ([id number])[address], [address], [place] [address] Glucose Ql (U) Negative Normal NEG [facility] Comment on above: Performed By: #### U A ####[facility] ([id number])[address], [place] [address] GRANULAR CASTS 4 /lpf High 0 [facility] Comment on above: Performed By: #### U A ####[facility] ([id number])[address], [place] [address] Ketones Ql (U) Negative Normal NEG [facility] Comment on above: Performed By: #### U A ####[facility] ([id number])[address], [address], [place] [address] Leukocyte esterase Test strip Ql (U) Negative Normal NEG [facility] Comment on above: Performed By: #### U A ####[facility] ([id number])[address], [place] [address] MUCOUS PRESENT Abnormal NONE [facility] Comment on above: Performed By: #### U A ####[facility] ([id number])[address], [address] [place] [address] Nitrite Ql (U) Negative Normal NEG [facility] Comment on above: Performed By: #### U A ####[facility] ([id number])[address], [place] [address] pH (U) 6.5 [pH] Normal 5.0-8.5 [facility] Comment on above: Performed By: #### U A ####[facility] ([id number])[address] [address] [place] [address] 18746 Protein Ql (U) 600 mg/dL Abnormal NEG [facility] Comment on above: Performed By: #### U A ####[facility] ([id number])[address] [address] [place] [address] 24460 R.B.CELLS 0 /hpf Normal 0-5 [facility] Comment on above: Performed By: #### U A ####[facility] ([id number])[address] [address] [place] [address] 20909 Specific gravity (U) [Rel density] 1.017 Normal 1.003-1.035 [facility] Comment on above: Performed By: #### U A ####[facility] ([id number])[address] [address] [place] [address], [place] [address] TURBIDITY CLEAR Normal CLEAR [facility] Comment on above: Performed By: #### U A ####[facility] ([id number])[address] [address], [place] [address] Urobilinogen (U) [Mass/Vol] mg/dL Normal <1.1 [facility] Comment on above: Performed By: #### U A ####[facility] ([id number])[address] [address] W.B.CELLS 3 /hpf Normal 0-5 [facility] Comment on above: Performed By: #### U A ####[facility] ([id number])[address] [address] Vitamin D+Metabolites [Mass/ Vol]on 06-06-2024 VITAMIN D 25 HYD TOT 43.3 ng/mL Normal 30-100 [facility] Comment on above: Result Comment: Vitamin D status 25 [place] Vitamin D Deficiency <20 ng/mL Insufficiency 20-29 ng/mL Sufficiency 30-100 ng/mL Toxicity >100 ng/mL NOTE: A pediatric reference range has not been established by the automotive glass installer of this kit. The [place] [employer] recommends a Vitamin D level of = or >20ng/mL in infants and children. Performed By: #### C BC, UPCR, [facility], 56616-0, 2777-1, 2731-8, 36474-0 ####[facility] ([id number])[address] [address] BASIC METABOLIC PANLon 03-21 Anion gap [Moles/Vol] 12 mmol/L Normal 5-15 [facility] Comment on above: Performed By: #### C MP #### [facility] ([id number]) [address] [place] [address] 65994 Calcium [Mass/Vol] 9.7 mg/dL Normal 8.5-10.5 [facility] Comment on above: Performed By: #### C MP #### [facility] ([id number]) [address] [place] [address] 84817 Chloride [Moles/Vol] 105 mmol/L Normal 98-109 [facility] Comment on above: Performed By: #### C MP #### [facility] ([id number]) [address] [place] [address] 94958 CO2 [Moles/Vol] 25 mmol/L Normal 22-32 [facility] Comment on above: Performed By: #### C MP #### [facility] ([id number]) [address] [place] [address] 27197 Creatinine [Mass/Vol] 2.61 mg/dL High 0.40-1.00 [facility] Comment on above: Result Comment: METH OD TRACEABLE TO IDMS STANDARD Performed By: #### C MP #### [facility] ([id number]) [address] [place] [address] 28214 GFR/1.73 sq M.predicted among non-blacks MDRD (S/P/Bld) [Vol rate/Area] 18 mL/min/{1.73_m2} Low >59 [facility] Comment on above: Result Comment: Reported eGFR is based on the CKD-EPI 2020 equation that does not use a race coefficient. Performed By: #### C MP #### [facility] ([id number]) [address] [place] [address] 50776 Glucose [Mass/Vol] 103 mg/dL High 65-99 [facility] Comment on above: Performed By: #### C MP #### [facility] ([id number]) [address] [place] [address] 31813 Potassium [Moles/Vol] 4.7 mmol/L Normal 3.5-5.0 [facility] Comment on above: Performed By: #### C MP #### [facility] ([id number]) [address] [place] [address] 42882 Sodium [Moles/Vol] 142 mmol/L Normal 134-146 [facility] Comment on above: Performed By: #### C MP #### [facility] ([id number]) [address] [place] [address] 84796 Urea nitrogen [Mass/Vol] 43 mg/dL High 5-27 [facility] Comment on above: Performed By: #### C MP #### [facility] ([id number]) [address] [place] [address] 91050 COMPLETE BLOOD COUNTon 03-21 Erythrocyte distribution width (RBC) [Ratio] 13.3 % Normal 11.5-15.0 [facility] Comment on above: Performed By: #### C MP #### [facility] ([id number]) [address] [place] [address] 58342 Hematocrit (Bld) [Volume fraction] 34.1 % Low 35-47 [facility] Comment on above: Performed By: #### C MP #### [facility] ([id number]) [address] [place] [address] 95716 Hemoglobin (Bld) [Mass/Vol] 11.7 g/dL Normal 11.7-15.5 [facility] Comment on above: Performed By: #### C MP #### [facility] ([id number]) [address] [place] [address] 02402 MCH (RBC) [Entitic mass] 30.9 pg Normal 27-34 [facility] Comment on above: Performed By: #### C MP #### [facility] ([id number]) [address] [place] [address] 89869 MCHC (RBC) [Mass/Vol] 34.4 g/dL Normal 32-36 [facility] Comment on above: Performed By: #### C MP #### [facility] ([id number]) [address] [place] [address] 33624 MCV (RBC) [Entitic vol] 90 fL Normal 80-100 [facility] Comment on above: Performed By: #### C MP #### [facility] ([id number]) [address] [place] [address] 84684 Platelet mean volume (Bld) [Entitic vol] 8.4 fL Normal 7-12 [facility] Comment on above: Performed By: #### C MP #### [facility] ([id number]) [address] [place] [address] 48890 Platelets (Bld) [#/Vol] 255 10*3/uL Normal 150-450 [facility] Comment on above: Performed By: #### C MP #### [facility] ([id number]) [address] [place] [address] 98361 RBC COUNT 3.80 X10E12/L Normal 3.80-5.20 [facility] Comment on above: Performed By: #### C MP #### [facility] ([id number]) [address] [place] [address] 33836 WBC (Bld) [#/Vol] 7.9 10*3/uL Normal 4.0-11.0 [facility] Comment on above: Performed By: #### C MP #### [facility] ([id number]) [address] [place] [address] 16855 MAGNESIUMon 03-21-2024 Magnesium [Mass/Vol] 1.8 mg/dL Normal 1.8-2.6 [facility] Comment on above: Performed By: #### C MP #### [facility] ([id number]) [address] [place] [address] 73797 PHOSPHORUSon 03-21-2024 Phosphate [Mass/Vol] 4.0 mg/dL Normal 2.4-4.9 [facility] Comment on above: Performed By: #### C MP #### [facility] ([id number]) [address] [place] [address], [place] [address] PROTEIN CREAT RATIOon 2023 RANDOM URINE PROTEIN 3770 mg/L High <120 [facility] Comment on above: Performed By: #### C MP #### [facility] ([id number]) [address] [place] [address], [place] [address] U/PRO/GLASSWARE SELECTOR RATIO CALC 2.26 High <0.2 [facility] Comment on above: Result Comment: Neph rotic Syndrome is associated with ratios >3.5 Performed By: #### C MP #### [facility] ([id number]) [address] [place] [address], [place] [address] URINE CREATININE,RDM 166.75 mg/dL Normal [facility] Comment on above: Performed By: #### C MP #### [facility] ([id number]) [address] [place] [address], [place] [address] Parathyrin.intact [Mass/Vol] on 03-21-2024 PTH INTACT 123 pg/mL High 12- [facility] Comment on above: Performed By: #### C MP #### [facility] [facility] ([id number]) [address] [place] [address], [place] [address] URINALYSISon 03-21-2024 Bilirubin Ql (U) Negative Normal NEG [facility] Comment on above: Performed By: #### C MP #### [facility] ([id number]) [address] [place] [address], [place] [address] BLOOD/HGB Negative Normal NEG [facility] Comment on above: Performed By: #### C MP #### [facility] ([id number]) [address] [place] [address], [place] [address] Color (U) YELLOW Normal YELLOW [facility] Comment on above: Performed By: #### C MP #### [facility] ([id number]) [address] [place] [address] [place] [address] Glucose Ql (U) 30 mg/dL Abnormal NEG [facility] Comment on above: Performed By: #### C MP #### [facility] ([id number]) [address] [place] [address] [place] [address] Hyaline casts LM Ql (Urine sed) 1 /lpf Normal 0-2 [facility] Comment on above: Performed By: #### C MP #### [facility] ([id number]) [address] [place] [address] [place] [address] Ketones Ql (U) Negative Normal NEG [facility] Comment on above: Performed By: #### C MP #### [facility] ([id number]) [address] [place] [address] Leukocyte esterase Test strip Ql (U) MODERATE Abnormal NEG [facility] Comment on above: Performed By: #### C MP #### [facility] ([id number]) [address] [place] [address] [place] [address] MUCOUS PRESENT Abnormal NONE [facility] Comment on above: Performed By: #### C MP #### [facility] ([id number]) [address] [place] [address] [place] [address] Nitrite Ql (U) Negative Normal NEG [facility] Comment on above: Performed By: #### C MP #### [facility] ([id number]) [address] [place] [address] [place] [address] pH (U) 6.0 [pH] Normal 5.0-8.5 [facility] Comment on above: Performed By: #### C MP #### [facility] ([id number]) [address] [place] [address] [place] [address] Protein Ql (U) 300 mg/dL Abnormal NEG [facility] Comment on above: Performed By: #### C MP #### [facility] ([id number]) [address] [place] [address], [place] [address] R.B.CELLS 2 /hpf Normal 0-5 [facility] Comment on above: Performed By: #### C MP #### [facility] ([id number]) [address] [place] [address], [place] [address] Specific gravity (U) [Rel density] 1.020 Normal 1.003-1.035 [facility] Comment on above: Performed By: #### C MP #### [facility] ([id number]) [address] [place] [address], [place] [address] SQUAMOUS EPITHELIUM 2 /hpf Normal 0-5 [facility] Comment on above: Performed By: #### C MP #### [facility] ([id number]) [address] [place] [address] [place] [address] TURBIDITY CLEAR Normal CLEAR [facility] Comment on above: Performed By: #### C MP #### [facility] ([id number]) [address] [place] [address], [place] [address] Urobilinogen (U) [Mass/Vol] mg/dL Normal <1.1 [facility] Comment on above: Performed By: #### C MP #### [facility] ([id number]) [address] [place] [address], [place] [address] W.B.CELLS 24 /hpf High 0-5 [facility] Comment on above: Performed By: #### C MP #### [facility] ([id number]) [address] [place] [address] [place] [address] Vitamin D+Metabolites [Mass/ Vol]on 03-21-2024 VITAMIN D 25 HYD TOT 28.1 ng/mL Low 30-100 [facility] Comment on above: Result Comment: Vitamin D status 25 [place] Vitamin D Deficiency <20 ng/mL Insufficiency 20-29 ng/mL Sufficiency 30-100 ng/mL Toxicity >100 ng/mL NOTE: A pediatric reference range has not been established by the automotive glass installer of this kit. The [place] [employer] recommends a Vitamin D level of = or >20ng/mL in infants and children. Performed By: #### C MP #### [facility] ([id number]) [address] [place] [address], [place] [address] BASIC METABOLIC PANLon 03-07 Anion gap [Moles/Vol] 10 mmol/L Normal 5-15 [facility] Comment on above: Performed By: #### C BC, UPCR, BMP, 21451-8, 2777-1, 2731-8, 96509-4 ####[facility] ([id number])[address], [address], [place] [address] Calcium [Mass/Vol] 9.6 mg/dL Normal 8.5-10.5 [facility] Comment on above: Performed By: #### C BC, UPCR, BMP, 39513-9, 2777-1, 2731-8, 66964-3 ####[facility] ([id number])[address], [address] [place] [address] Chloride [Moles/Vol] 102 mmol/L Normal 98-109 [facility] Comment on above: Performed By: #### C BC, UPCR, BMP, 37969-8, 2777-1, 2731-8, 53222-1 ####[facility] ([id number])[address], [address] [place] [address] CO2 [Moles/Vol] 28 mmol/L Normal 22-32 [facility] Comment on above: Performed By: #### C BC, UPCR, BMP, 66509-6, 2777-1, 2731-8, 81505-0 ####[facility] ([id number])[address] [address], [place] [address] Creatinine [Mass/Vol] 3.34 mg/dL High 0.40-1.00 [facility] Comment on above: Result Comment: METH OD TRACEABLE TO IDMS STANDARD Performed By: #### C BC, UPCR, BMP, 35102-8, 2777-1, 2731-8, 29653-2 ####[facility] ([id number])[address] [address] GFR/1.73 sq M.predicted among non-blacks MDRD (S/P/Bld) [Vol rate/Area] 14 mL/min/{1.73_m2} Low >59 [facility] Comment on above: Result Comment: Reported eGFR is based on the CKD-EPI 2020 equation that does not use a race coefficient. Performed By: #### C BC, UPCR, BMP, 55316-6, 2777-1, 2731-8, 23818-3 ####[facility] ([id number])[address] [address] Glucose [Mass/Vol] 166 mg/dL High 65-99 [facility] Comment on above: Performed By: #### C BC, UPCR, BMP, 64248-4, 2777-1, 2731-8, 18440-0 ####[facility] ([id number])[address] [address] Potassium [Moles/Vol] 5.3 mmol/L High 3.5-5.0 [facility] Comment on above: Performed By: #### C BC, UPCR, BMP, 73354-3, 2777-1, 2731-8, 01661-5 ####[facility] ([id number])[address] [address], [place] [address] Sodium [Moles/Vol] 140 mmol/L Normal 134-146 [facility] Comment on above: Performed By: #### C BC, UPCR, BMP, 99120-4, 2777-1, 2731-8, 57968-9 ####[facility] ([id number])[address], [address] [place] [address] Urea nitrogen [Mass/Vol] 46 mg/dL High 5-27 [facility] Comment on above: Performed By: #### C BC, UPCR, BMP, 52647-9, 7-1, 273-8, 43887-1 ####[facility] ([id number])[address] [address] [place] [address] COMPLETE BLOOD COUNTon 03-07 Erythrocyte distribution width (RBC) [Ratio] 13.4 % Normal 11.5-15.0 [facility] Comment on above: Performed By: #### C BC, UPCR, BMP, 12356-5, 2776-1, 2730-8, 40562-5 ####[facility] ([id number])[address] [address] [place] [address] Hematocrit (Bld) [Volume fraction] 35.7 % Normal 35-47 [facility] Comment on above: Performed By: #### C BC, UPCR, BMP, 35234-7, 7-1, 2731-8, 85602-8 ####[facility] ([id number])[address] [address] [place] [address] Hemoglobin (Bld) [Mass/Vol] 12.0 g/dL Normal 11.7-15.5 [facility] Comment on above: Performed By: #### C BC, UPCR, BMP, 98795-0, 2776-, 273-8, 75716-6 ####[facility] ([id number])[address] [address] [place] [address] MCH (RBC) [Entitic mass] 30.5 pg Normal 27-34 [facility] Comment on above: Performed By: #### C BC, UPCR, BMP, 12661-3, 2777-1, 2731-8, 87025-0 ####[facility] ([id number])[address], [address] [place] [address] MCHC (RBC) [Mass/Vol] 33.6 g/dL Normal 32-36 [facility] Comment on above: Performed By: #### C BC, UPCR, BMP, 18137-8, 2777-1, 2731-8, 87516-3 ####[facility] ([id number])[address] [address] [place] [address] MCV (RBC) [Entitic vol] 91 fL Normal 80-100 [facility] Comment on above: Performed By: #### C BC, UPCR, BMP, 63824-6, 7-1, 2731-8, 43188-9 ####[facility] ([id number])[address] [address], [place] [address] Platelet mean volume (Bld) [Entitic vol] 9.2 fL Normal 7-12 [facility] Comment on above: Performed By: #### C BC, UPCR, BMP, 10341-5, 2777-1, 2731-8, 50462-9 ####[facility] ([id number])[address] [address] [place] [address] Platelets (Bld) [#/Vol] 268 10*3/uL Normal 150-450 [facility] Comment on above: Performed By: #### C BC, UPCR, BMP, 17532-8, 2777-1, 2731-8, 25388-0 ####[facility] ([id number])[address] [address], [place] [address] RBC COUNT 3.92 X10E12/L Normal 3.80-5.20 [facility] Comment on above: Performed By: #### C BC, UPCR, BMP, 89413-8, 2777-1, 2731-8, 78023-6 ####[facility] ([id number])[address], [place] [address] WBC (Bld) [#/Vol] 6.9 10*3/uL Normal 4.0-11.0 [facility] Comment on above: Performed By: #### C BC, UPCR, BMP, 03649-7, 2777-1, 2731-8, 20905-0 ####[facility] ([id number])[address], [address], [place] [address] MAGNESIUMon 03-07-2024 Magnesium [Mass/Vol] 2.1 mg/dL Normal 1.8-2.6 [facility] Comment on above: Performed By: #### C BC, UPCR, BMP, 33030-5, 7-1, 2730-8, 76642-0 ####[facility] ([id number])[address], [address] [place] [address] PHOSPHORUSon 03-07-2024 Phosphate [Mass/Vol] 4.4 mg/dL Normal 2.4-4.9 [facility] Comment on above: Performed By: #### C BC, UPCR, BMP, 96275-4, 7-1, 2731-8, 58976-0 ####[facility] ([id number])[address], [address] [place] [address] PROTEIN CREAT RATIOon 2023 RANDOM URINE PROTEIN 1860 mg/L High <120 [facility] Comment on above: Performed By: #### C BC, UPCR, BMP, 18029-4, 2777-1, 2731-8, 81991-2 ####[facility] ([id number])[address], [address], [place] [address] U/PRO/GLASSWARE SELECTOR RATIO CALC 1.72 High <0.2 [facility] Comment on above: Result Comment: Neph rotic Syndrome is associated with ratios >3.5 Performed By: #### C BC, UPCR, BMP, 11480-5, 2777-1, 2731-8, 75113-3 ####[facility] ([id number])[address], [address], [place] [address] URINE CREATININE,RDM 108.20 mg/dL Normal [facility] Comment on above: Performed By: #### C BC, UPCR, BMP, 22671-3, 2777-1, 2731-8, 66774-3 ####[facility] ([id number])[address], [address], [place] [address] Parathyrin.intact [Mass/Vol] on 03-07-2024 PTH INTACT 155 pg/mL High 12-88 [facility] Comment on above: Performed By: #### C BC, UPCR, BMP, 77571-4, 7-1, 2731-8, 45797-9 ####[facility] ([id number])[address], [address], [place] [address] URINALYSISon 03-07-2024 Bilirubin Ql (U) Negative Normal NEG [facility] Comment on above: Performed By: #### U A ####[facility] ([id number])[address], [address], [place] [address] BLOOD/HGB Negative Normal NEG [facility] Comment on above: Performed By: #### U A ####[facility] ([id number])[address], [address], [place] [address] Color (U) YELLOW Normal YELLOW [facility] Comment on above: Performed By: #### U A ####[facility] ([id number])[address], [address], [place] [address] Glucose Ql (U) Negative Normal NEG [facility] Comment on above: Performed By: #### U A ####[facility] ([id number])[address] [place] [address] Ketones Ql (U) Negative Normal NEG [facility] Comment on above: Performed By: #### U A ####[facility] ([id number])[address], [address] [place] [address] Leukocyte esterase Test strip Ql (U) Small Abnormal NEG [facility] Comment on above: Performed By: #### U A ####[facility] ([id number])[address], [place] [address] MUCOUS PRESENT Abnormal NONE [facility] Comment on above: Performed By: #### U A ####[facility] ([id number])[address], [address], [place] [address] Nitrite Ql (U) Negative Normal NEG [facility] Comment on above: Performed By: #### U A ####[facility] ([id number])[address] [place] [address] pH (U) 6.5 [pH] Normal 5.0-8.5 [facility] Comment on above: Performed By: #### U A ####[facility] ([id number])[address], [address] [place] [address] Protein Ql (U) 300 mg/dL Abnormal NEG [facility] Comment on above: Performed By: #### U A ####[facility] ([id number])[address], [place] [address] R.B.CELLS <1 Normal 0-5 [facility] Comment on above: Performed By: #### U A ####[facility] ([id number])[address], [address] [place] [address] Specific gravity (U) [Rel density] 1.014 Normal 1.003-1.035 [facility] Comment on above: Performed By: #### U A ####[facility] ([id number])[address], [place] [address] SQUAMOUS EPITHELIUM <1 Normal 0-5 [facility] Comment on above: Performed By: #### U A ####[facility] ([id number])[address] [address], [place] [address] TURBIDITY CLEAR Normal CLEAR [facility] Comment on above: Performed By: #### U A ####[facility] ([id number])[address] [address], [place] [address] Urobilinogen (U) [Mass/Vol] mg/dL Normal <1.1 [facility] Comment on above: Performed By: #### U A ####[facility] ([id number])[address] [address], [place] [address] W.B.CELLS 6 /hpf High 0-5 [facility] Comment on above: Performed By: #### U A ####[facility] ([id number])[address] [address], [place] [address] Vitamin D+Metabolites [Mass/ Vol]on 03-07-2024 VITAMIN D 25 HYD TOT 27.2 ng/mL Low 30-100 [facility] Comment on above: Result Comment: Vitamin D status 25 [place] Vitamin D Deficiency <20 ng/mL Insufficiency 20-29 ng/mL Sufficiency 30-100 ng/mL Toxicity >100 ng/mL NOTE: A pediatric reference range has not been established by the automotive glass installer of this kit. The [place] [employer] recommends a Vitamin D level of = or >20ng/mL in infants and children. Performed By: #### C MP #### [facility] ([id number]) [address] [place] [address], [place] [address] HGB A1C (GLYCO-HGB)on 2023 Glucose [Mass/Vol] 169 mg/dL Normal [facility] Comment on above: Performed By: #### 2 4331-1, THYR ####[facility] ([id number])[address] [address] HbA1c (Bld) [Mass fraction] 7.5 % High 4.4-5.6 [facility] Comment on above: Result Comment: NOTE ADA Guidelines Result HgbA1c Normal : less than 5.7 % Prediabetes : 5.7 % to 6.4 % Diabetes : > 6.4 % Use with caution in patients with abnormal hemoglobin variants as the half-life of red blood cells and in vivo glycation rates are affected. Performed By: #### 2 4331-1, THYR ####[facility] ([id number])[address] [address] Lipid 1996 panelon Cholesterol [Mass/Vol] 179 mg/dL Normal 150-200 [facility] Comment on above: Performed By: #### 2 4331-1, THYR ####[facility] ([id number])[address] [address] Cholesterol in HDL [Mass/Vol] 49 mg/dL Normal >39 [facility] Comment on above: Result Comment: HDL <40 mg/dL - High Risk HDL > or = 40mg/dL- Desirable HDL >60 mg/dL - Negative Risk Performed By: #### 2 4331-1, THYR ####[facility] ([id number])[address] [address], [place] [address] Cholesterol in LDL [Mass/Vol] 93 mg/dL Normal <130 [facility] Comment on above: Result Comment: LDL <100 mg/dL - Desirable LDL >160 mg/dL - High Risk Performed By: #### 2 4331-1, THYR ####[facility] ([id number])[address] [address] [place] [address] Cholesterol in VLDL [Mass/Vol] 37 mg/dL High 0-30 [facility] Comment on above: Performed By: #### 2 4331-1, THYR ####[facility] ([id number])[address] [address] [place] [address], [place] [address] CHOLESTEROL:HDL 3.7 Normal 1.0-5.0 [facility] Comment on above: Performed By: #### 2 4331-1, THYR ####[facility] ([id number])[address] [place] [address] Triglyceride [Mass/Vol] 186 mg/dL High 27-150 [facility] Comment on above: Performed By: #### 2 4331-1, THYR ####[facility] ([id number])[address] [address], [place] [address] THYROID PROFILEon 01-03-2024 Free T4 [Mass/Vol] 0.75 ng/dL Normal 0.61-1.60 [facility] Comment on above: Performed By: #### 2 4331-1, THYR ####[facility] ([id number])[address] [place] [address] TSH 5.18 uIU/mL High 0.49-4.67 [facility] Comment on above: Performed By: #### 2 4331-1, THYR ####[facility] ([id number])[address] [facility] [address] [place] [address] BASIC METABOLIC PANLon 12-03 Anion gap [Moles/Vol] 11 mmol/L Normal 5-15 [facility] Comment on above: Performed By: #### C BCA, CMP #### [facility] ([id number]) [address] [place] [address] Calcium [Mass/Vol] 9.7 mg/dL Normal 8.5-10.5 [facility] Comment on above: Performed By: #### C BCA, CMP #### [facility] ([id number]) [address] [place] [address] Chloride [Moles/Vol] 104 mmol/L Normal 98-109 [facility] Comment on above: Performed By: #### C BCA, CMP #### [facility] ([id number]) [address] [place] [address] CO2 [Moles/Vol] 26 mmol/L Normal 22-32 [facility] Comment on above: Performed By: #### C BCA, CMP #### [facility] ([id number]) [address] [place] [address] Creatinine [Mass/Vol] 2.33 mg/dL High 0.40-1.00 [facility] Comment on above: Result Comment: METH OD TRACEABLE TO IDMS STANDARD Performed By: #### C BCA, CMP #### [facility] ([id number]) [address] [place] [address] GFR/1.73 sq M.predicted among non-blacks MDRD (S/P/Bld) [Vol rate/Area] 21 mL/min/{1.73_m2} Low >59 [facility] Comment on above: Result Comment: Reported eGFR is based on the CKD-EPI 2020 equation that does not use a race coefficient. Performed By: #### C BCA, CMP #### [facility] ([id number]) [address] [place] [address] Glucose [Mass/Vol] 102 mg/dL High 65-99 [facility] Comment on above: Performed By: #### C BCA, CMP #### [facility] ([id number]) [address] [place] [address] Potassium [Moles/Vol] 4.9 mmol/L Normal 3.5-5.0 [facility] Comment on above: Performed By: #### C BCA, CMP #### [facility] ([id number]) [address] [place] [address] Sodium [Moles/Vol] 141 mmol/L Normal 134-146 [facility] Comment on above: Performed By: #### C BCA, CMP #### [facility] ([id number]) [address] [place] [address] Urea nitrogen [Mass/Vol] 43 mg/dL High 5-27 [facility] Comment on above: Performed By: #### C BCA, CMP #### [facility] ([id number]) [address] [place] [address] COMPLETE BLOOD COUNTon 12-03 Erythrocyte distribution width (RBC) [Ratio] 13.0 % Normal 11.5-15.0 [facility] Comment on above: Performed By: #### C BCA, CMP #### [facility] ([id number]) [address] [place] [address] Hematocrit (Bld) [Volume fraction] 31.9 % Low 35-47 [facility] Comment on above: Performed By: #### C BCA, CMP #### [facility] ([id number]) [address] [place] [address] Hemoglobin (Bld) [Mass/Vol] 10.7 g/dL Low 11.7-15.5 [facility] Comment on above: Performed By: #### C AUTUMN, CMP #### [facility] ([id number]) [address] [place] [address] MCH (RBC) [Entitic mass] 30.4 pg Normal 27-34 [facility] Comment on above: Performed By: #### C AUTUMN, CMP #### [facility] ([id number]) [address] [place] [address] MCHC (RBC) [Mass/Vol] 33.6 g/dL Normal 32-36 [facility] Comment on above: Performed By: #### C AUTUMN, CMP #### [facility] ([id number]) [address] [place] [address] MCV (RBC) [Entitic vol] 91 fL Normal 80-100 [facility] Comment on above: Performed By: #### C AUTUMN, CMP #### [facility] ([id number]) [address] [place] [address] Platelet mean volume (Bld) [Entitic vol] 8.6 fL Normal 7-12 [facility] Comment on above: Performed By: #### C AUTUMN, CMP #### [facility] ([id number]) [address] [place] [address] Platelets (Bld) [#/Vol] 398 10*3/uL Normal 150-450 [facility] Comment on above: Performed By: #### C AUTUMN, CMP #### [facility] ([id number]) [address] [place] [address] [id number] RBC COUNT 3.51 X10E12/L Low 3.80-5.20 [facility] Comment on above: Performed By: #### C AUTUMN, CMP #### [facility] ([id number]) [address] [place] [address] [phone] WBC (Bld) [#/Vol] 12.6 10*3/uL High 4.0-11.0 [facility] Comment on above: Performed By: #### C BCA, CMP #### [facility] ([id number]) [address] [place] [address] [phone] MAGNESIUMon 12-04-2023 Magnesium [Mass/Vol] 1.9 mg/dL Normal 1.8-2.6 [facility] Comment on above: Performed By: #### C BCA, CMP #### [facility] ([id number]) [address] [place] [address] [phone] PHOSPHORUSon 12-04-2023 Phosphate [Mass/Vol] 3.7 mg/dL Normal 2.4-4.9 [facility] Comment on above: Performed By: #### C BCA, CMP #### [facility] ([id number]) [address] [place] [address] [phone] PROTEIN CREAT RATIOon 2023 RANDOM URINE PROTEIN 1840 mg/L High <120 [facility] Comment on above: Performed By: #### C BCA, CMP #### [facility] ([id number]) [address] [place] [address] [id number] U/PRO/GLASSWARE SELECTOR RATIO CALC 2.19 High <0.2 [facility] Comment on above: Result Comment: Neph rotic Syndrome is associated with ratios >3.5 Performed By: #### C BCA, CMP #### [facility] ([id number]) [address] [place] [address] [phone] URINE CREATININE,RDM 84.01 mg/dL Normal [facility] Comment on above: Performed By: #### C BCA, CMP #### [facility] ([id number]) [address] [place] [address] [phone] Parathyrin.intact [Mass/Vol] on 12-04-2023 PTH INTACT 105 pg/mL High 12-88 [facility] Comment on above: Performed By: #### C AUTUMN, [facility] #### [facility] ([id number]) [address] [place] [address], [place] [address] URINALYSISon 12-04-2023 Bilirubin Ql (U) Negative Normal NEG [facility] BLOOD/HGB Negative Normal NEG [facility] Color (U) YELLOW Normal YELLOW [facility] Glucose Ql (U) Negative Normal NEG [facility] Hyaline casts LM Ql (Urine sed) 14 /lpf High 0-2 [facility] Ketones Ql (U) Negative Normal NEG [facility] Leukocyte esterase Test strip Ql (U) Small Abnormal NEG [facility] MUCOUS PRESENT Abnormal NONE [facility] Nitrite Ql (U) Negative Normal NEG [facility] pH (U) 6.0 [pH] Normal 5.0-8.5 [facility] Protein Ql (U) 200 mg/dL Abnormal NEG [facility] R.B.CELLS 1 /hpf Normal 0-5 [facility] RENAL EPITHELIUM 1 /hpf High 0 [facility] Specific gravity (U) [Rel density] 1.012 Normal 1.003-1.035 [facility] SQUAMOUS EPITHELIUM <1 Normal 0-5 [facility] TURBIDITY CLEAR Normal CLEAR [facility] Urobilinogen (U) [Mass/Vol] mg/dL Normal <1.1 [facility] W.B.CELLS 20 /hpf High 0-5 [facility] Vitamin D+Metabolites [Mass/ Vol]on 12-04-2023 VITAMIN D 25 HYD TOT 26.6 ng/mL Low 30-100 [facility] Comment on above: Result Comment: Vitamin D status 25 [place] Vitamin D Deficiency <20 ng/mL Insufficiency 20-29 ng/mL Sufficiency 30-100 ng/mL Toxicity >100 ng/mL NOTE: A pediatric reference range has not been established by the automotive glass installer of this kit. The [place] [employer] recommends a Vitamin D level of = or >20ng/mL in infants and children. Performed By: #### C BCA, [facility] #### [facility] ([id number]) [address] [place] [address] [phone] XR FOOT RT MIN 3 VWSon 12-01 XR FOOT RT MIN 3 VWS XR FOOT RT MIN 3 VWS CLINICAL INFORMATION: Acute pain of right foot TECHNIQUE: XR FOOT RT MIN 3 VWS 3 views the right foot were obtained. Plantar calcaneal spur noted. There is also enthesophyte at the Achilles insertion. No acute osseous abnormalities seen. Mild changes appreciated. No erosive process. IMPRESSION: Calcaneal spurring and mild degenerative changes Finalized by Michel Gauthier MD on 12/02/2023 8:31 AM Normal [facility] BASIC METABOLIC PANLon 11-27 Anion gap [Moles/Vol] 8 mmol/L Normal 5-15 [facility] Comment on above: Performed By: #### B MP #### [facility] ([id number]) [address] [place] [address] [phone] Calcium [Mass/Vol] 8.2 mg/dL Low 8.5-10.5 [facility] Comment on above: Performed By: #### B MP #### [facility] ([id number]) [address] [place] [address] 10626 Chloride [Moles/Vol] 109 mmol/L Normal 98-109 [facility] Comment on above: Performed By: #### B MP #### [facility] ([id number]) [address] [place] [address] 09324 CO2 [Moles/Vol] 22 mmol/L Normal 22-32 [facility] Comment on above: Performed By: #### B MP #### [facility] ([id number]) [address] [place] [address] 00310 Creatinine [Mass/Vol] 1.80 mg/dL High 0.40-1.00 [facility] Comment on above: Result Comment: METH OD TRACEABLE TO IDMS STANDARD Performed By: #### B MP #### [facility] ([id number]) [address] [place] [address] 39363 GFR/1.73 sq M.predicted among non-blacks MDRD (S/P/Bld) [Vol rate/Area] 29 mL/min/{1.73_m2} Low >59 [facility] Comment on above: Result Comment: Reported eGFR is based on the CKD-EPI 2020 equation that does not use a race coefficient. Performed By: #### B MP #### [facility] ([id number]) [address] [place] [address] 38676 Glucose [Mass/Vol] 119 mg/dL High 65-99 [facility] Comment on above: Performed By: #### B MP #### [facility] ([id number]) [address] [place] [address] 99820 Potassium [Moles/Vol] 3.9 mmol/L Normal 3.5-5.0 [facility] Comment on above: Performed By: #### B MP #### [facility] ([id number]) [address] [place] [address] 69122 Sodium [Moles/Vol] 139 mmol/L Normal 134-146 [facility] Comment on above: Performed By: #### B MP #### [facility] ([id number]) [address] [place] [address] 23573 Urea nitrogen [Mass/Vol] 28 mg/dL High 5-27 [facility] Comment on above: Performed By: #### B MP #### [facility] ([id number]) [address] [place] [address] [place] [address] Glucose Glucometer (BldC) [M ass/Vol]on 11-28-2023 Glucose [Mass/Vol] 177 mg/dL High 65-99 [facility] COMPREHENSIVE METABOLIC PANE Jean Claude 11-27-2023 Albumin [Mass/Vol] 2.9 g/dL Low 3.2-5.3 [facility] Comment on above: Performed By: #### C MP #### [facility] ([id number]) [address] [place] [address] [place] [address] ALP [Catalytic activity/Vol] 126 U/L Normal 39-130 [facility] Comment on above: Performed By: #### C MP #### [facility] ([id number]) [address] [place] [address] 52080 ALT [Catalytic activity/Vol] 33 U/L High 0-31 [facility] Comment on above: Performed By: #### C MP #### [facility] ([id number]) [address] [place] [address] [place] [address] Anion gap [Moles/Vol] 9 mmol/L Normal 5-15 [facility] Comment on above: Performed By: #### C MP #### [facility] ([id number]) [address] [place] [address] 58406 AST [Catalytic activity/Vol] 32 U/L Normal 0-41 [facility] Comment on above: Performed By: #### C MP #### [facility] ([id number]) [address] [place] [address] [place] [address] Bilirubin [Mass/Vol] 0.5 mg/dL Normal 0.3-1.2 [facility] Comment on above: Performed By: #### C MP #### [facility] ([id number]) [address] [place] [address] 16036 Calcium [Mass/Vol] 8.8 mg/dL Normal 8.5-10.5 [facility] Comment on above: Performed By: #### C MP #### [facility] ([id number]) [address] [place] [address] 01580 Chloride [Moles/Vol] 106 mmol/L Normal 98-109 [facility] Comment on above: Performed By: #### C MP #### [facility] ([id number]) [address] [place] [address] 48996 CO2 [Moles/Vol] 26 mmol/L Normal 22-32 [facility] Comment on above: Performed By: #### C MP #### [facility] ([id number]) [address] [place] [address] 37984 Creatinine [Mass/Vol] 1.98 mg/dL High 0.40-1.00 [facility] Comment on above: Result Comment: METH OD TRACEABLE TO IDMS STANDARD Performed By: #### C MP #### [facility] ([id number]) [address] [place] [address] 04845 GFR/1.73 sq M.predicted among non-blacks MDRD (S/P/Bld) [Vol rate/Area] 26 mL/min/{1.73_m2} Low >59 [facility] Comment on above: Result Comment: Reported eGFR is based on the CKD-EPI 2020 equation that does not use a race coefficient. Performed By: #### C MP #### [facility] ([id number]) [address] [place] [address] 02173 Glucose [Mass/Vol] 121 mg/dL High 65-99 [facility] Comment on above: Performed By: #### C MP #### [facility] ([id number]) [address] [place] [address] 23682 Potassium [Moles/Vol] 4.5 mmol/L Normal 3.5-5.0 [facility] Comment on above: Performed By: #### C MP #### [facility] ([id number]) [address] [place] [address] 99400 Protein [Mass/Vol] 6.0 g/dL Normal 6.0-8.0 [facility] Comment on above: Performed By: #### C MP #### [facility] ([id number]) [address] [place] [address] 65327 Sodium [Moles/Vol] 141 mmol/L Normal 134-146 [facility] Comment on above: Performed By: #### C MP #### [facility] ([id number]) [address] [place] [address] 92980 Urea nitrogen [Mass/Vol] 34 mg/dL High 5-27 [facility] Comment on above: Performed By: #### C MP #### [facility] ([id number]) [address] [place] [address] BRAIN WO CONTon 4 CT BRAIN WO CONT CT BRAIN WO [...] on 11/27/2023 5:43 AM Normal [facility] Glucose Glucometer (BldC) [M ass/Vol]on 11-27-2023 Glucose [Mass/Vol] 207 mg/dL High 65-99 [facility] Glucose [Mass/Vol] 164 mg/dL High 65-99 [facility] Glucose [Mass/Vol] 189 mg/dL High 65-99 [facility] CBC AND AUTO DIFFon 11-26-19 24 ABSOLUTE BASOPHIL 0.1 X10E9/L Normal 0.0-0.2 [facility] Comment on above: Performed By: #### C AUTUMN, CMP #### [facility] ([id number]) [address] [place] [address] 11154 ABSOLUTE NEUTROPHIL 10.2 X10E9/L High 1.5-6.6 [facility] Comment on above: Performed By: #### C AUTUMN, CMP #### [facility] ([id number]) [address] [place] [address] 96758 Basophils/100 WBC (Bld) 0.8 % Normal [facility] Comment on above: Performed By: #### C AUTUMN, CMP #### [facility] ([id number]) [address] [place] [address] 35406 Eosinophils (Bld) [#/Vol] 0.1 10*3/uL Normal 0.0-0.4 [facility] Comment on above: Performed By: #### C AUTUMN, CMP #### [facility] ([id number]) [address] [place] [address] 51545 Eosinophils/100 WBC (Bld) 1.0 % Normal [facility] Comment on above: Performed By: #### C AUTUMN, CMP #### [facility] ([id number]) [address] [place] [address] 09149 Erythrocyte distribution width (RBC) [Ratio] 13.3 % Normal 11.5-15.0 [facility] Comment on above: Performed By: #### C AUTUMN, CMP #### [facility] ([id number]) [address] [place] [address] 46961 Hematocrit (Bld) [Volume fraction] 35.5 % Normal 35-47 [facility] Comment on above: Performed By: #### C AUTUMN, CMP #### [facility] ([id number]) [address] [place] [address] 20158 Hemoglobin (Bld) [Mass/Vol] 11.9 g/dL Normal 11.7-15.5 [facility] Comment on above: Performed By: #### C AUTUMN, CMP #### [facility] ([id number]) [address] [place] [address] 03160 Lymphocytes (Bld) [#/Vol] 1.0 10*3/uL Normal 1.0-3.5 [facility] Comment on above: Performed By: #### C AUTUMN, CMP #### [facility] ([id number]) [address] [place] [address] 13169 Lymphocytes/100 WBC (Bld) 8.2 % Normal [facility] Comment on above: Performed By: #### C AUTUMN, CMP #### [facility] ([id number]) [address] [place] [address] 78159 MCH (RBC) [Entitic mass] 30.0 pg Normal 27-34 [facility] Comment on above: Performed By: #### C AUTUMN, CMP #### [facility] ([id number]) [address] [place] [address] 65167 MCHC (RBC) [Mass/Vol] 33.6 g/dL Normal 32-36 [facility] Comment on above: Performed By: #### C BCA, CMP #### [facility] ([id number]) [address] [place] [address] 90789 MCV (RBC) [Entitic vol] 89 fL Normal 80-100 [facility] Comment on above: Performed By: #### C BCA, CMP #### [facility] ([id number]) [address] [place] [address] 17094 Monocytes (Bld) [#/Vol] 0.8 10*3/uL Normal 0-0.9 [facility] Comment on above: Performed By: #### C BCA, CMP #### [facility] ([id number]) [address] [place] [address] 31255 Monocytes/100 WBC (Bld) 6.5 % Normal [facility] Comment on above: Performed By: #### C BCA, CMP #### [facility] ([id number]) [address] [place] [address] 87165 Neutrophils/100 WBC (Bld) 83.5 % Normal [facility] Comment on above: Performed By: #### C AUTUMN, CMP #### [facility] ([id number]) [address] [place] [address] 87158 Platelet mean volume (Bld) [Entitic vol] 7.8 fL Normal 7-12 [facility] Comment on above: Performed By: #### C BCA, CMP #### [facility] ([id number]) [address] [place] [address] 51185 Platelets (Bld) [#/Vol] 321 10*3/uL Normal 150-450 [facility] Comment on above: Performed By: #### C BCA, CMP #### [facility] ([id number]) [address] [place] [address] 65646 RBC COUNT 3.98 X10E12/L Normal 3.80-5.20 [facility] Comment on above: Performed By: #### C BCA, CMP #### [facility] ([id number]) [address] [place] [address] 23130 WBC (Bld) [#/Vol] 12.2 10*3/uL High 4.0-11.0 [facility] Comment on above: Performed By: #### C BCA, CMP #### [facility] ([id number]) [address] [place] [address] 85413 COMPREHENSIVE METABOLIC PANE Jean Claude 11-26-2023 Albumin [Mass/Vol] 3.7 g/dL Normal 3.2-5.3 [facility] Comment on above: Performed By: #### C BCA, CMP #### [facility] ([id number]) [address] [place] [address] 93027 ALP [Catalytic activity/Vol] 159 U/L High 39-130 [facility] Comment on above: Performed By: #### C BCA, CMP #### [facility] ([id number]) [address] [place] [address] 69692 ALT [Catalytic activity/Vol] 47 U/L High 0-31 [facility] Comment on above: Performed By: #### C BCA, CMP #### [facility] ([id number]) [address] [place] [address] 56369 Anion gap [Moles/Vol] 9 mmol/L Normal 5-15 [facility] Comment on above: Performed By: #### C BCA, CMP #### [facility] ([id number]) [address] [place] [address] 42001 AST [Catalytic activity/Vol] 44 U/L High 0-41 [facility] Comment on above: Performed By: #### C BCA, CMP #### [facility] ([id number]) [address] [place] [address] 97201 Bilirubin [Mass/Vol] 0.8 mg/dL Normal 0.3-1.2 [facility] Comment on above: Performed By: #### C BCA, CMP #### [facility] ([id number]) [address] [place] [address] 53192 Calcium [Mass/Vol] 9.2 mg/dL Normal 8.5-10.5 [facility] Comment on above: Performed By: #### C BCA, CMP #### [facility] ([id number]) [address] [place] [address] 80989 Chloride [Moles/Vol] 102 mmol/L Normal 98-109 [facility] Comment on above: Performed By: #### C BCA, CMP #### [facility] ([id number]) [address] [place] [address] 04708 CO2 [Moles/Vol] 26 mmol/L Normal 22-32 [facility] Comment on above: Performed By: #### C BCA, CMP #### [facility] ([id number]) [address] [place] [address] 35580 Creatinine [Mass/Vol] 2.09 mg/dL High 0.40-1.00 [facility] Comment on above: Result Comment: METH OD TRACEABLE TO IDMS STANDARD Performed By: #### C BCA, CMP #### [facility] ([id number]) [address] [place] [address] 17727 GFR/1.73 sq M.predicted among non-blacks MDRD (S/P/Bld) [Vol rate/Area] 24 mL/min/{1.73_m2} Low >59 [facility] Comment on above: Result Comment: Reported eGFR is based on the CKD-EPI 1 equation that does not use a race coefficient. Performed By: #### C BCA, CMP #### [facility] ([id number]) [address] [place] [address] 01074 Glucose [Mass/Vol] 149 mg/dL High 65-99 [facility] Comment on above: Performed By: #### C BCA, CMP #### [facility] ([id number]) [address] [place] [address] 63119 Potassium [Moles/Vol] 4.0 mmol/L Normal 3.5-5.0 [facility] Comment on above: Performed By: #### C BCA, CMP #### [facility] ([id number]) [address] [place] [address] 38519 Protein [Mass/Vol] 7.4 g/dL Normal 6.0-8.0 [facility] Comment on above: Performed By: #### C BCA, CMP #### [facility] ([id number]) [address] [place] [address] 72020 Sodium [Moles/Vol] 137 mmol/L Normal 134-146 [facility] Comment on above: Performed By: #### C BCA, CMP #### [facility] ([id number]) [address] [place] [address] 98627 Urea nitrogen [Mass/Vol] 35 mg/dL High 5-27 [facility] Comment on above: Performed By: #### C BCA, CMP #### [facility] ([id number]) [address] [place] [address] 32949 Glucose Glucometer (BldC) [M ass/Vol]on 11-26-2023 Glucose [Mass/Vol] 183 mg/dL High 65-99 [facility] XR HIP RT INJon 08-15-2021 XR [...] by: KALANI TORRES Date: 2021-08-15 11:29 Normal [facility] Vital Signs Date Time Vital Sign Value Performing Clinician Facility 08-18-2024 10:10-0500 Body mass index (BMI) [Ratio] 39.68 kg/m2 Priti Monet MD Work Phone: [facility] 08-18-2024 10:10-0500 Body weight 101.61 kg Priti Monet MD Work Phone: [facility] 08-18-2024 10:10-0500 Diastolic blood pressure 79 mm[Hg] Priti Monet MD Work Phone: [facility] 08-18-2024 10:10-0500 Heart rate 99 /min Priti Monet MD Work Phone: [facility] 08-18-2024 10:10-0500 Systolic blood pressure 171 mm[Hg] Priti Monet MD Work Phone: [facility] 08-11-2024 10:47-0500 Body mass index (BMI) [Ratio] 39.04 kg/m2 Keaton Medel MD Work Phone: [facility] 08-11-2024 10:47-0500 Body weight 99.97 kg Keaton Medel MD Work Phone: [facility] 08-11-2024 10:47-0500 Diastolic blood pressure 74 mm[Hg] Keaton Medel MD Work Phone: [facility] 08-11-2024 10:47-0500 Heart rate 76 /min Keaton Medel MD Work Phone: [facility] 08-11-2024 10:47-0500 Systolic blood pressure 164 mm[Hg] Keaton Medel MD Work Phone: [facility] 12-10-2023 08:50-0400 Diastolic blood pressure 64 mm[Hg] Kiara Oberneder PHILOSOPHY AND RELIGION INSTRUCTOR-GROUP HOME WORKER Work Phone: [facility] 12-10-2023 08:50-0400 Heart rate 88 /min Kiara Oberneder PHILOSOPHY AND RELIGION INSTRUCTOR-GROUP HOME WORKER Work Phone: [facility] 12-10-2023 08:50-0400 Systolic blood pressure 127 mm[Hg] Kiara Oberneder PHILOSOPHY AND RELIGION INSTRUCTOR-GROUP HOME WORKER Work Phone: [facility] 12-10-2023 08:49-0400 Body mass index (BMI) [Ratio] 40.32 kg/m2 Kiara Oberneder PHILOSOPHY AND RELIGION INSTRUCTOR-GROUP HOME WORKER Work Phone: [facility] 12-10-2023 08:49-0400 Body weight 103.24 kg Kiara Oberneder PHILOSOPHY AND RELIGION INSTRUCTOR-GROUP HOME WORKER Work Phone: [facility] 12-10-2023 08:49-0400 SaO2% (BldA) [Mass fraction] 96 % Kiara Oberneder PHILOSOPHY AND RELIGION INSTRUCTOR-GROUP HOME WORKER Work Phone: [facility] 11-30-2023 10:55-0400 Body mass index (BMI) [Ratio] 41.45 kg/m2 Keaton Medel MD Work Phone: [facility] 11-30-2023 10:55-0400 Body temperature 98.2 [degF] Keaton Medel MD Work Phone: [facility] 11-30-2023 10:55-0400 Body weight 106.14 kg Keaton Medel MD Work Phone: [facility] 11-30-2023 10:55-0400 Diastolic blood pressure 72 mm[Hg] Keaton Medel MD Work Phone: [facility] 11-30-2023 10:55-0400 Heart rate 99 /min Keaton Medel MD Work Phone: [facility] 11-30-2023 10:55-0400 Systolic blood pressure 158 mm[Hg] Keaton Medel MD Work Phone: [facility] 11-26-2023 13:52-0400 Body mass index (BMI) [Ratio] 39.86 kg/m2 Keaton Medel MD Work Phone: [facility] 11-26-2023 13:52-0400 Body temperature 97.81 [degF] Keaton Medel MD Work Phone: [facility] 11-26-2023 13:52-0400 Body weight 102.06 kg Keaton Medel MD Work Phone: [facility] 11-26-2023 13:52-0400 Diastolic blood pressure 84 mm[Hg] Keaton Medel MD Work Phone: [facility] 11-26-2023 13:52-0400 Heart rate 88 /min Keaton Medel MD Work Phone: [facility] 11-26-2023 13:52-0400 Systolic blood pressure 167 mm[Hg] Keaton Medel MD Work Phone: [facility] Encounters Encounter Date Encounter Type Care Provider Facility Start: 08-19-2024 End: 08-19-2024 ambulatory KEATON [facility] Start: 08-19-2024 End: 08-19-2024 Follow-up encounter [facility] 1 [facility] Medication Therapy Management Comment on above: Other acute pulmonar y embolism, unspecified whether acute cor pulmonale present ([facility]) (Primary Dx); [facility] (current) use of anticoagulants Start: 08-18-2024 End: 08-18-2024 Office outpatient visit 25 minutes Priti Monet MD Work Phone: [facility] [place] Comment on above: Other acute pulmonar y embolism, unspecified whether acute cor pulmonale present ([facility]) (Primary Dx); Acute venous embolism and thrombosis of deep vessels of proximal end of right lower extremity ([facility]) Start: 08-18-2024 End: 08-18-2024 ambulatory PRITI MONET [facility] Start: 08-11-2024 End: 08-11-2024 Follow-up encounter [facility] Mo Walker 1 [facility] Medication Therapy Management Comment on above: Other acute pulmonar y embolism, unspecified whether acute cor pulmonale present ([facility]) (Primary Dx); [facility] (current) use of anticoagulants; Acute venous embolism and thrombosis of deep vessels of proximal end of right lower extremity ([facility]) Start: 08-11-2024 End: 08-11-2024 ambulatory [facility] Start: 08-11-2024 End: 08-11-2024 Transitional care manage srvc 7 day discharge Keaton Medel MD Work Phone: [facility] Comment on above: Acute venous embolis m and thrombosis of deep vessels of proximal end of right lower extremity ([facility]) (Primary Dx); Chronic kidney disease, stage 4 (severe) ([facility]) Start: 08-11-2024 End: 08-11-2024 ambulatory [facility] Start: 08-07-2024 End: 08-07-2024 Anticoagulant drug monitoring [facility] Mo Walker 1 [facility] Medication Therapy Management Comment on above: Other acute pulmonar y embolism, unspecified whether acute cor pulmonale present ([facility]) (Primary Dx); [facility] (current) use of anticoagulants Start: 08-07-2024 End: 08-07-2024 ambulatory AKDuane MUÑOZ [facility] Start: 08-05-2024 End: 08-05-2024 Telephone encounter Airam Bentley RN [facility] Comment on above: Transition Of Care Start: 08-04-2024 End: 08-04-2024 Anticoagulant drug monitoring Sandee Garcia [facility] Work Phone: [facility] Medication Therapy Management Comment on above: Other acute pulmonar y embolism, unspecified whether acute cor pulmonale present ([facility]) (Primary Dx); [facility] (current) use of anticoagulants; Acute venous embolism and thrombosis of deep vessels of proximal end of right lower extremity ([facility]) Start: 08-04-2024 End: 08-04-2024 Telephone encounter Jill Verduzco MA [facility] Medication Therapy Management Start: 07-31-2024 End: 08-04-2024 Evaluation and management of inpatient [facility] Start: 06-10-2024 End: 06-10-2024 ambulatory [facility] Start: 06-06-2024 End: 06-06-2024 ambulatory [facility] Start: 04-28-2024 End: 04-28-2024 ambulatory Jani Jeffers MD Facility:[facility] Start: 04-22-2024 End: 04-22-2024 ambulatory [facility] Start: 03-24-2024 End: 03-24-2024 ambulatory Jani Jeffers MD Facility:[facility] Start: 03-21-2024 End: 03-21-2024 ambulatory [facility] Start: 03-11-2024 End: 03-11-2024 ambulatory YESIKA WARD Not Available Start: 03-07-2024 End: 03-07-2024 ambulatory [facility] Start: 01-04-2024 End: 01-04-2024 ambulatory [facility] Start: 01-03-2024 End: 01-03-2024 ambulatory [facility] Start: 01-02-2024 End: 01-02-2024 ambulatory [facility] Start: 01-02-2024 Encounter for genera l adult medical examination without abnormal findings [facility] Start: 12-11-2023 Orders Only Keaton patel MD Work Phone: [facility] Start: 12-10-2023 End: 12-10-2023 Office outpatient visit 25 minutes Kiara Gil APRN-GROUP HOME WORKER Work Phone: [facility] Comment on above: CKD (chronic kidney disease) stage 4, GFR 15-29 ml/min ([facility]) (Primary Dx) Start: 12-07-2023 Telephone encounter Berna Mcelroy CMA [facility] Start: 12-06-2023 Refill [facility] Start: 12-04-2023 End: 12-04-2023 ambulatory [facility] Start: 11-30-2023 End: 11-30-2023 Transitional care manage srvc 7 day discharge Keaton Medel MD Work Phone: [facility] Comment on above: Vertigo (Primary Dx) ; Non-recurrent acute suppurative otitis media of right ear without spontaneous rupture of tympanic membrane; Bronchitis; Diabetic polyneuropathy associated with type 2 diabetes mellitus ([facility] Acute pain of right foot Start: 11-30-2023 End: 11-30-2023 ambulatory [facility] Start: 11-28-2023 Telephone encounter Berna Mcelroy CMA [facility] Start: 11-27-2023 End: 11-29-2023 ambulatory [facility] Start: 11-26-2023 End: 11-29-2023 ambulatory [facility] Start: 11-26-2023 End: 11-26-2023 Patient encounter procedure Keaton Medel MD Work Phone: [facility] Comment on above: Non-recurrent acute suppurative otitis media of right ear without spontaneous rupture of tympanic membrane (Primary Dx); Type 2 diabetes mellitus with stage 4 chronic kidney disease, with long-term current use of insulin ([facility] Start: 11-26-2023 End: 11-26-2023 ambulatory [facility] Start: 09-20-2023 Refill Maryjane Morrison [facility] Start: 08-15-2021 End: 08-16-[address] JOAQUIM TAYLOR Facility:[facility]1 Procedures Date Procedure Procedure Detail Performing Clinician Start: 08-19-2024 [employer] Work Phone: Start: 08-11-2024 [employer] Work Phone: Start: 08-07-2024 [employer] Work Phone: Start: 07-31-2024 Adult depression scr eening assessment Jill Verduzco [place] Start: 11-26-2022 Adult depression scr eening assessment Maryjane Morrison [facility] Start: 02-01-2022 Diabetic retinal eye exam Maryjane Morrison [facility] Start: 11-05-2019 Microalbumin [Mass/v olume] in Urine by Test strip Maryjane Morrison [facility] Start: 08-23-2017 Colonoscopy Maryjane Morrison [facility] Plan of Treatment Date Care Activity Detail Author Start: 08-18-2025 Tobacco Screening Tobacco Screening [facility] Start: 08-11-2025 Tobacco Screening Tobacco Screening [facility] Start: 07-31-2025 Depression Screening Depression Scre ening [facility] Start: 07-31-2025 Tobacco Screening Tobacco Screening [facility] Start: 03-09-2025 End: 03-09-2025 Patient encounter procedure 03/09/2025 9:30 AM EDT Office Visit [facility] [address] [place] [address] Deb Avendaño DO [address] [place] [address] [facility] Start: 03-02-2025 End: 03-02-2025 Patient encounter procedure 03/02/2025 9:00 AM EDT Appointment [facility] [address] [place] [phone] Priti Monet MD [address] [place], [place] [id number] 414- [facility] Start: 02-16-2025 End: 08-18-2025 US.doppler Lower extremity vein - bilateral Vas venous duplex lwr bilateral Vascular Ultrasound Routine Other acute pulmonary embolism, unspecified whether acute cor pulmonale present ([facility]) Acute venous embolism and thrombosis of deep vessels of proximal end of right lower extremity ([facility]) Expected: 02/16/2025 (Approximate), Expires: 08/18/2025 [employer] Work Phone: Comment on above: Expected: 02/16/2025 (Approximate), Expires: 08/18/2025 Start: 01-09-2025 End: 01-09-2025 Patient encounter procedure 01/09/2025 9:00 AM EDT Office Visit [facility] [address] [place] [phone] Keaton Medel MD [address] [place] [address], [address] [place], [place] [phone] [facility] Start: 01-01-2025 Fall Risk Screening Fall Risk Screen ing [facility] Start: 01-01-2025 Medicare Annual Wellness Visit Medicare Annual Wellness Visit [facility] Start: 12-09-2024 Adult BMI Screening Adult BMI Screen ing [facility] Start: 11-29-2024 Adult BMI Screening Adult BMI Screen ing [facility] Start: 11-29-2024 Tobacco Screening Tobacco Screening [facility] Start: 11-27-2024 Adult BMI Screening Adult BMI Screen ing [facility] Start: 11-25-2024 Adult BMI Screening Adult BMI Screen ing [facility] Start: 11-25-2024 Tobacco Screening Tobacco Screening [facility] Start: 09-04-2024 End: 09-04-2024 Follow-up encounter 09/04/2024 9:30 AM EST Follow Up Anticoagulation [facility] Medication Therapy Management [address] [place] [phone] [facility] Start: 09-04-2024 End: 09-04-2024 Patient encounter procedure 09/04/2024 8:40 AM EST Office Visit [facility] [address] [place] [phone] Kiara Gil, PHILOSOPHY AND RELIGION INSTRUCTOR-GROUP HOME WORKER [address] [facility], [address] [place], [place] [id number] [facility] Start: 08-25-2024 End: 08-25-2024 Patient encounter procedure 08/25/2024 2:45 PM EST Office Visit [facility] [address] [place] [address] [place] [phone] Stewart Marroquin MD [address] [place] [address] [facility] Start: 08-19-2024 End: 08-19-2024 Follow-up encounter 08/19/2024 10:15 AM EST Follow Up Anticoagulation [facility] Med[facility] Therapy Management [address] [place] [address] [facility] Start: 08-11-2024 End: 08-11-2024 Follow-up encounter 08/11/2024 12:00 PM EST Follow Up Anticoagulation [facility] Medication Therapy Management [address] [place] [address] [facility] Start: 08-11-2024 End: 08-11-2024 Patient encounter procedure 08/11/2024 10:45 AM EST Office Visit [facility] Sarah[address] [phone] Keaton Medel MD [address] [facility], [address] [place] [address] [facility] Start: 08-07-2024 End: 08-07-2024 Anticoagulant drug monitoring 08/07/2024 9:30 AM EST New Anticoagulation [facility] [address] [place] [address] [facility] Start: 07-12-2024 Adult BMI Screening Adult BMI Screen ing [facility] Start: 07-04-2024 Tobacco Screening Tobacco Screening [facility] Start: 07-02-2024 End: 07-02-2024 Patient encounter procedure 07/02/2024 1:45 PM EDT Office Visit [facility] [address] [place] [address] [place] [address] Stewart Marroquin MD [address] [place] [address] [facility] Start: 05-18-2024 COVID-19 Vaccine ( season) COVID-19 Vaccine ( season) [facility] Start: 05-18-2024 Influenza vaccination Influenza Vacc ine [facility] Start: 03-10-2024 End: 03-10-2024 Patient encounter procedure 03/10/2024 9:20 AM EDT Office Visit [facility] [address] [place] [address] Kiara Gil, PHILOSOPHY AND RELIGION INSTRUCTOR-GROUP HOME WORKER [address] [facility], [address] [place], [place] [phone] [facility] Start: 01-02-2024 End: 01-02-2024 Patient encounter procedure 01/02/2024 9:00 AM EDT Office Visit [facility] [address] [place] [phone] Keaton Medel MD [facility], [address] [place], [place] [phone] [facility] Start: 12-10-2023 End: 12-10-2023 Patient encounter procedure 12/10/2023 9:00 AM EDT Office Visit [facility] [address] [place] [phone] Kiara Gil, PHILOSOPHY AND RELIGION INSTRUCTOR-GROUP HOME WORKER [address] [employer] [facility], [address] [place], [place] [phone] [facility] Start: 11-30-2023 End: 11-29-2024 XR Foot - right 3 Views [facility] Work Phone: Comment on above: Expected: 11/30/2023 , Expires: 11/29/2024 Start: 11-30-2023 End: 11-30-2023 Patient encounter procedure 11/30/2023 9:30 AM EDT Office Visit [facility] [address] [place] [phone] Keaton Medel MD [facility], [address] [place], [place] [phone] [facility] Start: 11-29-2023 Medicare Annual Wellness Visit Medicare Annual Wellness Visit [facility] Start: 11-27-2023 Depression Screening Depression Scre ening [facility] Start: 11-27-2023 Fall Risk Screening Fall Risk Screen ing [facility] Start: 02-01-2023 Glaucoma screening Diabetic [facility] Start: 11-05-2020 Urine screening for protein Urine Microalbumin [facility] Start: 08-23-2020 Screening for malign ant neoplasm of colon [facility]oscopy [facility] Start: 1966 DTaP,Tdap and Td Vaccines (1 - Tdap) DTaP,Tdap and Td Vaccines (1 - Tdap) [facility] Start: 1965 Adult BMI Follow Up Plan Adult BMI Follow Up Plan [facility] End: 12-09-2024 Basic metabolic 2000 panel - Serum or Plasma Basic Metabolic Panel Lab Routine CKD (chronic kidney disease) stage 4, GFR 15-29 ml/min ([facility] 1 Occurrences starting 12/10/2023 until 12/09/2024 [facility] Comment on above: 1 Occurrences starti ng 12/10/2023 until 12/09/2024 End: 12-09-2024 CBC panel - Blood by Automated count CBC without diff Lab Routine CKD (chronic kidney disease) stage 4, GFR 15-29 ml/min ([facility] 1 Occurrences starting 12/10/2023 until 12/09/2024 [facility] Comment on above: 1 Occurrences starti ng 12/10/2023 until 12/09/2024 End: 12-09-2024 Magnesium [Mass/volume] in Serum or Plasma Magnesium Lab Routine CKD (chronic kidney disease) stage 4, GFR 15-29 ml/min ([facility] 1 Occurrences starting 12/10/2023 until 12/09/2024 [facility] Comment on above: 1 Occurrences starti ng 12/10/2023 until 12/09/2024 End: 12-09-2024 Parathyroid Hormone, intact Parathyroid Hormone, intact Lab Routine CKD (chronic kidney disease) stage 4, GFR 15-29 ml/min ([facility] 1 Occurrences starting 12/10/2023 until 12/09/2024 [facility] Work Phone: Comment on above: 1 Occurrences starti ng 12/10/2023 until 12/09/2024 End: 12-09-2024 Phosphate [Mass/volume] in Serum or Plasma Phosphorus Lab Routine CKD (chronic kidney disease) stage 4, GFR 15-29 ml/min ([facility]) 1 Occurrences starting 12/10/2023 until 12/09/2024 [facility] Comment on above: 1 Occurrences starti ng 12/10/2023 until 12/09/2024 End: 12-09-2024 Protein creat ratio Protein creat ratio Lab Routine CKD (chronic kidney disease) stage 4, GFR 15-29 ml/min ([facility] 1 Occurrences starting 12/10/2023 until 12/09/2024 [facility] Comment on above: 1 Occurrences starti ng 12/10/2023 until 12/09/2024 End: 12-09-2024 Urinalysis Urinalysis Lab Routine CKD (chronic kidney disease) stage 4, GFR 15-29 ml/min ([facility] 1 Occurrences starting 12/10/2023 until 12/09/2024 [facility] Comment on above: 1 Occurrences starti ng 12/10/2023 until 12/09/2024 End: 12-09-2024 Vitamin D 25 hydroxy Vitamin D 25 hydroxy Lab Routine CKD (chronic kidney disease) stage 4, GFR 15-29 ml/min ([facility] 1 Occurrences starting 12/10/2023 until 12/09/2024 [facility] Comment on above: 1 Occurrences starti ng 12/10/2023 until 12/09/2024 Immunizations Immunization Date Immunization Notes Care Provider Nabor rose 08-07-2024 influenza, high dose seasonal, preservative-free Pmh 1 [facility] 08-22-2023 RSV, recombinant, protein subunit RSVpreF, adjuvant reconstituted, 0.5 mL, PF Maryjane [facility] 06-27-2023 Influenza, High-dose , Quadrivalent Maryjane [facility] 06-27-2023 influenza virus vacc ine, unspecified formulation Jill Verduzco MA [facility] 05-19-2023 zoster vaccine recombinant Maryjane [facility] 01-27-2023 Pneumococcal Conjuga te 20-valent Maryjane [facility] 01-27-2023 zoster vaccine recombinant Maryjane [facility] 06-29-2022 Influenza, High-dose , Quadrivalent Maryjane [facility] 07-16-2021 Influenza, High-dose , Quadrivalent Maryjane [facility] 12-16-2020 COVID-19, mRNA, LNP- S, PF, 100mcg/0.5mL Dose Maryjane [facility] 11-18-2020 COVID-19, mRNA, LNP- S, PF, 100mcg/0.5mL Dose Maryjane [facility] 07-14-2020 influenza, injectabl e, quadrivalent, contains preservative Maryjane [facility] 07-14-2020 Seasonal, quadrivale nt, recombinant, injectable influenza vaccine, preservative free [facility] influenza, high dose seasonal, preservative-free Maryjane [facility] 07-30-2018 influenza, high dose seasonal, preservative-free Maryjane [facility] 07-17-2017 influenza, high dose seasonal, preservative-free Maryjane [facility] 07-04-2016 influenza, injectabl e, quadrivalent, preservative free Maryjane [facility] 08-26-2015 influenza, seasonal, injectable, preservative free Maryjane [facility] 09-01-2014 zoster vaccine, live [facility] 08-04-2014 influenza virus vacc ine, unspecified formulation [facility]2014 pneumococcal conjuga te vaccine, 13 valent Maryjane [facility] 06-11-2013 influenza virus vacc ine, whole virus Maryjane [facility] 09-14-2012 influenza, seasonal, injectable Maryjane [facility] 08-01-2010 influenza virus vacc ine, whole virus Maryjane [facility] 08-26-2002 pneumococcal polysaccharide vaccine, 23 valent Maryjane [facility] Payers Date Payer Category Payer Unknown 2015 Medicare AN[employer]M MEDICARE ANTH MEDICARE ADVANTAGE [id number] 2015-Present [phone] [address] [place] [address] [id number] 2015 Medicare HMO AN[employer]M MEDICARE [id number] 1959 Unknown [id number] 1947 Unknown [id number] 2.16.840.1.494760.3.579.2.593 1947 Unknown [id number] 2.16.840.1.038115.3.579.2.125 9 1947 Unknown [id number] 2.16.840.1.346812.3.579.2.125 9 1947 Unknown [id number] 2.16.840.1.593556.3.579.2.196 1947 Unknown [id number] 2.16.840.1.473514.3.579.2.196 1947 Unknown [id number] 2.16.840.1.933927.3.579.2.128 6 1947 Unknown [id number] 2.16.840.1.369338.3.579.2.128 6 1947 Unknown [id number] 2.16.840.1.095327.3.579.2.128 6 1947 Unknown [id number] 2.16.840.1.276383.3.579.2.128 6 1947 Unknown [id number] 2.16.840.1.402910.3.579.2.128 1947 Unknown [id number] 2.16.840.1.292229.3.579.2.128 1947 Unknown [id number] 2.16.840.1.173186.3.579.2.128 1947 Unknown [id number] 2.16.840.1.745848.3.579.2.128 1947 Unknown [id number] 2.16.840.1.916291.3.579.2.128 1947 Unknown [id number] 2.16.840.1.400965.3.579.2.128 1947 Unknown [id number] 2.16.840.1.791611.3.579.2.128 1947 Unknown [id number] 2.16.840.1.797164.3.579.2.128 1947 Unknown [id number] 2.16.840.1.692327.3.579.2.128 1947 Unknown [id number] 2.16.840.1.216709.3.579.2.128 1947 Unknown [id number] 2.16.840.1.588894.3.579.2.128 1947 Unknown [id number] 2.16.840.1.030155.3.579.2.128 1947 Unknown [id number] 2.16.840.1.795393.3.579.2.128 1947 Unknown [id number] 2.16.840.1.392546.3.579.2.128 1947 Unknown [id number] 2.16.840.1.973820.3.579.2.128 1947 Unknown [id number] 2.16.840.1.944765.3.579.2.128 6 1947 Unknown [id number] 2.16.840.1.796219.3.579.2.128 6 Social History Date Type Detail Facility Start: 11-28-2022 Tobacco smoking status NHIS Never smoked tobacco [facility] Start: 11-28-2022 Tobacco use and exposure Smokeless tobacco non-user [facility] Start: 07-04-2023 End: 08-18-2024 Alcohol intake Current non-drinker of alcohol (finding) [facility] Start: 09-13-2021 End: 07-31-2024 History of Social function [facility] Start: 09-13-2021 End: 07-31-2024 Social connection and isolation panel [facility] Do you belong to any clubs or organizations such as confucianist groups, unions, fraternal or athletic groups, or school groups? Yes [facility] Are you now , , , , never or living with a partner? [facility] How often to you hav e a drink containing alcohol? Never [facility] Average Number of Drinks Not on file [facility] Do you feel stress - tense, restless, nervous, or anxious, or unable to sleep at night because your mind is troubled all the time - these days [OSQ] Only a little [facility] Start: 11-07-2020 Education 12 [facility] Start: 1945 Sex Assigned At Not on file [facility] Has the [employer], or [employer] threatened to shut off services in your home in past 12Mo No [facility] How often to you hav e a drink containing alcohol? Monthly or less [facility] Do you feel stress - tense, restless, nervous, or anxious, or unable to sleep at night because your mind is troubled all the time - these days [OSQ] Very much [facility] Start: 07-31-2024 Alcohol Comment maybe one glass a year of wine for special occasion [facility] Start: 04-22-2015 Sex Female (finding) [facility] Start: 07-31-2024 Gender identity Identifies as female gender (finding) [facility] Start: 07-31-2024 Sexual orientation Heterosexual (finding) [facility] Medical Equipment Procedure Code Equipment Code Equipment Origin al Text Equipment Identifier Dates Implant Hip Mop All Sz Construct Rpl 31664 - Sna - [id number] Start: 12-27-2021 Elminator Hl Drl c Pncl Hip Mrthn - [facility] - [id number] ()[id number])[id number], [id number] FDA Start: 12-27-2021 Articuleze [id number] Start: 12-27-2021 Cup Actb 50mm Pn cl Sect - [facility] - [id number] ()[id number] [id number]( 21)[id number], [id number] FDA Start: 12-27-2021 Stem Fem Corail Amt Collar Size 11 - Sna - [id number] ()[id number] [id number]( 21)[id number], [id number] FDA Start: 12-27-2021 Liner Actb 50mm 32mm Ntrl Altrx - [facility] - [id number] ()[id number] [id number] 1)[id number], [id number] FDA Start: 12-27-2021 Clayton Cancell ous Bone Screw [id number] Start: 12-27-2021 Goals Date Patient Goal Desired [...] safe transition to home with self care Personal health goal Comment on above: Formatting of this n ote might be different from the original. Evaluation of progress towards goal: Patient plans to return home with self care. Clinical Notes 09-20-2023 to 08-19-2024 Susan Naik, [facility] - 08/19/2024 10:15 AM Wai Monet MD - 08/18/2024 10:30 AM Víctor Naik [facility] - 08/11/2024 12:00 PM Bruno Medel MD - 08/11/2024 10:45 AM EST Note Date & Type Note Facility 08-19-2024 History of Presen t illness Narrative 15 minute [id number] follow-up anticoagulation appointment. INR performed in office per protocol. INR 2.6 (goal range: 2.0-3.0). Patient reports: Taking warfarin dosing as documented. Missed or extra doses of warfarin: No Changes to medications: No Changes to lifestyle (diet / alcohol / smoking / activity): No Recent emergency department visit / hospitalization / health changes / new contraindication to current anticoagulant: No Signs/symptoms of bruising/bleeding or clotting or any intolerable adverse events: No Upcoming procedures: No Anticoagulant prescription needed: No Seen referring provider in the last year Duration of therapy reviewed Assessment: INR is remaining stable in therapeutic range on current warfarin regimen. Plan: Patient instructed to continue warfarin 3 mg MWF and 4.5 mg AOD. Check INR in 2 week(s). Patient verbalizes understanding of anticoagulant dosing instructions and information discussed. Dosing regimen, counseling, and follow-up appointment were provided to the patient. Patient reminded to call with questions or any medication changes. Patient instructed to seek medical attention if any major bleeding/bleeding that persists or worsens. Susan Naik [facility] 08/19/24 [id number] documented in this encounter [facility] 08-18-2024 History of Presen t illness Narrative Images from the original note were not included. [address] [id number] Subjective: Patient ID: Maryjo Mandujano is a 78 y.o. female. Chief Complaint Chief Complaint Patient presents with Blood Clot(s) New patient- recent diagnosis of PE and DVT to right lower leg History of Present Illness: This is a 78 year old female with past medical history significant for diabetes, hyperlipidemia, hypertension, obesity, CKD IV, and sciatic pain. The patient presents to the office with newly diagnosed right lower extremity DVT and PE. She states she develop sudden-onset shortness of breath and her family took her to the ER where a V/Q scan showed right upper lobe DVT. Lower extremity venous duplex scan showed right leg DVT. She reports occasional edema in the legs but no significant edema prior to this. She denies prior hospitalizations, long car rides, plane rides, etc. She states she is not as mobile as she used to be due to chronic sciatic pain but does move around during the day. No personal or family history of DVT. She has been wearing compression stockings for a while due to intermittent edema although she has no significant edema today. Patient Active Problem List Diagnosis Disorder of sacrum Lumbosacral spondylosis without myelopathy Recurrent urinary tract infection Urinary incontinence Microscopic hematuria Other proteinuria [place] Hypercholesterolemia Hypertension BMI 40.0-44.9, adult [place] Diabetic retinopathy associated with type 2 diabetes mellitus [place] Right hip pain Fecal impaction [place] Chronic kidney disease, stage 4 (severe) [place] Vertigo Other acute pulmonary embolism, unspecified whether acute cor pulmonale present [place] [facility] (current) use of anticoagulants Acute venous embolism and thrombosis of deep vessels of proximal lower extremity [place] Current Outpatient Medications: acetaminophen (TYLENOL EXTRA STRENGTH) 500 mg tablet, Take 2 tablets (1,000 mg total) by mouth every 6 (six) hours as needed for pain., Disp: 30 tablet, Rfl: 0 amLODIPine (NORVASC) 10 mg tablet, Take 1 tablet (10 mg total) by mouth in the morning., Disp: 90 tablet, Rfl: 3 atorvastatin (LIPITOR) 20 mg tablet, take 1 tablet by mouth in the morning, Disp: 90 tablet, Rfl: 3 B-complex with vitamin C tablet, Take 1 tablet by mouth in the morning., Disp: , Rfl: bumetanide (BUMEX) 2 mg tablet, Take 1 tablet (2 mg total) by mouth daily., Disp: 90 tablet, Rfl: 3 cholecalciferol, vitamin D3, (VITAMIN D3) 5,000 units capsule, Take 1 capsule (5,000 Units total) by mouth in the morning., Disp: 90 capsule, Rfl: 3 coenzyme Q10 30 mg capsule, Take 1 capsule (30 mg total) by mouth in the morning., Disp: , Rfl: cranberry conc-ascorbic acid 4,200-20 mg capsule, Take 1 capsule by mouth in the morning., Disp: , Rfl: garlic 1,000 mg capsule, Take 1 tablet by mouth daily., Disp: , Rfl: glipiZIDE (GLUCOTROL XL) 10 mg 24 hr tablet, take 1 tablet by mouth in the morning, Disp: 90 tablet, Rfl: 3 insulin glargine (LANTUS SOLOSTAR U-100 INSULIN) 100 unit/mL (3 mL) insulin pen, Inject 25 Units under the skin nightly., Disp: 24 mL, Rfl: 3 losartan (COZAAR) 50 mg tablet, Take 1 tablet (50 mg total) by mouth in the morning., Disp: , Rfl: lysine 500 mg tablet, Take 1 tablet (500 mg total) by mouth in the morning., Disp: , Rfl: multivitamin (THERAGRAN) tablet, Take 1 tablet by mouth in the morning., Disp: , Rfl: NON FORMULARY, daily. [place] Beet- red beet supplement for circulation, Disp: , Rfl: vitamin A acetate 3,000 mcg (10,000 unit) tablet, sublingual, Place 1 tablet under the tongue in the morning., Disp: , Rfl: warfarin (COUMADIN) 3 mg tablet, Take 1-1.5 tablets (3-4.5 mg total) by mouth in the evening. 3 mg nightly as directed by the warfarin clinic., Disp: 45 tablet, Rfl: 5 No current facility-administered medications for this visit. Facility-Administered Medications Ordered in Other Visits: iohexol (OMNIPAQUE) 240 mg iodine/mL injection 50 mL, 50 mL, other, Once in imaging, Stewart Marroquin MD Past Medical History: Diagnosis Date Arthritis Chronic kidney disease stage 3 Clotting disorder (CMS-HCC) Diabetes (CMS-HCC) Diabetes mellitus type 2, controlled (CMS-HCC) Hypercholesterolemia Hypertension Obesity Peptic ulceration PONV (postoperative nausea and vomiting) Skin cancer Visual impairment Past Surgical History: Procedure Laterality Date CATARACT EXTRACTION Left CHOLECYSTECTOMY COLONOSCOPY COLONOSCOPY N/A 08/23/2017 Performed by Stewart Sood DO at [facility] CYSTOSCOPY RETROGRADE PYELOGRAM [facility] SOLUTION Bilateral 10/22/2019 Performed by Stewart Marroquin MD at [facility] CYSTOSCOPY [facility] SOLUTION N/A 10/23/2018 Performed by Stewart Marroquin MD at [facility] DILATION AND CURETTAGE OF UTERUS EYE SURGERY several years ago they replaced the fluid in my ri HEEL SPUR SURGERY Right HEEL SPUR SURGERY INJECTION MEDIAL BRANCH NERVE BLOCK: bilat L34 45 mbbx 1 Bilateral 07/13/2017 Performed by Memo Barker MD at [facility] INJECTION MEDIAL BRANCH NERVE BLOCK: bilat L34 45mbb x 1 Bilateral 08/13/2017 Performed by Memo Barker MD at [facility] INJECTION SACROILIAC NERVE: bilat Bilateral 10/26/2017 Performed by Memo Barker MD at [facility] INJECTION SACROILIAC NERVE: bilat si inj x 1 Bilateral 06/18/2017 Performed by Memo Barker MD at [facility] INJECTION SACROILIAC NERVE: bilat SI inj x 1 Bilateral 05/25/2017 Performed by Memo Barker MD at [facility] JOINT REPLACEMENT KNEE ARTHROSCOPY Left repair of meniscus KNEE ARTHROSCOPY Right November or December 2016 POSTERIOR LAMINECTOMY / DECOMPRESSION LUMBAR SPINE RADIOFREQUENCY ABLATION SPINAL Left L3/4, 4/5 RFA Left 09/14/2017 Performed by Memo Barker MD at [facility] RADIOFREQUENCY ABLATION SPINAL: right L34 45rfa Right 08/31/2017 Performed by Memo Barker MD at [facility] RELEASE CARPAL TUNNEL Right 09/24/2018 Performed by Jr Joaquim Taylor DO at [facility] RELEASE TRIGGER FINGER Right 09/24/2018 Performed by Jr Joaquim Taylor DO at [facility] REPLACEMENT TOTAL JOINT HIP Right 12/27/2021 Performed by Joaquim Taylor Jr., DO at [facility] SKIN BIOPSY 06/2016 SKIN CANCER EXCISION from right eyelid SPINE SURGERY 03/2015 Family History Problem Relation Age of Onset Hypertension Mother Alzheimer's disease Mother Diabetes Father Heart disease Father Coronary artery disease Maternal Aunt Coronary artery disease Maternal Uncle Coronary artery disease Maternal Grandmother Arthritis Maternal Grandmother Kidney disease Maternal Grandfather Hypertension Paternal Grandmother Stroke Paternal Grandmother Diabetes Paternal Grandfather Heart disease Paternal Grandfather Breast cancer Neg Hx Social History Socioeconomic History Marital status: Spouse name: Not on file Number of children: Not on file Years of education: Not on file Highest education level: 12th grade Occupational History Not on file Tobacco Use Smoking status: Never Smokeless tobacco: Never Substance and Sexual Activity Alcohol use: No Comment: maybe one glass a year of wine for special occasion Drug use: No Sexual activity: Defer Partners: Male Other Topics Concern Not on file Social History Narrative Not on file Social Drivers of Health Financial Resource Strain: Low Risk (07/31/2024) Overall Financial Resource Strain (CARDIA) Difficulty of Paying Living Expenses: Not hard at all Food Insecurity: No Food Insecurity (07/31/2024) Hunger Screening Food Insecurity - Worry: Never True Food Insecurity - Inability: Never True Transportation Needs: No Transportation Needs (07/31/2024) PRAPARE - Transportation Lack of Transportation (Medical): No Lack of Transportation (Non-Medical): No Physical Activity: Insufficiently Active (07/31/2024) Exercise Vital Sign Days of Exercise per Week: 1 day Minutes of Exercise per Session: 30 min Stress: Stress Concern Present (07/31/2024) [employer] [place] [employer] - Occupational Stress Questionnaire Feeling of Stress : Very much Social Connections: Socially Integrated (07/31/2024) Social Connection and Isolation Panel [NHANES] Frequency of Communication with Friends and Family: More than three times a week Frequency of Social Gatherings with Friends and Family: More than three times a week Attends Muslim Services: More than 4 times per year Active Member of Clubs or Organizations: Yes Attends Club or Organization Meetings: More than 4 times per year Marital Status: Interpersonal Safety: Not At Risk (07/31/2024) Humiliation, Afraid, Rape, and Kick questionnaire Fear of Current or Ex-Partner: No Emotionally Abused: No Physically Abused: No Sexually Abused: No Housing Instability: Low Risk (07/31/2024) Housing Instability Housing Instability: No Allergies Allergen Reactions Tramadol Itching, Dizziness and Vomiting Codeine Phosphate Soluble [Codeine] Dizziness and Nausea Gabapentin Nausea Gluten GI Disturbance Zanaflex [Tizanidine] Nausea The following portions of the patient's history were reviewed and updated as appropriate: allergies, current medications, past family history, past medical history, past social history, past surgical history and problem list. Review of Systems: Review of Systems Constitutional: Negative. HENT: Negative. Eyes: Negative. Respiratory: Negative. Cardiovascular: Positive for leg swelling. Gastrointestinal: Negative. Endocrine: Negative. Genitourinary: Negative. Musculoskeletal: Positive for back pain. Skin: Negative. Allergic/Immunologic: Negative. Neurological: Negative. Hematological: Negative. Psychiatric/Behavioral: Negative. Objective: Vitals BP 171/79 Pulse 99 Wt 101.6 kg (224 lb) BMI 39.68 kg/m Physical Exam Physical Exam Vitals and nursing note reviewed. Constitutional: Appearance: She is well-developed. HENT: Head: Normocephalic and atraumatic. Nose: Nose normal. Mouth/Throat: Mouth: Mucous membranes are moist. Pharynx: Oropharynx is clear. Eyes: Conjunctiva/sclera: Conjunctivae normal. Cardiovascular: Rate and Rhythm: Normal rate and regular rhythm. Pulmonary: Effort: Pulmonary effort is normal. Abdominal: Palpations: Abdomen is soft. Musculoskeletal: General: Normal range of motion. Cervical back: Normal range of motion. Right lower leg: No edema. Left lower leg: No edema. Skin: General: Skin is warm and dry. Capillary Refill: Capillary refill takes less than 2 seconds. Neurological: Mental Status: She is alert and oriented to person, place, and time. Studies Reviewed Venous duplex scan and V/Q scan Lab Results Component Value Date DDIMER 3,499 (H) 07/31/2024 Lab Results Component Value Date GLU 96 08/04/2024 CALCIUM 9.5 08/01/2024 SODIUM 140 08/01/2024 K 4.3 08/01/2024 CO2 25 08/01/2024 BUN 29 (H) 08/01/2024 CREATININE 2.02 (H) 08/01/2024 Lab Results Component Value Date WBC 11.8 (H) 08/03/2024 HGB 10.4 (L) 08/03/2024 HCT 31.3 (L) 08/03/2024 MCV 91 08/03/2024 PLT 255 08/03/2024 Assesment: Maryjo was seen today for blood clot(s). Diagnoses and all orders for this visit: Other acute pulmonary embolism, unspecified whether acute cor pulmonale present ([facility]) Acute venous embolism and thrombosis of deep vessels of proximal end of right lower extremity ([facility] Plan: Plan The patient presents to the office with acute DVT/PE, likely unprovoked although the patient admits to being mostly sedentary during the day. She is on Coumadin. I agree she is a good candidate for lifelong anticoagulation given no real provoking factors for DVT/PE. I encouraged her to continue to wear compression stockings, elevate the legs, and continue to activate her calf muscle pump with calf exercises or light walking to stimulate her calf muscle pump. I will order a venous duplex scan in six months and we will see her back in the office after testing. This note was created with the assistance of a speech recognition program. While intending to generate a timely document that accurately reflects the content of the visit, no guarantee can be provided that every grammatical or spelling mistake has been or will be identified or corrected. Thank you for your understanding. Priti Monet MD [facility] History of Presen t illness Narrative 15 minute [id number] follow-up anticoagulation appointment. INR performed in office per protocol. INR 2.6 (goal range: 2.0-3.0). Patient reports: Taking warfarin dosing as documented. Missed or extra doses of warfarin: No Changes to medications: No Changes to lifestyle (diet / alcohol / smoking / activity): No Recent emergency department visit / hospitalization / health changes / new contraindication to current anticoagulant: No Signs/symptoms of bruising/bleeding or clotting or any intolerable adverse events: No Upcoming procedures: No Anticoagulant prescription needed: YES- Erm[facility] Seen referring provider in the last year Duration of therapy reviewed Assessment: INR is remaining stable in therapeutic range on current warfarin regimen. Patient has had 25.5 mg/7 days with current regimen. We will trial 27 mg/7 days given active clot. May need slight dose reduction back to 25.5 mg/7 days pending response. Plan: Patient instructed to continue warfarin 3 mg MWF and 4.5 mg AOD. Check INR in 1 week(s). Patient verbalizes understanding of anticoagulant dosing instructions and information discussed. Dosing regimen, counseling, and follow-up appointment were provided to the patient. Patient reminded to call with questions or any medication changes. Patient instructed to seek medical attention if any major bleeding/bleeding that persists or worsens. Susan Naik [facility] 08/11/24 [id number] documented in this encounter [facility] 08-11-2024 History of Presen t illness Narrative Subjective Patient ID: Maryjo Mandujano is a 78 y.o. female. Comes in for hospital follow-up. She developed acute shortness of breath and was identified to have right lower extremity proximal DVT with V/Q scanning suggestive of pulmonary embolism. She did not have hemodynamic compromise. Because of her chronic kidney disease it was elected to treat her with IV heparin followed by warfarin. She tolerated that combination well and her INR was therapeutic at discharge. She is being followed by the anticoagulation clinic. She has no specific concerns. The following portions of the patient's history were reviewed and updated as appropriate: allergies, current medications, past family history, past medical history, past social history, past surgical history, problem list, and medication reconciliation was completed including current medication and post discharge medication. Review of Systems Objective Physical Exam Constitutional: Appearance: Normal appearance. Comments: Color is normal. Blood pressure borderline. Cardiovascular: Rate and Rhythm: Normal rate. Pulmonary: Effort: Pulmonary effort is normal. Breath sounds: Normal breath sounds. Musculoskeletal: Right lower leg: No edema. Left lower leg: No edema. Comments: Compression stockings [id number] Assessment/Plan Reviewed with her regarding duration of anticoagulation. Certainly a minimum of 3 months. She did note that sometimes her compression stocking would cut in below her knee and leave and impression. Possibly this could be a contributor but it would be considered, I believe, minor. She has no family history of venous thromboembolic disease or personal history of blood clot or pulmonary embolism. I believe this episode would be considered unprovoked and would lean toward lifelong anticoagulation, as long as tolerated. However, shorter duration anticoagulation might be also considered appropriate. Will get the input of vascular surgery. Further from there. Diagnoses and all orders for this visit: Acute venous embolism and thrombosis of deep vessels of proximal end of right lower extremity ([facility] - [facility] [place], [place]; Future Chronic kidney disease, stage 4 (severe) ([facility]) documented in this encounter [facility] 08-07-2024 History of Presen t illness Narrative 30 minute [id number] new anticoagulation appointment. INR performed in office per protocol. INR 1.9 (goal range: 2.0-3.0). Patient reports: Taking warfarin dosing as documented. Missed or extra doses of warfarin: No Changes to medications: No Changes to lifestyle (diet / alcohol / smoking / activity): No Recent emergency department visit / hospitalization / health changes / new contraindication to current anticoagulant: No Signs/symptoms of bruising/bleeding or clotting or any intolerable adverse events: No Upcoming procedures: No Anticoagulant prescription needed: No Assessment: INR is slightly low following 3 mg doses x2. Patient received 4 doses of 5 mg prior to this for a total of 29 mg/7 days. We will increase dosing to incorporate 4.5 mg doses. INR initially become therapeutic following 20 mg of warfarin. Plan: Patient instructed to increase to warfarin 4.5 mg 08/07, 3 mg 08/08, then 4.5 mg x2. Check INR in 4 day(s). Patient verbalizes understanding of anticoagulant dosing instructions and information discussed. Dosing regimen, counseling, and follow-up appointment were provided to the patient. Patient reminded to call with questions or any medication changes. Patient instructed to seek medical attention if any major bleeding/bleeding that persists or worsens. Patient Education Checklist (Warfarin) (check below if assessed / education provided) Fall risk assessment [] History of falls [] Yes [] No [x] Use assist device, such as walker, cane, wheelchair [x] Yes [] No [x] Fall risk education Warfarin medication information [x] Indications for use [x] Mechanism of action [x] Dose and frequency [x] Duration of therapy Warfarin side effects [x] Risk of bleeding [x] Risk of clotting - missed doses [] Teratogenicity Warfarin monitoring [x] INR - definition and use [x] Therapeutic ranges [x] Compliance [x] Outpatient anticoagulation provider [] First outpatient INR appointment date Warfarin drug interactions [x] Reporting medication changes [x] Medication list up-to-date Communication [x] Notifying [facility] of any major changes with health, diet, medications, recent hospitalizations or upcoming procedures and having patient notify other providers that they are on warfarin Warfarin and diet concerns [x] Vitamin K effects Lifestyle [x] Alcohol consumption affect on INR [] Tobacco use affect on INR Susan Naik [facility] 08/07/24 [id number] documented in this encounter [facility] 08-05-2024 Miscellaneous Notes Transition of Care (*required) *Additional Questions/Concerns Requiring PCP Follow-Up: -Patient has KELLY appointment scheduled on 08/11/24 This documentation is being used for Transition of Care purposes: Yes Goal: Patient will demonstrate a safe transition from hospital to home Diagnosis on Discharge: Other acute pulmonary embolism, unspecified whether acute cor pulmonale present ([facility]) Principal problem Discharge Specialty: Other *Name of Discharging Facility: [facility] Date of Facility Discharge: 07/31/24-08/04/24 Date of Interactive Contact and Name of Textile Conservator: 08/05/24 11:36 am Spoke to patient *Medication Review Completed: No START taking: warfarin (COUMADIN) Medication Reconciliation Questions/Concerns: -Reviewed discharge changes to medications -Declines medications review -Patient picked up medication and started taking as prescribed -Denies questions or concerns *Follow Up Appointments with Providers: Primary: Keaton Medel MD 08/11/24 10:45 am Specialty: [facility]07/24 Specialty: Specialty: Review of Pending Lab/Diagnostic Tests and Plan for Completion: NA Assessment and Support of Treatment Regimen Adherence and Medication Management: -Patient reports feeling tired. Denies SOB, Chest Pain, Heart palpitations, dizziness, and swelling. Denies new or worsening symptoms -Denies questions or concerns Education Provided by ACN to Support Self-Management, Independent Living and ADLs: -Reviewed discharge instructions -call the office for questions, concerns, new, worsening, or recurring S/S -Call 911 or go to ED for urgent issues such as chest pain or sudden dyspnea -Verbalizes understanding of above Communication with Home Health Agencies and Other Services Utilized/Needed by the Patient: NA documented in this encounter [facility] 08-05-2024 Telephone encounter Note Transition of Care (*required) *Additional Questions/Concerns Requiring PCP Follow-Up: -Patient has KELLY appointment scheduled on 08/11/24 This documentation is being used for Transition of Care purposes: Yes Goal: Patient will demonstrate a safe transition from hospital to home Diagnosis on Discharge: Other acute pulmonary embolism, unspecified whether acute cor pulmonale present ([facility]) Principal problem Discharge Specialty: Other *Name of Discharging Facility: [facility] Date of Facility Discharge: 07/31/24-08/04/24 Date of Interactive Contact and Name of Textile Conservator: 08/05/24 11:36 am Spoke to patient *Medication Review Completed: No START taking: warfarin (COUMADIN) Medication Reconciliation Questions/Concerns: -Reviewed discharge changes to medications -Declines medications review -Patient picked up medication and started taking as prescribed -Denies questions or concerns *Follow Up Appointments with Providers: Primary: Keaton Medel MD 08/11/24 10:45 am Specialty: Referral to [facility] 08/07/24 Specialty: Specialty: Review of Pending Lab/Diagnostic Tests and Plan for Completion: NA Assessment and Support of Treatment Regimen Adherence and Medication Management: -Patient reports feeling tired. Denies SOB, Chest Pain, Heart palpitations, dizziness, and swelling. Denies new or worsening symptoms -Denies questions or concerns Education Provided by ACN to Support Self-Management, Independent Living and ADLs: -Reviewed discharge instructions -call the office for questions, concerns, new, worsening, or recurring S/S -Call 911 or go to ED for urgent issues such as chest pain or sudden dyspnea -Verbalizes understanding of above Communication with Home Health Agencies and Other Services Utilized/Needed by the Patient: NA [facility] 08-04-2024 History of Presen t illness Narrative [facility] Medication Therapy Management received a new referral from Dr. Keaton Medel on 08/04/2024. The information below is outlined from the referral: Demographics Maryjo Mandujano 1945 female [facility] clinic location / home health agency: [facility] Anticoagulation Details Indication: DVT, PE Severe thrombophilia: No Active cancer: No INR Target Range: 2.0 - 3.0 Bridging Preference for procedure/surgery: No bridging is necessary per referral Date warfarin started: 07/31/24 Date of next INR required: Daily per inpatient protocol Anticipated duration of therapy: Indefinite Warfarin tablet strength prescribed: 3 mg Current dosing instructions: Begin 3 mg once daily today The dosing calendar is up-to-date to reflect warfarin tablet strength prescribed and current dosing instructions. The patient education checklist will be discussed in depth during the initial [id number] visit with a [facility] clinical pharmacist and/or during the initial phone call during home health. Pertinent information: New referral received for 78 yof who presented to [facility] ED on 07/31/24 with worsening SOB, chest pain. PMH significant for HTN, T2DM, and CKD. D-dimer was found to be elevated at 3499 and venous duplex resulted positive for R-sided DVT. V/Q scan intermediate to high probability of PE as well. No h/o previous VTE. Patient was initiated on heparin gtt and warfarin therapy initiated. Nurse contacted [facility] to report patient to be discharged home later today. Patient is now discharged. INR was therapeutic at 2.2 prior to d/c. Patient is to begin warfarin 3 mg once daily tonight (not given inpatient). Business Administration Professor to contact patient tomorrow to arrange for outpatient INR monitoring at [facility]. Sandee Garcia RPH 08/04/24 1454 documented in this encounter [facility] 08-04-2024 Miscellaneous Notes Nuzhat from [facility] called ([phone]). Patient is discharging home today. Referral is in [facility]. Noted. Please see new anticoagulation encounter for new referral note once referral is processed. documented in this encounter [facility] 08-04-2024 Telephone encounter Note Nuzhat from [facility] called ([phone]). Patient is discharging home today. Referral is in [facility]. [facility] 08-04-2024 Telephone encounter Note Noted. Please see new anticoagulation encounter for new referral note once referral is processed. [facility] 12-10-2023 History of Presen t illness Narrative [...] Arthritis Chronic kidney disease stage 3 Diabetes (CMS-HCC) Hypercholesterolemia Hypertension Skin cancer Visual impairment Surgical History: Past Surgical History: Procedure Laterality Date CATARACT EXTRACTION Left CHOLECYSTECTOMY COLONOSCOPY COLONOSCOPY N/A 08/23/2017 Performed by Stewart Sood DO at [facility] CYSTOSCOPY RETROGRADE PYELOGRAM [facility] SOLUTION Bilateral 10/22/2019 Performed by tSewart Marroquin MD at [facility] CYSTOSCOPY [facility] SOLUTION N/A 10/23/2018 Performed by Stewart Marroquin MD at [facility] DILATION AND CURETTAGE OF UTERUS EYE SURGERY several years ago they replaced the fluid in my ri HEEL SPUR SURGERY Right HEEL SPUR SURGERY INJECTION MEDIAL BRANCH NERVE BLOCK: bilat L34 45 mbbx 1 Bilateral 07/13/2017 Performed by Memo Barker MD at [facility] INJECTION MEDIAL BRANCH NERVE BLOCK: bilat L34 45mbb x 1 Bilateral 08/13/2017 Performed by Memo Barker MD at [facility] INJECTION SACROILIAC NERVE: bilat Bilateral 10/26/2017 Performed by Memo Barker MD at [facility] INJECTION SACROILIAC NERVE: bilat si inj x 1 Bilateral 06/18/2017 Performed by Memo Barker MD at [facility] INJECTION SACROILIAC NERVE: bilat SI inj x 1 Bilateral 05/25/2017 Performed by Memo Barker MD at [facility] KNEE ARTHROSCOPY Left repair of meniscus KNEE ARTHROSCOPY Right November or December 2016 POSTERIOR LAMINECTOMY / DECOMPRESSION LUMBAR SPINE RADIOFREQUENCY ABLATION SPINAL Left L3/4, 4/5 RFA Left 09/14/2017 Performed by Memo Barker MD at [facility] RADIOFREQUENCY ABLATION SPINAL: right L34 45rfa Right 08/31/2017 Performed by Memo Barker MD at [facility] RELEASE CARPAL TUNNEL Right 09/24/2018 Performed by Jr Joaquim Taylor DO at [facility] RELEASE TRIGGER FINGER Right 09/24/2018 Performed by Jr Joaquim Taylor DO at [facility] REPLACEMENT TOTAL JOINT HIP Right 12/27/2021 Performed by Joaquim Taylor Jr., DO at [facility] SKIN BIOPSY 2015 SKIN CANCER EXCISION 2016 [...] min Stress: No Stress Concern Present (09/13/2021) [employer] [place] [employer] - Occupational Stress Questionnaire Feeling of Stress : Only a little Social Connections: Socially Integrated (09/13/2021) Social Connection and Isolation Panel [NHANES] Frequency of Communication with Friends and Family: More than three times a week Frequency of Social Gatherings with Friends and Family: Three times a week Attends Muslim Services: More than 4 times per year [...] mouth in the morning. NON FORMULARY daily. [place] Beet- red beet supplement for circulation coenzyme [...] increase bumex to 2 mg 4. Secondary hyperparathyroidism/hypovitamino sis D: On vitamin-D supplement. Continue to monitor [...] of this patient. Please contact me at [phone] (Office) or [phone] (Answering service) with any questions. JAMES Lee [facility] This note was created with the assistance of a speech-recognition program. Although the intention is to generate a document that actually reflects the content of the visit, no guarantees can be provided that every mistake has been identified and corrected by editing. JAMES Barakat 12/10/23 0903 documented in this encounter [facility] 12-07-2023 Miscellaneous Notes Maryjo called stating [...] the cefdinir antibiotic. documented in this encounter [facility] 12-07-2023 Telephone encounter Note Maryjo called stating that the pressure in both ears is back, she has sinus pressure around her eyes. During the night she went to move from her left side to her right side and got a little dizzy, until she could lay still. She is wondering if something could be called in. Please advise [facility] 12-07-2023 Telephone encounter Note I sent another 5 days of the cefdinir antibiotic. [facility] 12-07-2023 Miscellaneous Notes Spoke with with patient to confirm appt for 12/09, patient has had labs done as well documented in this encounter [facility] 12-07-2023 Telephone encounter Note Spoke with with patient to confirm appt for 12/09, patient has had labs done as well [facility] 12-06-2023 Miscellaneous Notes Refill request documented in this encounter [facility] 12-06-2023 Telephone encounter Note Refill request [facility] 11-30-2023 History of Presen t illness [...] polyneuropathy associated with type 2 diabetes mellitus ([facility]) Acute pain of right foot - X-ray foot right minimum 3 views; Future documented in this encounter [facility] 11-28-2023 Miscellaneous Notes LVM patient to confirm the appointment and remind about the lab work prior to the appt., with Kiara PERES documented in this encounter [facility] 11-28-2023 Telephone encounter Note LVM patient to confirm the appointment and remind about the lab work prior to the appt., with Kiara PERES [facility] 11-27-2023 Note XR CHEST 2 VWS Procedure: Chest x-ray performed Number of views:PA and lateral History:Cough Comparison:12/26/2012 Findings: The heart and lungs show no acute findings, and the mediastinum and marla are grossly negative . Impression: No acute change. Finalized by Susu Siddiqui DO on 11/27/2023 1:51 PM [facility] 11-26-2023 History of Presen t illness Narrative [...] disease, with long-term current use of insulin ([facility] documented in this encounter [facility] 09-20-2023 Miscellaneous Notes Refill request documented in this encounter [facility] 09-20-2023 Telephone encounter Note Refill request [facility] Evaluation note Diagnosis Non-recurrent acute suppurative otitis media of right ear without spontaneous rupture of tympanic membrane- Primary Type 2 diabetes mellitus with stage 4 chronic kidney disease, with long-term current use of insulin [place] [facility] Diagnosis Vertigo- Primary Dizziness and giddiness Non-recurrent acute suppurative otitis media of right ear without spontaneous rupture of tympanic membrane Bronchitis Bronchitis, not specified as acute or chronic Diabetic polyneuropathy associated with type 2 diabetes mellitus ([facility] Acute pain of right foot documented in this encounter [facility]* Diagnosis CKD (chronic kidney disease) stage 4, GFR 15-29 ml/min [place] Primary Chronic kidney disease, Stage IV (severe) documented in this encounter [facility]* Diagnosis Microscopic hematuria- Primary Recurrent urinary tract infection Urinary tract infection, site not specified Microscopic hematuria- Primary Recurrent urinary tract infection Urinary tract infection, site not specified Other proteinuria Microscopic hematuria- Primary Other proteinuria Recurrent urinary tract infection Urinary tract infection, site not specified Recurrent urinary tract infection- Primary Urinary tract infection, site not specified Microscopic hematuria Urinary tract infection with hematuria, site unspecified- Primary Recurrent urinary tract infection Urinary tract infection, site not specified Recurrent urinary tract infection- Primary Urinary tract infection, site not specified Other acute pulmonary embolism, unspecified whether acute cor pulmonale present [place] 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 Long-term (current) use of anticoagulants Acute venous embolism and thrombosis of deep vessels of proximal end of right lower extremity [place] [facility] Diagnosis Microscopic hematuria- Primary Recurrent urinary tract infection Urinary tract infection, site not specified Microscopic hematuria- Primary Recurrent urinary tract infection Urinary tract infection, site not specified Other proteinuria Microscopic hematuria- Primary Other proteinuria Recurrent urinary tract infection Urinary tract infection, site not specified Recurrent urinary tract infection- Primary Urinary tract infection, site not specified Microscopic hematuria Urinary tract infection with hematuria, site unspecified- Primary Recurrent urinary tract infection Urinary tract infection, site not specified Recurrent urinary tract infection- Primary Urinary tract infection, site not specified Other acute pulmonary embolism, unspecified whether acute cor pulmonale present [place] 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 Long-term (current) use of anticoagulants documented in this encounter [facility]* Diagnosis Microscopic hematuria- Primary Recurrent urinary tract infection Urinary tract infection, site not specified Microscopic hematuria- Primary Recurrent urinary tract infection Urinary tract infection, site not specified Other proteinuria Microscopic hematuria- Primary Other proteinuria Recurrent urinary tract infection Urinary tract infection, site not specified Recurrent urinary tract infection- Primary Urinary tract infection, site not specified Microscopic hematuria Urinary tract infection with hematuria, site unspecified- Primary Recurrent urinary tract infection Urinary tract infection, site not specified Recurrent urinary tract infection- Primary Urinary tract infection, site not specified Acute venous embolism and thrombosis of deep vessels of proximal end of right lower extremity [place] Primary Chronic kidney disease, stage 4 (severe) ([facility] documented in this encounter [facility]* Diagnosis Microscopic hematuria- Primary Recurrent urinary tract infection Urinary tract infection, site not specified Microscopic hematuria- Primary Recurrent urinary tract infection Urinary tract infection, site not specified Other proteinuria Microscopic hematuria- Primary Other proteinuria Recurrent urinary tract infection Urinary tract infection, site not specified Recurrent urinary tract infection- Primary Urinary tract infection, site not specified Microscopic hematuria Urinary tract infection with hematuria, site unspecified- Primary Recurrent urinary tract infection Urinary tract infection, site not specified Recurrent urinary tract infection- Primary Urinary tract infection, site not specified Other acute pulmonary embolism, unspecified whether acute cor pulmonale present [place] 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 Long-term (current) use of anticoagulants Acute venous embolism and thrombosis of deep vessels of proximal end of right lower extremity ([facility] documented in this encounter [facility]* Diagnosis Microscopic hematuria- Primary Recurrent urinary tract infection Urinary tract infection, site not specified Microscopic hematuria- Primary Recurrent urinary tract infection Urinary tract infection, site not specified Other proteinuria Microscopic hematuria- Primary Other proteinuria Recurrent urinary tract infection Urinary tract infection, site not specified Recurrent urinary tract infection- Primary Urinary tract infection, site not specified Microscopic hematuria Urinary tract infection with hematuria, site unspecified- Primary Recurrent urinary tract infection Urinary tract infection, site not specified Recurrent urinary tract infection- Primary Urinary tract infection, site not specified Other acute pulmonary embolism, unspecified whether acute cor pulmonale present ([facility] Primary Acute venous embolism and thrombosis of deep vessels of proximal end of right lower extremity ([facility] Diagnosis Microscopic hematuria- Primary Recurrent urinary tract infection Urinary tract infection, site not specified Microscopic hematuria- Primary Recurrent urinary tract infection Urinary tract infection, site not specified Other proteinuria Microscopic hematuria- Primary Other proteinuria Recurrent urinary tract infection Urinary tract infection, site not specified Recurrent urinary tract infection- Primary Urinary tract infection, site not specified Microscopic hematuria Urinary tract infection with hematuria, site unspecified- Primary Recurrent urinary tract infection Urinary tract infection, site not specified Recurrent urinary tract infection- Primary Urinary tract infection, site not specified Other acute pulmonary embolism, unspecified whether acute cor pulmonale present ([facility] Primary [facility] (current) use of anticoagulants Long-term (current) use of anticoagulants [facility] [...] FoundDocuments on File Type Date Recorded 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 Brii hannah Living Will 01/06/2022 3:15 PM Date Activated Date Inactivated Comments 07/31/2024 7:00 PM 08/04/2024 4:18 PM Date Activated Date Inactivated Comments 11/26/2023 3:00 PM 11/28/2023 5:39 PM Date Activated Date Inactivated Comments 01/02/2022 3:08 PM 01/02/2022 9:24 PM Date Activated Date Inactivated Comments 12/27/2021 12:17 PM 12/28/2021 5:57 PM Latest [...] Code 11/26/2023 3:00 PM 11/28/2023 5:39 PM Documents on File Type Date Recorded 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 Brii hannah Living Will 01/06/2022 3:15 PM Date Activated Date Inactivated Comments 07/31/2024 7:00 PM 08/04/2024 4:18 PM Date Activated Date Inactivated Comments 11/26/2023 3:00 PM 11/28/2023 5:39 PM Date Activated Date Inactivated Comments 01/02/2022 3:08 PM 01/02/2022 9:24 PM Date Activated Date Inactivated Comments 12/27/2021 12:17 PM 12/28/2021 5:57 PM Additional Source Comments INFORMATION SOURCE (unrecogn ized section and content) DATE CREATED AUTHOR 08/22/2021 [facility] DATE CREATED AUTHOR AUTHOR'S ORGANIZ ATION 03/16/2024 [facility] DATE CREATED AUTHOR AUTHOR'S ORGANIZ ATION 05/14/2024 [facility] DATE CREATED AUTHOR AUTHOR'S ORGANIZ ATION 08/19/2024 [facility] DATE CREATED AUTHOR AUTHOR'S ORGANIZ ATION 08/21/2024 [facility] Reason for Visit (unrecogniz ed section and content) Reason Onset Date Comments Med Refill 09/20/2023 Reason Comments Dizziness Had left over mecliz ine and took some of those but said it really didn't help0 Earache Right ear Cough Reason Comments transition of care Hospital discharge foot pain Right foot, red and swollen Reason Onset Date Comments Med Refill 12/06/2023 Reason Onset Date Comments Transition Of Care 08/05/2024 Reason Comments Transition Of Care PMH DISCHARGE Reason Comments Blood Clot(s) New patient- recent diagnosis of PE and DVT to right lower leg Specialty Diagnoses / Procedures Referred By Zoe colvin Referred To Contact Vascular Surgery Diagnoses Acute venous embolism and thrombosis of deep vessels of proximal end of right lower extremity ([facility]) Keaton Medel MD [address] [place] [address], [address] [place] [address] Phone: tel: fax: [facility] [place] [address] [place] [address] Phone: tel:[phone] fax: Referral ID Status Reason Start Date Expiration Date V isits Requested Visits Authorized [id number] Closed Specialty Services Required 08/11/2024 08/11/2025 1 1 Care Teams (unrecognized sec tion and content) Autoclave Operator Relationship Specialty Start Date End Date Keaton Medel MD [address] [place] [address], [address] [place] [address] PCP - General Pediatrics 04/19/17 Autoclave Operator Relationship Specialty Start Date End Date Keaton Medel MD [address] [place] [address], [address] [place], [place] [id number] PCP - General Pediatrics 04/19/17 Autoclave Operator Relationship Specialty Start Date End Date Keaton Medel MD [address] [place] [address], [address] [place] [address] PCP - General Pediatrics 04/19/17 Autoclave Operator Relationship Specialty Start Date End Date Keaton Medel MD [address] [place] [address], [address] [place] [address] PCP - General Pediatrics 04/19/17 Autoclave Operator Relationship Specialty Start Date End Date Keaton Medel MD [address] [place] [address], [address] [place] [address] PCP - General Pediatrics 04/19/17 Autoclave Operator Relationship Specialty Start Date End Date Keaton Medel MD [address] [place] [address], [address] [place] [address] PCP - General Pediatrics 04/19/17 Autoclave Operator Relationship Specialty Start Date End Date Keaton Medel MD [address] [place] [address], [address] [place] [address] PCP - General Pediatrics 04/19/17 Autoclave Operator Relationship Specialty Start Date End Date Keaton Medel MD [address] [place] [address], [address] [place] [address] PCP - General Pediatrics 04/19/17 Autoclave Operator Relationship Specialty Start Date End Date Keaton Medel MD [address] [place] [address], [address] [place] [address] PCP - General Pediatrics 04/19/17 Autoclave Operator Relationship Specialty Start Date End Date Keaton Medel MD [address] [place] [address], [address] [place] [address] PCP - General Pediatrics 04/19/17 Autoclave Operator Relationship Specialty Start Date End Date Keaton Medel MD [address] [place] [address], [address] [place] [address] PCP - General Pediatrics 04/19/17 Autoclave Operator Relationship Specialty Start Date End Date Keaton Medel MD [address] [place] [address], [address] [place] [address] PCP - General Pediatrics 04/19/17 Autoclave Operator Relationship Specialty Start Date End Date Keaton Medel MD [address] [place] [address], [address] [place] [address] PCP General Pediatrics 04/19/17 Autoclave Operator Relationship Specialty Start Date End Date Keaton Medel MD [address] [place] [address], [address] [place] [address] PCP - General Pediatrics 04/19/17 Autoclave Operator Relationship Specialty Start Date End Date Keaton Medel MD [address] [place] [address], [address] [place] [address] [facility] General Pediatrics 04/19/17 FOR RECORDS PERTAINING TO [...] BE BASED ON THE PRIMARY CLINICAL RECORDS. [facility] [employer] [facility]. provides no warranty or guarantee of the accuracy or completeness of information in this document.
--- NOTE | 2024-08-27 11:21 | P.CN_ITS ---
Consult Note: HPI Data of Consult Patient: known to practice within the last 3 years Consult date: 03/24/24 Requesting Physician: Ching Wylie NP Primary Care Provider: KEATON MEDEL Consult Narrative Reason for consult: f/u Narrative: 78yof who presents for evaluation. longstanding low back history, now has sympt oms that radiate into bilateral lower extremities. has completed physical therapy and continues in chiropractic therapy >6 weeks, without lasting benefit. has tried various pain medications and muscle relaxers, but was unable to tolerate. cannot take nsaids due to decreased kidney function and now on coumadin. uses primarily tylenol. previously underwent bilateral L4/5 TFESI and L5/S1 TFESI with >50% improvement in pain and functional ability. Patient reporting moderate to severe pain and cramping at bedtime impacting sleep, has failed gabapentin in the past. pt was unable to tolerate flexeril due to irregular heart rate. 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 ?I15.8 - Other secondary hypertension (ICD-10) ?Q25.1 - Coarctation of aorta (ICD-10) Upper back pain ?M54.9 - Dorsalgia, unspecified (ICD-10) Osteoarthritis ?M19.90 - Unspecified osteoarthritis, unspecified site (ICD-10) Neck pain ?M54.2 - Cervicalgia (ICD-10) Low back pain ?M54.50 - Low back pain, unspecified (ICD-10) Obesity ?E66.9 - Obesity, unspecified (ICD-10) H/O renal failure ?Z87.448 - Personal history of other diseases of urinary system (ICD-10) Diabetes ?E11.9 - Type 2 diabetes mellitus without complications (ICD-10) H/O renal calculi ?Z87.442 - Personal history of urinary calculi (ICD-10) High cholesterol ?E78.00 - Pure hypercholesterolemia, unspecified (ICD-10) Hypertension ?I10 - Essential (primary) hypertension (ICD-10) Surgical History Status post surgical removal of malignant neoplasm of skin ?Z98.890 - Other specified postprocedural states (ICD-10) H/O lumbosacral spine surgery ?Z98.890 - Other specified postprocedural states (ICD-10) History of cholecystectomy ?Z90.49 - Acquired absence of other specified parts of digestive tract (ICD- 10) H/O carpal tunnel repair ?Z98.890 - Other specified postprocedural states (ICD-10) H/O cataract extraction ?Z98.49 - Cataract extraction status, unspecified eye (ICD-10) Meds Home Medications and Allergies Home Medications ?Medication ?Instructions ?Recorded ?Confirmed ?Type amlodipine 10 mg tablet 10 mg PO DAILY 03/24/24 05/12/24 History atorvastatin 20 mg tablet 20 mg PO DAILY 03/24/24 05/12/24 History bumetanide 2 mg tablet 2 mg PO DAILY 03/24/24 05/12/24 History cefadroxil 500 mg capsule 500 mg PO BID PRN INFECTION 03/24/24 05/12/24 History cholecalciferol (vitamin D3) 100 4,000 unit PO DAILY 03/24/24 05/12/24 History mcg (4,000 unit) capsule coQ10 (ubiquinol) 100 mg capsule 100 mg PO DAILY 03/24/24 05/12/24 History garlic 1,000 mg capsule 1,000 mg PO DAILY 03/24/24 05/12/24 History glipizide 10 mg tablet 10 mg PO DAILY 03/24/24 05/12/24 History insulin glargine 100 unit/mL 25 unit subcut DAILY 03/24/24 05/12/24 History subcutaneous solution (Lantus U-100 Insulin) losartan 25 mg tablet 25 mg PO DAILY 03/24/24 05/12/24 History lysine 500 mg capsule 50 mg .QD 03/24/24 History multivitamin 1 tab PO DAILY 03/24/24 05/12/24 History therapeutic multivitamin 1 tab PO BID 03/24/24 05/12/24 History vitamin A 2,400 mcg capsule 2,400 mcg PO DAILY 03/24/24 05/12/24 History vitamin B complex 1 cap PO DAILY 03/24/24 05/12/24 History Allergies Allergy/AdvReac Type Severity Reaction Status Date / Time erythromycin base AdvReac Mild Nausea Verified 05/12/24 10:51 gluten AdvReac Mild INTOLERANCE Verified 05/12/24 10:51 tramadol AdvReac Mild Nausea Verified 05/12/24 10:51 Exam Constitutional Documenting provider has reviewed patient's vital signs: yes Common normals: no apparent distress, oriented x3, healthy appearing, alert and well nourished General appearance: cooperative HENMT Common normals: normocephalic, hearing grossly normal bilaterally and moist oral mucous membranes Head and scalp: normocephalic Eye Common normals: PERRL Pupil: PERRL Neck & C-Spine Common normals: full ROM General: normal visual inspection Chest Common normals: inspection of chest normal Respiratory Common normals: normal respiratory effort, no retractions and no use of accessory muscles Back & Pelvis Lumbar spine/lower back: normal to inspection, lumbar ROM normal, pain with ROM and straight leg raise negative bilaterally Sacroiliac joints: SI joints normal Extremity Common normals: normal to inspection and full ROM Neuro Common normals: oriented x3, CN's II-XII intact bilaterally, moves all extremities, no focal motor deficits, no sensory deficits noted and deep tendon reflexes 2+ bilaterally Sensorium/orientation: alert Motor exam: strength 5/5 throughout and no movement abnormalities noted Psych Common normals: mental status grossly normal, thought process normal, cooperative, affect normal, speech normal and activity/motor behavior normal Speech: normal speech Thought process: normal thought process Results Additional Findings Additional findings: If on a controlled substance or opioids, I have checked an [facility] report on this patient and there are no aberrancies noted in the prescribing history.??If on a controlled substance or opioid a drug screen was completed and reviewed within the last year, and if there has not been a drug screen completed we ordered one today to monitor higher risk, state monitored pain medication use. As part of providing excellent, safe, comprehensive care, the following was completed at our patient's visit: 1. A medication reconciliation and review to ensure accurate knowledge of current/active medications, including asking our patients to inform us about any [id number] medications or herbal remedies/nutritional supplements/alternative remedies. 2. A review to specifically ensure our patients have had annual screening for screening for depression, screening for tobacco use, and screening for unhealthy alcohol use. For concerning screenings had a discussion with the patient, provided patient education, and recommended follow-up with primary care provider when appropriate. If patient noted with a risk of falling, they received education on strength, gait, and balance training to prevent future risk of falling. Assessment and Plan Assessment and Plan (1) Lumbar stenosis with neurogenic claudication: Assessment and Plan: >90% improvement ongoing from bilateral L4-5 TFESI and bilateral L5-S1 TFESI (2) Myofascial pain: (3) Lumbar spondylosis: Plan start baclofen 5-10mg TID PRN pain/spasms defer interventional therapy at this time, with now being on coumadin she was told by ordering provider she could not have injections for 6 months however we do not require a blood thinner hold continue to utilize cane, 1 fall within 12 months without injury continue f/u with PCP, hx of CKD avoid NSAIDs f/u 3 months, sooner if needed
== END 2024-08-27 10:51 | disposition home or self-care (01) ==
PROVIDERS: PCP Internal Medicine; Visit Provider Nurse Practitioner
DX: M48.062 Spinal stenosis, lumbar region with neurogenic claudication (principal); M79.18 Myalgia, other site; M47.816 Spondylosis without myelopathy or radiculopathy, lumbar region
CPT/HCPCS: G0463

== ENCOUNTER 2024-11-26 10:47 | Outpatient (OUT) | payer MEDICARE, SELFPAY ==
--- OUTSIDE RECORDS SUMMARY | 2024-11-26 11:05 | XMS_ITS | CCD ---
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 Name Role Phone ZACH, DR MARCH Consulting Unavailable HIESTAND, DR KEATON Emerson Primary Care Unavailable ZACH, DR MARCH Attending Unavailable STEPANIC, DR MARCH Admitting Unavailable ZIEBER, DR KALANI Cruz Consulting Unavailable YESIKA WARD Attending Unavailable YESIKA WARD Referring Unavailable Zeyad EDWARDS, Jani Sorto Attending Unavailable Zeyad EDWARDS, Jani Sorto Attending Unavailable Keaton Medel MD Primary Care Provider KEATON MEDEL Attending Unavailable KEATON MEDEL Referring [...] Referring Unavailable KEATON MEDEL Primary Care Unavailable PETE LORA Attending Unavailable KEATON MEDEL Referring Unavailable KEATON MEDEL Primary Care Unavailable KEATON MEDEL Attending Unavailable KEATON MEDEL Referring Unavailable KEATON MEDEL Primary Care Unavailable KEATON MEDEL Admitting Unavailable KEATON MEDEL Attending Unavailable KEATON MEDEL Referring Unavailable KEATON MEDEL Primary Care Unavailable KEATON MEDEL Attending Unavailable KEATON MEDEL Referring Unavailable KEATON MEDEL Primary Care Unavailable HIESTAND, KEATON Emerson Attending Unavailable HIESTAND, KEATON Emerson Referring Unavailable HIESTAND, KEATON Emerson Primary Care Unavailable HIESTAND, KEATON Emerson Referring Unavailable HIESTAND, KEATON Emerson Primary Care Unavailable HIESTAND, KEATON Emerson Referring Unavailable HIESTAND, KEATON Emerson Primary Care Unavailable HIESTAND, KEATON Emerson Referring Unavailable HIESTAND, KEATON Emerson Primary Care Unavailable HIESTAND, KEATON Emerson Attending Unavailable HIESTAND, KEATON Emerson Referring Unavailable HIESTAND, KEATON Emerson Primary Care Unavailable OBERNEDER, MUSA R Referring Unavailable HIESTAND, KEATON Emerson Primary Care Unavailable OBERNEDER, MUSA R Referring Unavailable HIESTAND, KEATON Emerson Primary Care Unavailable OBERNEDER, MUSA R Referring Unavailable HIESTAND, KEATON Emerson Primary Care Unavailable HIESTAND, KEATON Emerson Primary Care Unavailable DEMIAN JAY Attending Unavailable HIESTAND, KEATON Emerson Admitting Unavailable SERVICE, WANDA Referring Unavailable HIESTAND, KEATON Emerson Primary Care Unavailable HIESTAND, KEATON Emerson Referring Unavailable HIESTAND, KEATON Emerson Primary Care Unavailable HIESTAND, KEATON Emerson Referring Unavailable HIESTAND, KEATON Emerson Primary Care Unavailable OBERNEDER, MUSA R Referring Unavailable HIESTAND, KEATON Emerson Primary Care Unavailable HIESTAND, KEATON Emerson Referring Unavailable HIESTAND, KEATON Emerson Primary Care Unavailable HIESTAND, KEATON Emerson Referring Unavailable HIESTAND, KEATON Emerson Primary Care Unavailable HIESTAND, KEATON Emerson Referring Unavailable HIESTAND, KEATON Emerson Primary Care Unavailable HIESTAND, KEATON Emerson Referring Unavailable HIESTAND, KEATON Emerson Primary Care Unavailable Allergies Allergy Classification Reported Allergen(s) Allergy Type Date of Onset Reaction(s) Facility (9 sources) Codeine; 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: [CODEINE] Drug Allergy 05-10-2021 Dizziness, Nausea [facility] (7 sources) gabapentin; 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: [GABAPENTIN] Drug Allergy 10-22-2019 Nausea [facility] (7 sources) tiZANidine; 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: [TIZANIDINE] Drug Allergy 04-19-2017 Nausea [facility] (9 sources) traMADol; 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: [TRAMADOL] Drug Allergy 01-10-2018 Itching, Dizziness, Vomiting [facility] Work Phone: (7 sources) Wheat gluten extract; 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: [GLUTEN] Drug Allergy 12-01-2021 GI Disturbance [facility] Medications Current Medications Medication Drug Class(es) Dates Sig (Normalized) Sig (Original) acetaminophen 500 mg oral tablet (5 sources) Start: 01-02-2022 take 2 tablets by mouth every six hours as needed for pain acetaminophen (TYLENOL EXTRA STRENGTH) 500 mg tablet Take 2 tablets (1,000 mg total) by mouth every 6 (six) hours as needed for pain. 30 tablet 01/02/2022 Active amLODIPine 10 mg oral tablet (5 sources) Dihydropyridine Calcium Channel Abran Start: 03-10-2024 take 1 tablet by mouth in the morning amLODIPine (NORVASC) 10 mg tablet Take 1 tablet (10 mg total) by mouth in the morning. 90 tablet 3 03/10/2024 Active atorvastatin 20 mg oral tablet (5 sources) HMG-CoA Reductase Inhibitor Start: 02-12-2024 take 1 tablet by mouth in the morning atorvastatin (LIPITOR) 20 mg tablet take 1 tablet by mouth in the morning 90 tablet 3 02/12/2024 Active B-complex with vitamin C tablet (5 sources) take 1 tablet by mouth in the morning B-complex with vitamin C tablet Take 1 tablet by mouth in the morning. Active bisacodyl 5 mg delayed release oral tablet (2 sources) Stimulant Laxative Start: 11-20-2024 take 2 tablets by mouth every other day as needed for constipation bisacodyL (DULCOLAX, BISACODYL,) 5 mg EC tablet Indications: Constipation, unspecified constipation type Take 2 tablets (10 mg total) by mouth every other day as needed for constipation. 30 tablet 11/20/2024 Active bumetanide 2 mg oral tablet (6 sources) Loop Diuretic Start: 09-04-2024 take 1 tablet by mouth twice daily before mealtime bumetanide (BUMEX) 2 mg tablet Take 1 tablet (2 mg total) by mouth 2 (two) times a day before meals. 180 tablet 3 09/04/2024 Active Start: 12-10-2023 End: 09-04-2024 take 1 tablet by mouth once daily bumetanide (BUMEX) 2 mg tablet Take 1 tablet (2 mg total) by mouth daily. 90 tablet 3 12/10/2023 09/04/2024 Discontinued (Reorder) calcitriol 0.08967 mg oral capsule (5 sources) Vitamin D3 Analog Start: 09-04-2024 take 1 capsule by mouth every other day calcitrioL (ROCALTROL) 0.25 MCG capsule Take 1 capsule (0.25 mcg total) by mouth every other day. 45 capsule 3 09/04/2024 Active cefadroxil 500 mg oral capsule (5 sources) Cephalosporin Antibacterial Start: 08-25-2024 End: 09-09-2025 cefaDROXil (DURICEF) 500 mg capsule 1 tablet twice a day, for 5 days. Start for sign of infection. 60 capsule 08/25/2024 09/09/2025 Active cholecalciferol 0.125 mg oral capsule (5 sources) Vitamin D Start: 03-10-2024 take 1 capsule by mouth in the morning cholecalciferol, vitamin D3, (VITAMIN D3) 5,000 units capsule Take 1 capsule (5,000 Units total) by mouth in the morning. 90 capsule 3 03/10/2024 Active cranberry conc-ascorbic acid 4,200-20 mg capsule (5 sources) take 1 capsule by mouth in the morning cranberry conc-ascorbic acid 4,200-20 mg capsule Take 1 capsule by mouth in the morning. Active garlic preparation 1000 mg oral capsule (5 sources) Non-Standardized Food Allergenic Extract take 1 tablet by mouth once daily garlic 1,000 mg capsule Take 1 tablet by mouth daily. Active glipiZIDE er 10 mg 24 hr extended release oral tablet (5 sources) Sulfonylurea Start: 02-12-2024 take 1 tablet by mouth every twenty-four hours in the morning glipiZIDE (GLUCOTROL XL) 10 mg 24 hr tablet take 1 tablet by mouth in the morning 90 tablet 3 02/12/2024 Active 3 ml insulin glargine 100 unt/ml pen injector (5 sources) Insulin Analog Start: 12-06-2023 insulin glargine (LANTUS SOLOSTAR U-100 INSULIN) 100 unit/mL (3 mL) insulin pen Inject 25 Units under the skin nightly. 24 mL 3 12/06/2023 Active losartan potassium 50 mg oral tablet (5 sources) Angiotensin 2 Receptor Abran Start: 03-10-2024 take 1 tablet by mouth in the morning losartan (COZAAR) 50 mg tablet Take 1 tablet (50 mg total) by mouth in the morning. 03/10/2024 Active lysine 500 mg oral tablet (5 sources) take 1 tablet by mouth in the morning lysine 500 mg tablet Take 1 tablet (500 mg total) by mouth in the morning. Active multivitamin (THERAGRAN) tablet (5 sources) take 1 tablet by mouth in the morning multivitamin (THERAGRAN) tablet Take 1 tablet by mouth in the morning. Active NON FORMULARY (5 sources) NON FORMULARY kari davis. [place] Beet- red beet supplement for circulation Active omeprazole 20 mg delayed release oral capsule (2 sources) Proton Pump Inhibitor Start: 11-20-2024 take 1 capsule by mouth in the morning omeprazole (PriLOSEC) 20 mg capsule Indications: Gastroesophageal reflux disease, unspecified whether esophagitis present Take 1 capsule (20 mg total) by mouth in the morning. 30 capsule 11/20/2024 Active ubidecarenone 30 mg oral capsule (5 sources) take 1 capsule by mouth once in the morning coenzyme Q10 30 mg capsule Take 1 capsule (30 mg total) by mouth in the morning. Active retinol acetate 95992 unt sublingual tablet (5 sources) Vitamin A take 1 tablet under the tongue in the morning vitamin A acetate 3,000 mcg (10,000 unit) tablet, sublingual Place 1 tablet under the tongue in the morning. Active warfarin sodium 3 mg oral tablet (5 sources) Vitamin K Antagonist Start: 08-11-2024 take 1 tablet by mouth once daily warfarin (COUMADIN) 3 mg tablet Indications: Other acute pulmonary embolism, unspecified whether acute cor pulmonale present ([facility]) Take 1-1.5 tablets (3-4.5 mg total) by mouth in the evening. 3 mg nightly as directed by the warfarin clinic. 45 tablet 5 08/11/2024 Active Problems Active Problems Problem Classification Problem Date Documented Da te Episodic/Chronic Chronic kidney disease (8 sources) Chronic kidney disease stage 4; 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: [Chronic kidney disease, stage 4 (severe)] Onset: 1 09-04-2024 Chronic Diabetes mellitus with complications (7 sources) Retinopathy due to type 2 diabetes mellitus; 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: [Type 2 diabetes mellitus with unspecified diabetic retinopathy without macular edema] Onset: 1 11-11-2021 Chronic Diabetes mellitus without complication (5 sources) Diabetes mellitus; 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: [Type 2 diabetes mellitus without complications] 11-10-2020 Chronic Disorders of lipid metabolism (7 sources) Hypercholesterolemia; 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: [Pure hypercholesterolemia, unspecified] Onset: 1 11-10-2020 Chronic Esophageal disorders (2 sources) Gastroesophageal reflux disease; 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: [Gastro-esophageal reflux disease without esophagitis] Onset: 5 11-20-2024 Chronic Essential hypertension (6 sources) Hypertensive disorder; 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: [Essential (primary) hypertension] Onset: 1 11-10-2020 Chronic Genitourinary symptoms and ill-defined conditions (5 sources) Urinary incontinence; 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: [Unspecified urinary incontinence] Onset: 9 06-25-2019 Chronic Osteoarthritis (4 sources) Unilateral primary osteoarthritis, right hip; 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: [UNI PRIM OSTEOARTHRITIS RT HIP] Onset: 1 Chronic Other aftercare (8 sources) Long-term current use of anticoagulant; 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: [halfway (current) use of anticoagulants] Onset: 4 08-04-2024 Episodic Other gastrointestinal disorders (1 source) Constipation, unspecified; 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: [Constipation, unspecified] Onset: 5 Episodic Other nutritional; endocrine; and metabolic disorders (5 sources) Body mass index 40+ - severely obese; 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: [Body mass index (BMI) 40.0-44.9, adult] Onset: 1 12-01-2020 Chronic Other nutritional; endocrine; and metabolic disorders (1 source) Body mass index (BMI) 40.0-44.9, adult; 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: [Body mass index (BMI) 40.0-44.9, adult] Onset: 1 Chronic Spondylosis; intervertebral disc disorders; other back problems (5 sources) Lumbosacral spondylosis without myelopathy; 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: [Spondylosis without myelopathy or radiculopathy, lumbosacral region] Onset: 7 08-21-2017 Chronic Unclassified (1 source) Blood Clot(s) Onset: 4 Unclassified (2 sources) Transition Of Care Onset: 4 Unclassified (1 source) Annual Exam Onset: 4 Unclassified (1 source) Earache Onset: 4 Past or Other Problems Problem Classification Problem Date Documented Da te Episodic/Chronic Abdominal pain (1 source) Abdominal pain Onset: 06-10-2024 Episodic Conditions associated with dizziness or vertigo (8 sources) Vertigo; 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: [Dizziness and giddiness] Onset: 11-26-2023 11-26-2023 Episodic Genitourinary symptoms and ill-defined conditions (10 sources) Microscopic hematuria; 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: [Other microscopic hematuria] Onset: 07-18-2019 06-27-2021 Episodic Intestinal obstruction without hernia (5 sources) Fecal impaction; 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: [Fecal impaction] Onset: 01-02-2022 01-02-2022 Episodic Malaise and fatigue (1 source) Other fatigue; 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: [Other fatigue] Onset: 01-03-2024 Episodic Mood disorders (5 sources) Mood disorders Onset: 07-31-2024 07-31-2024 Nonspecific chest pain (1 source) Chest pain Onset: 07-31-2024 Episodic Other aftercare (2 sources) halfway (current) use of insulin; 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: [halfway (current) use of insulin] Onset: 11-10-2020 Episodic Other aftercare (1 source) halfway (current) use of anticoagulants; 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: [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] Onset: 08-04-2024 Episodic Other circulatory disease (1 source) Other specified symptoms and signs involving the circulatory and respiratory systems; 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: [Other specified symptoms and signs involving the circulatory and respiratory systems] Onset: 01-04-2024 Episodic Other connective tissue disease (1 source) Pain in right foot; 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: [Pain in right foot] Onset: 11-30-2023 Episodic Other gastrointestinal disorders (3 sources) Constipation; 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: [Constipation, unspecified] Onset: 06-10-2024 11-21-2024 Episodic Other lower respiratory disease (1 source) Cough Onset: 11-26-2023 Episodic Other lower respiratory disease (1 source) Shortness of breath; 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: [Shortness of breath] Onset: 07-31-2024 Episodic Other lower respiratory disease (1 source) Shortness of breath Onset: 07-31-2024 Episodic Other non-traumatic joint disorders (5 sources) Hip pain; 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: [Pain in right hip] Onset: 12-26-2021 12-26-2021 Episodic Other upper respiratory infections (1 source) Acute sinusitis, unspecified; 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: [Acute sinusitis, unspecified] Onset: 04-22-2024 Episodic Otitis media and related conditions (1 source) Acute suppurative otitis media without spontaneous rupture of ear drum, right ear; 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: [Acute suppurative otitis media without spontaneous rupture of ear drum, right ear] Onset: 11-26-2023 Episodic Phlebitis; thrombophlebitis and thromboembolism (7 sources) Thromboembolism of vein; 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: [Acute embolism and thrombosis of unspecified deep veins of unspecified proximal lower extremity] Onset: 08-04-2024 08-04-2024 Episodic Pulmonary heart disease (10 sources) Acute pulmonary embolism; 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: [Other pulmonary embolism without acute cor pulmonale] Onset: 07-31-2024 07-31-2024 Episodic Spondylosis; intervertebral disc disorders; other back problems (5 sources) Disorder of sacrum; 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: [Sacrococcygeal disorders, not elsewhere classified] Onset: 06-12-2017 10-16-2017 Episodic Urinary tract infections (6 sources) Recurrent urinary tract infection; 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: [Urinary tract infection, site not specified] Onset: 08-14-2018 08-25-2024 Episodic Results Test Name Value Interpretation Reference Range Facility POCT Protime / INRon 11-24-2 025 INR Coag (PPP) [Relative time] 1.5 {INR} Abnormal 0.8 - 1.2 [facility] Interpretation and review of laboratory results Abnormal [facility] POCT Protime / INRon 10-24-2 025 INR Coag (PPP) [Relative time] 2 {INR} Abnormal 0.8 - 1.2 [facility] Interpretation and review of laboratory results Abnormal [facility] POCT Protime / INRon 09-25- 025 INR Coag (PPP) [Relative time] 2 {INR} Abnormal 0.8 - 1.2 [facility] Interpretation and review of laboratory results Abnormal [facility] BASIC METABOLIC PANLon 08-28 Anion gap [Moles/Vol] 8 mmol/L Normal 5-15 [facility] Comment on above: Performed By: #### B MP #### [facility] ([id number]) [address] [place] [address] 08125 Calcium [Mass/Vol] 9.6 mg/dL Normal 8.5-10.5 [facility] Comment on above: Performed By: #### B MP #### [facility] ([id number]) [address] [place] [address] 37795 Chloride [Moles/Vol] 106 mmol/L Normal 98-109 [facility] Comment on above: Performed By: #### B MP #### [facility] ([id number]) [address] [place] [address] 68536 CO2 [Moles/Vol] 27 mmol/L Normal 22-32 [facility] Comment on above: Performed By: #### B MP #### [facility] ([id number]) [address] [place] [address] 39467 Creatinine [Mass/Vol] 2.78 mg/dL High 0.40-1.00 [facility] Comment on above: Result Comment: METH OD TRACEABLE TO IDMS STANDARD Performed By: #### B MP #### [facility] ([id number]) [address] [place] [address] 85016 GFR/1.73 sq M.predicted among non-blacks MDRD (S/P/Bld) [Vol rate/Area] 17 mL/min/{1.73_m2} Low >59 [facility] Comment on above: Result Comment: Reported eGFR is based on the CKD-EPI 1 equation that does not use a race coefficient. Performed By: #### B MP #### [facility] ([id number]) [address] [place] [address] 27683 Glucose [Mass/Vol] 119 mg/dL High 65-99 [facility] Comment on above: Performed By: #### B MP #### [facility] ([id number]) [address] [place] [address] 15925 Potassium [Moles/Vol] 5.2 mmol/L High 3.5-5.0 [facility] Comment on above: Performed By: #### B MP #### [facility] ([id number]) [address] [place] [address] 67940 Sodium [Moles/Vol] 141 mmol/L Normal 134-146 [facility] Comment on above: Performed By: #### B MP #### [facility] ([id number]) [address] [place] [address] 63670 Urea nitrogen [Mass/Vol] 64 mg/dL High 5-27 [facility] Comment on above: Performed By: #### B MP #### [facility] ([id number]) [address] [place] [address] 19586 COMPLETE BLOOD COUNT 08-28 Erythrocyte distribution width (RBC) [Ratio] 13.8 % Normal 11.5-15.0 [facility] Comment on above: Performed By: #### C ASHLYN, BMP, 27306-0, 2777-1, UPCR, 2731-8, 67414-3 ####[facility] ([id number])[address], [address] [place] [address]308 Hematocrit (Bld) [Volume fraction] 32.9 % Low 35-47 [facility] Comment on above: Performed By: #### C BC, BMP, 36350-5, 7-1, UPCR, 2731-8, 46104-4 ####[facility] ([id number])[address], [address] [place] [address] 13036 Hemoglobin (Bld) [Mass/Vol] 11.1 g/dL Low 11.7-15.5 [facility] Comment on above: Performed By: #### C BC, BMP, 35326-7, 2777-1, UPCR, 2731-8, 96125-4 ####[facility] ([id number])[address] [address], [place] [address] MCH (RBC) [Entitic mass] 31.1 pg Normal 27-34 [facility] Comment on above: Performed By: #### C BC, BMP, 10393-2, 2777-1, UPCR, 2731-8, 39839-7 ####[facility] ([id number])[address] [address] [place] [address] MCHC (RBC) [Mass/Vol] 33.6 g/dL Normal 32-36 [facility] Comment on above: Performed By: #### C BC, BMP, 91038-7, 2777-1, UPCR, 2731-8, 52288-0 ####[facility] ([id number])[address] [address], [place] [address] MCV (RBC) [Entitic vol] 93 fL Normal 80-100 [facility] Comment on above: Performed By: #### C BC, BMP, 75593-0, 2777-1, UPCR, 2731-8, 86319-2 ####[facility] ([id number])[address] [address] [place] [address] Platelet mean volume (Bld) [Entitic vol] 9.1 fL Normal 7-12 [facility] Comment on above: Performed By: #### Wiley BC, BMP, 12813-5, 2777-1, UPCR, 2731-8, 99343-2 ####[facility] ([id number])[address] [address] [place] [address], [place] [address] Platelets (Bld) [#/Vol] 284 10*3/uL Normal 150-450 [facility] Comment on above: Performed By: #### C BC, BMP, 46425-1, 2777-1, UPCR, 2731-8, 02939-4 ####[facility] ([id number])[address] [address] [address] RBC COUNT 3.56 X10E12/L Low 3.80-5.20 [facility] Comment on above: Performed By: #### C BC, BMP, 04937-6, 2777-1, UPCR, 2731-8, 26561-3 ####[facility] ([id number])[address], [place] [address] WBC (Bld) [#/Vol] 10.9 10*3/uL Normal 4.0-11.0 [facility] Comment on above: Performed By: #### C BC, BMP, 29874-7, 2777-1, UPCR, 2731-8, 79871-2 ####[facility] ([id number])[address], [place] [address] MAGNESIUMon 08-28-2024 Magnesium [Mass/Vol] 2.0 mg/dL Normal 1.8-2.6 [facility] Comment on above: Performed By: #### B MP #### [facility] ([id number]) [address] [place] [address] 48258 PHOSPHORUSon 08-28-2024 Phosphate [Mass/Vol] 4.4 mg/dL Normal 2.4-4.9 [facility] Comment on above: Performed By: #### B MP #### [facility] ([id number]) [address] [place] [address] 61411 PROTEIN CREAT RATIOon 2023 RANDOM URINE PROTEIN 1240 mg/L High <120 [facility] Comment on above: Performed By: #### B MP #### [facility] ([id number]) [address] [place] [address] 24121 U/PRO/VP SITE RATIO CALC 1.43 High <0.2 [facility] Comment on above: Result Comment: Neph rotic Syndrome is associated with ratios >3.5 Performed By: #### B MP #### [facility] ([id number]) [address] [place] [address] [place] [address] URINE CREATININE,RDM 86.46 mg/dL Normal [facility] Comment on above: Performed By: #### B MP #### [facility] ([id number]) [address] [place] [address], [place] [address] Parathyrin.intact [Mass/Vol] on 08-28-2024 PTH INTACT 186 pg/mL High [facility] Comment on above: Performed By: #### B MP #### [facility] ([id number]) [address] [place] [address], [place] [address] URINALYSISon 08-28-2024 Bilirubin Ql (U) Negative Normal NEG [facility] Comment on above: Performed By: #### B MP #### [facility] ([id number]) [address] [place] [address] [place] [address] BLOOD/HGB Trace Abnormal NEG [facility] Comment on above: Performed By: #### B MP #### [facility] ([id number]) [address] [place] [address], [place] [address] Color (U) YELLOW Normal YELLOW [facility] Comment on above: Performed By: #### B MP #### [facility] ([id number]) [address] [place] [address] [place] [address] Glucose Ql (U) Negative Normal NEG [facility] Comment on above: Performed By: #### B MP #### [facility] ([id number]) [address] [place] [address], [place] [address] GRANULAR CASTS 1 /lpf High 0 [facility] Comment on above: Performed By: #### B MP #### [facility] ([id number]) [address] [place] [address] [place] [address] Hyaline casts LM Ql (Urine sed) 10 /lpf High 0-2 [facility] Comment on above: Performed By: #### B MP #### [facility] ([id number]) [address] [place] [address] 32312 Ketones Ql (U) Negative Normal NEG [facility] Comment on above: Performed By: #### B MP #### [facility] ([id number]) [address] [place] [address] 18383 Leukocyte esterase Test strip Ql (U) MODERATE Abnormal NEG [facility] Comment on above: Performed By: #### B MP #### [facility] ([id number]) [address] [place] [address] 22790 MUCOUS PRESENT Abnormal NONE [facility] Comment on above: Performed By: #### B MP #### [facility] ([id number]) [address] [place] [address] 87335 Nitrite Ql (U) Negative Normal NEG [facility] Comment on above: Performed By: #### B MP #### [facility] ([id number]) [address] [place] [address] 28415 pH (U) 6.0 [pH] Normal 5.0-8.5 [facility] Comment on above: Performed By: #### B MP #### [facility] ([id number]) [address] [place] [address] 79971 Protein Ql (U) 100 mg/dL Abnormal NEG [facility] Comment on above: Performed By: #### B MP #### [facility] ([id number]) [address] [place] [address] 50608 R.B.CELLS 6 /hpf High 0-5 [facility] Comment on above: Performed By: #### B MP #### [facility] ([id number]) [address] [place] [address] 15950 Specific gravity (U) [Rel density] 1.013 Normal 1.003-1.035 [facility] Comment on above: Performed By: #### B MP #### [facility] ([id number]) [address] [place] [address] [place] [address] SQUAMOUS EPITHELIUM 1 /hpf Normal 0-5 [facility] Comment on above: Performed By: #### B MP #### [facility] ([id number]) [address] [place] [address] [place] [address] TURBIDITY CLEAR Normal CLEAR [facility] Comment on above: Performed By: #### B MP #### [facility] ([id number]) [address] [place] [address] [place] [address] Urobilinogen (U) [Mass/Vol] mg/dL Normal <1.1 [facility] Comment on above: Performed By: #### B MP #### [facility] ([id number]) [address] [place] [address], [place] [address] W.B.CELLS 7 /hpf High 0-5 [facility] Comment on above: Performed By: #### B MP #### [facility] ([id number]) [address] [place] [address] [place] [address] Vitamin D+Metabolites [Mass/ Vol]on 08-28-2024 VITAMIN D 25 HYD TOT 33.6 ng/mL Normal 30-100 [facility] Comment on above: Result Comment: Vitamin D status 25 [place] Vitamin D Deficiency <20 ng/mL Insufficiency 20-29 ng/mL Sufficiency 30-100 ng/mL Toxicity >100 ng/mL NOTE: A pediatric reference range has not been established by the concrete vault maker of this kit. The [place] [employer] recommends a Vitamin D level of = or >20ng/mL in infants and children. Performed By: #### B MP #### [facility] ([id number]) [address] [place] [address] 46811 Glucose Glucometer (BldC) [M ass/Vol]on 08-04-2024 Glucose [Mass/Vol] 96 mg/dL Normal 65-99 [facility] Glucose [Mass/Vol] 66 mg/dL Normal 65-99 [facility] Heparin unfractionated Chrom ogenic method Qn (PPP)on 08-04-2024 ANTI XA UFH 0.63 IU/mL Normal 0.30-0.70 [facility] Comment on above: Result Comment: Opti mal time for testing is 6 hrs post dosage This test is specific for monitoring patients on UFH, and is not recommended for use with other Anti-Xa medications. Performed By: #### P INR, 8 ####[facility] ([id number])[address] [place] [address] 32999 PROTIME AND INRon 08-04-2024 INR Coag (PPP) [Relative time] 2.2 {INR} High 0.8-1.1 [facility] Comment on above: Performed By: #### P INR, 8 ####[facility] ([id number])[address] [place] [address] 81523 PT Coag (PPP) [Time] 24.9 s High 9.8-13.2 [facility] Comment on above: Result Comment: NEW REFERENCE RANGE Performed By: #### P INR, 8 ####[facility] ([id number])[address] [place] [address] 11542 CBC AND AUTO DIFFon 08-03-20 ABSOLUTE BASOPHIL 0.1 X10E9/L Normal 0.0-0.2 [facility] Comment on above: Performed By: #### C BCA, PINR, 3273-8 ####[facility] ([id number])[address] [place] [address] 59253 ABSOLUTE NEUTROPHIL 8.7 X10E9/L High 1.5-6.6 [facility] Comment on above: Performed By: #### MAURICE Jama BCA, 8 ####[facility] ([id number])[address] [place] [address] 13771 Basophils/100 WBC (Bld) 0.8 % Normal [facility] Comment on above: Performed By: #### MAURICE Jmaa BCA, 8 ####[facility] ([id number])[address] [place] [address] 30110 Eosinophils (Bld) [#/Vol] 0.3 10*3/uL Normal 0.0-0.4 [facility] Comment on above: Performed By: #### MAURICE Jama BCA, 8 ####[facility] ([id number])[address] [place] [address] 12810 Eosinophils/100 WBC (Bld) 2.5 % Normal [facility] Comment on above: Performed By: #### MAURICE Jaam BCA, 8 ####[facility] ([id number])[address] [place] [address] 01589 Erythrocyte distribution width (RBC) [Ratio] 13.7 % Normal 11.5-15.0 [facility] Comment on above: Performed By: #### MAURICE Jama BCA, 8 ####[facility] ([id number])[address] [place] [address] 25224 Hematocrit (Bld) [Volume fraction] 31.3 % Low 35-47 [facility] Comment on above: Performed By: #### MAURICE Jama BCA, 8 ####[facility] ([id number])[address] [place] [address] 44217 Hemoglobin (Bld) [Mass/Vol] 10.4 g/dL Low 11.7-15.5 [facility] Comment on above: Performed By: #### GEETHA Jama BCAR, 3274-04 ####[facility] ([id number])[address] [place] [address] 35533 Lymphocytes (Bld) [#/Vol] 1.8 10*3/uL Normal 1.0-3.5 [facility] Comment on above: Performed By: #### GEETHA Jama BCAR, 3274-04 ####[facility] ([id number])[address] [place] [address] 80024 Lymphocytes/100 WBC (Bld) 15.7 % Normal [facility] Comment on above: Performed By: #### MAURICE Jama BCA, 3274-04 ####[facility] ([id number])[address] [place] [address] 75063 MCH (RBC) [Entitic mass] 30.3 pg Normal 27-34 [facility] Comment on above: Performed By: #### GEETHA Jama BCAR, 3274-04 ####[facility] ([id number])[address] [place] [address] 02777 MCHC (RBC) [Mass/Vol] 33.1 g/dL Normal 32-36 [facility] Comment on above: Performed By: #### GEETHA Jama BCAR, 3274-04 ####[facility] ([id number])[address] [place] [address] 48822 MCV (RBC) [Entitic vol] 91 fL Normal 80-100 [facility] Comment on above: Performed By: #### Wiley LEYVA PINR, 3274-04 ####[facility] ([id number])[address] [place] [address] 69090 Monocytes (Bld) [#/Vol] 0.8 10*3/uL Normal 0-0.9 [facility] Comment on above: Performed By: #### MAURICE Jama BCA, 3274-04 ####[facility] ([id number])[address] [place] [address] 29988 Monocytes/100 WBC (Bld) 7.1 % Normal [facility] Comment on above: Performed By: #### Wiley LEYVA, PINR, 8 ####[facility] ([id number])[address] [place] [address] 43063 Neutrophils/100 WBC (Bld) 73.9 % Normal [facility] Comment on above: Performed By: #### Wiley LEYVA, PINR, 8 ####[facility] ([id number])[address] [place] [address] 34100 Platelet mean volume (Bld) [Entitic vol] 8.1 fL Normal 7-12 [facility] Comment on above: Performed By: #### Wiley LEYVA, PINR, 8 ####[facility] ([id number])[address] [place] [address] 82861 Platelets (Bld) [#/Vol] 255 10*3/uL Normal 150-450 [facility] Comment on above: Performed By: #### Wiley LEYVA, PINR, 8 ####[facility] ([id number])[address] [place] [address] 93938 RBC COUNT 3.42 X10E12/L Low 3.80-5.20 [facility] Comment on above: Performed By: #### Wiley LEYVA, PINR, 8 ####[facility] ([id number])[address] [place] [address] 61135 WBC (Bld) [#/Vol] 11.8 10*3/uL High 4.0-11.0 [facility] Comment on above: Performed By: #### Wiley LEYVA, PINR, 8 ####[facility] ([id number])[address] [place] [address] 40198 Glucose Glucometer (BldC) [M ass/Vol]on 08-03-2024 Glucose [Mass/Vol] 125 mg/dL High 65-99 [facility] Glucose [Mass/Vol] 170 mg/dL High 65-99 [facility] Glucose [Mass/Vol] 124 mg/dL High 65-99 [facility] Glucose [Mass/Vol] 74 mg/dL Normal 65-99 [facility] Heparin unfractionated Chrom ogenic method Qn (PPP)on 08-03-2024 ANTI XA UFH 0.64 IU/mL Normal 0.30-0.70 [facility] Comment on above: Result Comment: Opti mal time for testing is 6 hrs post dosage This test is specific for monitoring patients on UFH, and is not recommended for use with other Anti-Xa medications. Performed By: #### C MAURICE LEYVA, 3274-8 ####[facility] ([id number])[address] [place] [address] 27738 PROTIME AND INRon 08-03-2024 INR Coag (PPP) [Relative time] 1.7 {INR} High 0.8-1.1 [facility] Comment on above: Performed By: #### MAURICE Jama BCA, 3274-8 ####[facility] ([id number])[address] [place] [address] 26373 PT Coag (PPP) [Time] 19.4 s High 9.8-13.2 [facility] Comment on above: Result Comment: NEW REFERENCE RANGE Performed By: #### MAURICE Jama BCA, 3274-8 ####[facility] ([id number])[address] [place] [address] 79790 CBC AND AUTO DIFFon 08-02-20 24 ABSOLUTE BASOPHIL 0.2 X10E9/L Normal 0.0-0.2 [facility] Comment on above: Performed By: #### Wiley LEYVA ####[facility] ([id number])[address] [place] [address] [place] [address] ABSOLUTE NEUTROPHIL 8.0 X10E9/L High 1.5-6.6 [facility] Comment on above: Performed By: #### C BCA ####[facility] ([id number])[address] [place] [address] 24387 Basophils/100 WBC (Bld) 1.5 % Normal [facility] Comment on above: Performed By: #### C BCA ####[facility] ([id number])[address] [place] [address] 23052 Eosinophils (Bld) [#/Vol] 0.4 10*3/uL Normal 0.0-0.4 [facility] Comment on above: Performed By: #### C BCA ####[facility] ([id number])[address] [place] [address] 36005 Eosinophils/100 WBC (Bld) 3.4 % Normal [facility] Comment on above: Performed By: #### C BCA ####[facility] ([id number])[address] [place] [address] 82799 Erythrocyte distribution width (RBC) [Ratio] 13.8 % Normal 11.5-15.0 [facility] Comment on above: Performed By: #### C BCA ####[facility] ([id number])[address] [place] [address] 63519 Hematocrit (Bld) [Volume fraction] 32.2 % Low 35-47 [facility] Comment on above: Performed By: #### C BCA ####[facility] ([id number])[address] [place] [address] 09057 Hemoglobin (Bld) [Mass/Vol] 10.6 g/dL Low 11.7-15.5 [facility] Comment on above: Performed By: #### C BCA ####[facility] ([id number])[address] [place] [address] 40328 Lymphocytes (Bld) [#/Vol] 1.7 10*3/uL Normal 1.0-3.5 [facility] Comment on above: Performed By: #### C BCA ####[facility] ([id number])[address] [place] [address] 23154 Lymphocytes/100 WBC (Bld) 15.4 % Normal [facility] Comment on above: Performed By: #### C BCA ####[facility] ([id number])[address] [place] [address] 54537 MCH (RBC) [Entitic mass] 30.3 pg Normal 27-34 [facility] Comment on above: Performed By: #### C BCA ####[facility] ([id number])[address] [place] [address] 68584 MCHC (RBC) [Mass/Vol] 32.8 g/dL Normal 32-36 [facility] Comment on above: Performed By: #### C BCA ####[facility] ([id number])[address] [place] [address] 75177 MCV (RBC) [Entitic vol] 93 fL Normal 80-100 [facility] Comment on above: Performed By: #### C BCA ####[facility] ([id number])[address] [place] [address] 25884 Monocytes (Bld) [#/Vol] 0.7 10*3/uL Normal 0-0.9 [facility] Comment on above: Performed By: #### C BCA ####[facility] ([id number])[address] [place] [address] 17646 Monocytes/100 WBC (Bld) 6.1 % Normal [facility] Comment on above: Performed By: #### C BCA ####[facility] ([id number])[address] [place] [address] 55967 Neutrophils/100 WBC (Bld) 73.6 % Normal [facility] Comment on above: Performed By: #### C BCA ####[facility] ([id number])[address] [place] [address] 55655 Platelet mean volume (Bld) [Entitic vol] 8.7 fL Normal 7-12 [facility] Comment on above: Performed By: #### C BCA ####[facility] ([id number])[address] [place] [address] 92399 Platelets (Bld) [#/Vol] 248 10*3/uL Normal 150-450 [facility] Comment on above: Performed By: #### C BCA ####[facility] ([id number])[address] [place] [address] 62718 RBC COUNT 3.48 X10E12/L Low 3.80-5.20 [facility] Comment on above: Performed By: #### C BCA ####[facility] ([id number])[address] [place] [address] 07842 WBC (Bld) [#/Vol] 10.8 10*3/uL Normal 4.0-11.0 [facility] Comment on above: Performed By: #### C BCA ####[facility] ([id number])[address] [place] [address] 88829 Glucose Glucometer (BldC) [M ass/Vol]on 08-02-2024 Glucose [Mass/Vol] 237 mg/dL High 65-99 [facility] Glucose [Mass/Vol] 121 mg/dL High 65-99 [facility] Glucose [Mass/Vol] 171 mg/dL High 65-99 [facility] Glucose [Mass/Vol] 109 mg/dL High 65-99 [facility] Heparin unfractionated Chrom ogenic method Qn (PPP)on 08-02-2024 ANTI XA UFH 0.64 IU/mL Normal 0.30-0.70 [facility] Comment on above: Result Comment: Opti mal time for testing is 6 hrs post dosage This test is specific for monitoring patients on UFH, and is not recommended for use with other Anti-Xa medications. Performed By: #### 3 274-8 ####[facility] ([id number])[address] [place] [address] 06109 ANTI XA UFH 0.62 IU/mL Normal 0.30-0.70 [facility] Comment on above: Result Comment: Opti mal time for testing is 6 hrs post dosage This test is specific for monitoring patients on UFH, and is not recommended for use with other Anti-Xa medications. Performed By: #### 3 274-8 ####[facility] ([id number])[address] [place] [address] 34280 ANTI XA UFH 0.78 IU/mL High 0.30-0.70 [facility] Comment on above: Result Comment: Opti mal time for testing is 6 hrs post dosage This test is specific for monitoring patients on UFH, and is not recommended for use with other Anti-Xa medications. Performed By: #### P INR, 3274-8 ####[facility] ([id number])[address] [place] [address] 09280 PROTIME AND INRon 08-02-2024 INR Coag (PPP) [Relative time] 1.2 {INR} High 0.8-1.1 [facility] Comment on above: Performed By: #### P INR, 3273-8 ####[facility] ([id number])[address] [place] [address] 96570 PT Coag (PPP) [Time] 14.2 s High 9.8-13.2 [facility] Comment on above: Result Comment: NEW REFERENCE RANGE Performed By: #### P INR, 4-8 ####[facility] ([id number])[address] [place] [address], [place] [address] BASIC METABOLIC PANLon 08-01 Anion gap [Moles/Vol] 8 mmol/L Normal 5-15 [facility] Comment on above: Performed By: #### C BCA, BMP, PINR, 4-8 ####[facility] ([id number])[address] [place] [address], [place] [address] Calcium [Mass/Vol] 9.5 mg/dL Normal 8.5-10.5 [facility] Comment on above: Performed By: #### C BCA, BMP, PINR, 4-8 ####[facility] ([id number])[address] [place] [address] 50296 Chloride [Moles/Vol] 107 mmol/L Normal 98-109 [facility] Comment on above: Performed By: #### C BCA, BMP, PINR, 3273-8 ####[facility] ([id number])[address] [place] [address] [place] [address] CO2 [Moles/Vol] 25 mmol/L Normal 22-32 [facility] Comment on above: Performed By: #### C BCA, BMP, PINR, 3273-8 ####[facility] ([id number])[address] [place] [address], [place] [address] Creatinine [Mass/Vol] 2.02 mg/dL High 0.40-1.00 [facility] Comment on above: Result Comment: METH OD TRACEABLE TO IDMS STANDARD Performed By: #### C BCA, BMP, PINR, 4-8 ####[facility] ([id number])[address] [place] [address] 76259 GFR/1.73 sq M.predicted among non-blacks MDRD (S/P/Bld) [Vol rate/Area] 25 mL/min/{1.73_m2} Low >59 [facility] Comment on above: Result Comment: Reported eGFR is based on the CKD-EPI 2020 equation that does not use a race coefficient. Performed By: #### C BCA, BMP, PINR, 4-8 ####[facility] ([id number])[address] [place] [address] 30547 Glucose [Mass/Vol] 72 mg/dL Normal 65-99 [facility] Comment on above: Performed By: #### C BCA, BMP, PINR, 3273-8 ####[facility] ([id number])[address] [place] [address] 46109 Potassium [Moles/Vol] 4.3 mmol/L Normal 3.5-5.0 [facility] Comment on above: Performed By: #### C BCA, BMP, PINR, 3273-8 ####[facility] ([id number])[address] [place] [address] 47416 Sodium [Moles/Vol] 140 mmol/L Normal 134-146 [facility] Comment on above: Performed By: #### C BCA, BMP, PINR, 3273-8 ####[facility] ([id number])[address] [place] [address] 85594 Urea nitrogen [Mass/Vol] 29 mg/dL High 5-27 [facility] Comment on above: Performed By: #### C BCA, BMP, PINR, 3273-8 ####[facility] ([id number])[address] [place] [address] 15640 CBC AND AUTO DIFFon 11-15-20 24 ABSOLUTE BASOPHIL 0.2 X10E9/L Normal 0.0-0.2 [facility] Comment on above: Performed By: #### C BCA, BMP, PINR, 3273-8 ####[facility] ([id number])[address] [place] [address] 15142 ABSOLUTE NEUTROPHIL 8.8 X10E9/L High 1.5-6.6 [facility] Comment on above: Performed By: #### C BCA, BMP, PINR, 8 ####[facility] ([id number])[address] [place] [address] 94687 Basophils/100 WBC (Bld) 1.5 % Normal [facility] Comment on above: Performed By: #### C BCA, BMP, PINR, 3273-8 ####[facility] ([id number])[address] [place] [address] 25274 Eosinophils (Bld) [#/Vol] 0.4 10*3/uL Normal 0.0-0.4 [facility] Comment on above: Performed By: #### C BCA, BMP, PINR, 8 ####[facility] ([id number])[address] [place] [address] 13359 Eosinophils/100 WBC (Bld) 3.2 % Normal [facility] Comment on above: Performed By: #### C BCA, BMP, PINR, 8 ####[facility] ([id number])[address] [place] [address] 40232 Erythrocyte distribution width (RBC) [Ratio] 14.4 % Normal 11.5-15.0 [facility] Comment on above: Performed By: #### C BCA, BMP, PINR, 8 ####[facility] ([id number])[address] [place] [address] 53006 Hematocrit (Bld) [Volume fraction] 31.0 % Low 35-47 [facility] Comment on above: Performed By: #### C BCA, BMP, PINR, 3273-8 ####[facility] ([id number])[address] [place] [address] 58393 Hemoglobin (Bld) [Mass/Vol] 10.3 g/dL Low 11.7-15.5 [facility] Comment on above: Performed By: #### C BCA, BMP, PINR, 8 ####[facility] ([id number])[address] [place] [address] 75415 Lymphocytes (Bld) [#/Vol] 2.0 10*3/uL Normal 1.0-3.5 [facility] Comment on above: Performed By: #### C BCA, BMP, PINR, 3273-8 ####[facility] ([id number])[address] [place] [address] 12980 Lymphocytes/100 WBC (Bld) 16.4 % Normal [facility] Comment on above: Performed By: #### C BCA, BMP, PINR, 8 ####[facility] ([id number])[address] [place] [address] 74375 MCH (RBC) [Entitic mass] 30.5 pg Normal 27-34 [facility] Comment on above: Performed By: #### C BCA, BMP, PINR, 3273-8 ####[facility] ([id number])[address] [place] [address] 79967 MCHC (RBC) [Mass/Vol] 33.1 g/dL Normal 32-36 [facility] Comment on above: Performed By: #### C BCA, BMP, PINR, 3273-8 ####[facility] ([id number])[address] [place] [address] 23647 MCV (RBC) [Entitic vol] 92 fL Normal 80-100 [facility] Comment on above: Performed By: #### C BCA, BMP, PINR, 8 ####[facility] ([id number])[address] [place] [address] 09840 Monocytes (Bld) [#/Vol] 0.7 10*3/uL Normal 0-0.9 [facility] Comment on above: Performed By: #### C BCA, BMP, PINR, 4-8 ####[facility] ([id number])[address] [place] [address] 68460 Monocytes/100 WBC (Bld) 5.5 % Normal [facility] Comment on above: Performed By: #### C BCA, BMP, PINR, 3273-8 ####[facility] ([id number])[address] [place] [address] 38948 Neutrophils/100 WBC (Bld) 73.4 % Normal [facility] Comment on above: Performed By: #### C BCA, BMP, PINR, 3273-8 ####[facility] ([id number])[address] [place] [address] 15487 Platelet mean volume (Bld) [Entitic vol] 8.0 fL Normal 7-12 [facility] Comment on above: Performed By: #### C BCA, BMP, PINR, 4-8 ####[facility] ([id number])[address] [place] [address] 35397 Platelets (Bld) [#/Vol] 258 10*3/uL Normal 150-450 [facility] Comment on above: Performed By: #### C BCA, BMP, PINR, 4-8 ####[facility] ([id number])[address] [place] [address] 66732 RBC COUNT 3.36 X10E12/L Low 3.80-5.20 [facility] Comment on above: Performed By: #### C BCA, BMP, PINR, 4-8 ####[facility] ([id number])[address] [place] [address] [id number] WBC (Bld) [#/Vol] 12.0 10*3/uL High 4.0-11.0 [facility] Comment on above: Performed By: #### C BCA, BMP, PINR, 3274-8 ####[facility] ([id number])[address] [place] [address] [id number] Glucose Glucometer (BldC) [M ass/Vol]on 08-01-2024 Glucose [Mass/Vol] 160 mg/dL High 65-99 [facility] Glucose [Mass/Vol] 170 mg/dL High 65-99 [facility] Glucose [Mass/Vol] 134 mg/dL High 65-99 [facility] Heparin unfractionated Chrom ogenic method Qn (PPP)on 08-01-2024 ANTI XA UFH 0.92 IU/mL Critically high 0.30-0.70 [facility] Comment on above: Result Comment: Opti mal time for testing is 6 hrs post dosage This test is specific for monitoring patients on UFH, and is not recommended for use with other Anti-Xa medications. Performed By: #### 3 274-8 ####[facility] ([id number])[address] [place] [address] [id number] ANTI XA UFH 1.26 IU/mL Critically high 0.30-0.70 [facility] Comment on above: Result Comment: Opti mal time for testing is 6 hrs post dosage This test is specific for monitoring patients on UFH, and is not recommended for use with other Anti-Xa medications. Performed By: #### 3 274-8 ####[facility] ([id number])[address] [place] [id number] ANTI XA UFH 1.37 IU/mL Critically high 0.30-0.70 [facility] Comment on above: Result Comment: Opti mal time for testing is 6 hrs post dosage This test is specific for monitoring patients on UFH, and is not recommended for use with other Anti-Xa medications. Performed By: #### C AUTUMN, BMP, PINR, 3274-8 ####[facility] ([id number])[address] [place] [address] [id number] PROTIME AND INRon 08-01-2024 INR Coag (PPP) [Relative time] 1.2 {INR} High 0.8-1.1 [facility] Comment on above: Performed By: #### C BCA, BMP, PINR, 3274-8 ####[facility] ([id number])[address] [place] [address] 52542 PT Coag (PPP) [Time] 13.5 s High 9.8-13.2 [facility] Comment on above: Result Comment: NEW REFERENCE RANGE Performed By: #### C BCA, BMP, PINR, 3274-8 ####[facility] ([id number])[address] [place] [address] 54597 CBC AND AUTO DIFFon 07-31-20 24 ABSOLUTE BASOPHIL 0.1 X10E9/L Normal 0.0-0.2 [facility] Comment on above: Performed By: #### C BCA, CMP, 40715-5, PINR, 29109-6, 66849-4, 95181-8 ####[facility] ([id number])[address] [place] [address] 47401 ABSOLUTE NEUTROPHIL 10.7 X10E9/L High 1.5-6.6 [facility] Comment on above: Performed By: #### C BCA, CMP, 41649-0, PINR, 10693-1, 61607-4, 14502-3 ####[facility] ([id number])[address] [place] [address] 58307 Basophils/100 WBC (Bld) 0.8 % Normal [facility] Comment on above: Performed By: #### C BCA, CMP, 43141-5, PINR, 54330-7, 99653-4, 44532-1 ####[facility] ([id number])[address] [place] [address] 43922 Eosinophils (Bld) [#/Vol] 0.2 10*3/uL Normal 0.0-0.4 [facility] Comment on above: Performed By: #### C BCA, CMP, 80448-6, PINR, 52224-8, 60250-7, 01081-7 ####[facility] ([id number])[address] [place] [address] 44775 Eosinophils/100 WBC (Bld) 1.4 % Normal [facility] Comment on above: Performed By: #### C BCA, CMP, 72035-8, PINR, 91985-3, 75385-6, 43241-9 ####[facility] ([id number])[address] [place] [address] 40718 Erythrocyte distribution width (RBC) [Ratio] 14.4 % Normal 11.5-15.0 [facility] Comment on above: Performed By: #### C BCA, CMP, 24743-4, PINR, 74073-8, 35717-3, 28761-6 ####[facility] ([id number])[address] [place] [address] 84801 Hematocrit (Bld) [Volume fraction] 34.2 % Low 35-47 [facility] Comment on above: Performed By: #### C BCA, CMP, 29622-1, PINR, 16888-0, 49215-7, 28579-3 ####[facility] ([id number])[address] [place] [address] 52508 Hemoglobin (Bld) [Mass/Vol] 11.3 g/dL Low 11.7-15.5 [facility] Comment on above: Performed By: #### C BCA, CMP, 01444-2, PINR, 63442-8, 32283-3, 27225-9 ####[facility] ([id number])[address] [place] [address] 04602 Lymphocytes (Bld) [#/Vol] 1.3 10*3/uL Normal 1.0-3.5 [facility] Comment on above: Performed By: #### C BCA, CMP, 80256-1, PINR, 84517-9, 10133-6, 95700-6 ####[facility] ([id number])[address] [place] [address] 79182 Lymphocytes/100 WBC (Bld) 9.8 % Normal [facility] Comment on above: Performed By: #### C BCA, CMP, 58860-9, PINR, 14995-3, 87562-6, 83944-6 ####[facility] ([id number])[address] [place] [address] 68150 MCH (RBC) [Entitic mass] 30.3 pg Normal 27-34 [facility] Comment on above: Performed By: #### C BCA, CMP, 55166-8, PINR, 50978-6, 88265-0, 95815-1 ####[facility] ([id number])[address] [place] [address] 55567 MCHC (RBC) [Mass/Vol] 32.9 g/dL Normal 32-36 [facility] Comment on above: Performed By: #### C BCA, CMP, 91575-9, PINR, 49112-9, 70494-7, 51757-7 ####[facility] ([id number])[address] [place] [address] 64368 MCV (RBC) [Entitic vol] 92 fL Normal 80-100 [facility] Comment on above: Performed By: #### C BCA, CMP, 65286-7, PINR, 92846-8, 80847-3, 21508-7 ####[facility] ([id number])[address] [place] [address] 60917 Monocytes (Bld) [#/Vol] 0.7 10*3/uL Normal 0-0.9 [facility] Comment on above: Performed By: #### C BCA, CMP, 59536-8, PINR, 36937-3, 74342-1, 22316-1 ####[facility] ([id number])[address] [place] [address] 69533 Monocytes/100 WBC (Bld) 5.1 % Normal [facility] Comment on above: Performed By: #### C BCA, CMP, 40522-5, PINR, 19027-5, 06751-5, 05218-3 ####[facility] ([id number])[address] [place] [address] 77194 Neutrophils/100 WBC (Bld) 82.9 % Normal [facility] Comment on above: Performed By: #### C BCA, CMP, 47050-0, PINR, 16905-5, 75900-3, 46161-9 ####[facility] ([id number])[address] [place] [address] 01323 Platelet mean volume (Bld) [Entitic vol] 8.1 fL Normal 7-12 [facility] Comment on above: Performed By: #### C BCA, CMP, 59554-8, PINR, 28942-9, 71103-9, 22924-4 ####[facility] ([id number])[address] [place] [address] 97729 Platelets (Bld) [#/Vol] 262 10*3/uL Normal 150-450 [facility] Comment on above: Performed By: #### C BCA, CMP, 60902-9, PINR, 64042-9, 11060-3, 28716-5 ####[facility] ([id number])[address] [place] [address] 55380 RBC COUNT 3.72 X10E12/L Low 3.80-5.20 [facility] Comment on above: Performed By: #### C BCA, CMP, 68321-4, PINR, 92632-7, 97365-0, 57895-5 ####[facility] ([id number])[address] [place] [address] 00671 WBC (Bld) [#/Vol] 13.0 10*3/uL High 4.0-11.0 [facility] Comment on above: Performed By: #### C BCA, CMP, 61299-2, PINR, 30791-6, 68572-6, 00363-0 ####[facility] ([id number])[address] [place] [address] 73538 COMPREHENSIVE METABOLIC PANE Jean Claude 07-31-2024 Albumin [Mass/Vol] 3.8 g/dL Normal 3.2-5.3 [facility] Comment on above: Performed By: #### C BCA, CMP, 82558-8, PINR, 80401-9, 61029-1, 01280-6 ####[facility] ([id number])[address] [place] [address] 69765 ALP [Catalytic activity/Vol] 118 U/L Normal 39-130 [facility] Comment on above: Performed By: #### C BCA, CMP, 76791-3, PINR, 78144-5, 34257-0, 86029-0 ####[facility] ([id number])[address] [place] [address] 55249 ALT [Catalytic activity/Vol] 36 U/L High 0-31 [facility] Comment on above: Performed By: #### C BCA, CMP, 27913-1, PINR, 79833-3, 81930-3, 71634-3 ####[facility] ([id number])[address] [place] [address] 62485 Anion gap [Moles/Vol] 10 mmol/L Normal 5-15 [facility] Comment on above: Performed By: #### C BCA, CMP, 75460-6, PINR, 88004-3, 08542-0, 56529-4 ####[facility] ([id number])[address] [place] [address] 67638 AST [Catalytic activity/Vol] 35 U/L Normal 0-41 [facility] Comment on above: Performed By: #### C BCA, CMP, 94227-4, PINR, 88387-6, 70536-6, 44834-8 ####[facility] ([id number])[address] [place] [address] 43242 Bilirubin [Mass/Vol] 0.7 mg/dL Normal 0.3-1.2 [facility] Comment on above: Performed By: #### C BCA, CMP, 43911-7, PINR, 59156-6, 39364-8, 26445-2 ####[facility] ([id number])[address] [place] [address] 94121 Calcium [Mass/Vol] 9.8 mg/dL Normal 8.5-10.5 [facility] Comment on above: Performed By: #### C BCA, CMP, 64717-0, PINR, 91633-9, 25897-9, 13121-3 ####[facility] ([id number])[address] [place] [address] 89755 Chloride [Moles/Vol] 106 mmol/L Normal 98-109 [facility] Comment on above: Performed By: #### C BCA, CMP, 61051-5, PINR, 28753-7, 07592-8, 07091-1 ####[facility] ([id number])[address] [place] [address] 86754 CO2 [Moles/Vol] 25 mmol/L Normal 22-32 [facility] Comment on above: Performed By: #### C BCA, CMP, 64063-2, PINR, 81457-3, 14829-1, 44517-6 ####[facility] ([id number])[address] [place] [address] 80923 Creatinine [Mass/Vol] 1.88 mg/dL High 0.40-1.00 [facility] Comment on above: Result Comment: METH OD TRACEABLE TO IDMS STANDARD Performed By: #### C BCA, CMP, 02876-9, PINR, 44713-2, 31468-2, 74862-5 ####[facility] ([id number])[address] [place] [address] 83322 GFR/1.73 sq M.predicted among non-blacks MDRD (S/P/Bld) [Vol rate/Area] 27 mL/min/{1.73_m2} Low >59 [facility] Comment on above: Result Comment: Reported eGFR is based on the CKD-EPI 2020 equation that does not use a race coefficient. Performed By: #### C BCA, CMP, 79433-2, PINR, 90624-1, 10310-9, 29306-9 ####[facility] ([id number])[address] [place] [address] 90491 Glucose [Mass/Vol] 119 mg/dL High 65-99 [facility] Comment on above: Performed By: #### C BCA, CMP, 44242-0, PINR, 93036-3, 10640-3, 18783-4 ####[facility] ([id number])[address] [place] [address] 84239 Potassium [Moles/Vol] 4.1 mmol/L Normal 3.5-5.0 [facility] Comment on above: Performed By: #### C BCA, CMP, 11929-3, PINR, 36207-6, 55079-2, 34672-3 ####[facility] ([id number])[address] [place] [address] 16440 Protein [Mass/Vol] 6.5 g/dL Normal 6.0-8.0 [facility] Comment on above: Performed By: #### C BCA, CMP, 95413-8, PINR, 63463-9, 95697-6, 84353-5 ####[facility] ([id number])[address] [place] [address] 10233 Sodium [Moles/Vol] 141 mmol/L Normal 134-146 [facility] Comment on above: Performed By: #### C BCA, CMP, 63312-6, PINR, 83263-0, 92553-6, 28729-0 ####[facility] ([id number])[address] [place] [address] 03221 Urea nitrogen [Mass/Vol] 28 mg/dL High 5-27 [facility] Comment on above: Performed By: #### C AUTUMN, CMP, 76920-7, PINR, 29881-0, 47475-1, 92727-6 ####[facility] ([id number])[address] [place] [address] 98682 Fibrin D-dimer DDU (PPP) [Ma ss/Vol]on 07-31-2024 D DIMER 3499 ng/mL DDU High <255 [facility] Comment on above: Result Comment: Results >=255ng/mL DDU: Results may be indicative of the presence of VTE. The use of the Wells score and further diagnostic tests should be considered. Elevated D-Dimer levels can also be associated with DIC, neoplasm, , trauma and liver disease. Elevated levels of rheumatoid factor may lead to an overestimation of the D-Dimer level. Performed By: #### C BCA, CMP, 50813-4, PINR, 41242-8, 13964-4, 01972-4 ####[facility] ([id number])[address] [place] [address] 97361 Heparin unfractionated Chrom ogenic method Qn (PPP)on 07-31-2024 ANTI XA UFH 1.34 IU/mL Critically high 0.30-0.70 [facility] Comment on above: Result Comment: Opti mal time for testing is 6 hrs post dosage This test is specific for monitoring patients on UFH, and is not recommended for use with other Anti-Xa medications. Performed By: #### 3 274-8 ####[facility] ([id number])[address] [place] [address] 80407 Lactate (P melissa) [Moles/Vol]o n 07-31-2024 LACTATE W/REFLEX 1.3 mmol/L Normal 0.4-2.0 [facility] Comment on above: Result Comment: Result did not trigger repeat Lactate, re-order if needed. Performed By: #### 3 2133-1 ####[facility] ([id number])[address] [place] [address] 60423 NM VENTILATION PERFUSION PANKAJ G SCANon 07-31-2024 NM VENTILATION PERFUSION LUNG SCAN NM VENTILATION PERFUSION LUNG SCAN HISTORY AND/OR TECH NOTES Maryjo Mandujano a 78 y.o. year old female Exam:NM [...] the clinical team by way of the [employer] chat ----- Finalized by Robert Curran MD on 07/31/2024 2:40 PM Normal [facility] Natriuretic peptide B [Mass/ Vol]on 07-31-2024 Natriuretic peptide B (Bld) [Mass/Vol] 189 pg/mL High <100.0 [facility] Comment on above: Performed By: #### C AUTUMN, CMP, 96100-3, PINR, 19910-5, 80168-3, 24810-7 ####[facility] ([id number])[address] [place] [address] 99191 PROTIME AND INRon 07-31-2024 INR Coag (PPP) [Relative time] 1.1 {INR} Normal 0.8-1.1 [facility] Comment on above: Performed By: #### C BCA, CMP, 23897-4, PINR, 02392-6, 22689-1, 87847-6 ####[facility] ([id number])[address] [place] [address] 46772 PT Coag (PPP) [Time] 12.7 s Normal 9.8-13.2 [facility] Comment on above: Result Comment: NEW REFERENCE RANGE Performed By: #### C BCA, CMP, 71618-0, PINR, 77963-2, 88433-8, 00192-0 ####[facility] ([id number])[address] [place] [address] SARS/FLU A+B/RSV by NAAT/Mol radon 07-31-2024 SARS/FLU A+B/RSV by NAAT/Molecular FLU A [...] operators who are performing tests using either Cellerix or schoox systems and is limited to laboratories that [...] repeat. Fact Sheet for Healthcare Providers: https://www.fda.gov/me erika/736127/download Fact Sheet for Patients: https://www.fda.gov/me erika/812306/download Normal [facility] Comment on above: Performed By: #### C OVFLR ####[facility] ([id number])[address] [place] [address] 41549 Troponin I.cardiac High sens itivity method [Mass/Vol]on 07-31-2024 1 HOUR TROP I, HIGH SENSITIVITY 25 ng/L High <16 [facility] Comment on above: Result Comment: Elevations of hs-Troponin may be due to causes other than myocardial ischemia. Recommend serial hs-Troponin testing be performed. For the initial evaluation and management of chest pain patients, refer to the algorithms linked below. Emergency Patient: [email or web address] Inpatient: [email or web address] Performed By: #### 8 9579-7 ####[facility] ([id number])[address] [place] [address] 92933 TROPONIN I, HIGH SENSITIVITY 20 ng/L High <16 [facility] Comment on above: Result Comment: Elevations of hs-Troponin may be due to causes other than myocardial ischemia. Recommend serial hs-Troponin testing be performed. For the initial evaluation and management of chest pain patients, refer to the algorithms linked below. Emergency Patient: [email or web address] Inpatient: [email or web address] Performed By: #### C BCA, CMP, 77265-1, PINR, 30429-3, 47384-5, 29380-2 ####[facility] ([id number])[address] [place] [address] 68529 XR CHEST 1 VWon 07-31-2024 XR CHEST 1 VW XR CHEST 1 VW Single view chest History:Shortness of breath Difficulty breathing, shortness of breath Comparison: 11/27/2023 Findings: Single portable view of the chest. Stable cardiomediastinal silhouette. No focal opacity, effusion or pneumothorax. Atherosclerotic thoracic aorta. Impression: No definitive acute cardiopulmonary process. Finalized by Pete Morgan MD on 07/31/2024 12:27 PM Normal [facility] aPTT Coag (PPP) [Time]on aPTT Coag (Bld) [Time] 34 s Normal 26-37 [facility] Comment on above: Result Comment: NEW REFERENCE RANGE Performed By: #### C BCA, CMP, 58168-0, PINR, 58904-8, 50765-2, 86577-5 ####[facility] ([id number])[address] [place] [address] 77095 BASIC METABOLIC PANLon 06-06 Anion gap [Moles/Vol] 10 mmol/L Normal 5-15 [facility] Comment on above: Performed By: #### C BC, UPCR, BMP, 77610-8, 7-1, 2731-8, 05481-0 ####[facility] ([id number])[address], [address] [place] [address] 16397 Calcium [Mass/Vol] 10.4 mg/dL Normal 8.5-10.5 [facility] Comment on above: Performed By: #### C BC, UPCR, BMP, 28128-3, 7-1, 2731-8, 71730-8 ####[facility] ([id number])[address], [address] [place] [address] 77837 Chloride [Moles/Vol] 105 mmol/L Normal 98-109 [facility] Comment on above: Performed By: #### C BC, UPCR, BMP, 21811-3, 2777-1, 2731-8, 17426-0 ####[facility] ([id number])[address] [address], [place] [address] CO2 [Moles/Vol] 28 mmol/L Normal 22-32 [facility] Comment on above: Performed By: #### C BC, UPCR, BMP, , 2776-, 2730-8, 77988-9 ####[facility] ([id number])[address] [address], [place] [address] Creatinine [Mass/Vol] 2.38 mg/dL High 0.40-1.00 [facility] Comment on above: Result Comment: METH OD TRACEABLE TO IDMS STANDARD Performed By: #### C BC, UPCR, BMP, , 2776-, 2730-8, 85248-8 ####[facility] ([id number])[address] [address] GFR/1.73 sq M.predicted among non-blacks MDRD (S/P/Bld) [Vol rate/Area] 21 mL/min/{1.73_m2} Low >59 [facility] Comment on above: Result Comment: Reported eGFR is based on the CKD-EPI 2020 equation that does not use a race coefficient. Performed By: #### C BC, UPCR, BMP, , 2776-, 2730-8, 08766-6 ####[facility] ([id number])[address] [address] [place] [address] 49953 Glucose [Mass/Vol] 94 mg/dL Normal 65-99 [facility] Comment on above: Performed By: #### C BC, UPCR, BMP, , 2776-, 273-8, 67418-9 ####[facility] ([id number])[address] [address], [place] [address] Potassium [Moles/Vol] 5.1 mmol/L High 3.5-5.0 [facility] Comment on above: Performed By: #### C BC, UPCR, BMP, 15710-3, 2777-1, 2731-8, 65448-4 ####[facility] ([id number])[address], [address] [place] [address] 16088 Sodium [Moles/Vol] 143 mmol/L Normal 134-146 [facility] Comment on above: Performed By: #### C BC, UPCR, BMP, 34892-2, 2777-1, 2731-8, 82810-8 ####[facility] ([id number])[address], [address] [place] [address] 78789 Urea nitrogen [Mass/Vol] 47 mg/dL High 5-27 [facility] Comment on above: Performed By: #### C BC, UPCR, BMP, 65803-9, 7-1, 2731-8, 03454-7 ####[facility] ([id number])[address], [address] [place] [address] 66407 COMPLETE BLOOD COUNTon 06-06 Erythrocyte distribution width (RBC) [Ratio] 14.8 % Normal 11.5-15.0 [facility] Comment on above: Performed By: #### C MP #### [facility] ([id number]) [address] [place] [address] 35572 Hematocrit (Bld) [Volume fraction] 36.8 % Normal 35-47 [facility] Comment on above: Performed By: #### C MP #### [facility] ([id number]) [address] [place] [address] 91122 Hemoglobin (Bld) [Mass/Vol] 11.9 g/dL Normal 11.7-15.5 [facility] Comment on above: Performed By: #### C MP #### [facility] ([id number]) [address] [place] [address] [place] [address] MCH (RBC) [Entitic mass] 30.1 pg Normal 27-34 [facility] Comment on above: Performed By: #### C MP #### [facility] ([id number]) [address] [place] [address] 79767 MCHC (RBC) [Mass/Vol] 32.5 g/dL Normal 32-36 [facility] Comment on above: Performed By: #### C MP #### [facility] ([id number]) [address] [place] [address] 29150 MCV (RBC) [Entitic vol] 93 fL Normal 80-100 [facility] Comment on above: Performed By: #### C MP #### [facility] ([id number]) [address] [place] [address] 71374 Platelet mean volume (Bld) [Entitic vol] 7.8 fL Normal 7-12 [facility] Comment on above: Performed By: #### C MP #### [facility] ([id number]) [address] [place] [address] 46327 Platelets (Bld) [#/Vol] 226 10*3/uL Normal 150-450 [facility] Comment on above: Performed By: #### C MP #### [facility] ([id number]) [address] [place] [address] 08321 RBC COUNT 3.96 X10E12/L Normal 3.80-5.20 [facility] Comment on above: Performed By: #### C MP #### [facility] ([id number]) [address] [place] [address] 30584 WBC (Bld) [#/Vol] 11.1 10*3/uL High 4.0-11.0 [facility] Comment on above: Performed By: #### C MP #### [facility] ([id number]) [address] [place] [address], [place] [address] MAGNESIUMon 06-06-2024 Magnesium [Mass/Vol] 2.1 mg/dL Normal 1.8-2.6 [facility] Comment on above: Performed By: #### C BC, UPCR, BMP, 26399-5, 2777-1, 2731-8, 60529-3 ####[facility] ([id number])[address], [address] [place] [address] 15530 PHOSPHORUSon 06-06-2024 Phosphate [Mass/Vol] 4.4 mg/dL Normal 2.4-4.9 [facility] Comment on above: Performed By: #### C BC, UPCR, BMP, 13248-0, 2777-1, 2731-8, 69142-0 ####[facility] ([id number])[address], [address] [place] [address] 23177 PROTEIN CREAT RATIOon 2023 RANDOM URINE PROTEIN 4140 mg/L High <120 [facility] Comment on above: Performed By: #### C BC, UPCR, BMP, 23047-2, 2777-1, 2731-8, 88223-9 ####[facility] ([id number])[address], [address] [place] [address] 39297 U/PRO/VP SITE RATIO CALC 2.64 High <0.2 [facility] Comment on above: Result Comment: Neph rotic Syndrome is associated with ratios >3.5 Performed By: #### C BC, UPCR, BMP, 65036-6, 2777-1, 2731-8, 26135-1 ####[facility] ([id number])[address], [address] [place] [address]3573 URINE CREATININE,RDM 156.81 mg/dL Normal [facility] Comment on above: Performed By: #### C BC, UPCR, BMP, 41433-4, 2777-1, 2731-8, 82025-5 ####[facility] ([id number])[address], [address], [place] [address] Parathyrin.intact [Mass/Vol] on 06-06-2024 PTH INTACT 88 pg/mL Normal [facility] Comment on above: Performed By: #### C BC, UPCR, BMP, 66856-0, 2777-1, 2731-8, 68474-9 ####[facility] ([id number])[address], [place] [address] URINALYSISon 06-06-2024 Bilirubin Ql (U) Negative Normal NEG [facility] Comment on above: Performed By: #### U A ####[facility] ([id number])[address], [place] [address] BLOOD/HGB Negative Normal NEG [facility] Comment on above: Performed By: #### U A ####[facility] ([id number])[address], [place] [address] Color (U) YELLOW Normal YELLOW [facility] Comment on above: Performed By: #### U A ####[facility] ([id number])[address], [place] [address] Glucose Ql (U) Negative Normal NEG [facility] Comment on above: Performed By: #### U A ####[facility] ([id number])[address], [address], [place] [address] GRANULAR CASTS 4 /lpf High 0 [facility] Comment on above: Performed By: #### U A ####[facility] ([id number])[address], [address], [place] [address] Ketones Ql (U) Negative Normal NEG [facility] Comment on above: Performed By: #### U A ####[facility] ([id number])[address] [place] [address] Leukocyte esterase Test strip Ql (U) Negative Normal NEG [facility] Comment on above: Performed By: #### U A ####[facility] ([id number])[address] [place] [address] MUCOUS PRESENT Abnormal NONE [facility] Comment on above: Performed By: #### U A ####[facility] ([id number])[address] [place] [address] Nitrite Ql (U) Negative Normal NEG [facility] Comment on above: Performed By: #### U A ####[facility] ([id number])[address] [place] [address] pH (U) 6.5 [pH] Normal 5.0-8.5 [facility] Comment on above: Performed By: #### U A ####[facility] ([id number])[address] [address] Protein Ql (U) 600 mg/dL Abnormal NEG [facility] Comment on above: Performed By: #### U A ####[facility] ([id number])[address] [address] R.B.CELLS 0 /hpf Normal 0-5 [facility] Comment on above: Performed By: #### U A ####[facility] ([id number])[address] [address] Specific gravity (U) [Rel density] 1.017 Normal 1.003-1.035 [facility] Comment on above: Performed By: #### U A ####[facility] ([id number])[address] [address], [place] [address] TURBIDITY CLEAR Normal CLEAR [facility] Comment on above: Performed By: #### U A ####[facility] ([id number])[address], [address] [place] [address] Urobilinogen (U) [Mass/Vol] mg/dL Normal <1.1 [facility] Comment on above: Performed By: #### U A ####[facility] ([id number])[address] [facility] [address] [place] [address] W.B.CELLS 3 /hpf Normal 0-5 [facility] Comment on above: Performed By: #### U A ####[facility] ([id number])[address] [address], [place] [address] Vitamin D+Metabolites [Mass/ Vol]on 06-06-2024 VITAMIN D 25 HYD TOT 43.3 ng/mL Normal 30-100 [facility] Comment on above: Result Comment: Vitamin D status 25 [place] Vitamin D Deficiency <20 ng/mL Insufficiency 20-29 ng/mL Sufficiency 30-100 ng/mL Toxicity >100 ng/mL NOTE: A pediatric reference range has not been established by the concrete vault maker of this kit. The [employer] recommends a Vitamin D level of = or >20ng/mL in infants and children. Performed By: #### C BC, UPCR, BMP, 69693-2, 2777-1, 2731-8, 14851-8 ####[facility] ([id number])[address], [address], [place] [address] BASIC METABOLIC PANLon 03-21 Anion gap [Moles/Vol] 12 mmol/L Normal 5-15 [facility] Comment on above: Performed By: #### C MP #### [facility] ([id number]) [address] [place] [address], [place] [address] Calcium [Mass/Vol] 9.7 mg/dL Normal 8.5-10.5 [facility] Comment on above: Performed By: #### C MP #### [facility] ([id number]) [address] [place] [address] Chloride [Moles/Vol] 105 mmol/L Normal 98-109 [facility] Comment on above: Performed By: #### C MP #### [facility] ([id number]) [address] [place] [address] CO2 [Moles/Vol] 25 mmol/L Normal 22-32 [facility] Comment on above: Performed By: #### C MP #### [facility] ([id number]) [address] [place] [address] Creatinine [Mass/Vol] 2.61 mg/dL High 0.40-1.00 [facility] Comment on above: Result Comment: METH OD TRACEABLE TO IDMS STANDARD Performed By: #### C MP #### [facility] ([id number]) [address] [place] [address] GFR/1.73 sq M.predicted among non-blacks MDRD (S/P/Bld) [Vol rate/Area] 18 mL/min/{1.73_m2} Low >59 [facility] Comment on above: Result Comment: Reported eGFR is based on the CKD-EPI 1 equation that does not use a race coefficient. Performed By: #### C MP #### [facility] ([id number]) [address] [place] [address] Glucose [Mass/Vol] 103 mg/dL High 65-99 [facility] Comment on above: Performed By: #### C MP #### [facility] ([id number]) [address] [place] [address] Potassium [Moles/Vol] 4.7 mmol/L Normal 3.5-5.0 [facility] Comment on above: Performed By: #### C MP #### [facility] ([id number]) [address] [place] [address] Sodium [Moles/Vol] 142 mmol/L Normal 134-146 [facility] Comment on above: Performed By: #### C MP #### [facility] ([id number]) [address] [place] [address] Urea nitrogen [Mass/Vol] 43 mg/dL High 5-27 [facility] Comment on above: Performed By: #### C MP #### [facility] ([id number]) [address] [place] [address] COMPLETE BLOOD COUNTon 03-21 Erythrocyte distribution width (RBC) [Ratio] 13.3 % Normal 11.5-15.0 [facility] Comment on above: Performed By: #### C MP #### [facility] ([id number]) [address] [place] [address] Hematocrit (Bld) [Volume fraction] 34.1 % Low 35-47 [facility] Comment on above: Performed By: #### C MP #### [facility] ([id number]) [address] [place] [address] Hemoglobin (Bld) [Mass/Vol] 11.7 g/dL Normal 11.7-15.5 [facility] Comment on above: Performed By: #### C MP #### [facility] ([id number]) [address] [place] [address]60 MCH (RBC) [Entitic mass] 30.9 pg Normal 27-34 [facility] Comment on above: Performed By: #### C MP #### [facility] ([id number]) [address] [place] [address]36 MCHC (RBC) [Mass/Vol] 34.4 g/dL Normal 32-36 [facility] Comment on above: Performed By: #### C MP #### [facility] ([id number]) [address] [place] [address] MCV (RBC) [Entitic vol] 90 fL Normal 80-100 [facility] Comment on above: Performed By: #### C MP #### [facility] ([id number]) [address] [place] [address]6577 Platelet mean volume (Bld) [Entitic vol] 8.4 fL Normal 7-12 [facility] Comment on above: Performed By: #### C MP #### [facility] ([id number]) [address] [place] [address] Platelets (Bld) [#/Vol] 255 10*3/uL Normal 150-450 [facility] Comment on above: Performed By: #### C MP #### [facility] ([id number]) [address] [place] [address] RBC COUNT 3.80 X10E12/L Normal 3.80-5.20 [facility] Comment on above: Performed By: #### C MP #### [facility] ([id number]) [address] [place] [address]323 WBC (Bld) [#/Vol] 7.9 10*3/uL Normal 4.0-11.0 [facility] Comment on above: Performed By: #### C MP #### [facility] ([id number]) [address] [place] [address] MAGNESIUMon 03-21-2024 Magnesium [Mass/Vol] 1.8 mg/dL Normal 1.8-2.6 [facility] Comment on above: Performed By: #### C MP #### [facility] ([id number]) [address] [place] [address] 269[address] PHOSPHORUSon 03-21-2024 Phosphate [Mass/Vol] 4.0 mg/dL Normal 2.4-4.9 [facility] Comment on above: Performed By: #### C MP #### [facility] ([id number]) [address] [place] [address], [place] [address] PROTEIN CREAT RATIOon 2023 RANDOM URINE PROTEIN 3770 mg/L High <120 [facility] Comment on above: Performed By: #### C MP #### [facility] ([id number]) [address] [place] [address] U/PRO/VP SITE RATIO CALC 2.26 High <0.2 [facility] Comment on above: Result Comment: Neph rotic Syndrome is associated with ratios >3.5 Performed By: #### C MP #### [facility] ([id number]) [address] [place] [address] URINE CREATININE,RDM 166.75 mg/dL Normal [facility] Comment on above: Performed By: #### C MP #### [facility] ([id number]) [address] [place] [address], [place] [address] Parathyrin.intact [Mass/Vol] on 03-21-2024 PTH INTACT 123 pg/mL High 12-88 [facility] Comment on above: Performed By: #### C MP #### [facility] ([id number]) [address] [place] [address], [place] [address] URINALYSISon 03-21-2024 Bilirubin Ql (U) Negative Normal NEG [facility] Comment on above: Performed By: #### C MP #### [facility] ([id number]) [address] [place] [address] BLOOD/HGB Negative Normal NEG [facility] Comment on above: Performed By: #### C MP #### [facility] ([id number]) [address] [place] [address] [place] [address] Color (U) YELLOW Normal YELLOW [facility] Comment on above: Performed By: #### C MP #### [facility] ([id number]) [address] [place] [address] Glucose Ql (U) 30 mg/dL Abnormal NEG [facility] Comment on above: Performed By: #### C MP #### [facility] ([id number]) [address] [place] [address] [place] [address] Hyaline casts LM Ql (Urine sed) 1 /lpf Normal 0-2 [facility] Comment on above: Performed By: #### C MP #### [facility] ([id number]) [address] [place] [address] Ketones Ql (U) Negative Normal NEG [facility] Comment on above: Performed By: #### C MP #### [facility] ([id number]) [address] [place] [address] [place] [address] Leukocyte esterase Test strip Ql (U) MODERATE Abnormal NEG [facility] Comment on above: Performed By: #### C MP #### [facility] ([id number]) [address] [place] [address] [place] [address] MUCOUS PRESENT Abnormal NONE [facility] Comment on above: Performed By: #### C MP #### [facility] ([id number]) [address] [place] [address] [place] [address] Nitrite Ql (U) Negative Normal NEG [facility] Comment on above: Performed By: #### C MP #### [facility] ([id number]) [address] [place] [address] 23368 pH (U) 6.0 [pH] Normal 5.0-8.5 [facility] Comment on above: Performed By: #### C MP #### [facility] ([id number]) [address] [place] [address] [place] [address] Protein Ql (U) 300 mg/dL Abnormal NEG [facility] Comment on above: Performed By: #### C MP #### [facility] ([id number]) [address] [place] [address], [place] [address] R.B.CELLS 2 /hpf Normal 0-5 [facility] Comment on above: Performed By: #### C MP #### [facility] ([id number]) [address] [place] [address], [place] [address] Specific gravity (U) [Rel density] 1.020 Normal 1.003-1.035 [facility] Comment on above: Performed By: #### C MP #### [facility] ([id number]) [address] [place] [address] [place] [address] SQUAMOUS EPITHELIUM 2 /hpf Normal 0-5 [facility] Comment on above: Performed By: #### C MP #### [facility] ([id number]) [address] [place] [address] [place] [address] TURBIDITY CLEAR Normal CLEAR [facility] Comment on above: Performed By: #### C MP #### [facility] ([id number]) [address] [place] [address], [place] [address] Urobilinogen (U) [Mass/Vol] mg/dL Normal <1.1 [facility] Comment on above: Performed By: #### C MP #### [facility] ([id number]) [address] [place] [address], [place] [address] W.B.CELLS 24 /hpf High 0-5 [facility] Comment on above: Performed By: #### C MP #### [facility] ([id number]) [address] [place] [address] [place] [address] Vitamin D+Metabolites [Mass/ Vol]on 03-21-2024 VITAMIN D 25 HYD TOT 28.1 ng/mL Low 30-100 [facility] Comment on above: Result Comment: Vitamin D status 25 [place] Vitamin D Deficiency <20 ng/mL Insufficiency 20-29 ng/mL Sufficiency 30-100 ng/mL Toxicity >100 ng/mL NOTE: A pediatric reference range has not been established by the concrete vault maker of this kit. The [employer] recommends a Vitamin D level of = or >20ng/mL in infants and children. Performed By: #### C MP #### [facility] ([id number]) [address] [place] [address], [place] [address] BASIC METABOLIC PANLon 03-07 Anion gap [Moles/Vol] 10 mmol/L Normal 5-15 [facility] Comment on above: Performed By: #### C ASHLYN, UPCR, BMP, 58333-1, 7-1, 2731-8, 03670-8 ####[facility] ([id number])[address] [address], [place] [address] Calcium [Mass/Vol] 9.6 mg/dL Normal 8.5-10.5 [facility] Comment on above: Performed By: #### C ASHLYN, UPCR, BMP, 60966-3, 7-, 2731-8, 64438-2 ####[facility] ([id number])[address], [address], [place] [address] Chloride [Moles/Vol] 102 mmol/L Normal 98-109 [facility] Comment on above: Performed By: #### C BC, UPCR, BMP, 63477-4, 2777-1, 2731-8, 01281-4 ####[facility] ([id number])[address], [address] [address] CO2 [Moles/Vol] 28 mmol/L Normal 22-32 [facility] Comment on above: Performed By: #### C BC, UPCR, BMP, 41884-0, 2777-1, 2731-8, 93252-1 ####[facility] ([id number])[address], [address], [place] [address] Creatinine [Mass/Vol] 3.34 mg/dL High 0.40-1.00 [facility] Comment on above: Result Comment: METH OD TRACEABLE TO IDMS STANDARD Performed By: #### C BC, UPCR, BMP, 95883-9, 2777-1, 2731-8, 43291-1 ####[facility] ([id number])[address] [address] GFR/1.73 sq M.predicted among non-blacks MDRD (S/P/Bld) [Vol rate/Area] 14 mL/min/{1.73_m2} Low >59 [facility] Comment on above: Result Comment: Reported eGFR is based on the CKD-EPI 2020 equation that does not use a race coefficient. Performed By: #### C BC, UPCR, BMP, 13515-7, 2777-1, 2731-8, 35825-7 ####[facility] ([id number])[address] [address], [place] [address] Glucose [Mass/Vol] 166 mg/dL High 65-99 [facility] Comment on above: Performed By: #### C BC, UPCR, BMP, 62736-7, 2777-1, 2731-8, 70887-9 ####[facility] ([id number])[address] [address] Potassium [Moles/Vol] 5.3 mmol/L High 3.5-5.0 [facility] Comment on above: Performed By: #### C BC, UPCR, BMP, 12479-7, 2777-1, 2731-8, 76173-7 ####[facility] ([id number])[address] [address], [place] [address] Sodium [Moles/Vol] 140 mmol/L Normal 134-146 [facility] Comment on above: Performed By: #### C BC, UPCR, BMP, 68007-7, 2777-1, 2731-8, 62486-3 ####[facility] ([id number])[address] [address] [place] [address] Urea nitrogen [Mass/Vol] 46 mg/dL High 5-27 [facility] Comment on above: Performed By: #### C BC, UPCR, BMP, 13396-4, 2776-1, 2730-8, 16080-8 ####[facility] ([id number])[address] [address] [place] [address] COMPLETE BLOOD COUNTon 03-07 Erythrocyte distribution width (RBC) [Ratio] 13.4 % Normal 11.5-15.0 [facility] Comment on above: Performed By: #### C BC, UPCR, BMP, 93177-9, 7-1, 273-8, 60647-9 ####[facility] ([id number])[address] [address] [place] [address] Hematocrit (Bld) [Volume fraction] 35.7 % Normal 35-47 [facility] Comment on above: Performed By: #### C BC, UPCR, BMP, 61177-1, 7-1, 2731-8, 62026-4 ####[facility] ([id number])[address] [address] Hemoglobin (Bld) [Mass/Vol] 12.0 g/dL Normal 11.7-15.5 [facility] Comment on above: Performed By: #### C BC, UPCR, BMP, 65217-9, 2777-1, 2731-8, 52746-3 ####[facility] ([id number])[address], [address], [place] [address] MCH (RBC) [Entitic mass] 30.5 pg Normal 27-34 [facility] Comment on above: Performed By: #### C BC, UPCR, BMP, 60037-1, 2777-1, 2731-8, 07762-6 ####[facility] ([id number])[address], [address] [place] [address] MCHC (RBC) [Mass/Vol] 33.6 g/dL Normal 32-36 [facility] Comment on above: Performed By: #### C BC, UPCR, BMP, 63249-7, 2777-1, 2731-8, 42032-4 ####[facility] ([id number])[address] [address] [place] [address] MCV (RBC) [Entitic vol] 91 fL Normal 80-100 [facility] Comment on above: Performed By: #### C BC, UPCR, BMP, 02185-0, 2777-1, 2731-8, 30086-4 ####[facility] ([id number])[address] [address] [place] [address] Platelet mean volume (Bld) [Entitic vol] 9.2 fL Normal 7-12 [facility] Comment on above: Performed By: #### C BC, UPCR, BMP, 02870-2, 2777-1, 2731-8, 21664-2 ####[facility] ([id number])[address] [address] [place] [address] Platelets (Bld) [#/Vol] 268 10*3/uL Normal 150-450 [facility] Comment on above: Performed By: #### C BC, UPCR, BMP, 62287-9, 2777-1, 2731-8, 07084-7 ####[facility] ([id number])[address], [address] [place] [address] RBC COUNT 3.92 X10E12/L Normal 3.80-5.20 [facility] Comment on above: Performed By: #### C BC, UPCR, BMP, 56363-6, 2777-1, 2731-8, 18419-8 ####[facility] ([id number])[address], [address] [place] [address] WBC (Bld) [#/Vol] 6.9 10*3/uL Normal 4.0-11.0 [facility] Comment on above: Performed By: #### C BC, UPCR, BMP, 95249-9, 2777-1, 2731-8, 69115-9 ####[facility] ([id number])[address], [address] [place] [address] MAGNESIUMon 03-07-2024 Magnesium [Mass/Vol] 2.1 mg/dL Normal 1.8-2.6 [facility] Comment on above: Performed By: #### C BC, UPCR, BMP, 58430-5, 2777-1, 2731-8, 94138-0 ####[facility] ([id number])[address], [address] [place] [address] PHOSPHORUSon 03-07-2024 Phosphate [Mass/Vol] 4.4 mg/dL Normal 2.4-4.9 [facility] Comment on above: Performed By: #### C BC, UPCR, BMP, 06919-8, 2777-1, 2731-8, 46837-1 ####[facility] ([id number])[address], [address] [place] [address] PROTEIN CREAT RATIOon 2023 RANDOM URINE PROTEIN 1860 mg/L High <120 [facility] Comment on above: Performed By: #### C BC, UPCR, BMP, 44943-3, 2777-1, 2731-8, 49255-6 ####[facility] ([id number])[address], [address], [place] [address] U/PRO/VP SITE RATIO CALC 1.72 High <0.2 [facility] Comment on above: Result Comment: Neph rotic Syndrome is associated with ratios >3.5 Performed By: #### C BC, UPCR, BMP, 21629-4, 2777-1, 2731-8, 10848-6 ####[facility] ([id number])[address] [address] URINE CREATININE,RDM 108.20 mg/dL Normal [facility] Comment on above: Performed By: #### C BC, UPCR, BMP, 75014-4, 2777-1, 2731-8, 69934-7 ####[facility] ([id number])[address] [address] [place] [address] Parathyrin.intact [Mass/Vol] on 03-07-2024 PTH INTACT 155 pg/mL High 12-88 [facility] Comment on above: Performed By: #### C BC, UPCR, BMP, 04258-0, 7-1, 2731-8, 14699-4 ####[facility] ([id number])[address] [address], [place] [address] URINALYSISon 03-07-2024 Bilirubin Ql (U) Negative Normal NEG [facility] Comment on above: Performed By: #### U A ####[facility] ([id number])[address] [address] [address] BLOOD/HGB Negative Normal NEG [facility] Comment on above: Performed By: #### U A ####[facility] ([id number])[address] [address] Color (U) YELLOW Normal YELLOW [facility] Comment on above: Performed By: #### U A ####[facility] ([id number])[address], [place] [address] Glucose Ql (U) Negative Normal NEG [facility] Comment on above: Performed By: #### U A ####[facility] ([id number])[address], [place] [address] Ketones Ql (U) Negative Normal NEG [facility] Comment on above: Performed By: #### U A ####[facility] ([id number])[address], [place] [address] Leukocyte esterase Test strip Ql (U) Small Abnormal NEG [facility] Comment on above: Performed By: #### U A ####[facility] ([id number])[address], [place] [address] MUCOUS PRESENT Abnormal NONE [facility] Comment on above: Performed By: #### U A ####[facility] ([id number])[address], [place] [address] Nitrite Ql (U) Negative Normal NEG [facility] Comment on above: Performed By: #### U A ####[facility] ([id number])[address], [place] [address] pH (U) 6.5 [pH] Normal 5.0-8.5 [facility] Comment on above: Performed By: #### U A ####[facility] ([id number])[address], [place] [address] Protein Ql (U) 300 mg/dL Abnormal NEG [facility] Comment on above: Performed By: #### U A ####[facility] ([id number])[address], [place] [address] R.B.CELLS <1 Normal 0-5 [facility] Comment on above: Performed By: #### U A ####[facility] ([id number])[address], [place] [address] Specific gravity (U) [Rel density] 1.014 Normal 1.003-1.035 [facility] Comment on above: Performed By: #### U A ####[facility] ([id number])[address] [address], [place] [address] SQUAMOUS EPITHELIUM <1 Normal 0-5 [facility] Comment on above: Performed By: #### U A ####[facility] ([id number])[address] [address], [place] [address] TURBIDITY CLEAR Normal CLEAR [facility] Comment on above: Performed By: #### U A ####[facility] ([id number])[address] [address], [place] [address] Urobilinogen (U) [Mass/Vol] mg/dL Normal <1.1 [facility] Comment on above: Performed By: #### U A ####[facility] ([id number])[address] [address], [place] [address] W.B.CELLS 6 /hpf High 0-5 [facility] Comment on above: Performed By: #### U A ####[facility] ([id number])[address] [address], [place] [address] Vitamin D+Metabolites [Mass/ Vol]on 03-07-2024 VITAMIN D 25 HYD TOT 27.2 ng/mL Low 30-100 [facility] Comment on above: Result Comment: Vitamin D status 25 [place] Vitamin D Deficiency <20 ng/mL Insufficiency 20-29 ng/mL Sufficiency 30-100 ng/mL Toxicity >100 ng/mL NOTE: A pediatric reference range has not been established by the concrete vault maker of this kit. The [place] [employer] recommends a Vitamin D level of = or >20ng/mL in infants and children. Performed By: #### C MP #### [facility] ([id number]) [address] [place] [address], [place] [address] HGB A1C (GLYCO-HGB)on 2023 Glucose [Mass/Vol] 169 mg/dL Normal [facility] Comment on above: Performed By: #### 2 4331-1, THYR ####[facility] ([id number])[address] [address] HbA1c (Bld) [Mass fraction] 7.5 % High 4.4-5.6 [facility] Comment on above: Result Comment: NOTE ADA Guidelines Result HgbA1c Normal : less than 5.7 % Prediabetes : 5.7 % to 6.4 % Diabetes : > 6.4 % Use with caution in patients with abnormal hemoglobin variants as the half-life of red blood cells and in vivo glycation rates are affected. Performed By: #### 2 4331-1, THYR ####[facility] ([id number])[address] [address] Lipid 1996 panelon 4 Cholesterol [Mass/Vol] 179 mg/dL Normal 150-200 [facility] Comment on above: Performed By: #### 2 4331-1, THYR ####[facility] ([id number])[address] [address] Cholesterol in HDL [Mass/Vol] 49 mg/dL Normal >39 [facility] Comment on above: Result Comment: HDL <40 mg/dL - High Risk HDL > or = 40mg/dL- Desirable HDL >60 mg/dL - Negative Risk Performed By: #### 2 4331-1, THYR ####[facility] ([id number])[address], [address] [place] [address] Cholesterol in LDL [Mass/Vol] 93 mg/dL Normal <130 [facility] Comment on above: Result Comment: LDL <100 mg/dL - Desirable LDL >160 mg/dL - High Risk Performed By: #### 2 4331-1, THYR ####[facility] ([id number])[address], [address] [place] [address] 70165 Cholesterol in VLDL [Mass/Vol] 37 mg/dL High 0-30 [facility] Comment on above: Performed By: #### 2 4331-1, THYR ####[facility] ([id number])[address], [address] [place] [address] 40953 CHOLESTEROL:HDL 3.7 Normal 1.0-5.0 [facility] Comment on above: Performed By: #### 2 4331-1, THYR ####[facility] ([id number])[address], [address] [place] [address], [place] [address] Triglyceride [Mass/Vol] 186 mg/dL High 27-150 [facility] Comment on above: Performed By: #### 2 4331-1, THYR ####[facility] ([id number])[address] [place] [address] THYROID PROFILEon 01-03-2024 Free T4 [Mass/Vol] 0.75 ng/dL Normal 0.61-1.60 [facility] Comment on above: Performed By: #### 2 4331-1, THYR ####[facility] ([id number])[address], [address], [place] [address] TSH 5.18 uIU/mL High 0.49-4.67 [facility] Comment on above: Performed By: #### 2 4331-1, THYR ####[facility] ([id number])[address], [address], [place] [address] BASIC METABOLIC PANLon 12-03 Anion gap [Moles/Vol] 11 mmol/L Normal 5-15 [facility] Comment on above: Performed By: #### C BCA, CMP #### [facility] ([id number]) [address] [place] [address] 80744 Calcium [Mass/Vol] 9.7 mg/dL Normal 8.5-10.5 [facility] Comment on above: Performed By: #### C BCA, CMP #### [facility] ([id number]) [address] [place] [address] 26872 Chloride [Moles/Vol] 104 mmol/L Normal 98-109 [facility] Comment on above: Performed By: #### C BCA, CMP #### [facility] ([id number]) [address] [place] [address] 62551 CO2 [Moles/Vol] 26 mmol/L Normal 22-32 [facility] Comment on above: Performed By: #### C BCA, CMP #### [facility] ([id number]) [address] [place] [address] 02764 Creatinine [Mass/Vol] 2.33 mg/dL High 0.40-1.00 [facility] Comment on above: Result Comment: METH OD TRACEABLE TO IDMS STANDARD Performed By: #### C BCA, CMP #### [facility] ([id number]) [address] [place] [address] 05496 GFR/1.73 sq M.predicted among non-blacks MDRD (S/P/Bld) [Vol rate/Area] 21 mL/min/{1.73_m2} Low >59 [facility] Comment on above: Result Comment: Reported eGFR is based on the CKD-EPI 2020 equation that does not use a race coefficient. Performed By: #### C BCA, CMP #### [facility] ([id number]) [address] [place] [address] 81779 Glucose [Mass/Vol] 102 mg/dL High 65-99 [facility] Comment on above: Performed By: #### C AUTUMN, CMP #### [facility] ([id number]) [address] [place] [address] 72693 Potassium [Moles/Vol] 4.9 mmol/L Normal 3.5-5.0 [facility] Comment on above: Performed By: #### C AUTUMN, CMP #### [facility] ([id number]) [address] [place] [address] 49251 Sodium [Moles/Vol] 141 mmol/L Normal 134-146 [facility] Comment on above: Performed By: #### C BCA, CMP #### [facility] ([id number]) [address] [place] [address] 90842 Urea nitrogen [Mass/Vol] 43 mg/dL High 5-27 [facility] Comment on above: Performed By: #### C BCA, CMP #### [facility] ([id number]) [address] [place] [address] 58520 COMPLETE BLOOD COUNTon 12-03 Erythrocyte distribution width (RBC) [Ratio] 13.0 % Normal 11.5-15.0 [facility] Comment on above: Performed By: #### C BCA, CMP #### [facility] ([id number]) [address] [place] [address] 44593 Hematocrit (Bld) [Volume fraction] 31.9 % Low 35-47 [facility] Comment on above: Performed By: #### C BCA, CMP #### [facility] ([id number]) [address] [place] [address] 79364 Hemoglobin (Bld) [Mass/Vol] 10.7 g/dL Low 11.7-15.5 [facility] Comment on above: Performed By: #### C AUTUMN, CMP #### [facility] ([id number]) [address] [place] [address] 31081 MCH (RBC) [Entitic mass] 30.4 pg Normal 27-34 [facility] Comment on above: Performed By: #### C AUTUMN, CMP #### [facility] ([id number]) [address] [place] [address] 29120 MCHC (RBC) [Mass/Vol] 33.6 g/dL Normal 32-36 [facility] Comment on above: Performed By: #### C AUTUMN, CMP #### [facility] ([id number]) [address] [place] [address] 16582 MCV (RBC) [Entitic vol] 91 fL Normal 80-100 [facility] Comment on above: Performed By: #### C AUTUMN, CMP #### [facility] ([id number]) [address] [place] [address] 48461 Platelet mean volume (Bld) [Entitic vol] 8.6 fL Normal 7-12 [facility] Comment on above: Performed By: #### C BCA, CMP #### [facility] ([id number]) [address] [place] [address] 78617 Platelets (Bld) [#/Vol] 398 10*3/uL Normal 150-450 [facility] Comment on above: Performed By: #### C BCA, CMP #### [facility] ([id number]) [address] [place] [address] 10745 RBC COUNT 3.51 X10E12/L Low 3.80-5.20 [facility] Comment on above: Performed By: #### C BCA, CMP #### [facility] ([id number]) [address] [place] [address] 76809 WBC (Bld) [#/Vol] 12.6 10*3/uL High 4.0-11.0 [facility] Comment on above: Performed By: #### C AUTUMN, CMP #### [facility] ([id number]) [address] [place] [address] 20591 MAGNESIUMon 12-04-2023 Magnesium [Mass/Vol] 1.9 mg/dL Normal 1.8-2.6 [facility] Comment on above: Performed By: #### C AUTUMN, CMP #### [facility] ([id number]) [address] [place] [address] 47632 PHOSPHORUSon 12-04-2023 Phosphate [Mass/Vol] 3.7 mg/dL Normal 2.4-4.9 [facility] Comment on above: Performed By: #### C AUTUMN, CMP #### [facility] ([id number]) [address] [place] [address] 45507 PROTEIN CREAT RATIOon 2023 RANDOM URINE PROTEIN 1840 mg/L High <120 [facility] Comment on above: Performed By: #### C AUTUMN, CMP #### [facility] ([id number]) [address] [place] [address] 71589 U/PRO/VP SITE RATIO CALC 2.19 High <0.2 [facility] Comment on above: Result Comment: Neph rotic Syndrome is associated with ratios >3.5 Performed By: #### C BCA, CMP #### [facility] ([id number]) [address] [place] [address] 41534 URINE CREATININE,RDM 84.01 mg/dL Normal [facility] Comment on above: Performed By: #### C BCA, CMP #### [facility] ([id number]) [address] [place] [address] 73630 Parathyrin.intact [Mass/Vol] on 12-04-2023 PTH INTACT 105 pg/mL High 12-88 [facility] Comment on above: Performed By: #### C BCA, CMP #### [facility] ([id number]) [address] [place] [address] 42499 URINALYSISon 12-04-2023 Bilirubin Ql (U) Negative Normal NEG [facility] BLOOD/HGB Negative Normal NEG [facility] Color (U) YELLOW Normal YELLOW [facility] Glucose Ql (U) Negative Normal NEG [facility] Hyaline casts LM Ql (Urine sed) 14 /lpf High 0-2 [facility] Ketones Ql (U) Negative Normal NEG [facility] Leukocyte esterase Test strip Ql (U) Small Abnormal NEG [facility] MUCOUS PRESENT Abnormal NONE [facility] Nitrite Ql (U) Negative Normal NEG [facility] pH (U) 6.0 [pH] Normal 5.0-8.5 [facility] Protein Ql (U) 200 mg/dL Abnormal NEG [facility] R.B.CELLS 1 /hpf Normal 0-5 [facility] RENAL EPITHELIUM 1 /hpf High 0 [facility] Specific gravity (U) [Rel density] 1.012 Normal 1.003-1.035 [facility] SQUAMOUS EPITHELIUM <1 Normal 0-5 [facility] TURBIDITY CLEAR Normal CLEAR [facility] Urobilinogen (U) [Mass/Vol] mg/dL Normal <1.1 [facility] W.B.CELLS 20 /hpf High 0-5 [facility] Vitamin D+Metabolites [Mass/ Vol]on 12-04-2023 VITAMIN D 25 HYD TOT 26.6 ng/mL Low 30-100 [facility] Comment on above: Result Comment: Vitamin D status 25 [place] Vitamin D Deficiency <20 ng/mL Insufficiency 20-29 ng/mL Sufficiency 30-100 ng/mL Toxicity >100 ng/mL NOTE: A pediatric reference range has not been established by the concrete vault maker of this kit. The [employer] recommends a Vitamin D level of = or >20ng/mL in infants and children. Performed By: #### C BCA, CMP #### [facility] ([id number]) [address] [place] [address] 84792 XR FOOT RT MIN 3 VWSon 12-01 [...] Gauthier MD on 12/02/2023 8:31 AM Normal [facility] BASIC METABOLIC PANLon 11-27 Anion gap [Moles/Vol] 8 mmol/L Normal 5-15 [facility] Comment on above: Performed By: #### B MP #### [facility] ([id number]) [address] [place] [address] 82077 Calcium [Mass/Vol] 8.2 mg/dL Low 8.5-10.5 [facility] Comment on above: Performed By: #### B MP #### [facility] ([id number]) [address] [place] [address] 26998 Chloride [Moles/Vol] 109 mmol/L Normal 98-109 [facility] Comment on above: Performed By: #### B MP #### [facility] ([id number]) [address] [place] [address] 39560 CO2 [Moles/Vol] 22 mmol/L Normal 22-32 [facility] Comment on above: Performed By: #### B MP #### [facility] ([id number]) [address] [place] [address] 45420 Creatinine [Mass/Vol] 1.80 mg/dL High 0.40-1.00 [facility] Comment on above: Result Comment: METH OD TRACEABLE TO IDMS STANDARD Performed By: #### B MP #### [facility] ([id number]) [address] [place] [address] 73781 GFR/1.73 sq M.predicted among non-blacks MDRD (S/P/Bld) [Vol rate/Area] 29 mL/min/{1.73_m2} Low >59 [facility] Comment on above: Result Comment: Reported eGFR is based on the CKD-EPI 1 equation that does not use a race coefficient. Performed By: #### B MP #### [facility] ([id number]) [address] [place] [address] 57162 Glucose [Mass/Vol] 119 mg/dL High 65-99 [facility] Comment on above: Performed By: #### B MP #### [facility] ([id number]) [address] [place] [address] 28884 Potassium [Moles/Vol] 3.9 mmol/L Normal 3.5-5.0 [facility] Comment on above: Performed By: #### B MP #### [facility] ([id number]) [address] [place] [address] 78059 Sodium [Moles/Vol] 139 mmol/L Normal 134-146 [facility] Comment on above: Performed By: #### B MP #### [facility] ([id number]) [address] [place] [address] Urea nitrogen [Mass/Vol] 28 mg/dL High 5-27 [facility] Comment on above: Performed By: #### B MP #### [facility] ([id number]) [address] [place] [address] 52716 Glucose Glucometer (BldC) [M ass/Vol]on 11-28-2023 Glucose [Mass/Vol] 177 mg/dL High 65-99 [facility] COMPREHENSIVE METABOLIC PANE Jean Claude 11-27-2023 Albumin [Mass/Vol] 2.9 g/dL Low 3.2-5.3 [facility] Comment on above: Performed By: #### C MP #### [facility] ([id number]) [address] [place] [address] 20585 ALP [Catalytic activity/Vol] 126 U/L Normal 39-130 [facility] Comment on above: Performed By: #### C MP #### [facility] ([id number]) [address] [place] [address] 19819 ALT [Catalytic activity/Vol] 33 U/L High 0-31 [facility] Comment on above: Performed By: #### C MP #### [facility] ([id number]) [address] [place] [address] 19966 Anion gap [Moles/Vol] 9 mmol/L Normal 5-15 [facility] Comment on above: Performed By: #### C MP #### [facility] ([id number]) [address] [place] [address] 97000 AST [Catalytic activity/Vol] 32 U/L Normal 0-41 [facility] Comment on above: Performed By: #### C MP #### [facility] ([id number]) [address] [place] [address] 99378 Bilirubin [Mass/Vol] 0.5 mg/dL Normal 0.3-1.2 [facility] Comment on above: Performed By: #### C MP #### [facility] ([id number]) [address] [place] [address] 99504 Calcium [Mass/Vol] 8.8 mg/dL Normal 8.5-10.5 [facility] Comment on above: Performed By: #### C MP #### [facility] ([id number]) [address] [place] [address] 07716 Chloride [Moles/Vol] 106 mmol/L Normal 98-109 [facility] Comment on above: Performed By: #### C MP #### [facility] ([id number]) [address] [place] [address] 76106 CO2 [Moles/Vol] 26 mmol/L Normal 22-32 [facility] Comment on above: Performed By: #### C MP #### [facility] ([id number]) [address] [place] [address] 63583 Creatinine [Mass/Vol] 1.98 mg/dL High 0.40-1.00 [facility] Comment on above: Result Comment: METH OD TRACEABLE TO IDMS STANDARD Performed By: #### C MP #### [facility] ([id number]) [address] [place] [address] 79623 GFR/1.73 sq M.predicted among non-blacks MDRD (S/P/Bld) [Vol rate/Area] 26 mL/min/{1.73_m2} Low >59 [facility] Comment on above: Result Comment: Reported eGFR is based on the CKD-EPI 2021 equation that does not use a race coefficient. Performed By: #### C MP #### [facility] ([id number]) [address] [place] [address] 01108 Glucose [Mass/Vol] 121 mg/dL High 65-99 [facility] Comment on above: Performed By: #### C MP #### [facility] ([id number]) [address] [place] [address] 37263 Potassium [Moles/Vol] 4.5 mmol/L Normal 3.5-5.0 [facility] Comment on above: Performed By: #### C MP #### [facility] ([id number]) [address] [place] [address] 90481 Protein [Mass/Vol] 6.0 g/dL Normal 6.0-8.0 [facility] Comment on above: Performed By: #### C MP #### [facility] ([id number]) [address] [place] [address] 68758 Sodium [Moles/Vol] 141 mmol/L Normal 134-146 [facility] Comment on above: Performed By: #### C MP #### [facility] ([id number]) [address] [place] [address] 46098 Urea nitrogen [Mass/Vol] 34 mg/dL High 5-27 [facility] Comment on above: Performed By: #### C MP #### [facility] ([id number]) [address] [place] [address] BRAIN WO CONTon CT BRAIN WO [...] Barton MD on 11/27/2023 5:43 AM Normal [facility] Glucose Glucometer (BldC) [M ass/Vol]on 11-27-2023 Glucose [Mass/Vol] 207 mg/dL High 65-99 [facility] Glucose [Mass/Vol] 164 mg/dL High 65-99 [facility] Glucose [Mass/Vol] 189 mg/dL High 65-99 [facility] CBC AND AUTO DIFFon 11-26-19 ABSOLUTE BASOPHIL 0.1 X10E9/L Normal 0.0-0.2 [facility] Comment on above: Performed By: #### C BCA, CMP #### [facility] ([id number]) [address] [place] [address] 26974 ABSOLUTE NEUTROPHIL 10.2 X10E9/L High 1.5-6.6 [facility] Comment on above: Performed By: #### C AUTUMN, CMP #### [facility] ([id number]) [address] [place] [address] 33324 Basophils/100 WBC (Bld) 0.8 % Normal [facility] Comment on above: Performed By: #### C AUTUMN, CMP #### [facility] ([id number]) [address] [place] [address] 36142 Eosinophils (Bld) [#/Vol] 0.1 10*3/uL Normal 0.0-0.4 [facility] Comment on above: Performed By: #### C BCA, CMP #### [facility] ([id number]) [address] [place] [address] 33354 Eosinophils/100 WBC (Bld) 1.0 % Normal [facility] Comment on above: Performed By: #### C AUTUMN, CMP #### [facility] ([id number]) [address] [place] [address] 33794 Erythrocyte distribution width (RBC) [Ratio] 13.3 % Normal 11.5-15.0 [facility] Comment on above: Performed By: #### C BCA, CMP #### [facility] ([id number]) [address] [place] [address] 14482 Hematocrit (Bld) [Volume fraction] 35.5 % Normal 35-47 [facility] Comment on above: Performed By: #### C BCA, CMP #### [facility] ([id number]) [address] [place] [address] 80526 Hemoglobin (Bld) [Mass/Vol] 11.9 g/dL Normal 11.7-15.5 [facility] Comment on above: Performed By: #### C AUTUMN, CMP #### [facility] ([id number]) [address] [place] [address] 48964 Lymphocytes (Bld) [#/Vol] 1.0 10*3/uL Normal 1.0-3.5 [facility] Comment on above: Performed By: #### C AUTUMN, CMP #### [facility] ([id number]) [address] [place] [address] 48598 Lymphocytes/100 WBC (Bld) 8.2 % Normal [facility] Comment on above: Performed By: #### C AUTUMN, CMP #### [facility] ([id number]) [address] [place] [address] 07949 MCH (RBC) [Entitic mass] 30.0 pg Normal 27-34 [facility] Comment on above: Performed By: #### C BCA, CMP #### [facility] ([id number]) [address] [place] [address] 73122 MCHC (RBC) [Mass/Vol] 33.6 g/dL Normal 32-36 [facility] Comment on above: Performed By: #### C BCA, CMP #### [facility] ([id number]) [address] [place] [address] 33308 MCV (RBC) [Entitic vol] 89 fL Normal 80-100 [facility] Comment on above: Performed By: #### C AUTUMN, CMP #### [facility] ([id number]) [address] [place] [address] 85573 Monocytes (Bld) [#/Vol] 0.8 10*3/uL Normal 0-0.9 [facility] Comment on above: Performed By: #### C AUTUMN, CMP #### [facility] ([id number]) [address] [place] [address] 77579 Monocytes/100 WBC (Bld) 6.5 % Normal [facility] Comment on above: Performed By: #### C AUTUMN, CMP #### [facility] ([id number]) [address] [place] [address] 46025 Neutrophils/100 WBC (Bld) 83.5 % Normal [facility] Comment on above: Performed By: #### C AUTUMN, CMP #### [facility] ([id number]) [address] [place] [address] 03004 Platelet mean volume (Bld) [Entitic vol] 7.8 fL Normal 7-12 [facility] Comment on above: Performed By: #### C AUTUMN, CMP #### [facility] ([id number]) [address] [place] [address] 76222 Platelets (Bld) [#/Vol] 321 10*3/uL Normal 150-450 [facility] Comment on above: Performed By: #### C AUTUMN, CMP #### [facility] ([id number]) [address] [place] [address] 94847 RBC COUNT 3.98 X10E12/L Normal 3.80-5.20 [facility] Comment on above: Performed By: #### C BCA, CMP #### [facility] ([id number]) [address] [place] [address] 15293 WBC (Bld) [#/Vol] 12.2 10*3/uL High 4.0-11.0 [facility] Comment on above: Performed By: #### C BCA, CMP #### [facility] ([id number]) [address] [place] [address] [place] [address] COMPREHENSIVE METABOLIC PANE Jean Claude 11-26-2023 Albumin [Mass/Vol] 3.7 g/dL Normal 3.2-5.3 [facility] Comment on above: Performed By: #### C BCA, CMP #### [facility] ([id number]) [address] [place] [address] 10950 ALP [Catalytic activity/Vol] 159 U/L High 39-130 [facility] Comment on above: Performed By: #### C BCA, CMP #### [facility] ([id number]) [address] [place] [address] 89288 ALT [Catalytic activity/Vol] 47 U/L High 0-31 [facility] Comment on above: Performed By: #### C BCA, CMP #### [facility] ([id number]) [address] [place] [address] 65006 Anion gap [Moles/Vol] 9 mmol/L Normal 5-15 [facility] Comment on above: Performed By: #### C BCA, CMP #### [facility] ([id number]) [address] [place] [address] 63386 AST [Catalytic activity/Vol] 44 U/L High 0-41 [facility] Comment on above: Performed By: #### C BCA, CMP #### [facility] ([id number]) [address] [place] [address] 56478 Bilirubin [Mass/Vol] 0.8 mg/dL Normal 0.3-1.2 [facility] Comment on above: Performed By: #### C BCA, CMP #### [facility] ([id number]) [address] [place] [address] [place] [address] Calcium [Mass/Vol] 9.2 mg/dL Normal 8.5-10.5 [facility] Comment on above: Performed By: #### C BCA, CMP #### [facility] ([id number]) [address] [place] [address] 21644 Chloride [Moles/Vol] 102 mmol/L Normal 98-109 [facility] Comment on above: Performed By: #### C BCA, CMP #### [facility] ([id number]) [address] [place] [address] 60041 CO2 [Moles/Vol] 26 mmol/L Normal 22-32 [facility] Comment on above: Performed By: #### C BCA, CMP #### [facility] ([id number]) [address] [place] [address] 05461 Creatinine [Mass/Vol] 2.09 mg/dL High 0.40-1.00 [facility] Comment on above: Result Comment: METH OD TRACEABLE TO IDMS STANDARD Performed By: #### C BCA, CMP #### [facility] ([id number]) [address] [place] [address] 23686 GFR/1.73 sq M.predicted among non-blacks MDRD (S/P/Bld) [Vol rate/Area] 24 mL/min/{1.73_m2} Low >59 [facility] Comment on above: Result Comment: Reported eGFR is based on the CKD-EPI 1 equation that does not use a race coefficient. Performed By: #### C BCA, CMP #### [facility] ([id number]) [address] [place] [id number] Glucose [Mass/Vol] 149 mg/dL High 65-99 [facility] Comment on above: Performed By: #### C BCA, CMP #### [facility] ([id number]) [address] [place] [address] [id number] Potassium [Moles/Vol] 4.0 mmol/L Normal 3.5-5.0 [facility] Comment on above: Performed By: #### C BCA, CMP #### [facility] ([id number]) [address] [place] [address] [id number] Protein [Mass/Vol] 7.4 g/dL Normal 6.0-8.0 [facility] Comment on above: Performed By: #### C BCA, CMP #### [facility] ([id number]) [address] [place] [address] [id number] Sodium [Moles/Vol] 137 mmol/L Normal 134-146 [facility] Comment on above: Performed By: #### C BCA, CMP #### [facility] ([id number]) [address] [place] [id number] Urea nitrogen [Mass/Vol] 35 mg/dL High 5-27 [facility] Comment on above: Performed By: #### C BCA, CMP #### [facility] ([id number]) [address] [place] [id number] Glucose Glucometer (dC) [M ass/Vol]on 11-26-2023 Glucose [Mass/Vol] 183 mg/dL High 65-99 [facility] XR HIP RT INJon 08-15-2021 XR HIP [...] KALANI TORRES Date: 2021-08-15 11:29 Normal [facility] Vital Signs Date Time Vital Sign Value Performing Clinician Chuck noble 11-20-2024 10:58-0500 Body height 160 cm Keaton Medel MD Work Phone: [facility] [employer] [facility] 11-20-2024 10:58-0500 Body mass index (BMI) [Ratio] 41.45 kg/m2 Keaton Medel MD Work Phone: [facility] 11-20-2024 10:58-0500 Body temperature 98.2 [degF] Keaton Medel MD Work Phone: [facility] 11-20-2024 10:58-0500 Body weight 106.14 kg Keaton Medel MD Work Phone: [facility] 11-20-2024 10:58-0500 Diastolic blood pressure 80 mm[Hg] Keaton Medel MD Work Phone: [facility] 11-20-2024 10:58-0500 Heart rate 77 /min Keaton Medel MD Work Phone: [facility] 11-20-2024 10:58-0500 Systolic blood pressure 180 mm[Hg] Keaton Medel MD Work Phone: [facility] [employer] [facility] 09-04-2024 13:34-0500 Body height 160 cm Musa Del Valle APRN-BROADCAST PRODUCER Work Phone: [facility] [employer] [facility] 09-04-2024 13:34-0500 Body mass index (BMI) [Ratio] 41.31 kg/m2 Musa Del Valle CHEMIST ORGANIC-BROADCAST PRODUCER Work Phone: [facility] 09-04-2024 13:34-0500 Body weight 105.78 kg Musa Del Valle CHEMIST ORGANIC-BROADCAST PRODUCER Work Phone: [facility] 09-04-2024 13:34-0500 Diastolic blood pressure 76 mm[Hg] Musa Del Valle CHEMIST ORGANIC-BROADCAST PRODUCER Work Phone: [facility] 09-04-2024 13:34-0500 Systolic blood pressure 142 mm[Hg] [facility] CHEMIST ORGANIC-BROADCAST PRODUCER Work Phone: [facility] Encounters Encounter Date Encounter Type Care Provider Facility Start: 11-24-2024 End: 11-24-2024 [facility] Medication [facility] Comment on above: Other acute pulmonar y embolism, unspecified whether acute cor pulmonale present ([facility]) (Primary Dx); halfway (current) use of anticoagulants Start: 11-24-2024 End: 11-24-2024 ambulatory [facility] Start: 11-20-2024 End: 11-20-2024 Office outpatient visit 15 minutes Keaton Medel MD Work Phone: [facility] Comment on above: Constipation, unspec ified constipation type (Primary Dx); Gastroesophageal reflux disease, unspecified whether esophagitis present Start: 11-20-2024 End: 11-20-2024 [facility] Start: 10-24-2024 End: 10-24-2024 Follow-[facility] encounter [facility] Medication Management Comment on above: Other acute pulmonar y embolism, unspecified whether acute cor pulmonale present ([facility]) (Primary Dx); halfway (current) use of anticoagulants Start: 10-24-2024 End: 10-24-2024 [facility] Start: 09-25-2024 End: 09-25-2024 Follow-up encounter [facility] 1 [facility] Medication Therapy Management Comment on above: Other acute pulmonar y embolism, unspecified whether acute cor pulmonale present ([facility]) (Primary Dx); 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 Start: 09-25-2024 End: 09-25-2024 ambulatory [facility] Start: 09-04-2024 End: 09-04-2024 Office outpatient visit 25 minutes Musa Del Valle CHEMIST ORGANIC-BROADCAST PRODUCER Work Phone: [facility] Comment on above: CKD (chronic kidney disease) stage 4, GFR 15-29 ml/min ([facility]) (Primary Dx) Start: 09-04-2024 End: 09-04-2024 ambulatory [facility] Start: 08-28-2024 End: 08-28-2024 ambulatory [facility] Start: 08-25-2024 End: 08-25-2024 ambulatory PETE [facility] Start: 08-19-2024 End: 08-19-2024 ambulatory [facility] Start: 08-18-2024 End: 08-18-2024 ambulatory PRITI [facility] Start: 08-11-2024 End: 08-11-2024 ambulatory [facility] Start: 08-11-2024 End: 08-11-2024 ambulatory [facility] Start: 08-07-2024 End: 08-07-2024 ambulatory [facility] Start: 07-31-2024 End: 08-04-2024 Evaluation and management of inpatient [facility] Start: 06-10-2024 End: 06-10-2024 ambulatory [facility] Start: 06-06-2024 End: 06-06-2024 ambulatory [facility] Start: 04-28-2024 End: 04-28-2024 ambulatory Jani Jeffers MD Facility: [facility] Start: 04-22-2024 End: 04-22-2024 ambulatory [facility] Start: 03-24-2024 End: 03-24-2024 ambulatory Jani Jeffers MD Facility:[facility] Start: 03-21-2024 End: 03-21-2024 ambulatory [facility] Start: 03-11-2024 End: 03-11-2024 ambulatory YESIKA WARD Not Available Start: 03-07-2024 End: 03-07-2024 ambulatory [facility] Start: 01-04-2024 End: 01-04-2024 ambulatory [facility] Start: 01-03-2024 End: 01-03-2024 ambulatory [facility] Start: 01-02-2024 End: 01-02-2024 ambulatory [facility] Start: 01-02-2024 Encounter for genera l adult medical examination without abnormal findings [facility] Start: 12-04-2023 End: 12-04-2023 ambulatory [facility] Start: 11-30-2023 End: 11-30-2023 ambulatory [facility] Start: 11-27-2023 End: 11-29-2023 ambulatory [facility] Start: 11-26-2023 End: 11-29-2023 ambulatory [facility] Start: 11-26-2023 End: 11-26-2023 ambulatory [facility] Start: 08-15-2021 End: 08-16-[address] JOAQUIM TAYLOR Facility:[facility]1 Procedures Date Procedure Procedure Detail Performing Clinician Start: 11-24-2024 Prothrombin time [facility] Work Phone: Start: 10-24-2024 Prothrombin time [facility] Work Phone: Start: 09-25-2024 Prothrombin time [facility] Work Phone: Start: 08-25-2024 Follow-up visit Follow-up PETE LORA Start: 07-31-2024 Adult depression scr eening assessment Musa Del Valle CHEMIST ORGANIC-BROADCAST PRODUCER Work Phone: Start: 08-23-2017 Colonoscopy Musa moore CHEMIST ORGANIC-BROADCAST PRODUCER Work Phone: Plan of Treatment Date Care Activity Detail Author Start: 11-20-2025 Tobacco Screening Tobacco Screening [facility] Start: 08-25-2025 Tobacco Screening Tobacco Screening [facility] Start: 08-24-2025 End: 08-24-2025 Patient encounter procedure 08/24/2025 1:15 PM EST Office Visit [facility] [address] [place] [address] [place] [phone] Pete Lora MD [address] [place] [address] [facility] Start: 07-31-2025 Depression Screening Depression Scre ening [facility] Start: 03-09-2025 End: 03-09-2025 Patient encounter procedure 03/09/2025 9:30 AM EDT Office Visit [facility] [address] [place] [address] Deb Avendaño DO [address] [facility] [address] [place] [address] [facility] Start: 03-02-2025 End: 03-02-2025 Patient encounter procedure 03/02/2025 9:00 AM EDT Appointment [facility] [address] [place] [phone] Priti Monet MD [address] [facility] [address] [place] [address] [facility] Start: 01-09-2025 End: 01-09-2025 Patient encounter procedure 01/09/2025 9:00 AM EDT Office Visit [facility] [address] [place], [place] [address] [facility] [address] [place] [address] Keaton Medel MD [address] [place] [address], [address] [place] [address] [facility] Start: 01-01-2025 Fall Risk Screening Fall Risk Screen ing [facility] Start: 01-01-2025 Medicare Annual Wellness Visit Medicare Annual Wellness Visit [facility] Start: 12-18-2024 End: 12-18-2024 Patient encounter procedure 12/18/2024 9:00 AM EDT Office Visit [facility] [address] [place] [phone] Musa Del Valle, CHEMIST ORGANIC-BROADCAST PRODUCER [employer], [address] [place] [address] [facility] Start: 12-09-2024 End: 12-09-2024 Follow-up encounter 12/09/2024 9:00 AM EDT Follow Up Anticoagulation [facility] Medication Management [address] [place] [address] [facility] Med[facility] Start: 12-08-2024 End: 12-08-2024 Patient encounter procedure 12/08/2024 9:00 AM EDT Office Visit [facility] [address] [place] [phone] Musa Del Valle, CHEMIST ORGANIC-BROADCAST PRODUCER [address], [address] [place] [address] [facility] Start: 11-28-2024 End: 11-28-2024 Patient encounter procedure 11/28/2024 1:00 PM EDT Office Visit [facility] Surgery [address] [place] [phone] Farnaz Whitehead, CHEMIST ORGANIC-BROADCAST PRODUCER [address] [place] [address] [facility] General Surgery Start: 11-24-2024 End: 11-24-2024 Follow-up encounter 11/24/2024 9:15 AM EDT Follow Up Anticoagulation [facility] Medication Management [address] [place] [address] [facility] Medication Management Start: 10-24-2024 End: 10-24-2024 Follow-up encounter 10/24/2024 9:15 AM EST Follow Up Anticoagulation [facility] Medication Therapy Management [address] [place] [address] [facility] Medication Therapy Management Start: 09-25-2024 End: 09-25-2024 Follow-up encounter 09/25/2024 9:15 AM EST Follow Up Anticoagulation [facility] Medication Therapy Management [address] [place] [address] [facility] Medication Therapy Management Start: 05-18-2024 COVID-19 Vaccine ( season) COVID-19 Vaccine ( season) [facility] Start: 08-23-2020 Screening for malignant neoplasm of colon Colonoscopy [facility] Start: 1964 DTaP,Tdap and Td Vaccines (1 - Tdap) DTaP,Tdap and Td Vaccines (1 - Tdap) [facility] End: 09-04-2025 Basic metabolic 2000 panel - Serum or Plasma Basic Metabolic Panel Lab Routine CKD (chronic kidney disease) stage 4, GFR 15-29 ml/min ([facility]) 1 Occurrences starting 09/04/2024 until 09/04/2025 [facility] Comment on above: 1 Occurrences starti ng 09/04/2024 until 09/04/2025 End: 09-04-2025 CBC panel - Blood by Automated count CBC without diff Lab Routine CKD (chronic kidney disease) stage 4, GFR 15-29 ml/min ([facility]) 1 Occurrences starting 09/04/2024 until 09/04/2025 [facility] Comment on above: 1 Occurrences starti ng 09/04/2024 until 09/04/2025 End: 09-04-2025 Magnesium [Mass/volume] in Serum or Plasma Magnesium Lab Routine CKD (chronic kidney disease) stage 4, GFR 15-29 ml/min ([facility]) 1 Occurrences starting 09/04/2024 until 09/04/2025 [facility] Comment on above: 1 Occurrences starti ng 09/04/2024 until 09/04/2025 End: 09-04-2025 Parathyroid Hormone, intact Parathyroid Hormone, intact Lab Routine CKD (chronic kidney disease) stage 4, GFR 15-29 ml/min ([facility]) 1 Occurrences starting 09/04/2024 until 09/04/2025 [facility] Work Phone: Comment on above: 1 Occurrences starti ng 09/04/2024 until 09/04/2025 End: 09-04-2025 Phosphate [Mass/volume] in Serum or Plasma Phosphorus Lab Routine CKD (chronic kidney disease) stage 4, GFR 15-29 ml/min ([facility]) 1 Occurrences starting 09/04/2024 until 09/04/2025 [facility] Comment on above: 1 Occurrences starti ng 09/04/2024 until 09/04/2025 End: 09-04-2025 Protein creat ratio Protein creat ratio Lab Routine CKD (chronic kidney disease) stage 4, GFR 15-29 ml/min ([facility]) 1 Occurrences starting 09/04/2024 until 09/04/2025 [facility] Comment on above: 1 Occurrences starti ng 09/04/2024 until 09/04/2025 End: 09-04-2025 Urinalysis Urinalysis Lab Routine CKD (chronic kidney disease) stage 4, GFR 15-29 ml/min ([facility]) 1 Occurrences starting 09/04/2024 until 09/04/2025 [facility] Comment on above: 1 Occurrences starti ng 09/04/2024 until 09/04/2025 End: 09-04-2025 Vitamin D 25 hydroxy Vitamin D 25 hydroxy Lab Routine CKD (chronic kidney disease) stage 4, GFR 15-29 ml/min ([facility]) 1 Occurrences starting 09/04/2024 until 09/04/2025 [facility] Comment on above: 1 Occurrences starti ng 09/04/2024 until 09/04/2025 Immunizations Immunization Date Immunization Notes Care Provider Nabor rose 08-07-2024 influenza, high dose seasonal, preservative-free Musa Oberneder CHEMIST ORGANIC-BROADCAST PRODUCER Work Phone: [facility] 08-22-2023 RSV, recombinant, protein subunit RSVpreF, adjuvant reconstituted, 0.5 mL, PF Musa Oberneder CHEMIST ORGANIC-BROADCAST PRODUCER Work Phone: [facility] 06-27-2023 Influenza, High-dose , Quadrivalent Musa Oberneder CHEMIST ORGANIC-BROADCAST PRODUCER Work Phone: [facility] 05-19-2023 zoster vaccine recombinant Musa Oberneder CHEMIST ORGANIC-BROADCAST PRODUCER Work Phone: [facility] 01-27-2023 Pneumococcal Conjuga te 20-valent Musa Oberneder CHEMIST ORGANIC-BROADCAST PRODUCER Work Phone: [facility] 01-27-2023 zoster vaccine recombinant Musa Oberneder CHEMIST ORGANIC-BROADCAST PRODUCER Work Phone: [facility] 06-29-2022 Influenza, High-dose , Quadrivalent Musa Oberneder CHEMIST ORGANIC-BROADCAST PRODUCER Work Phone: [facility] 07-16-2021 Influenza, High-dose , Quadrivalent Musa Oberneder CHEMIST ORGANIC-BROADCAST PRODUCER Work Phone: [facility] 12-16-2020 COVID-19, mRNA, LNP- S, PF, 100mcg/0.5mL Dose Musa Oberneder CHEMIST ORGANIC-BROADCAST PRODUCER Work Phone: [facility] 11-18-2020 COVID-19, mRNA, LNP- S, PF, 100mcg/0.5mL Dose Musa Oberneder CHEMIST ORGANIC-BROADCAST PRODUCER Work Phone: [facility] 07-14-2020 influenza, injectabl e, quadrivalent, contains preservative Musa Oberneder CHEMIST ORGANIC-BROADCAST PRODUCER Work Phone: [facility] 07-14-2020 Seasonal, quadrivale nt, recombinant, injectable influenza vaccine, preservative free Musa Oberneder CHEMIST ORGANIC-BROADCAST PRODUCER Work Phone: [facility] 08-15-2019 influenza, high dose seasonal, preservative-free Musa Oberneder CHEMIST ORGANIC-BROADCAST PRODUCER Work Phone: [facility] 07-30-2018 influenza, high dose seasonal, preservative-free Musa Oberneder CHEMIST ORGANIC-BROADCAST PRODUCER Work Phone: [facility] 07-17-2017 influenza, high dose seasonal, preservative-free Musa Oberneder CHEMIST ORGANIC-BROADCAST PRODUCER Work Phone: [facility] 07-04-2016 influenza, injectabl e, quadrivalent, preservative free Musa Oberneder CHEMIST ORGANIC-BROADCAST PRODUCER Work Phone: [facility] 08-26-2015 influenza, seasonal, injectable, preservative free Musa Oberneder CHEMIST ORGANIC-BROADCAST PRODUCER Work Phone: [facility] 09-01-2014 zoster vaccine, live Musa Oberneder CHEMIST ORGANIC-BROADCAST PRODUCER Work Phone: [facility] 08-04-2014 influenza virus vacc ine, unspecified formulation Musa Oberneder CHEMIST ORGANIC-BROADCAST PRODUCER Work Phone: [facility] 08-04-2014 pneumococcal conjuga te vaccine, 13 valent Musa Oberneder CHEMIST ORGANIC-BROADCAST PRODUCER Work Phone: [facility] 06-11-2013 influenza virus vacc ine, whole virus Musa Oberneder CHEMIST ORGANIC-BROADCAST PRODUCER Work Phone: [facility] 09-14-2012 influenza, seasonal, injectable Musa Oberneder CHEMIST ORGANIC-BROADCAST PRODUCER Work Phone: [facility] 08-01-2010 influenza virus vacc ine, whole virus Musa Oberneder CHEMIST ORGANIC-BROADCAST PRODUCER Work Phone: [facility] 08-26-2002 pneumococcal polysaccharide vaccine, 23 valent Musa Oberneder CHEMIST ORGANIC-BROADCAST PRODUCER Work Phone: [facility] Payers Date Payer Category Payer Unknown 2015 Medicare HMO [employer]ICARE [id number] 1959 Unknown [id number] 1945 Unknown [id number] 2.16.840.1.777155.3.579.2.593 1947 Unknown [id number] 2.16.840.1.727706.3.579.2.125 9 1947 Unknown [id number] 2.16.840.1.598909.3.579.2.125 9 1947 Unknown [id number] 2.16.840.1.093678.3.579.2.196 1947 Unknown [id number] 2.16.840.1.878778.3.579.2.196 1947 Unknown [id number] 2.16.840.1.572645.3.579.2.128 1947 Unknown [id number] 2.16.840.1.288796.3.579.2.128 1947 Unknown [id number] 2.16.840.1.485703.3.579.2.128 1947 Unknown [id number] 2.16.840.1.984650.3.579.2.128 1947 Unknown [id number] 2.16.840.1.084861.3.579.2.128 1947 Unknown [id number] 2.16.840.1.329464.3.579.2.128 1947 Unknown [id number] 2.16.840.1.484357.3.579.2.128 1947 Unknown [id number] 2.16.840.1.749938.3.579.2.128 1947 Unknown [id number] 2.16.840.1.459771.3.579.2.128 1947 Unknown [id number] 2.16.840.1.137444.3.579.2.128 1947 Unknown [id number] 2.16.840.1.988463.3.579.2.128 1947 Unknown [id number] 2.16.840.1.661786.3.579.2.128 1947 Unknown [id number] 2.16.840.1.556624.3.579.2.128 1947 Unknown [id number] 2.16.840.1.217314.3.579.2.128 1947 Unknown [id number] 2.16.840.1.475650.3.579.2.128 1947 Unknown [id number] 2.16.840.1.787368.3.579.2.128 1947 Unknown [id number] 2.16.840.1.719394.3.579.2.128 1947 Unknown [id number] 2.16.840.1.143870.3.579.2.128 1947 Unknown [id number] 2.16.840.1.032651.3.579.2.128 1947 Unknown [id number] 2.16.840.1.453361.3.579.2.128 1947 Unknown [id number] 2.16.840.1.663918.3.579.2.128 1947 Unknown [id number] 2.16.840.1.879574.3.579.2.128 1947 Unknown [id number] 2.16.840.1.967162.3.579.2.128 1947 Unknown [id number] 2.16.840.1.257061.3.579.2.128 1947 Unknown [id number] 2.16.840.1.269171.3.579.2.128 1947 Unknown [id number] 2.16.840.1.932025.3.579.2.128 1947 Unknown [id number] 2.16.840.1.246340.3.579.2.128 1947 Unknown [id number] 2.16.840.1.713088.3.579.2.128 6 Social History Date Type Detail Facility Start: 11-28-2022 Tobacco smoking status NDIS Never smoked tobacco [facility] Start: 11-28-2022 Tobacco use and exposure Smokeless tobacco non-user [facility] Start: 08-25-2024 End: 11-20-2024 Alcoholic beverage intake Current non-drinker of alcohol (finding) [facility] Start: 07-31-2024 End: 08-25-2024 History of Social function [facility] Start: 07-31-2024 End: 08-25-2024 [facility] Utilities [facility] Has the [employer], [employer], or water company threatened to shut off services in your home in past 12Mo No [facility] Do you belong to any clubs or organizations such as religious groups, unions, fraternal or athletic groups, or school groups? Yes [facility] Are you now , , , , never or living with a partner? [facility] How often to you hav e a drink containing alcohol? Monthly or less [facility] How many standard dr inks containing alcohol do you have on a typical day? Patient does not drink [facility] How often do you hav e 6 or more drinks on 1 occasion? Never [facility] Do you feel stress - tense, restless, nervous, or anxious, or unable to sleep at night because your mind is troubled all the time - these days [OSQ] Very much [facility] Start: 11-07-2020 Education 12 [facility] Start: 07-31-2024 Alcohol Comment maybe one glass a year of wine for special occasion [facility] Start: 1945 Sex assigned at Not on file [facility] Start: 04-22-2015 Sex Female (finding) [facility] Start: 07-31-2024 Gender identity Identifies as female gender (finding) [facility] Start: 07-31-2024 Sexual orientation Heterosexual (finding) [facility] Medical Equipment Procedure Code Equipment Code Equipment Origin al Text Equipment Identifier Dates Cup Actb 50mm Pn cl [facility] - [id number] [id number] 21)[id number], [id number] FDA Start: 12-27-2021 Stem Fem Corail Amt Collar Size [id number] [id number] 21)[id number], [id number] FDA Start: 12-27-2021 Liner Actb 50mm 32mm Ntrl Altrx - Sna - [id number] [id number] 1)[id number], [id number] FDA Start: 12-27-2021 Implant Hip Mop All Sz Construct Rpl [id number] - Sna - [id number] Start: 12-27-2021 Elminator Hl Drl c Pncl Hip Mrthn - Sna - [id number] ()[id number] [id number](21)[id number], [id number] FDA Start: 12-27-2021 [place] Cancell ous Bone Screw [id number] Start: 12-27-2021 [employer] [id number] Start: 12-27-2021 Goals Date Patient Goal Desired Activity /State Personal health goal Comment on above: Formatting of this n ote might be different from the original. Evaluation of progress towards goal: Patient plans to return home with self care. Clinical Notes 11-27-2023 to 11-24-2024 Susan Naik, [facility] - 11/24/2024 9:15 AM Kyler Medel MD - 11/20/2024 11:30 AM Víctor Naik, [facility] - 10/24/2024 9:15 AM Víctor Naik, [facility] - 09/25/2024 9:15 AM EST Note Date & Type Note Facility 11-24-2024 History of Present illness Narrative 15 minute [id number]-[id number] follow-up anticoagulation appointment. INR performed in office per protocol. INR 1.5 (goal range: 2.0-3.0). Patient reports: Taking warfarin dosing as documented. Missed or extra doses of warfarin: No Changes to medications: YES Started omeprazole 20 mg daily on 11/21/24 Changes to lifestyle (diet / alcohol / smoking / activity): No Recent emergency department visit / hospitalization / health changes / new contraindication to current anticoagulant: No Signs/symptoms of bruising/bleeding or clotting or any intolerable adverse events: No Upcoming procedures: YES Colonoscopy consult appt on 11/28. Per patient referral, no bridge will be needed. Patient to call with date. Patient was referred for colonoscopy by same provider on warfarin referral. Anticoagulant prescription needed: No Seen referring provider in the last year Duration of therapy reviewed Assessment: INR is subtherapeutic. We will boost 6% and increase weekly dose 6% Plan: Patient instructed to increase to warfarin 4.5 mg 11/24, then increase weekly dose to 3 mg MF and 4.5 mg AOD. Check INR in 2 week(s). Patient verbalizes understanding of anticoagulant dosing instructions and information discussed. Dosing regimen, counseling, and follow-up appointment were provided to the patient. Patient reminded to call with questions or any medication changes. Patient instructed to seek medical attention if any major bleeding/bleeding that persists or worsens. Susan Naik RPH 11/24/24 1114 documented in this encounter [facility] 11-20-2024 History of Present illness Narrative Subjective Patient ID: Maryjo Mandujano is a 79 y.o. female. Maryjo is a 79 year old female who presents with infrequent bowel movements and a weird taste in her mouth. Her last bowel movement was Sunday, which she reported to be small but soft and formed. She had to strain a lot for the bowel movement to pass, but there was no pain or blood associated with it. Sometimes the feces has been like small strips. She often has abdominal pain in three spots on the right side of her abdomen and occasionally in her left lower quadrant. It is sometimes stinging and burning, and other times just tender. Denies nausea, vomiting. She has used miralax and stool softeners, but she has too soft of bowel movements when she uses it too often. Her bowels have become more regular when she was taking antibiotics. The bad taste in her mouth goes away after eating and then returns. She denies symptoms of acid reflux and does not use any acid neutralizing medications. Her last colonoscopy was in 2016. She had multiple polyps and repeat was recommended in three years. Review of Systems Constitutional: Negative for chills, fatigue, fever and unexpected weight change. Respiratory: Positive for shortness of breath (with exertion). Negative for cough and wheezing. Cardiovascular: Negative for chest pain and palpitations. Stinging sensation on Sunday; went away on its own Gastrointestinal: Positive for abdominal distention, abdominal pain and constipation. Negative for blood in stool, diarrhea, nausea and vomiting. Genitourinary: Negative for difficulty urinating, dysuria and frequency. Objective Physical Exam Constitutional: Appearance: She is obese. She is not toxic-appearing. Cardiovascular: Rate and Rhythm: Normal rate and regular rhythm. Heart sounds: Murmur heard. Pulmonary: Effort: Pulmonary effort is normal. Breath sounds: Normal breath sounds. Abdominal: General: Bowel sounds are normal. There is no distension. Palpations: There is no mass. Tenderness: There is abdominal tenderness (mild tenderness in RUQ and RLQ). There is no guarding or rebound. Neurological: Mental Status: She is alert. Assessment/Plan A motility laxative may provide her some benefit of symptom relief pending her colonoscopy. Diagnoses and all orders for this visit: Constipation, unspecified constipation type - [facility] - [place], [place]; Future - bisacodyL (DULCOLAX, BISACODYL,) 5 mg EC tablet; Take 2 tablets (10 mg total) by mouth every other day as needed for constipation. Gastroesophageal reflux disease, unspecified whether esophagitis present - omeprazole (PriLOSEC) 20 mg capsule; Take 1 capsule (20 mg total) by mouth in the morning. documented in this encounter [facility] 10-24-2024 History of Present illness Narrative 15 minute mfph-pw-[id number] follow-up anticoagulation appointment. INR performed in office per protocol. INR 2.0 (goal range: 2.0-3.0). Patient reports: Taking warfarin [...] and 4.5 mg AOD. Check INR in 4 week(s). Patient verbalizes understanding of anticoagulant dosing instructions and information discussed. Dosing regimen, counseling, and follow-up appointment were provided to the patient. Patient reminded to call with questions or any medication changes. Patient instructed to seek medical attention if any major bleeding/bleeding that persists or worsens. Susan Naik [facility] 10/24/24921 documented in this encounter [facility] 09-25-2024 History of Present illness Narrative 15 minute [id number]-vh-[id number] follow-up anticoagulation appointment. INR performed in office per protocol. INR 2.0 (goal range: 2.0-3.0). Patient reports: Taking warfarin dosing as documented. Missed or extra doses of warfarin: No Changes to medications: YES Calcitrol q48h Changes to lifestyle (diet / alcohol / [...] and 4.5 mg AOD. Check INR in 4 week(s). Patient verbalizes understanding of anticoagulant dosing instructions and information discussed. Dosing regimen, counseling, and follow-up appointment were provided to the patient. Patient reminded to call with questions or any medication changes. Patient instructed to seek medical attention if any major bleeding/bleeding that persists or worsens. Susan Naik [facility] 09/25/24917 documented in this encounter [facility] 09-04-2024 History of Present illness Narrative Images from the original note were not included. Date of Service: 09/04/24 PCP: Keaton Medel MD History of Present [...] of her last visit her creatinine was 2.4 mg/dL. Most recent laboratory studies shows a creatinine of 2.78 mg/dL. Problem List Stage 3B chronic kidney [...] tract infections. She was evaluated by Dr. Lora in the past. She was placed on suppressive antibiotics in the past. Gastroesophageal reflux disease Charcot deformity of the left foot Medical, Surgical, Family & Social History Medical History: Past Medical History: Diagnosis Date Arthritis Chronic kidney disease stage 3 Clotting disorder ([facility]) Diabetes ([facility]) Diabetes mellitus type 2, controlled ([facility]) DVT (deep venous thrombosis) ([facility]) 07/2024 RLE Hypercholesterolemia Hypertension Obesity Peptic ulceration PONV (postoperative nausea and vomiting) Pulmonary embolism ([facility]) 07/2024 Skin cancer Visual impairment Surgical History: Past Surgical History: Procedure Laterality Date CATARACT EXTRACTION Left CHOLECYSTECTOMY COLONOSCOPY COLONOSCOPY N/A 08/23/2017 Performed by Pete Sood DO at [facility] CYSTOSCOPY RETROGRADE PYELOGRAM [facility] SOLUTION Bilateral 10/22/2019 Performed by Pete Lora MD at [facility] CYSTOSCOPY [facility] SOLUTION N/A 10/23/2018 Performed by Pete Lora MD at [facility] DILATION AND CURETTAGE OF UTERUS EYE SURGERY several years ago they replaced the fluid in my ri HEEL SPUR SURGERY Right HEEL SPUR SURGERY INJECTION MEDIAL BRANCH NERVE BLOCK: bilat L34 45 mbbx 1 Bilateral 07/13/2017 Performed by Memo Barker MD at [facility] INJECTION MEDIAL BRANCH NERVE BLOCK: bilat L34 45mbb x 1 Bilateral 08/13/2017 Performed by Memo Barker MD at [facility] INJECTION SACROILIAC NERVE: bilat Bilateral 10/26/2017 Performed by Memo Barker MD at [facility] INJECTION SACROILIAC NERVE: bilat si inj x 1 Bilateral 06/18/2017 Performed by Memo Barker MD at [facility] INJECTION SACROILIAC NERVE: bilat SI inj x 1 Bilateral 05/25/2017 Performed by Memo Barker MD at [facility] JOINT REPLACEMENT KNEE ARTHROSCOPY Left repair of meniscus KNEE ARTHROSCOPY Right November or December 2016 POSTERIOR LAMINECTOMY / DECOMPRESSION LUMBAR SPINE RADIOFREQUENCY ABLATION SPINAL Left L3/4, 4/5 RFA Left 09/14/2017 Performed by Memo Barker MD at [facility] RADIOFREQUENCY ABLATION SPINAL: right L34 45rfa Right 08/31/2017 Performed by Memo Barker MD at [facility] RELEASE CARPAL TUNNEL Right 09/24/2018 Performed by Jr Joaquim Taylor DO at [facility] RELEASE TRIGGER FINGER Right 09/24/2018 Performed by Jr Joaquim Taylor DO at [facility] REPLACEMENT TOTAL JOINT HIP Right 12/27/2021 Performed by Joaquim Taylor Jr., DO at [facility] SKIN BIOPSY 06/2016 SKIN CANCER EXCISION from right eyelid SPINE SURGERY 03/2015 Social History: Social History Socioeconomic History Marital [...] at all Food Insecurity: No Food Insecurity (08/25/2024) Hunger Screening Food Insecurity - Worry: Never True Food Insecurity - Inability: Never True Transportation Needs: No Transportation Needs (07/31/2024) PRAPARE - Transportation Lack of Transportation (Medical): No Lack of Transportation (Non-Medical): No Physical Activity: Insufficiently Active (07/31/2024) Exercise Vital Sign Days of Exercise per Week: 1 day Minutes of Exercise per Session: 30 min Stress: Stress Concern Present (07/31/2024) [employer] - Occupational Stress Questionnaire Feeling of Stress : Very much Social Connections: Socially Integrated (07/31/2024) Social Connection and Isolation Panel [NHANES] Frequency of Communication with Friends and Family: More than three times a week Frequency of Social Gatherings with Friends and Family: More than three times a week Attends Restoration Services: More than 4 times per year [...] Risk (07/31/2024) Housing Instability Housing Instability: No Family History: [...] for pain. 30 tablet 0 amLODIPine (NORVASC) 10 mg tablet Take 1 tablet (10 mg total) by mouth in the morning. 90 tablet 3 atorvastatin (LIPITOR) 20 mg tablet take 1 tablet by mouth in the morning 90 tablet 3 B-complex with vitamin C tablet Take 1 tablet by mouth in the morning. bumetanide (BUMEX) 2 mg tablet Take 1 tablet (2 mg total) by mouth daily. 90 tablet 3 cefaDROXil (DURICEF) 500 mg capsule 1 tablet twice a day, for 5 days. Start for sign of infection. 60 capsule 0 cholecalciferol, vitamin D3, (VITAMIN D3) 5,000 units capsule Take 1 capsule (5,000 Units total) by mouth in the morning. 90 capsule 3 coenzyme Q10 30 mg capsule Take 1 capsule (30 mg total) by mouth in the morning. cranberry conc-ascorbic acid 4,200-20 mg capsule Take 1 capsule by mouth in the morning. garlic 1,000 mg capsule Take 1 tablet by mouth daily. glipiZIDE (GLUCOTROL XL) 10 mg 24 hr tablet take 1 tablet by mouth in the morning 90 tablet 3 insulin glargine (LANTUS SOLOSTAR U-100 INSULIN) 100 unit/mL (3 mL) insulin pen Inject 25 Units under the skin nightly. 24 mL 3 losartan (COZAAR) 50 mg tablet Take 1 tablet (50 mg total) by mouth in the morning. lysine 500 mg tablet Take 1 tablet (500 mg total) by mouth in the morning. multivitamin (THERAGRAN) tablet Take 1 tablet by mouth in the morning. NON FORMULARY daily. [place] Beet- red beet supplement for circulation vitamin A acetate 3,000 mcg (10,000 unit) tablet, sublingual Place 1 tablet under the tongue in the morning. warfarin (COUMADIN) 3 mg tablet Take 1-1.5 tablets (3-4.5 mg total) by mouth in the evening. 3 mg nightly as directed by the warfarin clinic. 45 tablet 5 No current facility-administered medications for this visit. Facility-Administered Medications Ordered in Other Visits Medication Dose Route Frequency Provider Last Rate Last Admin iohexol (OMNIPAQUE) 240 mg iodine/mL injection 50 mL 50 mL other Once in imaging Pete Lora MD Review of Systems Review of Systems Constitutional: Negative for chills, diaphoresis, fatigue and fever. HENT: Negative for congestion, ear discharge, ear pain, facial swelling and hearing loss. Eyes: Negative for pain, discharge, redness and itching. Respiratory: Negative for cough, shortness of breath and wheezing. Cardiovascular: Positive for leg swelling. Negative for chest pain and palpitations. Gastrointestinal: Negative for abdominal pain, constipation, diarrhea, nausea and vomiting. Endocrine: Negative for polydipsia, polyphagia and polyuria. Genitourinary: Negative for decreased urine volume, difficulty urinating, dysuria, enuresis, flank pain, frequency, hematuria and urgency. Musculoskeletal: Negative for arthralgias, joint swelling and myalgias. Skin: Negative for rash and wound. Neurological: Positive for weakness. Negative for dizziness, tremors, light-headedness and numbness. Hematological: Negative for adenopathy. Does not bruise/bleed easily. Physical Exam Vital Signs: Vitals: 09/04/24 1334 BP: 142/76 BP Site: Right Arm BP Postition: Sitting BP CUFF SIZE: M (9-13 inches) Weight: 105.8 kg (233 lb 3.2 oz) Height: 160 cm (5' 3 ) BMI: Body mass index is 41.31 kg/m . General appearance: alert in no [...] Lymphatic: no cervical or axillary lymphadenopathy. Edema: 1+ edema Laboratory Studies Chemistry: Lab Results Component Value Date SODIUM 141 08/28/2024 K 5.2 (H) 08/28/2024 CL 106 08/28/2024 CO2 27 08/28/2024 ANIONGAP 8 08/28/2024 BUN 64 (H) 08/28/2024 CREATININE 2.78 (H) 08/28/2024 EGFR 17 (L) 08/28/2024 CALCIUM 9.6 08/28/2024 MG 2.0 08/28/2024 PHOSPHORUS 4.4 08/28/2024 Hematology: Lab Results Component Value Date WBC 10.9 08/28/2024 HGB 11.1 (L) 08/28/2024 HCT 32.9 (L) 08/28/2024 PLT 284 08/28/2024 Anemia Studies: Lab Results Component Value Date IRONSAT 29 08/08/2022 Mineral and Bone Labs: Lab Results Component Value Date CALCIUM 9.6 08/28/2024 PHOSPHORUS 4.4 08/28/2024 VITD25 33.6 08/28/2024 PTH 186 (H) 08/28/2024 Urine Studies: Lab Results Component Value Date COLOR YELLOW 08/28/2024 TURBIDITY CLEAR 08/28/2024 SPECIFICGRA 1.013 08/28/2024 NITRITE Negative 08/28/2024 PHURINE 6.0 08/28/2024 LEUKOCYTE MODERATE (A) 08/28/2024 PROTEIN 100 (A) 08/28/2024 KETONES Negative 08/28/2024 UROBILINOGEN <1.1 08/28/2024 BLOODHGB Trace (A) 08/28/2024 Lab Results Component Value Date UPROCRTRAT 1.43 (H) 08/28/2024 ALBCREATRA 781.3 (H) 11/05/2019 Immunology Profile Lab [...] stage 4 with an estimated GFR of 17 mL/min and a stable creatinine since her last visit. 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 She was advised on the importance of proper blood pressure control, blood sugar control, avoidance of NSAID medications, IV contrast dyes, possible. Follow up in 2-3 months, send for dialysis education 2. Hypertension: Blood pressure slightly elevated she has not been checking 3. Edema: slight swelling, she reports adequate response of Bumex. Increase Bumex to 2 mg b.i.d. for three days and continue daily thereafter with an afternoon dose as needed. Place on a salt and fluid restriction. 4. 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 Continue to monitor PTH start calcitriol Sunday 5. Diabetes mellitus type 2: Further management per primary care 6. Hyperkalemia: Low-potassium diet was educated her potassium level should improve with her increase dose of Bumex Thank you Keaton Medel MD for the allowing us to continue participant in the care of this patient. Please contact me at [phone] (Office) or [phone] (Answering service) with any questions. JAMES Lee [facility] This note was created with the assistance of a speech-recognition program. Although the intention is to generate a document that actually reflects the content of the visit, no guarantees can be provided that every mistake has been identified and corrected by editing. JAMES Barakat 09/04/24 1347 documented in this encounter [facility] 11-27-2023 Note XR CHEST 2 VWS Procedure: Chest x-ray performed Number of views:PA and lateral History:Cough Comparison:12/26/2012 Findings: The heart and lungs show no acute findings, and the mediastinum and marla are grossly negative . Impression: No acute change. Finalized by Susu Siddiqui DO on 11/27/2023 1:51 PM [facility] Evaluation note Diagnosis Microscopic hematuria- Primary Recurrent urinary tract [...] Primary Urinary tract infection, site not specified Recurrent urinary tract infection- Primary Urinary tract infection, site not specified CKD (chronic kidney disease) stage 4, GFR 15-29 ml/min ([facility] Primary Chronic kidney disease, Stage IV (severe) [facility] Diagnosis Microscopic hematuria- Primary Recurrent urinary [...] Primary Urinary tract infection, site not specified Recurrent urinary tract infection- Primary Urinary tract infection, site not specified Other acute pulmonary embolism, unspecified whether acute cor pulmonale present ([facility])- Primary halfway (current) use of anticoagulants Long-term (current) use of anticoagulants [facility] Diagnosis Microscopic hematuria- Primary [...] Primary Urinary tract infection, site not specified Recurrent urinary tract infection- Primary Urinary tract infection, site not specified Constipation, unspecified constipation type- Primary Gastroesophageal reflux disease, unspecified whether esophagitis present [facility] Diagnosis Microscopic hematuria- Primary [...] Primary Urinary tract infection, site not specified Recurrent urinary tract infection- Primary Urinary tract infection, site not specified Other acute pulmonary embolism, unspecified whether acute cor pulmonale present ([facility])- 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 filed[facility] on filedocumented in this encounter [facility] Summary Purpose Family History No Family History Records FoundNo Family History Records FoundNo Family History Records FoundNo Family History Records FoundNo Family History Records Found Advance Directives No Advanced Directives Records FoundDocuments on File Type Date Recorded Patient Risk Management Analyst Expl anation Living Will 01/06/2022 3:15 PM Date Activated Date Inactivated Comments 07/31/2024 7:00 PM 08/04/2024 4:18 PM Date Activated Date Inactivated Comments 11/26/2023 3:00 PM 11/28/2023 5:39 PM Date Activated Date Inactivated Comments 01/02/2022 3:08 PM 01/02/2022 9:24 PM Date Activated Date Inactivated Comments 12/27/2021 12:17 PM 12/28/2021 5:57 PM Documents on File Type Date Recorded Patient Risk Management Analyst Expl anation Advance Directive 11/05/2024 8:52 AM [facility]alt [facility] DPOA 10/27/15 Living Will 01/06/2022 3:15 PM Date Activated Date Inactivated Comments 07/31/2024 7:00 PM 08/04/2024 4:18 PM Date Activated Date Inactivated Comments 11/26/2023 3:00 PM 11/28/2023 5:39 PM Date Activated Date Inactivated Comments 01/02/2022 3:08 PM 01/02/2022 9:24 PM Date Activated Date Inactivated Comments 12/27/2021 12:17 PM 12/28/2021 5:57 PM Documents on File Type Date Recorded Patient Risk Management Analyst Expl anation Advance Directive 11/05/2024 8:52 AM Healt hcare DPOA 10/27/15 Living Will 01/06/2022 3:15 PM Additional Source Comments INFORMATION SOURCE (unrecogn ized section and content) DATE CREATED AUTHOR 08/22/2021 [facility] DATE CREATED AUTHOR AUTHOR'S ORGANIZ ATION 03/16/2024 [facility] EPIC DATE CREATED AUTHOR AUTHOR'S ORGANIZ ATION 05/14/2024 [facility] DATE CREATED AUTHOR AUTHOR'S ORGANIZ ATION 11/22/2024 [facility] DATE CREATED AUTHOR AUTHOR'S ORGANIZ ATION 11/25/2024 [facility] Care Teams (unrecognized sec tion and content) 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 Start Date End Date Keaton Medel MD [address] [place] [address], [address] [place] [phone] (Work) PCP - General Pediatrics 04/19/17 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 [facility] [employer] [facility]. provides no warranty or guarantee of the accuracy or completeness of information in this document.
--- NOTE | 2024-11-26 11:13 | P.CN_ITS ---
Consult Note: HPI Data of Consult Patient: known to practice within the last 3 years Requesting Physician: Ching Wylie NP Primary Care Provider: KEATON MEDEL Consult Narrative Reason for consult: f/u Narrative: 78yof who presents for evaluation. longstanding low back history, now has symptoms that radiate into bilateral lower extremities. has completed physical therapy and continues in chiropractic therapy >6 weeks, without lasting benefit. has tried various pain medications and muscle relaxers, but was unable to tolerate. cannot take nsaids due to decreased kidney function and now on coumadin. uses primarily tylenol. previously underwent bilateral L4/5 TFESI and L5/S1 TFESI with >50% improvement in pain and functional ability greater than 3 months. Patient reporting moderate to severe pain and cramping at bedtime impacting sleep, has failed gabapentin in the past. pt was unable to tolerate flexeril due to irregular heart rate. finding benefit to baclofen when she utilizes, without side effects. 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 ?I15.8 - Other secondary hypertension (ICD-10) ?Q25.1 - Coarctation of aorta (ICD-10) Upper back pain ?M54.9 - Dorsalgia, unspecified (ICD-10) Osteoarthritis ?M19.90 - Unspecified osteoarthritis, unspecified site (ICD-10) Neck pain ?M54.2 - Cervicalgia (ICD-10) Low back pain ?M54.50 - Low back pain, unspecified (ICD-10) Obesity ?E66.9 - Obesity, unspecified (ICD-10) H/O renal failure ?Z87.448 - Personal history of other diseases of urinary system (ICD-10) Diabetes ?E11.9 - Type 2 diabetes mellitus without complications (ICD-10) H/O renal calculi ?Z87.442 - Personal history of urinary calculi (ICD-10) High cholesterol ?E78.00 - Pure hypercholesterolemia, unspecified (ICD-10) Hypertension ?I10 - Essential (primary) hypertension (ICD-10) Surgical History Status post surgical removal of malignant neoplasm of skin ?Z98.890 - Other specified postprocedural states (ICD-10) H/O lumbosacral spine surgery ?Z98.890 - Other specified postprocedural states (ICD-10) History of cholecystectomy ?Z90.49 - Acquired absence of other specified parts of digestive tract (ICD- 10) H/O carpal tunnel repair ?Z98.890 - Other specified postprocedural states (ICD-10) H/O cataract extraction ?Z98.49 - Cataract extraction status, unspecified eye (ICD-10) Meds Home Medications and Allergies Home Medications ?Medication ?Instructions ?Recorded ?Confirmed ?Type amlodipine 10 mg tablet 10 mg PO DAILY 03/24/24 05/12/24 History atorvastatin 20 mg tablet 20 mg PO DAILY 03/24/24 05/12/24 History bumetanide 2 mg tablet 2 mg PO DAILY 03/24/24 05/12/24 History cefadroxil 500 mg capsule 500 mg PO BID PRN INFECTION 03/24/24 05/12/24 History cholecalciferol (vitamin D3) 100 4,000 unit PO DAILY 03/24/24 05/12/24 History mcg (4,000 unit) capsule coQ10 (ubiquinol) 100 mg capsule 100 mg PO DAILY 03/24/24 05/12/24 History garlic 1,000 mg capsule 1,000 mg PO DAILY 03/24/24 05/12/24 History glipizide 10 mg tablet 10 mg PO DAILY 03/24/24 05/12/24 History insulin glargine 100 unit/mL 25 unit subcut DAILY 03/24/24 05/12/24 History subcutaneous solution (Lantus U-100 Insulin) losartan 25 mg tablet 25 mg PO DAILY 03/24/24 05/12/24 History lysine 500 mg capsule 50 mg .QD 03/24/24 History multivitamin 1 tab PO DAILY 03/24/24 05/12/24 History therapeutic multivitamin 1 tab PO BID 03/24/24 05/12/24 History vitamin A 2,400 mcg capsule 2,400 mcg PO DAILY 03/24/24 05/12/24 History vitamin B complex 1 cap PO DAILY 03/24/24 05/12/24 History Allergies Allergy/AdvReac Type Severity Reaction Status Date / Time erythromycin base AdvReac Mild Nausea Verified 05/12/24 10:51 gluten AdvReac Mild INTOLERANCE Verified 05/12/24 10:51 tramadol AdvReac Mild Nausea Verified 05/12/24 10:51 Exam Constitutional Documenting provider has reviewed patient's vital signs: yes Common normals: no apparent distress, oriented x3, healthy appearing, alert and well nourished General appearance: cooperative HENMT Common normals: normocephalic, hearing grossly normal bilaterally and moist oral mucous membranes Head and scalp: normocephalic Eye Common normals: PERRL Pupil: PERRL Neck & C-Spine Common normals: full ROM General: normal visual inspection Chest Common normals: inspection of chest normal Respiratory Common normals: normal respiratory effort, no retractions and no use of accessory muscles Back & Pelvis Lumbar spine/lower back: normal to inspection, lumbar ROM normal, pain with ROM, straight leg raise positive right and straight leg raise positive left Sacroiliac joints: SI joints normal Other: increased pain with standing and walking decreased pain with sitting Extremity Common normals: normal to inspection and full ROM Neuro Common normals: oriented x3, CN's II-XII intact bilaterally, moves all extremities, no focal motor deficits, no sensory deficits noted and deep tendon reflexes 2+ bilaterally Sensorium/orientation: alert Motor exam: strength 5/5 throughout and no movement abnormalities noted Psych Common normals: mental status grossly normal, thought process normal, cooperative, affect normal, speech normal and activity/motor behavior normal Speech: normal speech Thought process: normal thought process Results Additional Findings Additional findings: If on a controlled substance or opioids, I have checked an [place] report on this patient and there are no aberrancies noted in the prescribing history.??If on a controlled substance or opioid a drug screen was completed and reviewed within the last year, and if there has not been a drug screen completed we ordered one today to monitor higher risk, state monitored pain medication use. As part of providing excellent, safe, comprehensive care, the following was completed at our patient's visit: 1. A medication reconciliation and review to ensure accurate knowledge of current/active medications, including asking our patients to inform us about any [id number] medications or herbal remedies/nutritional supplements/ alternative remedies. 2. A review to specifically ensure our patients have had annual screening for screening for depression, screening for tobacco use, and screening for unhealthy alcohol use. For concerning screenings had a discussion with the patient, provided patient education, and recommended follow-up with primary care provider when appropriate. If patient noted with a risk of falling, they received education on strength, gait, and balance training to prevent future risk of falling. Portions of this note may have been carried over from the previous visit and updated as appropriate. Please note this office utilizes paper charting in addition to the electronic medical record. A list of current medications, vitals, and PMH is available there as the clinical staff outside of myself do not have access to [employer] charting during the clinic day operations. As part of providing quality comprehensive care the current medications, vitals, and PMH were reviewed in the paper chart. Assessment and Plan Assessment and Plan (1) Lumbar stenosis with neurogenic claudication: (2) Myofascial pain: (3) Lumbar spondylosis: Plan continue baclofen 5-10mg TID PRN pain/spasms defer interventional therapy at this time, with now being on coumadin she was told by ordering provider she could not have injections for 6 months however we do not require a blood thinner hold continue to utilize cane, 1 fall within 12 months without injury continue f/u with PCP, hx of CKD avoid NSAIDs f/u 2 months, sooner if needed
== END 2024-11-26 10:48 | disposition home or self-care (01) ==
LOC: PM 10:47
PROVIDERS: PCP Internal Medicine; Visit Provider Nurse Practitioner
DX: M48.062 Spinal stenosis, lumbar region with neurogenic claudication (principal); M79.18 Myalgia, other site; M47.816 Spondylosis without myelopathy or radiculopathy, lumbar region
CPT/HCPCS: G0463